=== PATIENT | female | born 1950 | race Caucasian/White ===

== ENCOUNTER 2019-01-07 11:59 | Emergency (ER) | payer OTHER, MEDICAID, SELFPAY ==
--- NOTE | 2019-01-07 12:02 | ED.GENADUL_ITS ---
Discharge Plan Disposition Patient Disposition: HOME Condition: Fair Discharge Details Chief Complaint: Urinary Clinical Impression: UTI (urinary tract infection) Primary Care Provider: Denys Fierro ED Provider: Lisseth Williamson Dania Meds and New Rx's Prescriptions: New cephalexin [Keflex] 500 mg capsule 500 mg PO BID Qty: 10 RF: 0 phenazopyridine [Pyridium] 100 mg tablet 100 mg PO TID PRN (Reason: pain) Qty: 6 RF: 0 Continued (DME) blood-glucose meter,continuous Misc See Rx Instructions .ROUTE .MEDSUPPLY Qty: 1 RF: 0 allopurinol 300 mg tablet 300 mg PO QHS RF: 0 amlodipine 10 mg tablet 10 mg PO DAILY RF: 0 sitagliptin 100 mg tablet 100 mg PO DAILY RF: 0 duloxetine 20 mg capsule,delayed release(DR/EC) 40 mg PO DAILY RF: 0 Lantus U-100 Insulin 100 unit/mL solution 10 unit SC QHS RF: 0 docusate sodium 50 mg/5 mL liquid 100 mg PO BID PRNRF: 0 atorvastatin 40 mg tablet 40 mg PO QHS RF: 0 lisinopril 40 mg tablet 40 mg PO DAILY RF: 0 hydrocortisone 2.5 % cream 1 applic TP DAILY PRNRF: 0 metoprolol tartrate 25 mg tablet 50 mg PO BID RF: 0 carbamazepine 100 mg tablet,chewable See Rx Instructions .ROUTE DAILY RF: 0 hydrochlorothiazide 12.5 mg capsule 12.5 mg PO DAILY RF: 0 sodium chloride 0.9 % solution for nebulization See Rx Instructions .ROUTE .COMPLEX RF: 0 Alphagan P 0.1 % drops 1 drp OP ONCE RF: 0 colchicine 0.6 mg tablet 0.6 mg PO DAILY PRNRF: 0 (DME) Blood Glucose Test Strip See Rx Instructions .ROUTE .MEDSUPPLY Qty: 10 RF: 0 (DME) insulin syringe-needle U-100 0.5 mL 31 gauge x 5/16 syringe See Rx Instructions .ROUTE .MEDSUPPLY Qty: 10 RF: 0 levothyroxine 150 mcg capsule 150 mcg PO DAILY RF: 0 Travatan Z 0.004 % drops 1 drp OP QPM RF: 0 omeprazole 40 mg capsule,delayed release(DR/EC) 40 mg PO BID RF: 0 Discharge Instructions Instructions: Urinary Tract Infection in Women (ED) Additional Instructions: Encourage hydration. Please take Keflex as prescribed. Even if symptoms improve, please take the entire course. You may use the Pyridium as prescribed to help with symptomatic management. If you develop fever/chills, back pain, or the new/worsening symptoms please seek care urgently once again. Otherwise, please keep upcoming appointment with your primary care physician. Referrals: Denys Fierro DO [Primary Care Provider] - Medical Decision Making Patient 68-year-old female presenting today with concern for UTI. She reports for the past 2 days, she is increased frequency, urgency and burning of urination. Denies any fevers chills. Denies any back pain. Reports that she has had urinary tract infections historically, the last of which was in May. She denies any recent antibiotics. Denies any recent travel. Has not noted any change in her bowel habits. On exam, she appears nontoxic. Patient is noted to be hypertensive at 169/64. She does have a history of hypertension. No CVA tenderness. No abdominal tenderness. Urinalysis concerning for small amount of leukocyte esterase. Negative for nitrite. Few amount of bacteria. This been sent for culture. Discussed these findings with the patient. These findings as well as her symptoms are concerning for urinary tract infection. She will be treated with Keflex. Will give Pyridium to help with medic management. She is given strict return precautions. She has an appointment on Tuesday with primary care. All of her questions and concerns were addressed and she is in agreement this plan. [facility] General Mode of arrival: ambulatory . Date/Time Provider Initiated Documentation: 01/07/19 12:01 . Limitations to Documentation: no limitations (Patient is status post laryngectomy, was whispers and writes, no limitations) . Information obtained by: patient . History of Present Illness 68 year old F presents to the emergency department with the chief complaint of UTI, described as moderate and similar to prior episodes, Quality is described as burning (with urination), and is localized to the genitals. Patient reports no radiation. Patient started experiencing this day(s) (2) and it has been constant. No relieving factors improve symptom(s), No exacerbating factors reported . Patient notes no other symptoms.; denies chest pain, cough, fever/chills, headaches, nausea/vomiting, rash and weakness. Patient did receive the following treatments prior to arrival, none Related Data Home Medications Medication Instructions Recorded Confirmed allopurinol 300 mg tablet 300 mg PO QHS tab 01/05/19 01/07/19 amlodipine 10 mg tablet 10 mg PO DAILY 01/05/19 01/07/19 atorvastatin 40 mg tablet 40 mg PO QHS 01/05/19 01/07/19 blood sugar diagnostic #10 each 01/05/19 blood-glucose meter,continuous #1 each 01/05/19 brimonidine 0.1 % eye drops 1 drp OP ONCE 01/05/19 01/07/19 carbamazepine 100 mg chewable See Rx Instructions .ROUTE DAILY 01/05/19 01/07/19 tablet colchicine 0.6 mg tablet 0.6 mg PO DAILY PRN 01/05/19 01/07/19 docusate sodium 50 mg/5 mL oral 100 mg PO BID PRN ml 01/05/19 01/07/19 liquid duloxetine 20 mg capsule,delayed 40 mg PO DAILY cap 01/05/19 01/07/19 release hydrochlorothiazide 12.5 mg capsule 12.5 mg PO DAILY 01/05/19 01/07/19 hydrocortisone 2.5 % topical cream 1 applic TP DAILY PRN gm 01/05/19 01/07/19 insulin glargine 100 unit/mL 10 unit SC QHS 01/05/19 01/07/19 subcutaneous solution insulin syringe-needle U-100 0.5 #10 each 01/05/19 mL 31 gauge x 09/28 levothyroxine 150 mcg capsule 150 mcg PO DAILY 01/05/19 01/07/19 lisinopril 40 mg tablet 40 mg PO DAILY 01/05/19 01/07/19 metoprolol tartrate 25 mg tablet 50 mg PO BID tab 01/05/19 01/07/19 omeprazole 40 mg capsule,delayed 40 mg PO BID 01/05/19 01/07/19 release sitagliptin 100 mg tablet 100 mg PO DAILY 01/05/19 01/07/19 sodium chloride 0.9 % for See Rx Instructions .ROUTE .COMPLEX 01/05/19 01/07/19 nebulization travoprost 0.004 % eye drops 1 drp OP QPM 01/05/19 01/07/19 cephalexin [Keflex] 500 mg PO BID #10 cap 01/07/19 phenazopyridine [Pyridium] 100 mg PO TID PRN #6 tab 01/07/19 Previous Rx's Medication Instructions Recorded cephalexin [Keflex] 500 mg PO BID #10 cap 01/07/19 phenazopyridine [Pyridium] 100 mg PO TID PRN #6 tab 01/07/19 Allergies Allergy/AdvReac Type Severity Reaction Status Date / Time metformin AdvReac Diarrhea, Unverified 01/07/19 12:08 Nausea, Vomiting Review of Systems Constitutional Reports as per HPI, Denies chills, Denies fever(s) and Denies poor appetite Cardiovascular Denies chest pain Respiratory Denies cough Gastrointestinal Denies abdominal pain, Denies change in bowel habits, Denies nausea and Denies vomiting Genitourinary Reports as per HPI Musculoskeletal Reports as per HPI and Denies back pain Integumentary/Breasts Reports as per HPI and Denies rash [facility] Medical History Aortic stenosis (Chronic) Aphonia (Acute) 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) Diabetes mellitus, type II (Acute) Dyspepsia (Acute) Dysphagia (Acute) Esophageal stricture (Acute) Fibromyalgia (Acute) GERD (gastroesophageal reflux disease) (Chronic) Hyperlipidemia (Acute) Hypertension (Chronic) Laryngeal cancer (Acute) Postoperative hypothyroidism (Acute) Pulmonary nodules (Acute) 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 (Acute) Surgical History History of back surgery (Acute ~1974) History of carpal tunnel release (Acute) History of cataract surgery (Chronic) History of cervical spinal surgery (Acute) History of section (Chronic) History of cholecystectomy (Chronic) History of hysterectomy (Chronic) History of laparoscopy (Chronic ~2015) History of laryngectomy (Acute) History of shoulder surgery (Chronic ~2006) History of tracheostomy (Acute ~2015) Hx of removal of ovary (Acute) Family History (Updated 12/11/18 @ 13:20 by Emerita Rani) Father Stroke Brother Colon cancer Sister Diabetes Myocardial infarction Social History Smoking/Tobacco Use Status: Former Tobacco Use Quit Date: 05/16/81 Alcohol Intake: never Substance use type: marijuana Do you feel safe at home: Yes Do you feel safe in your relationship?: Yes Exam Const General: cooperative, healthy appearing, comfortable, no acute distress, well developed and well groomed Nutritional Appearance: well nourished and overweight Orientation: alert and awake Neck Neck: normal visual inspection (stoma) Resp Effort & Inspection: normal respiratory effort and no respiratory distress Auscultation: clear to auscultation bilaterally, no rales, no rhonchi and no wheezes Cardio Rate: regular rate Rhythm: regular rhythm Heart Sounds: S1 normal and S2 normal GI Inspection: normal to inspection Palpation: soft, no hepatosplenomegaly, not firm, no guarding, not rigid and nontender Back/Spine/Pelvis Back: no CVA tenderness Skin General skin exam: no rashes or lesions noted Trauma: no lacerations or abrasions Neuro General: alert and awake Cognition: normal cognition Speech: speech normal Gait: normal gait Psych Appearance: grossly normal and well kempt Mental Status: mental status grossly normal Speech and Movement: speech and movement normal
[2019-01-07 12:04] VITALS: BP 169/64; PULSE 61; RESP 16; TEMP 36.6; O2SAT 97
[2019-01-07 12:19] LABS: Bilirubin Small (Negative); Blood Negative (Negative); Clarity Clear (Clear); Glucose Negative (Negative); Ketones Negative (Negative); Leukocyte Esterase Small (Negative); Nitrite Negative (Negative); Urobilinogen 0.2 EU/dL (Up TO 0.2)
[2019-01-07 12:28] LABS: Bacteria Few HPF (Negative); C & S Indicated? Yes; Casts Negative LPF (Negative); Crystals Rare Amorphous HPF (Negative); Epithelial Cells Rare HPF (Negative); Mucus Trace (Negative); RBC 0-2 (0-2)
[2019-01-07 12:54] VITALS: TEMP 36.6
== END 2019-01-07 12:52 | disposition home or self-care (01) ==
LOC: ER 13:01
PROVIDERS: Emergency Provider Physician Assistant; PCP Family Medicine
DX: N39.0 Urinary tract infection, site not specified (principal); E11.9 Type 2 diabetes mellitus without complications; I10 Essential (primary) hypertension
CPT/HCPCS: 99283; 81003; 81015; 87086

== ENCOUNTER 2019-01-18 10:27 | Emergency (ER) | payer OTHER, MEDICAID, SELFPAY ==
[2019-01-18 10:35] VITALS: BP 126/48; PULSE 69; RESP 20; TEMP 36.1; O2SAT 97
--- NOTE | 2019-01-18 10:39 | DI.RAD_ITS ---
SYMPTOMS/DIAGNOSIS: FALL, LT LATERAL RIB PAIN PA AND LATERAL CHEST AND LEFT RIBS: PA and lateral views of the chest and four views of the left ribs were obtained. The heart is not enlarged. The lungs are clear. No pleural effusion or pneumothorax. No rib fracture identified.
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
[2019-01-18] MEDS: Lidocaine 5% Patch 1 PATCH TP (10:49)
[2019-01-18] MEDS: Ibuprofen 800 MG TAB PO (10:50)
[2019-01-18] MEDS: Bupivacaine 0.25% Pres-Free 30 ML VIAL (11:45)
[2019-01-18] MEDS: Bupivacaine LIPOSOME/PF 133 MG/10 ML VIAL IJ (11:45)
[2019-01-18 12:25] VITALS: BP 169/86; PULSE 58; RESP 15; TEMP 36.2; O2SAT 98
--- NOTE | 2019-01-18 12:42 | NUR.NOTE ---
pt provided with meal prior to d/c Nursing Note:
== END 2019-01-18 12:42 | disposition home or self-care (01) ==
LOC: ER 12:22
PROVIDERS: Emergency Provider Student in an Organized Health Care Education/Training Program; PCP Family Medicine
DX: R07.81 Pleurodynia (principal); E11.9 Type 2 diabetes mellitus without complications; W01.0XXA Fall on same level from slipping, tripping and stumbling without subsequent striking against object, initial encounter
CPT/HCPCS: 64450; 99283; 71046; 71100

== ENCOUNTER 2019-01-25 01:00 | Outpatient (CLI) | payer OTHER, MEDICAID, SELFPAY ==
--- NOTE | 2019-01-25 10:30 | MERGE_ITS ---
*[facility]* *[facility]* [address] [place] [address] Date of study: 01/25/2019 Transthoracic Echocardiography M-mode, complete 2D, complete spectral Doppler, and color Doppler *STUDY CONCLUSIONS* Summary: 1. Left ventricle: The cavity size was normal. Wall thickness was increased in a pattern of moderate LVH. There was severe asymmetric hypertrophy of the septum. Systolic function was normal. The estimated ejection fraction was 55-60%. Wall motion was normal; there were no regional wall motion abnormalities. The outflow tract showed mild to moderate obstruction and a velocity flow profile with a late systolic peak, typical of dynamic obstruction (peak velocity with Valsalva 3.4m/s). 2. Aortic valve: Trileaflet; moderately thickened, moderately calcified leaflets. Valve mobility was restricted. Transvalvular velocity was increased. There was moderate to severe stenosis. There was mild regurgitation. Valve area (VTI): 0.9cm^2. Valve area (Vmax): 0.7cm^2. Valve area (Vmean): 1cm^2. 3. Mitral valve: Mildly calcified annulus. There was mild to moderate regurgitation. 4. Right ventricle: The cavity size was normal. Wall thickness was normal. Systolic function was normal. 5. Tricuspid valve: There was mild-moderate regurgitation. 6. Pulmonary arteries: Pulmonary systolic pressure was mildly increased. PA peak pressure: 38mm Hg (S). *PATIENT PRESENTATION* Height: 160cm (63in ) S/D Pressure: 165 / 65 Weight: 79.4kg (174.6lb ) BSA: 1.91m^2 Test start time: 10:30 AM. Test stop time: 11:30 AM. PERFORMING Unknown PERFORMING [facility] PRESS SERVICE READER Makenzie Barajas RT (R)(CT), [facility] CONSULTING Denys Fierro ORDERING Denys Fierro REFERRING Denys Fierro *PROCEDURE DATA* Procedure information: This study was interpreted by [facility]. Pertinent images and digital data are archived for permanent storage and are available for subsequent review. No prior study was available for comparison. Study status: Routine. Transthoracic echocardiography. M-mode, complete 2D, complete spectral Doppler, and color Doppler. A Transthoracic Echocardiogram was performed. Scanning was performed from the parasternal, apical, subcostal, and suprasternal notch acoustic windows. Images were obtained using an [id number] cardiac ultrasound machine. Image quality was adequate. Study completion: The patient tolerated the procedure well. History: PMH: Reports of aortic stenosis from old records i35.0. *CARDIAC ANATOMY* Left ventricle: The cavity size was normal. Wall thickness was increased in a pattern of moderate LVH. There was severe asymmetric hypertrophy of the septum. Systolic function was normal. The estimated ejection fraction was 55-60%. Wall motion was normal; there were no regional wall motion abnormalities. The outflow tract showed mild to moderate obstruction and a velocity flow profile with a late systolic peak, typical of dynamic obstruction (peak velocity with Valsalva 3.4m/s). Aortic valve: Trileaflet; moderately thickened, moderately calcified leaflets. Valve mobility was restricted. Doppler: Transvalvular velocity was increased. There was moderate to severe stenosis. There was mild regurgitation. VTI ratio of LVOT to aortic valve: 0.33. Valve area (VTI): 0.9cm^2. Indexed valve area (VTI): 0.5cm^2/m^2. Peak velocity ratio of LVOT to aortic valve: 0.25. Valve area (Vmax): 0.7cm^2. Indexed valve area (Vmax): 0.4cm^2/m^2. Mean velocity ratio of LVOT to aortic valve: 0.34. Valve area (Vmean): 1cm^2. Indexed valve area (Vmean): 0.5cm^2/m^2. Mean gradient (S): 32.9mm Hg. Peak gradient (S): 65.1mm Hg. Aorta: Aortic root: The aortic root was normal in size. Ascending aorta: The ascending aorta was at upper normal limits. Mitral valve: Mildly calcified annulus. Mobility was not restricted. Doppler: Transvalvular velocity was within the normal range. There was no evidence for stenosis. There was mild to moderate regurgitation. Valve area by pressure half-time: 2.9cm^2. Indexed valve area by pressure half-time: 1.5cm^2/m^2. Peak gradient (D): 2.4mm Hg. Left atrium: The atrium was normal in size. Right ventricle: The cavity size was normal. Wall thickness was normal. Systolic function was normal. Pulmonic valve: Poorly visualized. Doppler: Transvalvular velocity was within the normal range. There was no evidence for stenosis. There was no significant regurgitation. Tricuspid valve: Structurally normal valve. Doppler: Transvalvular velocity was within the normal range. There was no evidence for stenosis. There was mild-moderate regurgitation. Pulmonary artery: Poorly visualized. Pulmonary systolic pressure was mildly increased. Right atrium: The atrium was normal in size. Pericardium: There was no pericardial effusion. Systemic veins: Inferior vena cava: Well visualized. The vessel was patent and normal in size. The respirophasic diameter changes were in the normal range (greater than or equal to 50%). Baseline ECG: Bradycardia. Measurements Left ventricle Value Reference LV ID, ED, PLAX 3.5 cm 3.5 - 6.0 LV ID, ES, PLAX 2.2 cm 2.1 - 4.0 LV PW thickness, ED, PLAX 1.4 cm LV end-diastolic volume, 1-p A2C 109 ml LV ejection fraction, 1-p A2C 65 % LV end-diastolic volume, 1-p A4C 95 ml LV ejection fraction, 1-p A4C 50 % LV e', lateral 0.077 m/sec LV E/e', lateral 10 LV e', medial 0.059 m/sec LV E/e', medial 13 LV e', average 0.068 m/sec LV E/e', average 12 Ventricular septum Value Reference IVS thickness, ED, PLAX 1.3 cm LVOT Value Reference LVOT ID, A-P 1.9 cm LVOT area 2.8 cm^2 LVOT peak velocity, S 1.02 m/sec LVOT mean velocity, S 0.91 m/sec LVOT VTI, S 32.9 cm LVOT peak gradient, S 4.2 mm Hg LVOT mean gradient, S 3.4 mm Hg Stroke volume (SV), LVOT DP 93 ml Stroke index (SV/bsa), LVOT DP 49 ml/m^2 Aortic valve Value Reference Aortic valve peak velocity, S 4 m/sec Aortic valve mean velocity, S 2.7 m/sec Aortic valve VTI, S 99.0 cm Aortic mean gradient, S 32.9 mm Hg Aortic peak gradient, S 65.1 mm Hg VTI ratio, LVOT/AV 0.33 Aortic valve area, VTI 0.9 cm^2 Velocity ratio, peak, LVOT/AV 0.25 Aortic valve area, peak velocity 0.7 cm^2 Velocity ratio, mean, LVOT/AV 0.34 Aortic valve area, mean velocity 1 cm^2 Aortic valve area/bsa, mean velocity 0.5 cm^2/m^2 Aorta Value Reference Aortic root ID, ED 2.9 cm Ascending aorta ID, A-P, S 3.4 cm Left atrium Value Reference LA ID, A-P, ES 3.6 cm LA ID/bsa, A-P 1.9 cm/m^2 <=2.2 LA volume, ES, 2-p 46 ml LA volume/bsa, ES, 2-p 24 ml/m^2 LA/aortic root ratio 1.24 Mitral valve Value Reference Mitral E-wave peak velocity 0.78 m/sec Mitral A-wave peak velocity 0.83 m/sec Mitral deceleration time (H) 264 ms 150 - 230 Mitral pressure half-time 76 ms Mitral peak gradient, D 2.4 mm Hg Mitral E/A ratio, peak 0.93 Mitral valve area, PHT, DP 2.9 cm^2 Pulmonary arteries Value Reference PA pressure, S, DP (H) 38 mm Hg <=30 Tricuspid valve Value Reference Tricuspid regurg peak velocity 2.6 m/sec Tricuspid peak RV-RA gradient 27.9 mm Hg Right atrium Value Reference RA area, ES, A4C 14.2 cm^2 8.3 - 19.5 Systemic veins Value Reference Estimated CVP 10 mm Hg Right ventricle Value Reference RV pressure, S, DP (H) 38 mm Hg <=30 Legend: (L) and (H) analia values outside specified reference range. I have personally reviewed the images and have reviewed and edited the reported findings. Electronically signed by Jabier Quiñonez 01/26/2019 12:01
== END 2019-01-25 01:20 ==
PROVIDERS: PCP Family Medicine; Visit Provider Family Medicine
DX: I35.0 Nonrheumatic aortic (valve) stenosis (principal); I34.8 Other nonrheumatic mitral valve disorders; I36.1 Nonrheumatic tricuspid (valve) insufficiency; I10 Essential (primary) hypertension
CPT/HCPCS: 93306

== ENCOUNTER 2019-02-01 00:21 | Outpatient (CLI) | payer OTHER, MEDICAID, SELFPAY ==
--- NOTE | 2019-02-01 11:00 | DI.MAMMO_ITS ---
EXAM: MAMMO SCREENING CLINICAL HISTORY: screening Z12.39. TECHNIQUE: Mammograms were interpreted according to the usual protocol including computer analysis w ith CAD system, tomosynthesis and C-view imaging. COMPARISON: No exams were available for comparison FINDINGS: Breasts are of moderate density with fairly symmetrical distribution of fibroglandular tissue. No dom inant mass or clumped microcalcification is identified in either breast. There is a questionable area of asymmetric density projected in the central portion of the left breast on MLO view. Additional ma mmographic views of this area are requested to include MLO spot compression view. IMPRESSION: Additional mammographic views of the left breast requested as described above. Breast ultrasound may be indicated as well depending on the results of the additional mammographic views. Category 0, breas t density category B. BI-RADS Cat 0 - Assessment Incomplete: Need additional imaging evaluation Breast Density - Category B - Scattered areas of fibroglandular density
== END 2019-02-01 00:41 ==
PROVIDERS: PCP Family Medicine; Visit Provider Family Medicine
DX: Z12.31 Encounter for screening mammogram for malignant neoplasm of breast (principal); R92.8 Other abnormal and inconclusive findings on diagnostic imaging of breast
CPT/HCPCS: 77063; 77067

== ENCOUNTER 2019-02-02 11:16 | Emergency (ER) | payer OTHER, MEDICAID, SELFPAY ==
[2019-02-02 11:23] VITALS: BP 192/65; PULSE 66; RESP 16; TEMP 36.4; O2SAT 96
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
[2019-02-02 12:04] LABS: Abs Immature Grans 0.09 k/cumm (0.0-0.09); Absolute Basophil Count 0.03 k/cumm (0.0-0.2); Absolute Eosinophil Count 0.09 k/cumm (0.0-0.7); Absolute Lymphocyte Count 1.24 k/cumm (1.2-3.4); Absolute Monocyte Count 0.55 k/cumm (0.11-0.7); Absolute Neutrophil Count 3.64 k/cumm (1.2-6.7); Basophils % 0.5; Eosinophils % 1.6; HCT 33.5 % (36.0-46.0); HGB 11.1 g/dL (12.0-15.5); Immature Grans % 1.6; Mean Corp. HGB Concentration 33.1 g/dL (32.0-36.0); Mean Corpuscular Hemoglobin 29.8 pg (27.0-33.0); Mean Corpuscular Volume 90.1 fL (80-95); Mean Platelet Volume 11.6 fL (8.0-11.0); Monocytes % 9.8; Neutrophils % 64.5; Platelet Count 197 x1000/uL (130-400); RBC 3.72 m/cumm (4.00-5.20); RBC Distribution Width 15.2 % (11.7-14.6); White Blood Cell Count 5.64 k/cumm (4.4-10.8)
[2019-02-02] MEDS: MORPHine 10 MG/ML VIAL 4 MG IVP (12:12)
[2019-02-02 12:16] LABS: ALT 44 U/L (14-59); AST 39 U/L (15-37); Albumin 3.8 g/dL (3.4-5.0); Alkaline Phosphatase 144 U/L (46-116); Anion Gap 9.3 mmol/L (3-11); BUN 11 mg/dL (7-18); Bilirubin, Total 0.3 mg/dL (0.2-1.0); CO2 26.7 mmol/L (21.0-32.0); CREATININE 0.97 mg/dL (0.55-1.02); Calcium 7.5 mg/dL (8.5-10.1); Chloride 106 mmol/L (98-107); Estimated GFR 56.77 (mL/min/1.73m2); Glucose 125 mg/dL (70-100); Potassium 4.2 mmol/L (3.5-5.1); Sodium 142 mmol/L (136-145)
--- NOTE | 2019-02-02 12:25 | DI.CT_ITS ---
EXAM: CT HEAD CERV SPINE FACIAL WO CLINICAL HISTORY: fall, hit face, notable tenderness frontal,max,pal. TECHNIQUE: A cervical spine and head and facial bone CT were performed without contrast material. COMPARISON: No exams were available for comparison FINDINGS: HEAD: There is no evidence of an intra or extra-axial hemorrhage. Age-appropriate atrophic changes are identified. The ventricles are intact. There is no evidence of a skull fracture. The paranasal sinuses are intact. There is no evidence of a mastoid effusion. C-spine: Vertebral bodies appear intact. Narrowing and associated degenerative bony changes are most advanced at C5-C6 and C6-C7. There is no evidence of an abnormality involving the posterior element s. There are mild facet joint degenerative changes. The neural canal is widely patent. No Foraminal compromise is evident. The odontoid is intact and is closely applied to the anterior arch of C1. The prevertebral soft tissues appear unremarkable. FACIAL BONE: No facial bone fracture is identified. The paranasal sinuses are intact. The orbits are intact. The nasal bones are unremarkable. The patient is edentulous. IMPRESSION: No acute intracranial abnormality is identified. No evidence of a c spine fracture. No evidence of a facial bone fracture.
--- NOTE | 2019-02-02 12:52 | NUR.NOTE ---
pt back from ct Nursing Note:
[2019-02-02 13:45] VITALS: BP 143/90; PULSE 65; RESP 16; TEMP 36.7
== END 2019-02-02 13:55 | disposition home or self-care (01) ==
PROVIDERS: Emergency Provider Student in an Organized Health Care Education/Training Program; PCP Family Medicine
DX: S00.83XA Contusion of other part of head, initial encounter (principal); R04.0 Epistaxis; W01.0XXA Fall on same level from slipping, tripping and stumbling without subsequent striking against object, initial encounter; E11.9 Type 2 diabetes mellitus without complications; Z79.4 Long term (current) use of insulin; I10 Essential (primary) hypertension
CPT/HCPCS: 36415; 80053; 96374; 99284; 70450; 70486; 72125; 85025; 85610; 85730

== ENCOUNTER 2019-03-09 00:44 | Outpatient (CLI) | payer OTHER, MEDICAID, SELFPAY ==
--- NOTE | 2019-03-09 13:47 | DI.MAMMO_ITS ---
EXAM: MG MAMMO DIAGNOSTIC UNI AND US BREAST LT LIMITED CLINICAL HISTORY: F/U ABNL MAMMO, QUESTIONABLE AREA OF ASYMMETRIC DENSITY TECHNIQUE: Ultrasound performed using standard protocol. COMPARISON: SCREENING MAMMOGRAM OF 02/01/2019 FINDINGS: Additional mammographic views of the left breast and left breast ultrasound are interpreted in conjun ction. These examinations were obtained to evaluate a questionable area of asymmetric density seen o n recent mammogram. Additional mammographic views fail to show a discrete mass. Breast ultrasound s hows no evidence of a mass. An incidental 3 millimeter mammary cyst is noted in approximately the 8 o'clock position. IMPRESSION: No specific evidence of malignancy at this time. Follow-up unilateral left breast mammogram recommend ed in 6 months. Category 3, breast density category B. BI-RADS Cat 3 - 6 month - Probably Benign Finding: Recommend follow-up mammography in 6 months Breast Density - Category B - Scattered areas of fibroglandular density
== END 2019-03-09 01:04 ==
PROVIDERS: PCP Family Medicine; Visit Provider Family Medicine
DX: Z12.31 Encounter for screening mammogram for malignant neoplasm of breast (principal); R92.8 Other abnormal and inconclusive findings on diagnostic imaging of breast; N60.02 Solitary cyst of left breast
CPT/HCPCS: 76642; 77061; 77065; G0279

== ENCOUNTER 2019-04-15 14:50 | Emergency (ER) | payer MEDICARE, MEDICAID, SELFPAY ==
[2019-04-15 14:55] VITALS: BP 193/72; PULSE 67; RESP 16; TEMP 36.4; O2SAT 96
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
[2019-04-15] MEDS: oxyCODONE 5 MG TAB PO (15:28)
--- NOTE | 2019-04-15 15:36 | DI.RAD_ITS ---
EXAM: XR FOOT LT COMPLETE INDICATION: hit L 2nd/3rd toes, r/o acute fracture,PAIN COMPARISON: No exams were available for comparison TECHNIQUE: 2D digital imaging was performed. FINDINGS: There is a transverse lucency through the shaft of the distal phalanx of the left 4th toe. There is soft tissue swelling of the 4th toe. This likely reflects an acute fracture. There is a question of cortical disruption in the medial aspect of the shaft of the proximal phalanx of the 2nd toe suspicious for a nondisplaced fracture. No other fracture or dislocation is seen. Degenerative changes are seen in the foot, particularly at the 1st metatarsophalangeal joint. IMPRESSION: 1. Nondisplaced fracture of the shaft of the distal phalanx of the left 4th toe. Please correlate cli nically. Infection may also be considered. 2. Question of a nondisplaced fracture involving the proximal phalanx of the 2nd toe.
--- NOTE | 2019-04-15 16:29 | DI.VRAD_ITS ---
PROCEDURE INFORMATION: Exam: XR Left Foot Complete Exam date and time: 04/15/2019 3:28 PM Age: 69 years old Clinical history: Pain; Foot; Left . The area of pain is the second and third digit. The patient had had her second and third toes on the stand. TECHNIQUE: Imaging protocol: XR Left foot. Views: 3 or more views. COMPARISON: No relevant prior studies available. FINDINGS: Bones/joints: There is a horizontal fracture through the tuft of the fourth digit on series 1. There is cortical irregularity laterally, concerning for bony resorption. This finding should be correlated with any concern for infection. There is a linear lucency and cortical irregularity to the medial shaft of the second proximal phalanx, series 1. This could represent a subtle nondisplaced fracture. Correlation with point tenderness suggested. There are degenerative changes to the IP joints, first MTP joint, and bases of the metatarsals. A heel spur is seen. Soft tissues: No unusual soft tissue calcifications. IMPRESSION: 1. Horizontal fracture through the tuft of the fourth digit. There is cortical irregularity laterally, concerning for bony resorption. Findings should be correlated with any concern for infection. 2. Linear lucency and cortical irregularity in the medial shaft of the left second proximal phalanx. This could represent a subtle nondisplaced fracture. Correlation with point tenderness suggested. 3. No definite fracture identified in the third digit. If symptoms persist, consider followup imaging in 7 days or alternatively imaging modalities. Other findings/details as above. Dictated and Authenticated by: Adrianna Hernandez MD. Ordering:ALBIN Schaffer MD
[2019-04-15 17:24] VITALS: PULSE 62; RESP 18; TEMP 36.5; O2SAT 96
== END 2019-04-15 17:36 | disposition home or self-care (01) ==
PROVIDERS: Emergency Provider Physician Assistant; PCP Family Medicine
DX: S92.515A Nondisplaced fracture of proximal phalanx of left lesser toe(s), initial encounter for closed fracture (principal); X50.9XXA Other and unspecified overexertion or strenuous movements or postures, initial encounter; E11.9 Type 2 diabetes mellitus without complications; Z79.4 Long term (current) use of insulin; I10 Essential (primary) hypertension
CPT/HCPCS: 28510; 73630

== ENCOUNTER 2019-05-07 00:32 | Outpatient (CLI) | payer MEDICARE, MEDICAID, SELFPAY ==
--- NOTE | 2019-05-07 09:20 | DI.NM_ITS ---
APPROVED REPORT Exam: Exercise Treadmill (5 seconds) then transitioned to Lexiscan stress test Patient Location: Out-Patient Room/Bed: Stress Nurse: Dona Koo RN BMI: 30.11 Baseline Rhythm: Sinus Rhythm Indications: Preop, Aortic Stenosis Medical History Medical History: Aphonia, Esophageal Stricture, Tracheostomy Dependence, Laryngeal Cancer, Pulmonary Nodules, Postoperative Hypothyroidism, Gerd Cardiac Medications: Atorvastatin, Metoprolol Tartrate, Lisinopril, Hydrochlorothiazide, Amlodipine, Allergies: Metformin Cardiac Risk Factors: FHX of CAD, HTN, Hyperlipidemia, Diabetes (insulin) Previous Cardiac Procedures: None Pretest Chest Pain Characteristics: No chest pain Exercise History: Sedentary Physical Disabilities: Difficulty walking. Lung Sounds: Clear to auscultation Heart Sounds: Murmur Stress Test Details Test: Pharmacologic stress testing performed using 0.4 mg of regadenoson per 5 mL given IV over 10 s econds. Reason for pharmacologic stress test: Patient started on Treadmill (5 seconds) and was unable as t he treadmill was too fast. Nuclear Acquisition: Rest Tc-99m/Stress Tc-99m 1 day Rest Isotope: Tc-99m Sestamibi. Dose: 12.1 Date: 05/07/2019 Injection Time: 0815 Stress Isotope: Tc-99m Sestamibi. Dose: 1005 Date: 05/07/2019 Injection Time: 1005 HR Max Heart Rate (APMHR): 149 bpm Resting HR Supine: 65 bpm Target HR (85% APMHR): 126 bpm Resting HR Standin bpm Max HR Achieved: 79 bpm % of APMHR: 53 Recovery HR: 68 bpm BP Resting BP Supine: 128/70 mmHg Resting BP Standin/60 mmHg ECG Resting ECG: Sinus Rhythm Clinical Reason for Termination: Patient unable to walk on treadmill too fast Exercise duration: min5 sec Stress ECG Conclusion 1. The patient underwent pharmacologic stress without symptoms 2. Blunted hemodynamics 3. Electrocardiographically nondiagnsotic due to inadequate heart rate Protocol Used: Regadenoson Stress Test Summary STAGE HR BP Symptoms NOTES Supine 65 128/70 Standing 68 120/60 1 min 79 120/58 2 min 3 min 71 140/70 4 min 5 min 6 min 66 124/62 7 min 8 min 9 min 10 min 1 min recovery 3 min recovery 6 min recovery MPI Conclusion No evidence of myocardial infarction or significant ischemia with pharmacologic stress
[2019-05-07] MEDS: Regadenoson 0.4 MG/5 ML SYR IVP (10:39)
== END 2019-05-07 00:52 ==
PROVIDERS: PCP Family Medicine; Visit Provider Family Medicine
DX: I35.0 Nonrheumatic aortic (valve) stenosis (principal); R13.10 Dysphagia, unspecified; Z85.21 Personal history of malignant neoplasm of larynx; Z93.0 Tracheostomy status; I10 Essential (primary) hypertension; E78.5 Hyperlipidemia, unspecified; E11.9 Type 2 diabetes mellitus without complications; Z79.4 Long term (current) use of insulin; R91.8 Other nonspecific abnormal finding of lung field; Z82.49 Family history of ischemic heart disease and other diseases of the circulatory system
CPT/HCPCS: 78452; 93016; 93018; 93017; J2785

== ENCOUNTER 2019-06-07 10:07 | Emergency (ER) | payer MEDICARE, MEDICAID, SELFPAY ==
[2019-06-07 10:12] VITALS: BP 179/77; PULSE 97; RESP 14; TEMP 36.4; O2SAT 96
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
[2019-06-07 11:30] VITALS: RESP 12; RESP 5; O2SAT 95
[2019-06-07] MEDS: Albuterol/Ipratropium 3 ML UPD VIAL UPD (11:30)
[2019-06-07 11:34] VITALS: TEMP 37
[2019-06-07 11:38] VITALS: RESP 12
[2019-06-07 11:43] VITALS: RESP 12; RESP 5; RESP 8; O2SAT 99
--- NOTE | 2019-06-07 12:00 | DI.RAD_ITS ---
EXAM: XR CHEST 2V PA LATERAL CLINICAL HISTORY: Cough, throat problem, history of Tracheostomy. TECHNIQUE: 2D digital imaging was performed. COMPARISON: XR ribs LT w PA lat chest from 01/18/2019 FINDINGS: LUNGS: Clear. No pleural abnormality seen. HEART: Normal. MEDIASTINUM: Normal. OTHER FINDINGS:Normal. BONE:Normal. IMPRESSION: No acute pulmonary findings.
--- NOTE | 2019-06-07 12:04 | DI.RAD_ITS ---
EXAM: XR SOFT TISSUE NECK INDICATION: THROAT CLOSING, HISTORY OF LARYNGEAL CA, TRACHEOSTOMY. COMPARISON: No exams were available for comparison TECHNIQUE: 2D digital imaging was performed. FINDINGS: No significant narrowing of the airway is seen. There is a tracheostomy in place. Prevertebral soft tissues are unremarkable. If there is continued concern, a CT scan may be considered for further ev aluation.
--- NOTE | 2019-06-07 13:22 | PDOC.ERCMPRO ---
- If Service Date Differs Date of service: 06/07/19 Time of Service: 13:22 Care Management Progress Note S/O: CM met with Karina at the request of ED provider. Karina was seen by respiratory therapy in the ED today and it has been recommended that she obtain equipment for humidified oxygen and suctioning equipment for laryngeal stoma care. Karina struggles with speaking and she communicates with me by writing on a piece of paper. She reports she has had the trach since 2016. At the time, she lived in [place], [place], and used a DME company there, but is unable to remember the name of the supplier. Karina now lives in an apartment at the [facility] and she states she has not had a DME supplier for approximately three years. CM confirms with patient that she is insured through Medicare and Medicaid and advises her the insurance will pay for the recommended DME, which is being coordinated by respiratory therapy. A: Karina is a 69 year old female who presents in the ED for respiratory symptoms. P: Respiratory therapy is coordinating recommended DME through [facility]. Karina will be discharged home when medically cleared by provider. She will follow-up with [facility] as scheduled on June 15, 2019.
[2019-06-07] MEDS: Acetaminophen 80 MG CHEW 400 MG PO (13:34)
== END 2019-06-07 13:55 | disposition home or self-care (01) ==
PROVIDERS: Emergency Provider Registered Nurse Emergency; PCP Family Medicine
DX: R13.10 Dysphagia, unspecified (principal); Z93.0 Tracheostomy status; I10 Essential (primary) hypertension; E11.9 Type 2 diabetes mellitus without complications; Z79.4 Long term (current) use of insulin
CPT/HCPCS: 87449; 94640; 99284; 70360; 71046; 99283; J7620

== ENCOUNTER 2020-02-15 04:55 | Outpatient (CLI) | payer MEDICARE, MEDICAID, SELFPAY ==
--- NOTE | 2020-02-15 07:40 | DI.RAD_ITS ---
EXAM: XR LUMBAR SPINE COMPLETE CLINICAL HISTORY: Acute on chronic low back pain, r/o compression FX, M54.5 TECHNIQUE: 2D digital imaging was performed. COMPARISON: CR LUMBAR SPINE COMPLETE from 06/29/2008 FINDINGS: The vertebral bodies are well maintained in height. Bony detail is somewhat obscured on the AP and o blique views due to overlying bowel gas. Endplate osteophytes are noted throughout. There is mild n arrowing of the L4-5 disc space. Facet degenerative changes are also seen at this level. There is s evere narrowing of the L5-S1 disc space. Facet degenerative changes are noted. There is no signific ant scoliosis. No spondylolysis or spondylolisthesis is seen. The aorta shows calcification and whi ch is normal in diameter. There are right upper quadrant surgical clips. IMPRESSION: Degenerative disc changes and facet degenerative changes, greatest at L4-5 and L5-S1.
== END 2020-02-15 05:15 ==
PROVIDERS: PCP Family Medicine; Visit Provider Family Medicine
DX: M47.816 Spondylosis without myelopathy or radiculopathy, lumbar region (principal); M48.07 Spinal stenosis, lumbosacral region
CPT/HCPCS: 72110

== ENCOUNTER 2020-05-28 17:25 | Observation (INO) | payer MEDICARE, MEDICAID, SELFPAY ==
[2020-05-28] VITALS (41 sets, daily range): BP systolic 96–164; BP diastolic 35–70; PULSE 46–63; RESP 10–22; TEMP 35.9–36.7; O2SAT 93–100
--- NOTE | 2020-05-28 17:30 | RT.EKG_ITS ---
APPROVED REPORT Exam: Resting ECG Patient Location: E HR:55 bpm ECG Measurements Heart Rate 55 AXIS GA 253 P 52 QRSd 93 QRS -11 QT 447 T 110 QTc 429 Conclusion Sinus bradycardia...rate 55 Prolonged GA interval Abnormal T in I aVL V5 V6
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
[2020-05-28] MEDS: Meclizine 25 MG TAB PO (18:04)
[2020-05-28] MEDS: Normal Saline 1,000 ML 125 ML IV (18:05)
[2020-05-28 18:30] LABS: Abs Immature Grans 0.04 10^3/uL (0.0-0.06); Absolute Basophil Count 0.03 10^3/uL (0.0-0.2); Absolute Eosinophil Count 0.16 10^3/uL (0.0-0.7); Absolute Lymphocyte Count 1.65 10^3/uL (1.2-3.4); Absolute Neutrophil Count 3.89 10^3/uL (1.2-6.7); Basophils % 0.5; Eosinophils % 2.5; HGB 10.9 g/dL (11.2-15.7); Immature Grans % 0.6; Lymphocytes % 25.5; MCH 29.5 pg (27.0-33.0); MCV 89.2 fL (80-95); MPV 12.8 fL (8.0-11.0); Monocytes % 10.8; Neutrophils % 60.1; Nucleated RBC 0 %; Platelet Count 193 10^3/uL (130-400); RDW 14.1 % (11.7-14.6); RDW-SD 45.7 fL; WBC 6.47 10^3/uL (4.4-10.8)
[2020-05-28 18:55] LABS: PTT Activated 23.2 sec (21.0-27.5); Prothrombin Time 10.5 sec (9.3-11.0)
--- NOTE | 2020-05-28 18:55 | DI.RAD_ITS ---
EXAM: XR CHEST 2V PA LATERAL CLINICAL HISTORY: weak/dizzy TECHNIQUE: 2D digital imaging was performed. COMPARISON: CR XR ribs LT w PA lat chest from 01/18/2019 CR XR CHEST 2V PA LATERAL from 06/07/2019 FINDINGS: The heart is not enlarged. The lungs are clear and well expanded. No pleural effusion seen. Mediastin al contours appear intact. IMPRESSION: Normal chest. RADIATION DOSE DELIVERED: Total DLP
--- NOTE | 2020-05-28 18:56 | DI.CT_ITS ---
EXAM: CT HEAD WO CLINICAL HISTORY: weak,dizzy. TECHNIQUE: Imaging Protocol: Axial computed tomography images with coronal and sagittal reformatted images were created and reviewed COMPARISON: CT CT HEAD CERV SPINE FACIAL WO from 02/02/2019 FINDINGS: The ventricular system is normal in appearance. No evidence of acute intracranial hemorrhage, mass effect, or midline shift. There is small left basal ganglia lacunar infarct versus prominent perivascular space. No evidence o f acute process. The orbital structures are unremarkable. The temporal bone structures appear intact. Calvarium: Normal. Visualized Paranasal sinuses/Mastoids: Clear. IMPRESSION: No evidence of acute intracranial abnormality. RADIATION DOSE DELIVERED: 756.58mGy.cm Total DLP 756.58mGy.cm Total DLP DATA REPOSITORY: All CT scans at this facility are submitted to the National Radiology Data Registry (NRDR) Dose Index Registry (DIR) with the [employer] ([employer]). RADIATION OPTIMIZATION: All CT scans at this facility use at least one of these dose optimization te chniques: automated exposure control; mA and/or kV adjustment per patient size (includes targeted exa ms where dose is matched to clinical indication); or iterative reconstruction.
[2020-05-28 19:01] LABS: ALT 20 U/L (14-59); AST 16 U/L (15-37); Albumin 3.5 g/dL (3.4-5.0); Alkaline Phosphatase 130 U/L (46-116); Anion Gap 8.8 mmol/L (3-11); BUN 28 mg/dL (7-18); Bilirubin, Total 0.2 mg/dL (0.2-1.0); CO2 28.2 mmol/L (21.0-32.0); CREATININE 1.85 mg/dL (0.55-1.02); Calcium 8.8 mg/dL (8.5-10.1); Chloride 99 mmol/L (98-107); Glucose 111 mg/dL (74-106); Magnesium 2.1 mg/dL (1.8-2.4); Potassium 3.6 mmol/L (3.5-5.1); Sodium 136 mmol/L (136-145); Total Protein 6.7 g/dL (6.4-8.2)
[2020-05-28 19:08] LABS: Troponin I < 0.05 ng/mL (<0.06)
--- NOTE | 2020-05-28 19:08 | DI.VRAD_ITS ---
PROCEDURE INFORMATION: Exam: CT Head Without Contrast Exam date and time: 05/28/2020 5:57 PM Age: 70 years old Clinical indication: Dizziness and other: Weakness TECHNIQUE: Imaging protocol: Computed tomography of the head without contrast. Total images: 998 Radiation optimization: All CT scans at this facility use at least one of these dose optimization techniques: automated exposure control; mA and/or kV adjustment per patient size (includes targeted exams where dose is matched to clinical indication); or iterative reconstruction. COMPARISON: CT HEAD CERV SPINE FACIAL WO 02/02/2019 12:23 PM FINDINGS: Brain: Mild generalized atrophy with minimal periventricular chronic microvascular changes consistent with the patient's advanced age. No extra-axial fluid collections. No evidence of acute intracranial hemorrhage. Ordoñez-white differentiation is well maintained. No CT evidence of large territory acute or subacute intracranial ischemia/infarct. There is a 8 mm rounded hypodensity in the inferior left basal ganglia distribution consistent with either a normal variant prominent perivascular space or a small chronic lacunar infarct. No intracranial mass lesions. No midline shift or herniation. Cerebral ventricles: Ventricles normal. Bones/joints: The calvarium and visualized facial bones are intact. Hyperostosis frontalis interna incidentally noted. Paranasal sinuses: Visualized paranasal sinuses are clear. Mastoid air cells: Visualized mastoid air cells are clear. Orbital cavity: Visualized orbital contents demonstrate no evidence of acute abnormality. Vasculature: Moderate atherosclerotic calcific plaque is identified in the visualized proximal intracranial arterial segments. No asymmetric vascular hyperdensities suggestive of thrombosis are identified. Soft tissues: The scalp and visualized soft tissues demonstrate no acute abnormality. Other findings: The IACs are grossly normal. The sella is grossly normal. IMPRESSION: 1. No acute intracranial process. No intracranial hemorrhage or mass effect. 2. 8 mm normal variant prominent perivascular space versus chronic lacunar infarct in the left inferior basal ganglia distribution. 3. Moderate calcific atherosclerosis. Dictated and Authenticated by: Ck Martinez MD. Ordering:PABLO Layne MD
[2020-05-28 19:09] LABS: TSH (W/Ref FT4) 4.53 uIU/mL (0.36-3.74)
--- NOTE | 2020-05-28 19:10 | DI.VRAD_ITS ---
PROCEDURE INFORMATION: Exam: XR Chest, 2 Views Exam date and time: 05/28/2020 5:57 PM Age: 70 years old Clinical indication: Other: Weakness, dizzy TECHNIQUE: Imaging protocol: XR of the chest Views: 2 views. Total images: 2 COMPARISON: CR XR CHEST 2V PA LATERAL 06/07/2019 12:00 PM FINDINGS: Lungs: Normal pulmonary expansion. Pulmonary vasculature grossly normal. No gross pulmonary infiltrates. Pleural space: No pleural effusion. No pneumothorax. Heart/Mediastinum: Heart size normal. No tracheal/mediastinal shift. Vasculature: Mild aortic calcification. Bones/joints: No acute osseous abnormalities are identified. Osteopenia. Chronic postoperative changes or chronic posttraumatic resorption of the distal left clavicle unchanged from 06/07/2019. Organs: Right upper quadrant surgical clips suggest prior cholecystectomy. IMPRESSION: No acute thoracic process. Dictated and Authenticated by: Ck Martinez MD. Ordering:PABLO Layne MD
[2020-05-28 19:26] LABS: FREE T4 0.63 ng/dL (0.76-1.46)
[2020-05-28 19:45] LABS: Bilirubin Negative (Negative); Blood Negative (Negative); Clarity Clear (Clear); Glucose >=1000 mg/dL (Negative); Ketones Negative (Negative); Leukocyte Esterase Trace (Negative); Nitrite Negative (Negative); Urobilinogen 0.2 EU/dL (Up TO 0.2)
[2020-05-28 20:00] LABS: Bacteria Few HPF (Negative); C & S Indicated? Yes; Casts 10-20 Hyaline LPF (Negative); Crystals Negative HPF (Negative); Epithelial Cells Moderate HPF (Negative); Mucus Negative (Negative); RBC 0-2 HPF (0-2)
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
[2020-05-28 21:25] LABS: Troponin I < 0.05 ng/mL (<0.06)
[2020-05-28] MEDS: Allopurinol 300 MG TAB PO (22:23)
[2020-05-28] MEDS: Atorvastatin 40 MG TAB PO (22:23)
[2020-05-29] MEDS: Normal Saline 1,000 ML 125 ML IV ×3 (02:00→17:40)
[2020-05-29] MEDS: Levothyroxine 150 MCG TAB PO (05:24)
[2020-05-29 07:12] LABS: Anion Gap 8.1 mmol/L (3-11); BUN 26 mg/dL (7-18); CO2 27.9 mmol/L (21.0-32.0); CREATININE 1.53 mg/dL (0.55-1.02); Calcium 8.3 mg/dL (8.5-10.1); Chloride 102 mmol/L (98-107); Estimated GFR 33.36 (mL/min/1.73m2); Glucose 93 mg/dL (74-106); Potassium 3.7 mmol/L (3.5-5.1); Sodium 138 mmol/L (136-145)
[2020-05-29 07:15] VITALS: BP 132/58; PULSE 40; RESP 20; TEMP 36.7; O2SAT 98
[2020-05-29] MEDS: Famotidine 20 MG TAB 40 MG PO (07:58)
[2020-05-29] MEDS: carBAMazepine 100 MG CHEW PO (07:58)
[2020-05-29] MEDS: Omeprazole 20 MG CAPCR 40 MG PO ×2 (07:58→20:12)
[2020-05-29] MEDS: Acetaminophen 325 MG TAB 650 MG PO (07:59)
[2020-05-29] MEDS: Naproxen 500 MG TAB PO (07:59)
[2020-05-29] MEDS: DULoxetine 20 MG CAP 40 MG PO (07:59)
[2020-05-29] MEDS: SITagliptin 100 MG TAB PO (07:59)
[2020-05-29 10:26] VITALS: BP 124/70; BP 126/57; BP 147/51; PULSE 56; PULSE 59
--- NOTE | 2020-05-29 13:06 | PGE_ITS ---
Date of Service Date of service: 05/29/20 Time of Service: 13:07 Assessment and Plan Assessment and plan (1) Orthostasis: Status: Acute Assessment and plan: Probably orthostatic due to dehydration and blood pressure medications however she is also anemic and has aortic stenosis as well as moderate LVH and asymmetric septal hypertrophy causing subaortic outflow obstruction. I think upon discharge patient should be referred to cardiology for follow-up to review her blood pressure medications in light of her LVH and valvular heart disease. (2) Prerenal azotemia: Status: Acute Assessment and plan: Patient remains mildly azotemic. Continue IV fluid hydration. Continue to withhold diuretics and other blood pressure medications until she is no longer orthostatic. (3) Aortic stenosis: Status: Chronic Assessment and plan: Per echocardiogram dated January 25, 2019 patient has moderate LVH with severe asymmetric hypertrophy of the septum with a left v entricular ejection fraction 55 to 60% with no regional wall motion abnormalities however the outflow track showed mild to moderate obstruction with a velocity profile with a late systolic peak consistent with dynamic obstruction. Aortic valve is moderate to severely stenotic with a valve area of 0.9 cm? and a valve area of 0.7 cm? she also has mild to moderate mitral regurgitation. I think that the patient should be referred to cardiology as an outpatient to review her blood pressure medications. I will obtain an echocardiogram since her last one is a year and a half old. Qualifiers: Cardiac valve disease etiology: nonrheumatic Qualified Code(s): I35.0 - Nonrheumatic aortic (valve) stenosis (4) Diabetes mellitus, type II: Status: Chronic Assessment and plan: At home patient was on sitagliptin (Januvia) along with insulin as well as Jardiance. Medications been ordered on admission is her Januvia. I will at least add blood sugar checks before meals and at bedtime along with a sliding scale insulin. Qualifiers: Diabetes mellitus skilled nursing insulin use: with skilled nursing use Diabetes mellitus complication status: without complication Qualified Code(s): E11.9 - Type 2 diabetes mellitus without complications; Z79.4 - buttermaker (current) use of insulin (5) Essential hypertension: Status: Acute Assessment and plan: Holding her current antihypertensives at the moment. At home she was on amlodipine 10 mg daily, hydrochlorothiazide 25 mg daily, lisinopril 40 mg daily, metoprolol tartrate 50 mg twice a day. (6) Normocytic normochromic anemia: Status: Acute Assessment and plan: Unclear etiology. No reports of GI bleeding. Will check stools for occult blood. Of note she is on Prevacid and omeprazole at home. The only other blood count prior to her admission labs from last night was from February 02, 2019 when her hemoglobin was 11.1 g. Apparently she does have a history of dysphagia and GERD and apparently had an esophageal stricture that required dilatation at [facility] June 28, 2019. She also has a history of colon polyps. If she has not had a recent colonoscopy this should probably be done as an outpatient in the near future and if a follow-up EGD has not been done in a year that also should be pursued. Subjective Subjective Interval history since last seen: Patient was admitted last night by Dr. Hillman because of orthostatic hypotension. Patient still having some symptoms when she gets up out of a chair and stands up she feels lightheaded. No syncope. No chest pain. No palpitations. No dyspnea. Repeat labs shows that she has a normocytic normochromic anemia and her hemoglobin is essentially unchanged from last night at 10.9 g. I have ordered stools for occult blood. I will asked the lab to add on iron studies to her morning labs. She remains mildly azotemic with a BUN of 26 creatinine 1.53 but improved from last night. She still g etting IV fluid hydration. I told Karina would like to keep her overnight until her symptoms improve. We will continue to withhold her blood pressure medications and her diuretic. Exam Narrative Exam Narrative: Elderly female who has a tracheostomy but she is able to communicate by writing notes to me. Neck supple without JVD, she has bilateral carotid bruits versus projected murmur but has normal carotid pulse. She has a tracheostomy with tracheostomy appliance in place held by neck strap Lungs are clear to auscultation Heart is regular rate and rhythm with a harsh crescendo decrescendo systolic murmur over the aortic outflow tract that projects into the base of both carotid arteries. She also has a holosystolic murmur over the apex consistent with mitral regurgitation. Extremities without peripheral edema Objective Last Vital Signs Temp 36.7 C 05/29/20 07:15 Pulse 56 L 01/14/21 10:26 Resp 20 05/29/20 07:15 BP 147/51 H 05/29/20 10:26 Pulse Ox 98 05/29/20 07:15 Laboratory Results - last 24 hr 05/28/20 05/28/20 05/28/20 18:15 18:15 18:15 WBC RBC Hgb Hct MCV MCH MCHC RDW Plt Count MPV Immature Gran % Neutrophils % Lymphocytes % Monocytes % Eosinophils % Basophils % Nucleated RBC % Absolute Neutrophils Absolute Lymphocytes Absolute Monocytes Absolute Eosinophils Absolute Basophils PT 10.5 INR 1.0 APTT 23.2 Sodium 136 Potassium 3.6 Chloride 99 Carbon Dioxide 28.2 Anion Gap 8.8 BUN 28 H Creatinine 1.85 H Estimated GFR/1.73 m2 26.80 Glucose 111 H Calcium 8.8 Magnesium 2.1 Total Bilirubin 0.2 AST 16 ALT 20 Alkaline Phosphatase 130 H Troponin I < 0.05 Total Protein 6.7 Albumin 3.5 TSH 4.53 H Free T4 0.63 L Urine Color Urine Clarity Urine pH Ur Specific [place] Urine Protein Urine Ketones Urine Blood Urine Nitrite Urine Bilirubin Urine Urobilinogen Ur Leukocyte Esterase Urine RBC Urine WBC Ur Epithelial Cells Urine Crystals Urine Bacteria Urine Casts Urine Mucus Ur Culture Indicated? Urine Glucose 05/28/20 05/28/20 05/28/20 18:15 19:35 20:57 WBC 6.47 RBC 3.70 L Hgb 10.9 L Hct 33.0 L MCV 89.2 MCH 29.5 MCHC 33.0 RDW 14.1 Plt Count 193 MPV 12.8 H Immature Gran % 0.6 Neutrophils % 60.1 Lymphocytes % 25.5 Monocytes % 10.8 Eosinophils % 2.5 Basophils % 0.5 Nucleated RBC % 0 Absolute Neutrophils 3.89 Absolute Lymphocytes 1.65 Absolute Monocytes 0.70 Absolute Eosinophils 0.16 Absolute Basophils 0.03 PT INR APTT Sodium Potassium Chloride Carbon Dioxide Anion Gap BUN Creatinine Estimated GFR/1.73 m2 Glucose Calcium Magnesium Total Bilirubin AST ALT Alkaline Phosphatase Troponin I < 0.05 Total Protein Albumin TSH Free T4 Urine Color Yellow Urine Clarity Clear Urine pH 6.0 Ur Specific [place] 1.020 Urine Protein Negative Urine Ketones Negative Urine Blood Negative Urine Nitrite Negative Urine Bilirubin Negative Urine Urobilinogen 0.2 Ur Leukocyte Esterase Trace H Urine RBC 0-2 Urine WBC 3-5 Ur Epithelial Cells Moderate Urine Crystals Negative Urine Bacteria Few Urine Casts 10-20 hyaline Urine Mucus Negative Ur Culture Indicated? Yes Urine Glucose >=1000 H 05/29/20 06:10 WBC RBC Hgb Hct MCV MCH MCHC RDW Plt Count MPV Immature Gran % Neutrophils % Lymphocytes % Monocytes % Eosinophils % Basophils % Nucleated RBC % Absolute Neutrophils Absolute Lymphocytes Absolute Monocytes Absolute Eosinophils Absolute Basophils PT INR APTT Sodium 138 Potassium 3.7 Chloride 102 Carbon Dioxide 27.9 Anion Gap 8.1 BUN 26 H Creatinine 1.53 H Estimated GFR/1.73 m2 33.36 Glucose 93 Calcium 8.3 L Magnesium Total Bilirubin AST ALT Alkaline Phosphatase Troponin I Total Protein Albumin TSH Free T4 Urine Color Urine Clarity Urine pH Ur Specific [place] Urine Protein Urine Ketones Urine Blood Urine Nitrite Urine Bilirubin Urine Urobilinogen Ur Leukocyte Esterase Urine RBC Urine WBC Ur Epithelial Cells Urine Crystals Urine Bacteria Urine Casts Urine Mucus Ur Culture Indicated? Urine Glucose
--- NOTE | 2020-05-29 13:22 | RESPIRATORY ---
[employer] was called about pt supplies today and they did have current orders, although no supplies had been delivered to ptin the last few months. [employer] rep states that she re-ordered all supplies including but not limited to : Laryngectomy tube size 8, flexaderm, provox voice, and hmes. I have requested that [employer] contact the supply house they order from and get back to us with an estimated date of delivery. We will continue to follow up, and ensure that family and pt have RT contact information with any problems the might come across.
--- NOTE | 2020-05-29 14:14 | CHAPLAIN ---
Karina was resting in bed when I visited. She does not speak and writes questions and information down on a pad. She was looking for an iPad so she could be in touch with family. Daisy Cordova, Med/Surg Overnight Cashier and one for Karina to use and TIMBO Nunez was going to check with Karina to see if she got it working.
[2020-05-29 14:17] LABS: Reticulocyte 1.1 % (0.5-2.4)
[2020-05-29 14:24] LABS: Iron 35 ug/dL (50-170); LDH 158 U/L (81-234); Total Iron Binding Capacity 229 ug/dL (250-450); Transferrin Sat 15 % (15-50)
[2020-05-29 14:47] LABS: Ferritin 32 ng/mL (8-252)
[2020-05-29 14:52] LABS: Vitamin B12 397 pg/mL (193-986)
--- NOTE | 2020-05-29 15:32 | INITIAL_ITS ---
- If Service Date Differs Date of service: 05/29/20 Time of Service: 15:45 Care Management Initial Assess REASON FOR HOSPITALIZATION:: Orthostatic Hypertension PAST MEDICAL HISTORY/PAST SURGICAL HISTORY:: Aortic stenosis, aphonia, chronic bilateral low back pain with bilateral sciatica, DM Type II, dyspepsia, dysphagia, epistaxis, esophageal stricture, essential hypertension, facial injury, fibromyalgia, GERD, hx of colonic polyps, hyperlipidemia, hypertension, insomnia, laryngeal cancer, low back pain, postoperative hypothyroidism, pulmonary nodules, recurrent major depressive disorder in partial remission, sesamoiditis, esophageal dilation, back surgery, carpal tunnel release, cataract surgery, section, cholecystectomy, hysterectomy, laparoscopy, laryngectomy, shoulder surgery, tracheostomy, right ovary removal. PREVIOUS FUNCTIONAL STATUS/SOCIAL/FAMILY SUPPORTS:: Karina resides at the [facility] in her own apartment. Her sonGato resides nearby in [facility], as well. She is independent at baseline. CURRENT FUNCTIONAL STATUS:: Karina utilizes a tablet for communication, due to current limitations for this conventional mortgage underwriter re: remote access, CM will request in person CM meet with Karina prior to discharge. Assessment developed per chart review. ADVANCE DIRECTIVES:: None on file at [facility]. Has patient been provided with info about the portal/API?: Yes Did the patient sign up for the portal?: Yes (Previously) CODE STATUS:: Full Code INSURANCE COVERAGE / FINANCIAL ISSUES:: Medicare. Medicaid CURRENT HOME/COMMUNITY SERVICES/EQUIPMENT:: Tatiana: humidified oxygen and suctioning equipment for laryngeal stoma care PRIMARY CARE PHYSICIAN:: Denys Fierro DO. POTENTIAL DISCHARGE NEEDS:: Follow up appointment with PCP. PATIENT/FAMILY EDUCATION NEEDS:: Review of discharge instructions, discuss Ask Me Three. ANTICIPATED BARRIERS TO DISCHARGE:: None identified. TRANSPORTATION:: Via private vehicle with sonGato. PLAN:: Anticipate Karina will return home when ready per MD. She continues to be monitored, and her medications adjusted. She will follow up with her PCP and transport via private vehicle with her son. CM continues to follow.
[2020-05-29 15:36] VITALS: BP 168/70; PULSE 62; RESP 18; TEMP 36.4; O2SAT 96
--- NOTE | 2020-05-29 20:00 | NUR.NOTE ---
Asked charge nurse around 3;30pm to ask the provider for medication for this patient because she is nauseated. Charge nurse Text paged the doctor and at time of hand off to the next shift at 7:00pm the doctor has not responded and the pt is still reporting that she has nausea. Notified charge nurse again that pt is still feeling nauseated.
[2020-05-29] MEDS: Normal Saline Flush 10 ML SYR IVP (20:12)
[2020-05-29 20:27] LABS: COVID-19 RT-PCR UVMMC Result Negative (Negative)
[2020-05-29] MEDS: Ondansetron 4 MG/2 ML VIAL IVP (20:45)
[2020-05-29] MEDS: Allopurinol 300 MG TAB PO (21:10)
[2020-05-29] MEDS: Atorvastatin 40 MG TAB PO (21:10)
[2020-05-29 23:34] VITALS: BP 179/70; PULSE 58; RESP 18; TEMP 36.6; O2SAT 98
[2020-05-29] MEDS: Melatonin 3 MG TAB PO (23:55)
[2020-05-30] MEDS: Normal Saline 1,000 ML 125 ML IV (01:44)
[2020-05-30 05:16] VITALS: BP 166/66; PULSE 55; RESP 18; TEMP 35.8; O2SAT 98
[2020-05-30] MEDS: Levothyroxine 150 MCG TAB PO (05:18)
[2020-05-30 06:27] LABS: Abs Immature Grans 0.06 10^3/uL (0.0-0.06); Absolute Basophil Count 0.04 10^3/uL (0.0-0.2); Absolute Eosinophil Count 0.15 10^3/uL (0.0-0.7); Absolute Lymphocyte Count 1.39 10^3/uL (1.2-3.4); Absolute Monocyte Count 0.54 10^3/uL (0.1-0.8); Absolute Neutrophil Count 2.73 10^3/uL (1.2-6.7); Basophils % 0.8; Eosinophils % 3.1; HCT 30.7 % (36.0-46.0); HGB 10.2 g/dL (11.2-15.7); Immature Grans % 1.2; Lymphocytes % 28.3; MCHC 33.2 % (32.0-36.0); MCV 90.3 fL (80-95); MPV 12.6 fL (8.0-11.0); Neutrophils % 55.6; Nucleated RBC 0 %; Platelet Count 146 10^3/uL (130-400); RDW 14.1 % (11.7-14.6); RDW-SD 46.3 fL; WBC 4.91 10^3/uL (4.4-10.8)
[2020-05-30 06:36] LABS: Anion Gap 7.9 mmol/L (3-11); BUN 19 mg/dL (7-18); CO2 26.1 mmol/L (21.0-32.0); CREATININE 1.36 mg/dL (0.55-1.02); Chloride 106 mmol/L (98-107); Estimated GFR 38.22 (mL/min/1.73m2); Glucose 103 mg/dL (74-106); Potassium 4.1 mmol/L (3.5-5.1); Sodium 140 mmol/L (136-145)
[2020-05-30 07:15] VITALS: BP 185/78; PULSE 56; RESP 18; TEMP 36.4; O2SAT 96
--- NOTE | 2020-05-30 07:30 | DI.US_ITS ---
APPROVED REPORT EXAM: Comprehensive 2D, Doppler, and color-flow Echocardiogram Patient Location: In-Patient Room/Bed: 210 Registered Nurse Teacher: Cher Ramirez RDCS (AE) Indications: Aortic Stenosis, Mild Regurgitation, LVH Other Information Study Quality: Adequate Conclusion There is moderate concentric left ventricular hypertrophy. The left ventricle is small and hypercont ractile with an estimated ejection fraction of 65 to 70%. There are no wall motion abnormalities Normal right ventricular size and systolic function Both atria are normal in size The aortic valve is calcified and trileaflet with severe stenosis. Peak gradient is 62, mean 38 mmHg . Calculated aortic valve area 0.92 cm???. There is mild aortic regurgitation Moderate mitral annular calcification. Mild mitral regurgitation Normal tricuspid valve with mild to moderate regurgitation. Estimated right ventricular systolic pre ssure is 35 mmHg Normal pulmonic valve with trace regurgitation Ascending aorta is mildly dilated measuring 3.47 cm Wall motion Left Ventricle The left ventricle is normal size. The left ventricular systolic function is normal. The left ventric ular ejection fraction is within the normal range. Moderate concentric left ventricular hypertrophy. There is normal LV segmental wall motion. There is no ventricular septal defect visualized. LVEF is 6 5-70%. Right Ventricle The right ventricle is normal size. The right ventricular systolic function is normal. The RVSP is 35 .1 mmHg. Atria The left atrium size is normal. The right atrium size is normal. The interatrial septum is intact wit h no evidence for an atrial septal defect. Aortic Valve Aortic valve is calcified. Aortic valve leaflets are sclerotic with decreased opening. Valve is trile aflet There is severe aortic stenosis. Peak gradient is 62, mean 38 mmHg. Calculated aortic valve are a 0.92 cm??? Mild aortic regurgitation. Mitral Valve Moderate mitral annular calcification. No evidence of mitral valve stenosis. Mild mitral regurgitatio n. Tricuspid Valve The tricuspid valve is normal in structure. There is no tricuspid valve stenosis. Mild to moderate tr icuspid regurgitation. Pulmonic Valve The pulmonary valve is normal in structure. There is no pulmonic valvular stenosis. Trace pulmonic re gurgitation. Great Vessels The aortic root is normal in size. The ascending aorta is mildly dilated. IVC is normal in size and c ollapses >50% with inspiration. Pericardium There is no pericardial effusion. 2D Dimensions IVSD d PLAX 1.31 cm F: 0.6-1.0 LV Vol A2C d MOD 87.0 mL LVPW d PLAX 1.30 cm F: 0.6 - 1.0 LV Vol A4C d MOD 102.1 mL LVID d PLAX 3.56 cm F: 3.8 - 5.2 LA vol/ BSA A2C s A-L 24.0 mL/m2 LVDs 2.40 cm F: 2.2 - 3.5 LA vol/ BSA A4C s A-L 27.0 mL/m2 Ao Root d 2.76 cm F: 2.7 - 3.3 LA Vol/ BSA Biplane s A-L 27.2 mL/m2 RA Area A4C 18.83 cm2 LA Area A4C s MOD 17.92 cm2 RA Vol/ BSA A4C s A-L 32.5 mL/m2 LA Area A2C s MOD 15.80 cm2 Ao Asc Diam d 3.47 cm F: 2.3 - 3.1 LV EF A4C MOD 58.2 % LV EF Teichholz 60.0 % LV EF A2C MOD 57.3 % LVEF (Castro's) 57.21 % F: 54 - 74 LV EF Biplane MOD 57.2 % LV Volume 73.83 mL F: 46 - 106 SV 54.21 mL LV Volume Index 41.24 mL/m2 F: 29 - 61 SV Index 30.27 mL/m2 LV Vol Biplane MOD 94.8 mL FS 31.15 % M-Mode TAPSE 2.44 cm (M/F) >1.7 LV Diastology MV E' medial 0.055 (>0.07 m/s) E/A Ratio 0.8 LV E/e MED 15.00 (<14) MV E Vmax 0.83 (0.4-1.3 m/s) MV E' lateral 0.068 (>0.1 m/s) MV A Vmax 1.00 (0.4-1.3 m/s) LV E/e LAT 12.10 (<14) MV E/A Ratio 0.81 MV E/E' medial 15.00 MV E/E' lateral 12.14 Aortic Valve LVOT Area 3.03 cm2 AoV Area Vmax 0.92 cm2 LVOT Vmax 1.20 m/s AoV Area/ BSA (Vmax) 0.51 cm2/m2 LVOT Mean Jagjit. 0.86 m/s KEN Mean Jagjit. 0.88 cm2 LVOT Peak Grad 5.7 mmHg KEN Mean Jagjit. Index 0.49 cm2/m2 LVOT Mean Grad 3.3 mmHg AR DT 1785 msec LVOT VTI 0.318 m AR PHT 518 msec LVOT Diam s 1.95 cm AoV Vmax 3.95 m/s Velocity Ratio 0.30 AoV Mean Jagjit. 2.97 m/s AoV Peak Grad 62.6 mmHg LVOT SV 96.17 mL AoV Mean Grad 38.4 mmHg AoV VTI 1.003 m AoV Area VTI 0.96 cm2 AoV Area/ BSA (VTI) 0.54 cm/m2 Mitral Valve MV DT 375 (160-240 msec) MV PHT 109 msec MV Area PHT 2.02 cm2 MV VTI 0.359 m MV VTI Annulus 0.365 m MV Area VTI 2.73 (4.0-6.0 cm2) Pulmonary Valve PV Vmax 0.99 (0.5-1.5 m/s) RVOT Peak Gr. 1.95 mmHg PV Peak Grad 4.0 mmHg RVOT Mean Gr. 1.00 mmHg PV Mean Grad 1.9 mmHg RVOT VTI 0.181 m PV VTI 0.228 m RVOT Vmax 0.70 m/s Tricuspid Valve TR Peak Grad 32.0 mmHg TR Vmax 2.83 m/s RA Pressure 3.00 mmHg RVSP (TR) 35.1 mmHg
[2020-05-30] MEDS: Omeprazole 20 MG CAPCR 40 MG PO (08:42)
[2020-05-30] MEDS: Lisinopril 20 MG TAB PO (08:42)
[2020-05-30] MEDS: carBAMazepine 100 MG CHEW PO (08:43)
[2020-05-30] MEDS: DULoxetine 20 MG CAP 40 MG PO (08:43)
[2020-05-30] MEDS: SITagliptin 100 MG TAB PO (08:43)
[2020-05-30] MEDS: Famotidine 20 MG TAB 40 MG PO (08:43)
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
[2020-05-30 10:41] VITALS: BP 168/63; PULSE 66; RESP 18; TEMP 34.7; O2SAT 97
[2020-05-30 10:43] VITALS: BP 152/72; PULSE 61; RESP 18; TEMP 35.4; O2SAT 97
[2020-05-30 10:46] VITALS: BP 169/65; PULSE 57; RESP 18; TEMP 36.5; O2SAT 95
--- NOTE | 2020-05-30 14:09 | CMDISCH_ITS ---
- If Service Date Differs Date of service: 05/30/20 Time of Service: 14:10 LACE Index Scoring Tool - Questions: Length of Stay (in days): 2 Acuity (Admit via E.D.?): Yes Comorbidities: Diabetes w/o Complication, Any Tumor E.D. Visits: 2 - Answers: Total Score: 10 Risk of Readmission: High Risk Care Management Discharge Reason for Hospitalization: Orthostatic Hypertension Discharge Plan: Karina will be discharged home and transport with family. She has been provided with supplies for her tracheostomy. Karina denied the need for any additional services, stating that her son is her aide. She also shared that she has received wonderful care at [facility]- the [facility]! Patient/Family Education Needs: Discharge plan, limitations, follow up, Ask Me Three
--- NOTE | 2020-06-01 13:19 | RESPIRATORY ---
05/01/2020-This RT I has put together the list of the Pt's Laryngectomy supplies and orders. Dr. Fierro is signing the scripts today . I have been working with Macy at [facility]. Once she receives the orders today the supplies will be ordered and drop shipped to the Pt's home address. Dr. Fierro & Tika Reyes have been notified by phone at [facility]. Smoking/Tobacco Use Status Former Tobacco Use Height 5 ft 3 in Weight 76.2 kg Resuscitation Status Full Code Reason for Visit orthostatic hypotension Past Medical History aortic stenosis, aphonia, chronic bilateral low back pain with bilateral sciatica, diabetes mellitus, dyspepsia, dysphagia, epistaxis, esophageal stricture, essential HTN, facial injury, fibromyalgia, GERD, history of colonic polyps, HLD, insomnia, laryngeal cancer, postop Hypothyroidism, pulmonary nodules, recurrent major depressive disorder, sesamoiditis, back surgery, carpal tunnel release, cataract surgery, cervical spinal surgery, c section, cholescystectomy, hysterectomy, larygectomy, tracheostomy, removal of ovary Precautions Fall Standard Anemia, unspecified (05/28/20) Type 2 diabetes mellitus without complications (05/28/20) Essential (primary) hypertension (05/28/20) Nonrheumatic aortic (valve) stenosis (05/28/20) Orthostatic hypotension (05/28/20) Acute kidney failure, unspecified (05/28/20) Bradycardia, unspecified (05/28/20) Other specified abnormal findings of blood chemistry (05/28/20) MCFP (current) use of insulin (05/28/20) 05/30/20 05/31/20 06/01/20 23:59 23:59 23:59 Intake Total 2420 / 2420 Output Total 2200 / 2200 Balance 220 / 220 05/29/20 20:00 Nursing Notes by Arti Perdomo Asked charge nurse around 3;30pm to ask the provider for medication for this patient because she is nauseated. Charge nurse Text paged the doctor and at time of hand off to the next shift at 7:00pm the doctor has not responded and the pt is still reporting that she has nausea. Notified charge nurse again that pt is still feeling nauseated. Initialized on 05/29/20 20:00 - END OF NOTE 05/29/20 14:14 Juice Weigher Note by Sonali Sarmientoce was resting in bed when I visited. She does not speak and writes questions and information down on a pad. She was looking for an iPad so she could be in touch with family. Daisy Cordova, Med/Surg Nurse First Assist and one for Karina to use and TIMBO Nunez was going to check with Karina to see if she got it working. Initialized on 05/29/20 14:14 - END OF NOTE 05/29/20 13:22 Respiratory by Maura Dempsey was called about pt supplies today and they did have current orders, although no supplies had been delivered to ptin the last few months. [facility] rep states that she re-ordered all supplies including but not limited to : Laryngectomy tube size 8, flexaderm, provox voice, and hmes. I have requested that [facility] contact the supply house they order from and get back to us with an estimated date of delivery. We will continue to follow up, and ensure that family and pt have RT contact information with any problems the might come across. Initialized on 05/29/20 13:22 - END OF NOTE 05/28/20 Breakfast Regular/Normal [DIET] 05/28/20 17:30 ED EKG Stat EKG Nursing/RT Intervention .STAT 05/28/20 17:55 Meclizine [Antivert] 25 mg PO NOW ONE Normal Saline Flush [Saline Flush 10 ml Syringe] See Dose Instructions IVP PRN PRN 05/28/20 18:00 IV Access 1 each IV DIRECTED Normal Saline [Saline 1000ml Bag] 1,000 ml IV INFUSION 05/28/20 18:15 Cardiac Troponin I Stat Comprehensive Metabolic Panel Stat Free T4 Stat Magnesium Stat TSH (W/Ref FT4) Stat PTT Activated [COAG] Stat Prothrombin Time [COAG] Stat Complete Blood Count w/Diff [HEMO] Stat 05/28/20 18:55 XR chest 2V PA & lateral [RAD] Stat 05/28/20 18:56 CT head wo [CT] Stat 05/28/20 19:35 Urine Culture Stat Microscopic Findings [URIN] Stat Urinalysis [URIN] Stat 05/28/20 20:34 Activity .Progressive Ambulation Admission Status Routine COVID Precautions .see order text Code Status Routine Vital Signs .Q Shift and PRN Acetaminophen [Tylenol] 650 mg PO Q4H PRN PRN Billy Protect Cream See Dose Instructions TP PRN PRN Melatonin 3 - 6 mg PO HS PRN 05/28/20 20:52 COVID-19 Testing [SEND] Stat 05/28/20 20:57 Cardiac Troponin I Timed 05/28/20 21:00 Allopurinol [Zyloprim] 300 mg PO HS Atorvastatin [Lipitor] 40 mg PO HS 05/28/20 21:42 Colchicine 0.6 mg PO DAILY PRN PRN 05/29/20 06:00 Levothyroxine [Levothroid] 150 mcg PO 0600 05/29/20 06:10 Basic Metabolic Panel DAILY AM Ferritin Routine Iron/IBCT Routine LDH Routine Vitamin B12 Routine Reticulocyte [HEMO] Routine 05/29/20 08:30 DULoxetine [Cymbalta] 40 mg PO DAILY Famotidine [Pepcid] 40 mg PO DAILY Naproxen [Naprosyn] 500 mg PO BID Omeprazole [PriLOSEC] 40 mg PO BID Patient's Own Medication 0 each PO DAILY SITagliptin [Januvia] 100 mg PO DAILY carBAMazepine Chewable [TEGretol] 100 mg PO DAILY 05/29/20 13:56 Hematest Stool ONCE 05/29/20 20:00 Hamamelis Fithian/Glycerin [Tucks Medicated Pads] 0 each SD QID 05/29/20 20:23 Ondansetron [Zofran Injection] 4 mg IVP Q4H PRN PRN 05/30/20 06:19 Basic Metabolic Panel DAILY AM Complete Blood Count w/Diff [HEMO] DAILY AM 05/30/20 07:25 US echocardiogram [US] Routine 05/30/20 08:30 Lisinopril [Prinivil] 20 mg PO DAILY 05/30/20 11:47 Discharge Order Routine Temp Pulse Pulse Pulse Pulse Resp BP 05/30/20 10:46 36.5 C 57 L 18 169/65 H 05/30/20 10:43 35.4 C L 61 18 152/72 H 05/30/20 10:41 34.7 C L 66 18 168/63 H 05/30/20 07:15 36.4 C L 56 L 18 185/78 H 05/30/20 05:16 35.8 C L 55 L 18 166/66 H 05/29/20 23:34 36.6 C 58 L 18 179/70 H 05/29/20 15:36 36.4 C L 62 18 168/70 H 05/29/20 10:26 59 L 59 L 56 L 05/29/20 07:15 36.7 C 40 L 20 132/58 L 05/28/20 23:16 36.4 C L 61 18 164/70 H 05/28/20 22:25 58 L 57 L 59 L 05/28/20 21:49 35.9 C L 55 L 18 116/61 05/28/20 21:36 35.9 C L 55 L 18 116/61 05/28/20 20:11 13 05/28/20 20:10 52 L 17 101/44 L 05/28/20 20:07 50 L 21 122/58 L 05/28/20 20:02 11 L 05/28/20 20:01 49 L 14 134/43 L 05/28/20 20:00 15 05/28/20 19:50 15 05/28/20 19:47 16 05/28/20 19:46 46 L 13 141/50 H 05/28/20 19:40 12 05/28/20 19:33 17 05/28/20 19:32 54 L 15 119/57 L 05/28/20 19:30 15 05/28/20 19:23 52 L 14 96/35 L 05/28/20 19:22 18 05/28/20 19:21 47 L 11 L 112/51 L 05/28/20 19:20 49 L 47 L 52 L 49 L 21 137/53 L 05/28/20 19:16 49 L 17 128/49 L 05/28/20 19:10 16 05/28/20 19:01 14 05/28/20 19:00 48 L 13 118/49 L 05/28/20 18:59 10 L 05/28/20 18:32 16 05/28/20 18:31 49 L 17 121/49 L 05/28/20 18:30 16 05/28/20 18:20 16 05/28/20 18:16 49 L 19 121/55 L 05/28/20 18:10 15 05/28/20 18:01 49 L 18 122/51 L 05/28/20 18:00 19 05/28/20 17:50 17 05/28/20 17:46 54 L 18 114/60 05/28/20 17:40 19 05/28/20 17:31 17 05/28/20 17:30 53 L 22 143/56 H 05/28/20 17:27 15 05/28/20 17:22 36.7 C 58 L 15 143/56 H BP BP BP Pulse Ox 05/30/20 10:46 95 05/30/20 10:43 97 05/30/20 10:41 97 05/30/20 07:15 96 05/30/20 05:16 98 05/29/20 23:34 98 05/29/20 15:36 96 05/29/20 10:26 126/57 L 124/70 147/51 H 05/29/20 07:15 98 05/28/20 23:16 98 05/28/20 22:25 113/62 132/63 153/63 H 05/28/20 21:49 100 05/28/20 21:36 100 05/28/20 20:11 05/28/20 20:10 05/28/20 20:07 94 05/28/20 20:02 96 05/28/20 20:01 94 05/28/20 20:00 95 05/28/20 19:50 95 05/28/20 19:47 95 05/28/20 19:46 97 05/28/20 19:40 99 05/28/20 19:33 98 05/28/20 19:32 97 05/28/20 19:30 99 05/28/20 19:23 05/28/20 19:22 95 05/28/20 19:21 98 05/28/20 19:20 112/51 L 96/35 L 137/53 L 93 05/28/20 19:16 95 05/28/20 19:10 94 05/28/20 19:01 95 05/28/20 19:00 95 05/28/20 18:59 98 05/28/20 18:32 95 05/28/20 18:31 96 05/28/20 18:30 95 05/28/20 18:20 95 05/28/20 18:16 94 05/28/20 18:10 96 05/28/20 18:01 96 05/28/20 18:00 94 05/28/20 17:50 94 05/28/20 17:46 93 05/28/20 17:40 96 05/28/20 17:31 96 05/28/20 17:30 96 05/28/20 17:27 05/28/20 17:22 96 Discontinued Medications Acetaminophen (Acetaminophen 325 Mg Tab) 650 mg PO Q4H PRN PRN Last Admin: 05/29/20 07:59 Dose: 650 mg Documented by: NAIDA Medication Admin Document 05/29/20 07:59 CM (Rec: 05/29/20 07:59 CM [facility]) Reason for Admin Reason for Medication Pain Pain Level 3 Sedation Scale 0-No Sedation, Alert Admin Data Given PO Yes Allopurinol (Allopurinol 300 Mg Tab) 300 mg PO HS [facility] Last Admin: 05/29/20 21:10 Dose: 300 mg Documented by: BOOM Atorvastatin Calcium (Atorvastatin 40 Mg Tab) 40 mg PO HS [facility] Last Admin: 05/29/20 21:10 Dose: 40 mg Documented by: BOOM Carbamazepine (Carbamazepine 100 Mg Chew) 100 mg PO DAILY [facility] Last Admin: 05/30/20 08:43 Dose: 100 mg Documented by: KIRA Colchicine (Colchicine 0.6 Mg Tab) 0.6 mg PO DAILY PRN PRN PRN Reason: GOUT Dimethicone/Zinc Oxide (Billy Protect Cream 142 Gm Tube) 0 gm TP PRN PRN Duloxetine HCl (Duloxetine 20 Mg Cap) 40 mg PO DAILY [facility] Last Admin: 05/30/20 08:43 Dose: 40 mg Documented by: KIRA Famotidine (Famotidine 20 Mg Tab) 40 mg PO DAILY [facility] Last Admin: 05/30/20 08:43 Dose: 40 mg Documented by: KIRA Sodium Chloride (Saline 1000ml Bag) 1,000 mls @ 125 mls/hr IV INFUSION [facility] Last Admin: 05/30/20 01:44 Dose: 125 mls/hr Documented by: BOOM Infusion/Titration Assessment Document 05/30/20 01:44 AR (Rec: 05/30/20 01:44 AR [id number] Infusion/Titration Infusion Rate (mls/hr) 125 Container Volume 1,000 Waste Amount 0 Increase/Decrease Started/Running Stop/Elapsed Time Elapsed Time 31h 33m Calculations Cumulative Dose Not Applicable Cumulative Intake (Rx) 3,943.75 IV Miscellaneous Supplies (Iv Access) 1 each IV DIRECTED [facility] Levothyroxine Sodium (Levothyroxine 150 Mcg Tab) 150 mcg PO 0600 [facility] Last Admin: 05/30/20 05:18 Dose: 150 mcg Documented by: BOOM Lisinopril (Lisinopril 20 Mg Tab) 20 mg PO DAILY [facility] Last Admin: 05/30/20 08:42 Dose: 20 mg Documented by: KIRA Meclizine HCl (Meclizine 25 Mg Tab) 25 mg PO NOW ONE Stop: 05/28/20 17:56 Last Admin: 05/28/20 18:04 Dose: 25 mg Documented by: SLOANE Melatonin (Melatonin 3 Mg Tab) 3 - 6 mg PO HS PRN Last Admin: 05/29/20 23:55 Dose: 6 mg Documented by: BOOM Naproxen (Naproxen 500 Mg Tab) 500 mg PO BID [facility] Last Admin: 05/29/20 07:59 Dose: 500 mg Documented by: NAIDA Omeprazole (Omeprazole 20 Mg Capcr) 40 mg PO BID [facility] Last Admin: 05/30/20 08:42 Dose: 40 mg Documented by: KIRA Ondansetron HCl (Ondansetron 4 Mg/2 Ml Vial) 4 mg IVP Q4H PRN PRN Last Admin: 05/29/20 20:45 Dose: 4 mg Documented by: BOOM IV Medication Admin Document 05/29/20 20:45 AR (Rec: 05/29/20 20:45 AR [id number] Reason for Admin Reason for Medication Nausea Empagliflozin [ Jardiance] 10 Mg Tablet 0 each PO DAILY [facility] Last Admin: 05/30/20 10:06 Dose: Not Given Documented by: KIRA Non-Admin Reason: na Sitagliptin Phosphate (Sitagliptin 100 Mg Tab) 100 mg PO DAILY [facility] Last Admin: 05/30/20 08:43 Dose: 100 mg Documented by: KIRA Sodium Chloride (Normal Saline Flush 10 Ml Syr) 0 ml IVP PRN PRN Last Admin: 05/29/20 20:12 Dose: 10 ml Documented by: BOOM Witch Rae/Glycerin (Hamamelis Fithian/Glycerin 40 Each Box) 0 each SD QID [facility] Last Admin: 05/30/20 12:05 Dose: 1 pad Documented by: KIRA
== END 2020-05-30 13:51 | disposition home or self-care (01) ==
LOC: ER 21:07 → MS 21:33
PROVIDERS: Internal Medicine; Admitting Provider General Practice; Emergency Provider Physician Assistant; PCP Family Medicine; Visit Provider General Practice
DX: I95.1 Orthostatic hypotension (principal); I35.0 Nonrheumatic aortic (valve) stenosis; I10 Essential (primary) hypertension; E03.9 Hypothyroidism, unspecified; M54.42 Lumbago with sciatica, left side; M54.41 Lumbago with sciatica, right side; E11.9 Type 2 diabetes mellitus without complications; K22.2 Esophageal obstruction; M79.7 Fibromyalgia; K21.9 Gastro-esophageal reflux disease without esophagitis; E78.5 Hyperlipidemia, unspecified; G47.00 Insomnia, unspecified; D64.9 Anemia, unspecified; E86.0 Dehydration; Z79.4 Long term (current) use of insulin
CPT/HCPCS: 36415; 80048; 80053; 93005; 93246; 93306; 96360; 96361; 99217; 99222; 99233; 99285; U0003; 70450; 71046; 81003; 81015; 82607; 82728; 83540; 83550; 83615; 83735; 84439; 84443; 84484; 85025; 85045; 85610; 85730; 87086; 93010; 99218; 99226; G0378; J2405; J3490

== ENCOUNTER 2020-07-03 18:53 | Outpatient (CLI) | payer MEDICARE, MEDICAID, SELFPAY ==
--- NOTE | 2020-07-03 15:00 | DI.RAD_ITS ---
EXAM: XR HIP LT COMPLETE AP PELVIS CLINICAL HISTORY: Sudden onset L posterior hip pain, M25.552. TECHNIQUE: 2D digital imaging was performed. COMPARISON: No exams were available for comparison FINDINGS: There is no evidence of pelvic nor acute hip fracture. 6 x 4 millimeter calcific density seen latera l to the greater trochanter of the left hip. Possibly moderate granuloma versus is calcific tendinit is. There is normal hip joint space. Additional view-lateral view of the left hip reveals no fractu re. Sacroiliac joints appear age-appropriate IMPRESSION: No acute fractures evident. 6 x 4 millimeter calcific density lateral to the left hip. DATA REPOSITORY: RADIATION DOSE DELIVERED:
== END 2020-07-03 19:13 ==
PROVIDERS: PCP Family Medicine; Visit Provider Family Medicine
DX: M25.552 Pain in left hip (principal)
CPT/HCPCS: 73502

== ENCOUNTER → 2020-07-24 09:54 | Outpatient (BNVA) | payer MEDICARE, MEDICAID, SELFPAY | PROVIDERS: PCP Family Medicine; Referring Provider Family Medicine; Visit Provider Physical Therapy Assistant | DX: Z12.11 Encounter for screening for malignant neoplasm of colon (principal); Z86.010 Personal history of colon polyps ==

== ENCOUNTER 2020-07-25 04:04 | Outpatient (CLI) | payer MEDICARE, MEDICAID, SELFPAY ==
--- NOTE | 2020-07-25 | DI.CT_ITS ---
EXAM: CT NECK W CLINICAL HISTORY: H/O LARYNGEAL CA,S/P TOTAL LARYNGECTOMY,ESOPHAGEAL STENOSIS TECHNIQUE: COMPARISON: CT CT HEAD CERV SPINE FACIAL WO from 02/02/2019 FINDINGS: CT examination cervical region was performed with bolus infusion of 100 cc of Omnipaque 350. Images obtained through the lung apices are unremarkable. Visualized portions of the brain appear intact. Orbital and temporal bone structures appear intact. Parotid glands unremarkable. Submandibular glan ds not well visualize, patient has reportedly had prior total laryngectomy. There is a tracheostomy tube in position and there is an implant extending into the esophagus at the lower cervical region at approximately C7 level, please correlate with prior surgical history. No gross new cervical mass id entified. No gross interval change in appearance of laryngectomy, tracheostomy, and additional impla nt at lower cervical esophageal level. Note is made of apparent greater than 90 percent luminal diameter stenosis of proximal to mid right i nternal carotid artery. Greater than 50 percent luminal diameter stenosis of the left internal carot id artery noted as well. These measurements are difficult to obtain due to some motion artifact exte nding through this region. Vertebral circulation poorly visualized. IMPRESSION: No gross interval change in appearance of post laryngectomy changes as described above since prior CT of January 2019. Limited visualization of arterial circulation but findings suggest high-grade stenosis of right inter nal and possibly left internal carotid arteries. RADIATION DOSE DELIVERED: 466.36mGy.cm Total DLP
[2020-07-25] MEDS: Omnipaque 350 MG/ML 100 ML BTL IV (14:02)
[2020-07-25] MEDS: Normal Saline - Diluent 50 ML VIAL IV (14:05)
[2020-07-25] MEDS: Normal Saline Flush 10 ML SYR IVP (14:06)
== END 2020-07-25 04:24 ==
PROVIDERS: PCP Family Medicine; Visit Provider Otolaryngology Otolaryngology/Facial Plastic Surgery
DX: Z90.02 Acquired absence of larynx (principal); Z85.21 Personal history of malignant neoplasm of larynx; K22.2 Esophageal obstruction
CPT/HCPCS: 70491; 82565; J3490

== ENCOUNTER 2020-08-23 04:00 | Observation (INO) | payer MEDICARE, MEDICAID, SELFPAY ==
[2020-08-23] VITALS (24 sets, daily range): BP systolic 146–199; BP diastolic 7–82; PULSE 63–69; RESP 16–19; TEMP 35.9–36.8; O2SAT 90–99
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
--- NOTE | 2020-08-23 04:15 | DI.RAD_ITS ---
EXAM: XR HIP LT COMPLETE AP PELVIS CLINICAL HISTORY: back/hip pain. TECHNIQUE: 2D digital imaging was performed. COMPARISON: CR XR HIP LT COMPLETE AP PELVIS from 07/03/2020 FINDINGS: BONES: No acute fracture is present. No bony destructive lesion is seen. JOINTS: No dislocation present. SOFT TISSUE: Normal. Stable dystrophic calcification adjacent to the left greater trochanter. Vascul ar calcifications are seen. IMPRESSION: No acute abnormality. DATA REPOSITORY: RADIATION DOSE DELIVERED:
[2020-08-23] MEDS: HYDROcodone 5/Acetaminophen 325 TAB PO (04:32)
--- NOTE | 2020-08-23 05:04 | DI.RAD_ITS ---
EXAM: XR LUMBAR SPINE AP, LAT CLINICAL HISTORY: back/hip pain. TECHNIQUE: 2D digital imaging was performed. COMPARISON: CR XR LUMBAR SPINE COMPLETE from 02/15/2020 FINDINGS: There are degenerative changes seen in the lumbar spine. No acute fracture or subluxation is present . There is a mild right convex curvature of the lumbar spine. No suspicious lytic or sclerotic lesi ons are seen. IMPRESSION: Degenerative changes in the lumbar spine. No acute abnormality. DATA REPOSITORY: RADIATION DOSE DELIVERED:
[2020-08-23] MEDS: predniSONE 20 MG TAB 40 MG PO (05:36)
[2020-08-23] MEDS: Gabapentin 300 MG CAP PO (05:36)
[2020-08-23] MEDS: Ketorolac 30 MG/ML VIAL IM (05:36)
--- NOTE | 2020-08-23 05:44 | DI.VRAD_ITS ---
PROCEDURE INFORMATION: Exam: XR Left Hip Exam date and time: 08/23/2020 5:05 AM Age: 70 years old Clinical indication: Hip pain; Patient HX: Left hip/back pain x5days per PT, increasingly worse, no recent trauma TECHNIQUE: Imaging protocol: XR Left hip. Views: 2 or 3 views hip with pelvis when performed. COMPARISON: CR XR HIP LT COMPLETE AP PELVIS 07/03/2020 3:29 PM FINDINGS: Bones/joints: There are no acute fractures or dislocations. There are no focal bone lesions. Hip joint spaces are well preserved. Soft tissues: Soft tissue calcification is seen lateral to the left greater trochanter measuring approximately 6 x 13 mm in size representing dystrophic calcification. Vasculature: Scattered arteriosclerotic changes are identified. IMPRESSION: 1. No acute process. 2. Soft tissue calcification lateral to the left greater trochanter could represent calcified lymph node or evidence of calcific bursitis. Dictated and Authenticated by: Ezra Caro MD. Ordering:JARVIS Luke MD
--- NOTE | 2020-08-23 05:51 | DI.VRAD_ITS ---
PROCEDURE INFORMATION: Exam: XR Lumbosacral Spine Exam date and time: 08/23/2020 5:05 AM Age: 70 years old Clinical indication: Low back pain; Patient HX: Left hip/back pain x5days per PT, increasingly worse, no recent trauma TECHNIQUE: Imaging protocol: XR of the lumbosacral spine. Views: 2 or 3 views. COMPARISON: CR XR LUMBAR SPINE COMPLETE 02/15/2020 11:12 AM FINDINGS: Bones/joints: There is minimal dextrocurvature of the lumbar spine. Spondylosis is demonstrated. There is narrowing of the intervertebral disc spaces at L4-L5-S1. There are no compression fracture deformities. There are no lytic or blastic bone lesions. There is normal vertebral body alignment. Soft tissues: Unremarkable. Intraperitoneal space: Surgical clips are noted over the right upper quadrant of the abdomen consistent with previous cholecystectomy. Other findings: Scattered arteriosclerotic changes are identified. IMPRESSION: 1. Spondylosis. 2. Degenerative disc disease at L4-L5-S1. 3. Minimal dextrocurvature of the lumbar spine. 4. Cholecystectomy. 5. There is no significant interval change from the previous study. Dictated and Authenticated by: Ezra Caro MD. Ordering:JARVIS Luke MD
[2020-08-23 06:30] LABS: Abs Immature Grans 0.08 10^3/uL (0.0-0.06); Absolute Basophil Count 0.04 10^3/uL (0.0-0.2); Absolute Eosinophil Count 0.14 10^3/uL (0.0-0.7); Absolute Monocyte Count 0.64 10^3/uL (0.1-0.8); Absolute Neutrophil Count 4.18 10^3/uL (1.2-6.7); Basophils % 0.6; Eosinophils % 2.2; HCT 32.8 % (36.0-46.0); HGB 10.7 g/dL (11.2-15.7); Immature Grans % 1.2; Lymphocytes % 21.6; MCH 29.2 pg (27.0-33.0); MCHC 32.6 % (32.0-36.0); MCV 89.4 fL (80-95); MPV 11.5 fL (8.0-11.0); Monocytes % 9.9; Neutrophils % 64.5; Nucleated RBC 0 %; Platelet Count 173 10^3/uL (130-400); RBC 3.67 10^6/uL (3.93-5.22); RDW-SD 45.2 fL; WBC 6.48 10^3/uL (4.4-10.8)
[2020-08-23 06:44] LABS: ALT 24 U/L (14-59); AST 19 U/L (15-37); Albumin 3.4 g/dL (3.4-5.0); Alkaline Phosphatase 138 U/L (46-116); Anion Gap 5.7 mmol/L (3-11); BUN 14 mg/dL (7-18); Bilirubin, Total 0.2 mg/dL (0.2-1.0); C-Reactive Protein 0.43 mg/dL (0.0-0.3); CO2 29.3 mmol/L (21.0-32.0); CREATININE 1.2 mg/dL (0.55-1.02); Calcium 8.8 mg/dL (8.5-10.1); Chloride 106 mmol/L (98-107); Estimated GFR 44.16 (mL/min/1.73m2); Glucose 123 mg/dL (74-106); Potassium 4.2 mmol/L (3.5-5.1); Sodium 141 mmol/L (136-145); Total Protein 6.5 g/dL (6.4-8.2)
[2020-08-23 06:45] LABS: ESR 12 mm//hr (0-30)
[2020-08-23 08:22] LABS: Source Nasal/Nares
[2020-08-23] MEDS: Lidocaine 5% Patch 1 PATCH TP (11:57)
[2020-08-23] MEDS: Acetaminophen 500 MG TAB PO (11:58)
[2020-08-23] MEDS: Heparin 5,000 UNITS/ML VIAL 5000 UNITS SC ×2 (11:59→19:01)
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
[2020-08-23] MEDS: Insulin Aspart 300 UNITS/3 ML PEN SC ×2 (12:05→18:22)
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
[2020-08-23 14:16] LABS: Hemoglobin A1C 6.1 % (<5.7)
[2020-08-23 14:56] LABS: COVID-19 PCR Negative (Negative)
--- NOTE | 2020-08-23 19:31 | RESPIRATORY ---
Pt has a well established laryngectomy that she cleans and cares for herself. She does not use O2 or humidity although was given a trach bib and is very happy to use to help keep laryngectomy clean and humidified. All supplies are in her room at bedside w/ sx set up and readily available.
[2020-08-23] MEDS: Senna TAB 1 TAB PO (20:54)
[2020-08-23] MEDS: Normal Saline Flush 10 ML SYR IVP (21:40)
[2020-08-23] MEDS: Allopurinol 300 MG TAB PO (21:42)
[2020-08-23] MEDS: Atorvastatin 40 MG TAB PO (21:42)
[2020-08-23] MEDS: carBAMazepine 100 MG CHEW 200 MG PO (21:43)
[2020-08-23] MEDS: Travoprost 0.004% Ophth Sol 2.5 ML BTL OP (21:45)
[2020-08-23] MEDS: LIDOCAINE Patch Removal 1 EACH TP (22:53)
[2020-08-23] MEDS: Insulin Glargine 300 UNITS/3 ML PEN 12 UNITS SC (23:34)
[2020-08-23] MEDS: Methocarbamol 750 MG TAB PO (23:57)
[2020-08-24] MEDS: Omeprazole 20 MG CAPCR 40 MG PO ×2 (01:40→07:46)
[2020-08-24] MEDS: Heparin 5,000 UNITS/ML VIAL 5000 UNITS SC ×2 (01:43→10:27)
[2020-08-24] MEDS: Levothyroxine 150 MCG TAB PO (06:46)
[2020-08-24] MEDS: carBAMazepine 100 MG CHEW PO (07:46)
[2020-08-24] MEDS: Famotidine 20 MG TAB 40 MG PO (07:46)
[2020-08-24] MEDS: hydroCHLOROthiazide 25 MG TAB PO (07:47)
[2020-08-24] MEDS: DULoxetine 20 MG CAP 40 MG PO (07:47)
[2020-08-24] MEDS: amLODIPine 10 MG TAB PO (07:47)
[2020-08-24] MEDS: Lisinopril 20 MG TAB 40 MG PO (07:47)
[2020-08-24] MEDS: Senna TAB 1 TAB PO (07:47)
[2020-08-24] MEDS: predniSONE 20 MG TAB 60 MG PO (07:47)
[2020-08-24 07:49] VITALS: BP 200/80; PULSE 68; RESP 17; TEMP 36.3; O2SAT 99
[2020-08-24 09:30] VITALS: BP 190/72
[2020-08-24] MEDS: Methocarbamol 750 MG TAB PO (09:31)
[2020-08-24] MEDS: Lidocaine 5% Patch 1 PATCH TP (10:28)
--- NOTE | 2020-08-24 10:57 | PT.INTREAT ---
PT Notes Visit Reasons: LEFT SCIATICA 08/24/2020 SUBJECTIVE: Karina still notes pain and spasm in the low back and into the left buttock. Right now it is not extending down the leg. Agreeable to PT treatment. Notes that movement is sometimes helpful. OBJECTIVE: TRANSFERS Sit to stand: CGA Stand to sit: CGA GAIT Device: FWW Weight bearing: Full Assist: CGA Distance: 100'x2 Deviation: stand rest break x 2, seated rest after completion of stairs. STAIRS: 3x4 step, 2-6 steps, 2 rails, step to pattern, SBA ASSESSMENT: Pt does have one LOB when trying to reach behind her back requiring min A by this therapist to steady herself. No LOB during gait with the walker. She performs stairs without difficulty. PLAN: Continue current POC. Treatment time: 25' [id number] Melany Preston PTA Clinic location: [facility] [place], [place]
[2020-08-24] MEDS: amLODIPine 5 MG TAB PO (11:33)
[2020-08-24] MEDS: Insulin Aspart 300 UNITS/3 ML PEN SC (12:01)
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
--- NOTE | 2020-08-24 12:24 | CMPROGNOTE_ITS ---
Care Management Progress Note CA met with Karina who shared no concerns re: discharge to home anticipated for today. [facility]. CA consulted with NS and explained process to Karina; that she bring sharps in puncture free container to main entrance of [facility] and give to [facility] who then requests [facility] to dispose of them. JENNIFER Keenan also stated sharps containers are often exchanged to make the process easier. CA requested Shivani unitizer on M/S provide sharps container for 231 which was completed shortly thereafter, and [facility] brought container directly to patient. Karina reported her container at home was overflowing and she would bring the sharps to [facility] to be disposed of.
--- NOTE | 2020-08-24 12:49 | PDOC.HHF2F ---
Home Health Certification Home Health Certification: 1. Encounter Date and Reason I certify that TAMMY KAPOOR was seen by Liliya Cerrato on 08/24/20 and that I had a [id number] encounter with this patient that meets the physician face to face encounter requirements. 2. Clinical Findings Supporting Skilled Need and Homebound Status I certify that home health services are medically necessary, include either intermittent care home and/or physical/speech therapy, and that this patient is homebound in that absences from the home require considerable and taxing effort and are infrequent or of short duration, or are attributable to the need to receive medical care. [X] (a) Attached documentation from encounter provides clinical findings supporting skilled need and homebound status (including what assistance patient requires to leave the home). The encounter with the patient was in whole, or in part, for the following medical condition, which is the primary reason for home health care: LEFT SCIATICA Physical Therapy: Patient would benefit from PT for further gait stability and strengthening along with exercises for sciatica and IT band problems Homebound: Unable to leave home without assistance 3. Certification and Authentication I certify that I composed the above information based on my clinical judgement relating to this patient's medical condition and, if applicable, clinical findings communicated to me by the NPP or inpatient physician who performed the Home Health Referral. All further orders will be obtained through Denys Valle_(Community Based Physician - PCP)
--- NOTE | 2020-08-25 11:50 | INDS_ITS ---
Date of service: 08/25/20 Time of Service: 11:50 PT Notes Visit Reasons: LEFT SCIATICA Physical Therapy Inpatient Discharge Summary Date: 08/23/2020 Dates of service: 08/23/2020 through 08/24/2020 This is a clinical summary of care provided on the duration of dates listed above. No charge was made in the completion of this documentation. Referring Doctor: Liliya Cerrato NP PT Orders: PT CONSULT: Eval/treat. Precautions: Fall. Standard. Activity as tolerated. Aphonia due to previous laryngectomy. Patient Profile/Admitting Diagnosis: Karina is a 70-year-old female with laryngectomy and responds through written communication due to aphonia from previous laryngectomy. She presented to the ED on 08/23/2020 with tender lumbar spine and sciatic-type pain with onset 5 days ago prior to admission. Patient is diagnosed with exacerbation of sciatica on left side, weakness, spondylosis, and DJD of L4?L5-S1 with dextrocurvature of the lumbar spine. PMHX: Medical History Actinic keratoses Aortic stenosis Aphonia Benign positional vertigo Chronic bilateral low back pain with bilateral sciatica Diabetes mellitus, type II 03/03: Good control on lantus alone Dyspepsia Dysphagia Esophageal . 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 Cystic Ovary Social History/Home Situation: Lives in the basement of the [facility]. Independent with all aspects of ADLs without an assistive device. No falls in the past 12 months. Has a ramp to enter the building and has to negotiate 7 steps with one rail on 1 side and a wall on the other side. Equipment Owned/DME: None Subjective: NT. See most recent DIRECTOR OF MARKET ANALYSIS notes. Objective: General Observation: NT. See most recent DIRECTOR OF MARKET ANALYSIS notes. Mental Status: NT. See most recent DIRECTOR OF MARKET ANALYSIS notes. Pain: NT. See most recent DIRECTOR OF MARKET ANALYSIS notes. ROM: Right Upper Extremity: Shoulder Flexion WFL. Shoulder abduction WFL. Shoulder ER/IR WFL. Elbow flexion WFL. Forearm pronation/supination WFL. Wrist flexion WFL. Opening and closing of hand WFL. Left Upper Extremity: Shoulder Flexion WFL. Shoulder abduction WFL. Shoulder ER/IR WFL. Elbow flexion WFL. Forearm pronation/supination WFL. Wrist flexion WFL. Opening and closing of hand WFL. Right Lower Extremity: Able to assume the FABERE position without symptom provocation. SLR is negative. Knee and ankle motions WFL. Left Lower Extremity: Able to assume the FABERE position slowly with reproduction of pain accompanied by mild weakness that spreads down the back of patient's left knee. SLR positive. Knee and ankle motions WFL. Strength: Right Upper Extremity: Shoulder flexors 4/5. Shoulder abductors 4/5. Shoulder ER 4/5/ Shoulder IR 4/5. Forearm pronators 4/5. Forearm supinators 4/5. Elbow flexors 4/5. Elbow extensors 4/5. Web Site Specialist strong. Left Upper Extremity: Shoulder flexors 4/5. Shoulder abductors 4/5. Shoulder ER 4/5/ Shoulder IR 4/5. Forearm pronators 4/5. Forearm supinators 4/5. Elbow flexors 4/5. Elbow extensors 4/5. Web Site Specialist strong. Right Lower Extremity: Hip flexors 4/5. Hip abductors 4/5. Hip external rotators 4/5. HIp internal rotators 4/5. Knee flexors 4/5. Knee extensors 4/5. Ankle dorsiflexors/evertors 4/5. Ankle plantarflexors/invertors 4/5. Left Lower Extremity: Hip flexors 4-/5. Hip abductors 4-/5. Hip external rotators 4-/5. HIp internal rotators 4-/5. Knee flexors 4-/5. Knee extensors 4- /5. Ankle dorsiflexors/evertors 4-/5. Ankle plantarflexors/invertors 4-/5. Sensation: Intact as to pain and light pressure in bilateral lower extremities. Bed Mobility/Transfers: Logrolling contact-guard assist Right side-lying to sit contact-guard assist Sit to stand contact-guard assist Stand to sit contact-guard assist Bed to bedside commode contact-guard assist Bedside commode to chair contact-guard assist Gait: Guided patient through level surface ambulation with a distance of 100 feet x 2 requiring contact-guard assist. Halley decreased. Step height decreased. Step length decreased. Up-and-down three 4 inch steps and two 6 inch steps while holding onto bilateral rails requiring standby assist. Balance: Static Sitting: Normal Dynamic Sitting: Good Static Standing: Fair Dynamic Standing: Fair Assessment: L4-L5-S1 spondylosis with radiculopathy compounded by a dextrocurvature of the lumbar spine. Left piriformis and L gluteal musculature tender to palpation. Patient will benefit from low back pain exercises, manual therapy, and functional mobility training to tolerance. Patient continues to present with clinical signs and symptoms consistent with current/admitting diagnoses that have resulted to mobility limitations, gait instability, generalized weakness, and impairment of motor control as demonstrated by the following impairment level findings: 1. Decreased strength to B LE major muscle groups 2. Impaired sitting/standing balance 3. Impaired activity tolerance 4. Limitation of joint range of motion in B hips 5. L lumbar spondylosis with radiculopathy Impairments are continuing to contribute to the following functional limitations: 1. Dependent bed mobility skills 2. Increased dependence with transfers 3. Inability to safely ambulate without assistive device and physical assi stance 4. Increase completion time for mobility ADL performance 5. Increased fall risk 6. Inability to negotiate steps alone safely 7. Inability to return to prior living environment at this time Goals: Goals X1 week 1. Supine-Sit independent NOT MET 2. Sit-Supine independent NOT MET 3. Sit-Stand independent NOT MET 4. Stand-Sit independent NOT MET 5. Bed-Chair independent NOT MET 6. Chair-Bed independent NOT MET 7. Independent gait on level surface with use of front wheel walker for at least 300 feet without report of pain nor dyspnea NOT MET 8. Independent stair negotiation while holding onto B rails for at least 7 steps without report of pain nor dyspnea NOT MET 9. Independent with home exercise program NOT MET 10. Good static and dynamic standing balance/tolerance NOT MET DISCHARGE RECOMMENDATIONS: Patient will benefit from outpatient PT services to address ongoing impairments and functional limitations and facilitate return to community ambulation without an assistive device. TREATMENT CODE/TIME: NC. Thank you for the opportunity to participate in the care of this patient. Nuria Neely PT, DPT, CLT [facility] [place], [place]
== END 2020-08-24 13:44 | disposition home or self-care (01) ==
LOC: ER 07:47 → MS 08:33
PROVIDERS: Admitting Provider Family Medicine; Emergency Provider Emergency Medicine; PCP Family Medicine; Visit Provider Family Medicine
DX: M54.42 Lumbago with sciatica, left side (principal); R53.1 Weakness; I10 Essential (primary) hypertension; E11.9 Type 2 diabetes mellitus without complications; E78.5 Hyperlipidemia, unspecified; K21.9 Gastro-esophageal reflux disease without esophagitis; Z85.21 Personal history of malignant neoplasm of larynx; Z90.02 Acquired absence of larynx; I35.0 Nonrheumatic aortic (valve) stenosis; H81.10 Benign paroxysmal vertigo, unspecified ear; Z79.4 Long term (current) use of insulin; K22.2 Esophageal obstruction; G47.00 Insomnia, unspecified; E89.0 Postprocedural hypothyroidism; R91.8 Other nonspecific abnormal finding of lung field; F33.8 Other recurrent depressive disorders
CPT/HCPCS: 36415; 80053; 85652; 87635; 96372; 96374; 97163; 97530; 99220; 99285; 72100; 73502; 83036; 85025; 86140; 99217; G0378; J1644; J1885; J3490; J7512

== ENCOUNTER 2020-08-28 12:06 | Outpatient (CLI) | payer MEDICARE, MEDICAID, SELFPAY ==
--- NOTE | 2020-08-28 14:25 | ZIOP_ITS ---
Date of service: 08/28/20 Time of Service: 14:25 14 Day [employer] Referring Provider:: Denys Fierro Indications:: Bradycardia Note: This was a 14-day cardiac cath rn Rhythm throughout was sinus with an average heart rate of 67. Minimum was 46, maximum 124 There were rare ventricular ectopic beats There were occasional atrial ectopic beats. There were several 3-4 beat atrial runs. There was one 9 beat run, likely SVT with aberrancy, not ventricular tachycardia No patient symptoms were reported
== END 2020-08-28 12:07 | disposition home or self-care (01) ==
LOC: CARDO 12:08
PROVIDERS: PCP Family Medicine; Referring Provider Internal Medicine; Visit Provider Internal Medicine Cardiovascular Disease
DX: R00.1 Bradycardia, unspecified (principal); I49.1 Atrial premature depolarization; I47.1 Supraventricular tachycardia
CPT/HCPCS: 93248

== ENCOUNTER 2020-08-30 19:39 | Inpatient (IN) | payer MEDICARE, MEDICAID, SELFPAY ==
[2020-08-30 19:43] VITALS: BP 152/73; PULSE 87; RESP 16; TEMP 37.9
--- NOTE | 2020-08-30 20:00 | DI.CT_ITS ---
EXAM: CT ABDOMEN PELVIS WO INDICATION: lower lumbar pain and left hip pain. COMPARISON: CT RENAL COLIC WO CONTRAST from 12/06/2008 CR,XR XR CHEST 2V PA LATERAL from 05/28/[address] LUMBAR SPINE RECONS from 08/30/2020 TECHNIQUE: CT examination was performed without contrast administration. Additional lumbar spine re constructions are also interpreted. FINDINGS: Images obtained through the lung bases show multiple areas of reticulo nodular infiltrate and possib le consolidative components in right lower lobe and left upper lobe. Possibility of infectious proce ss, acute or chronic. Please correlate clinically.. Visualized portions of the liver and spleen james ear intact. Visualized portions of the pancreas are unremarkable. Gallbladder and bile ducts are CT normal. Abdominal aorta is of normal diameter. No significant abdominal wall hernia. No significant abdominal or pelvic adenopathy. Small fat containing left adrenal lesion noted, consistent with benign adenoma. Normal appearance of right adrenal. The kidneys are normal in size and shape. There is no evidence of a renal mass, hydronephrosis, or n ephrolithiasis. No ureteral dilatation or calcification identified. Urinary bladder is unremarkable in appearance. IMPRESSION: Bilateral intrapulmonary reticulo nodular infiltrates, nonspecific. Please correlate clinically. Ojeda spicious for pneumonitis. Otherwise negative abdominal and pelvic CT. Moderate degenerative changes of the lumbar spine, no evidence of acute fracture. RADIATION DOSE DELIVERED: 919.95mGy.cm DLP 919.95mGy.cm Total DLP 919.95mGy.cm Total DLP RADIATION OPTIMIZATION: All CT scans at this facility use at least one of these dose optimization te chniques: automated exposure control; mA and/or kV adjustment per patient size (includes targeted exa ms where dose is matched to clinical indication); or iterative reconstruction.
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
[2020-08-30 20:38] LABS: Abs Immature Grans 0.51 10^3/uL (0.0-0.06); Absolute Basophil Count 0.07 10^3/uL (0.0-0.2); Absolute Monocyte Count 1.86 10^3/uL (0.1-0.8); Absolute Neutrophil Count 13.75 10^3/uL (1.2-6.7); Basophils % 0.4; Eosinophils % 0.7; HCT 39.5 % (36.0-46.0); HGB 12.9 g/dL (11.2-15.7); Immature Grans % 2.8; Lymphocytes % 9.8; MCH 29.1 pg (27.0-33.0); MCHC 32.7 % (32.0-36.0); MCV 89.2 fL (80-95); MPV 12.1 fL (8.0-11.0); Monocytes % 10.3; Nucleated RBC 0 %; Platelet Count 214 10^3/uL (130-400); RBC 4.43 10^6/uL (3.93-5.22); RDW 14.6 % (11.7-14.6); RDW-SD 46.9 fL; WBC 18.09 10^3/uL (4.4-10.8)
[2020-08-30 20:42] LABS: Absolute Eosinophil Count 0.13 10^3/uL (0.0-0.7); Absolute Lymphocyte Count 1.77 10^3/uL (1.2-3.4)
--- NOTE | 2020-08-30 20:45 | DI.RAD_ITS ---
EXAM: XR PORTABLE CHEST AP CLINICAL HISTORY: fever, eval for pneumonia TECHNIQUE: COMPARISON: CR,XR XR CHEST 2V PA LATERAL from 05/28/2020 FINDINGS: There are faint infiltrates in right lung base and left mid lung which are new since prior examinatio n of May 28. These were much more easily seen on today's CT examination. Findings as describe d are suspicious for acute or subacute infectious process, please correlate clinically. Appropriate follow-up films or CT requested. IMPRESSION: RADIATION DOSE DELIVERED: Total DLP
[2020-08-30 20:51] LABS: ALT 312 U/L (14-59); AST 324 U/L (15-37); Albumin 3.3 g/dL (3.4-5.0); Alkaline Phosphatase 184 U/L (46-116); Anion Gap 7.4 mmol/L (3-11); BUN 13 mg/dL (7-18); Bilirubin, Total 0.5 mg/dL (0.2-1.0); CO2 28.6 mmol/L (21.0-32.0); CREATININE 1.1 mg/dL (0.55-1.02); Calcium 8.7 mg/dL (8.5-10.1); Chloride 102 mmol/L (98-107); Estimated GFR 48.82 (mL/min/1.73m2); Glucose 135 mg/dL (74-106); Potassium 4.8 mmol/L (3.5-5.1); Sodium 138 mmol/L (136-145); Total Protein 6.4 g/dL (6.4-8.2)
[2020-08-30] MEDS: Normal Saline 1,000 ML 1000 ML IV (20:57)
[2020-08-30 20:58] LABS: Diff Comment Agrees w/ Instrument; RBC Morphology Normal
[2020-08-30 21:20] VITALS: BP 146/66; PULSE 82; RESP 16; O2SAT 90
[2020-08-30 21:40] VITALS: BP 146/55; PULSE 78; RESP 16; O2SAT 92
--- NOTE | 2020-08-30 21:45 | DI.VRAD_ITS ---
PROCEDURE INFORMATION: Exam: XR Chest Exam date and time: 08/30/2020 9:20 PM Age: 70 years old Clinical indication: Cough TECHNIQUE: Imaging protocol: XR of the chest. Views: 1 view. COMPARISON: CR XR CHEST 2V PA LATERAL 05/28/2020 6:50 PM FINDINGS: Lungs: Unremarkable. No consolidation. Pleural spaces: Unremarkable. No pleural effusion. No pneumothorax. Heart/Mediastinum: Unremarkable. No cardiomegaly. Bones/joints: There is stable left acromioclavicular dissociation. There is no acute osseous abnormality. IMPRESSION: No acute pulmonary abnormality. Dictated and Authenticated by: Kyler Wisdom MD. Ordering:KARI Kearney MD
[2020-08-30 21:47] LABS: Bilirubin Negative (Negative); Blood Negative (Negative); Clarity Clear (Clear); Glucose 500 mg/dL (Negative); Ketones Negative (Negative); Leukocyte Esterase Negative (Negative); Nitrite Negative (Negative); Urobilinogen 0.2 EU/dL (Up TO 0.2); pH 7.5 (5-8)
--- NOTE | 2020-08-30 21:57 | DI.VRAD_ITS ---
PROCEDURE INFORMATION: Exam: CT Abdomen And Pelvis Without Contrast Exam date and time: 08/30/2020 8:35 PM Age: 70 years old Clinical indication: Other: Low back and hip pain TECHNIQUE: Imaging protocol: Computed tomography of the abdomen and pelvis without contrast. COMPARISON: CR XR HIP LT COMPLETE AP PELVIS 08/23/2020 4:47 AM FINDINGS: Lungs: There are centrilobular and tree-in-bud nodular opacities in the right lower lung lobe and left upper lung lobe. Largest of these nodules measuring up to 1.0 cm. Heart: Heart is within normal limits in size. Are moderate to heavy coronary artery calcifications. There are calcifications of aortic valve and mitral annulus. Liver: Normal. No mass. Gallbladder and bile ducts: Gallbladder is surgically removed. Pancreas: Normal. No ductal dilation. Spleen: Normal. No splenomegaly. Adrenal glands: Normal. No mass. Kidneys and ureters: Normal. No hydronephrosis. Stomach and bowel: There are mild to moderate stool volume in the colon. Appendix: Appendix is normal. Intraperitoneal space: Unremarkable. No free air. No significant fluid collection. Vasculature: There are calcifications of abdominal aorta. Lymph nodes: Unremarkable. No enlarged lymph nodes. Urinary bladder: Urinary bladder is moderately distended. Reproductive: Unremarkable as visualized. Bones/joints: No acute fracture. There are degenerative changes in the lumbar spine most pronounced at L5-S1 with prominent posterior osteophyte spurring. There is a chronic defect in the right lamina of L5. There is moderate to marked bilateral facet osteoarthropathy at L4-L5 and L5-S1. Soft tissues: Unremarkable. IMPRESSION: 1. No acute intra-abdominal abnormality. 2. Centrilobular and tree in a bud nodular opacities in the right lower lung lobe and in the left upper lung lobe likely sequela of infection or inflammation. Follow-up might be considered in three months if these have resolved. 3. Degenerative changes in the lumbar spine most pronounced at L5-S1 and L4-L5. There is chronic defect in the right lamina of L5 without spondylolisthesis. Dictated and Authenticated by: Kyler Wisdom MD. Ordering:KARI Kearney MD
[2020-08-30 22:41] LABS: Creatine Kinase 37 U/L (26-192)
[2020-08-30 23:18] LABS: COVID-19 PCR Negative (Negative)
[2020-08-30 23:25] VITALS: BP 146/60; PULSE 74; RESP 16; TEMP 36.9; O2SAT 94
[2020-08-30 23:44] LABS: Lipase 63 U/L (73-393)
[2020-08-31] VITALS (7 sets, daily range): BP systolic 107–161; BP diastolic 55–72; PULSE 57–76; RESP 10–19; TEMP 35.9–37.6; O2SAT 85–99
[2020-08-31] MEDS: PIPERACILLIN/TAZO 3.375 GM in Normal Saline 50 ML IVPB ×5 (00:01→22:27)
[2020-08-31] MEDS: HYDROmorphone 2 MG/ML VIAL 1 MG IVP (00:15)
[2020-08-31] MEDS: VANCOMYCIN 1,500 MG in Normal Saline 500 ML 167 MG IVPB (01:03)
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
[2020-08-31] MEDS: Normal Saline 1,000 ML 125 ML IV ×3 (04:29→22:28)
[2020-08-31] MEDS: Heparin 5,000 UNITS/ML VIAL 5000 UNITS SC ×3 (06:12→22:27)
[2020-08-31] MEDS: Levothyroxine 150 MCG TAB PO (06:13)
[2020-08-31 07:44] LABS: HCT 36.8 % (36.0-46.0); HGB 11.6 g/dL (11.2-15.7); MCH 28.6 pg (27.0-33.0); MCHC 31.5 % (32.0-36.0); MCV 90.9 fL (80-95); MPV 12.2 fL (8.0-11.0); Nucleated RBC 0 %; Platelet Count 193 10^3/uL (130-400); RBC 4.05 10^6/uL (3.93-5.22); RDW 14.7 % (11.7-14.6); RDW-SD 49.5 fL; WBC 13.52 10^3/uL (4.4-10.8)
[2020-08-31 07:56] LABS: Anion Gap 6.3 mmol/L (3-11); BUN 13 mg/dL (7-18); CO2 27.7 mmol/L (21.0-32.0); CREATININE 1.1 mg/dL (0.55-1.02); Calcium 8.3 mg/dL (8.5-10.1); Chloride 106 mmol/L (98-107); Estimated GFR 48.82 (mL/min/1.73m2); Glucose 157 mg/dL (74-106); Potassium 4.5 mmol/L (3.5-5.1); Sodium 140 mmol/L (136-145)
[2020-08-31 08:07] LABS: TROPONIN-I 2.7 ug/mL (4.0-12.0); TSH 0.98 uIU/mL (0.36-3.74)
[2020-08-31 08:26] LABS: Absolute Lymphocyte Count 1.22 10^3/uL (1.2-3.4); Absolute Monocyte Count 1.22 10^3/uL (0.1-0.8); Absolute Neutrophil Count 10.55 10^3/uL (1.2-6.7); Bands % 3; Diff Comment Manual Differential; Metamyelocytes % 3; Myelocytes % 1
[2020-08-31 08:27] LABS: RBC Morphology Normal
[2020-08-31 08:47] LABS: Procalcitonin 0.1 ng/mL
[2020-08-31] MEDS: DULoxetine 20 MG CAP 40 MG PO (08:55)
[2020-08-31] MEDS: amLODIPine 10 MG TAB PO (08:56)
[2020-08-31] MEDS: Ondansetron 4 MG TAB PO ×3 (08:56→20:40)
[2020-08-31] MEDS: Methocarbamol 750 MG TAB PO (08:56)
[2020-08-31] MEDS: Omeprazole 20 MG CAPCR 40 MG PO (08:56)
[2020-08-31] MEDS: predniSONE 20 MG TAB 60 MG PO (08:56)
[2020-08-31] MEDS: Lisinopril 20 MG TAB 40 MG PO (08:56)
[2020-08-31] MEDS: carBAMazepine 100 MG CHEW PO (08:56)
[2020-08-31] MEDS: Acetaminophen 325 MG TAB 650 MG PO (08:56)
[2020-08-31] MEDS: Famotidine 20 MG TAB PO (08:56)
[2020-08-31] MEDS: Lidocaine 5% Patch 2 PATCH TP (09:19)
[2020-08-31] MEDS: Insulin Glargine 300 UNITS/3 ML PEN 12 UNITS SC (09:25)
--- NOTE | 2020-08-31 09:25 | INITIAL_ITS ---
- If Service Date Differs Date of service: 08/31/20 Time of Service: 09:25 Care Management Initial Assess REASON FOR HOSPITALIZATION:: HCAP vs aspiration pneumonia, transaminitis. PAST MEDICAL HISTORY/PAST SURGICAL HISTORY:: Medical History: Actinic keratos es, Aortic stenosis, Aphonia, Benign positional vertigo, Chronic bilateral low back pain with bilateral sciatica,. Diabetes mellitus, type II - 03/03: Good control on lantus alone, Dyspepsia, Dysphagia - Esophageal . esophageal dilation 06/28/19 at [facility] [place],. Epistaxis, Esophageal stricture, Essential hypertension, Facial injury,. 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 Surgical History: Esophageal dilatation - 06/28/19 [facility] [place] Otolaryngology,. History of back surgery (~1974), History of carpal tunnel release - Left,. History of cataract surgery - w/Implant, History of cervical spinal surgery,. History of section, History of cholecystectomy, History of hysterectomy - Emergent, for heavy bleeding, History of laparoscopy (~2015), History of laryngectomy, History of shoulder surgery (~2006). Left, History of tracheostomy (~2015), Hx of removal of ovary - Right, and Cystic Ovary. PREVIOUS FUNCTIONAL STATUS/SOCIAL/FAMILY SUPPORTS:: Karina lives alone in an apartment at [facility]. Her son Gato and his live nearby and Gato is her caregiver. Karina has two other sons who reside in [place]. 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 She now occupies her time watching television, playing games on her tablet, and doing word searches. CURRENT FUNCTIONAL STATUS:: Karina is laying in bed watching television when CM enters her room. She has a tracheotomy and is unable to speak, but writes down answers to questions on a piece of paper. ADVANCE DIRECTIVES:: Karina states she has an Advance Directives at home. Her son, Gato, is her Health Care Agent. Has patient been provided with info about the portal/API?: No Did the patient sign up for the portal?: No CODE STATUS:: Full Code INSURANCE COVERAGE / FINANCIAL ISSUES:: Medicaid and Medicare. CURRENT HOME/COMMUNITY SERVICES/EQUIPMENT:: No home or community services. Since 2015, Karina has had a tracheotomy. She denies having any other medical equipment. PRIMARY CARE PHYSICIAN:: Denys Fierro, POTENTIAL DISCHARGE NEEDS:: Follow up appointment with PCP and potential short term rehab placement prior to returning home. PATIENT/FAMILY EDUCATION NEEDS:: Discharge instructions, limitations, follow up plan of care, including Ask Me Three and self management. ANTICIPATED BARRIERS TO DISCHARGE:: None. TRANSPORTATION:: TBD by disposition. PLAN:: Anticipate Karina will require a short term rehab prior to returning home. She will follow up with her PCP and discharge plan of care as directed. Transport remains to be determined based on disposition. CM will continue to support Karina and discharge planning needs.
--- NOTE | 2020-08-31 13:03 | IN_ITS ---
Date of service: 08/31/20 Time of Service: 10:45 PT Notes Visit Reasons: HCAP VS ASPIRATION PNEUMONIA, TRANSAMINITIS Inpatient Physical Therapy Evaluation Date: August 31, 2020 Referring Doctor: Niru Daniels PT Orders: PT CONSULT: Limited ability Precautions: Falls, Standard Patient Profile/Admitting Diagnosis: Karina is a 70 year old female with PMHx of laryngeal ca s/p laryngectomy and tracheostomy, as well as h/o chronic dysph agia, GERD, IDDM2, and chronic sciatica, who presented to [facility] ED on 08/30/20 with failure to thrive. She complains of worsening chronic sciatica to the point of inability to ambulate, which led to poor PO intake because of difficulty getting up. Additionally, she was found to have pneumonia (HCAP vs aspiration). PMHX: Actinic keratoses Aortic stenosis Aphonia Benign positional vertigo Chronic bilateral low back pain with bilateral sciatica Diabetes mellitus, type II 03/03: Good control on lantus alone Dyspepsia Dysphagia Esophageal . 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 Cystic Ovary Social History/Home Situation: Karina lives alone in a private apartment. Reports independence with use of walker or utilization of furniture to support her due to limited space Current Functional Limitations: Decreased functional endurance, inability to ambulate due to lower extremity weakness, chronic sciatica Equipment Owned/DME: Front wheeled walker Subjective: Karina is alert and agreeable to a PT consultation however prefers to stay in bed and not sit up at bedside chair post evaluation. Objective: General Observation: Laryngectomy in place. Aphonic, IV left upper extremity, catheter Mental Status: Alert and oriented x3 Pain: 6/10 -low back currently utilizing moist heat ROM: Right Upper Extremity: Shoulder Flexion WFL. Shoulder abduction WFL. Shoulder ER/IR WFL. Elbow flexion WFL. Forearm pronation/supination WFL. Wrist flexion WFL. Opening and closing of hand WFL. Left Upper Extremity: Shoulder Flexion WFL. Shoulder abduction WFL. Shoulder ER/IR WFL. Elbow flexion WFL. Forearm pronation/supination WFL. Wrist flexion WFL. Opening and closing of hand WFL. Right Lower Extremity: Able to assume the FABERE position without symptom provocation. SLR is negative. Knee and ankle motions WFL. Left Lower Extremity: Able to assume the FABERE position slowly with reproduction of pain accompanied by mild weakness that spreads down the back of patient's left knee. SLR positive. Knee and ankle motions WFL. Strength: Right Upper Extremity: Shoulder flexors 4/5. Shoulder abductors 4/5. Shoulder ER 4/5/ Shoulder IR 4/5. Forearm pronators 4/5. Forearm supinators 4/5. Elbow flexors 4/5. Elbow extensors 4/5. Food Technician strong. Left Upper Extremity: Shoulder flexors 4/5. Shoulder abductors 4/5. Shoulder ER 4/5/ Shoulder IR 4/5. Forearm pronators 4/5. Forearm supinators 4/5. Elbow flexors 4/5. Elbow extensors 4/5. Food Technician strong. Right Lower Extremity: Hip flexors 4/5. Hip abductors 4/5. Hip external rotators 4/5. HIp internal rotators 4/5. Knee flexors 4/5. Knee extensors 4/5. Ankle dorsiflexors/evertors 4/5. Ankle plantarflexors/invertors 4/5. Left Lower Extremity: Hip flexors 4-/5. Hip abductors 4-/5. Hip external rotators 4-/5. HIp internal rotators 4-/5. Knee flexors 4-/5. Knee extensors 4- /5. Ankle dorsiflexors/evertors 4-/5. Ankle plantarflexors/invertors 4-/5. Sensation: Intact as to pain and light pressure in bilateral lower extremities. Bed Mobility/Transfers: supine-sit: independent HOB 40 degrees Sit to stand contact-guard assist Stand to sit contact-guard assist Gait: Bedside marching with increased SOB utilizing CGA. Step height decreased. Utilized FWW Balance: Static Sitting: Normal Dynamic Sitting: Good Static Standing: Fair Dynamic Standing: Fair Special Tests: Mobility Limitations Standardized Measure [facility] AM-PAC 6 clicks Basic Mobility Inpatient Short Form: Raw Score: 21 CMS Score: 28% deficit Informed Consent/Education: Patient instructed in purpose of PT consult and plan of care. Agreeable to proceed with established PT POC to achieve personal goals. Assessment: Karina is a 70 year old female with PMHx of laryngeal ca s/p laryngectomy and tracheostomy, as well as h/o chronic dysphagia, GERD, IDDM2, and chronic sciatica, who presented to [facility] ED on 08/30/20 with failure to thrive and pneumonia (HCAP vs aspiration) Patient presents with clinical signs and symptoms consistent with current/admitting diagnoses that have resulted to mobility limitations, gait instability, generalized weakness, and impairment of motor control as demonstrated by the following impairment level findings: 1. Decreased strength to B LE major muscle groups 2. Impaired sitting/standing balance 3. Impaired activity tolerance 4. Limitation of joint range of motion in B hips 5. L lumbar spondylosis with radiculopathy Impairments are contributing to the following functional limitations: 1. Dependent bed mobility skills 2. Increased dependence with transfers 3. Inability to safely ambulate without assistive device and physical assistance 4. Increase completion time for mobility ADL performance 5. Increased fall risk 6. Inability to negotiate steps alone safely 7. Inability to return to prior living environment at this time Patient is assessed as a 05174 moderate complexity based on the following: History: 70-year-old female with past medical history as indicated above Examination: Demonstrable impairment in strength, balance, and mobility level with underlying impairments and functional limitations as exhibited above as well as deficit score of 28% utilizing the [facility] Mobility Inpatient Short Form Presentation: Evolving Decision Makin moderate complexity Goals: Goals X1 week 1. Supine-Sit independent 2. Sit-Supine independent 3. Sit-Stand independent 4. Stand-Sit independent 5. Bed-Chair independent 6. Chair-Bed independent 7. Independent gait on level surface with use of front wheel walker for at least 300 feet without report of pain nor dyspnea 8. Independent stair negotiation while holding onto B rails for at least 7 steps without report of pain nor dyspnea 9. Independent with home exercise program 10. Good static and dynamic standing balance/tolerance Plan of Care/Treatment Plan: 1-2x/day, 7 days/week x 1 week. Plan of care has been reviewed with the CONTROL CLERK SUBASSEMBLY providing the service under Physical Therapy direction. Initiate Physical Therapy intervention for strengthening, bed mobility, transfers, gait, stairs, balance training, and use of assistive device. DISCHARGE RECOMMENDATIONS: Patient would benefit from SNF or Home with home health services TREATMENT CODE/TIME: 11044 x 20 minutes 10:45 Thank you for the opportunity to participate in the care of this patient. Katherine Felder, MPT [facility] [place], [place] Disclaimer: This note was created using Dajie voice recognition software. It was reviewed for major content. However, there may be multiple small discrepancies and errors due to the voice recognition aspects of the software.
[2020-08-31] MEDS: VANCOMYCIN 750 MG in Normal Saline 250 ML 166.667 MG IV (13:45)
[2020-08-31] MEDS: Travoprost 0.004% Ophth Sol 2.5 ML BTL OP (20:40)
[2020-08-31] MEDS: carBAMazepine 100 MG CHEW 200 MG PO (22:27)
[2020-08-31] MEDS: Allopurinol 300 MG TAB PO (22:27)
[2020-08-31] MEDS: traZODone 50 MG TAB PO (22:27)
[2020-09-01] VITALS (9 sets, daily range): BP systolic 127–188; BP diastolic 57–91; PULSE 68–73; RESP 16–18; TEMP 34–37.1; O2SAT 96–100
[2020-09-01] MEDS: Senna TAB 1 TAB PO ×2 (00:30→23:10)
[2020-09-01] MEDS: PIPERACILLIN/TAZO 3.375 GM in Normal Saline 50 ML IVPB ×2 (04:04→09:09)
[2020-09-01] MEDS: VANCOMYCIN 750 MG in Normal Saline 250 ML 166.667 MG IV (04:52)
[2020-09-01] MEDS: Heparin 5,000 UNITS/ML VIAL 5000 UNITS SC ×3 (06:23→23:09)
[2020-09-01] MEDS: Levothyroxine 150 MCG TAB PO (06:23)
[2020-09-01] MEDS: Lidocaine 5% Patch 2 PATCH TP (09:11)
[2020-09-01] MEDS: Normal Saline 1,000 ML 125 ML IV (09:11)
[2020-09-01] MEDS: Lisinopril 20 MG TAB 40 MG PO (09:18)
[2020-09-01] MEDS: Insulin Glargine 300 UNITS/3 ML PEN 12 UNITS SC (09:18)
[2020-09-01] MEDS: predniSONE 20 MG TAB 60 MG PO (09:18)
[2020-09-01] MEDS: Ondansetron 4 MG TAB PO ×3 (09:18→20:31)
[2020-09-01] MEDS: amLODIPine 10 MG TAB PO (09:18)
[2020-09-01] MEDS: DULoxetine 20 MG CAP 40 MG PO (09:19)
[2020-09-01] MEDS: Acetaminophen 325 MG TAB 650 MG PO (09:19)
[2020-09-01] MEDS: Famotidine 20 MG TAB PO (09:19)
[2020-09-01] MEDS: Bisacodyl 10 MG SUPP PR (09:19)
[2020-09-01] MEDS: Methocarbamol 750 MG TAB PO (09:19)
[2020-09-01] MEDS: carBAMazepine 100 MG CHEW PO (09:19)
[2020-09-01] MEDS: Omeprazole 20 MG CAPCR 40 MG PO (09:19)
--- NOTE | 2020-09-01 10:10 | PDOC.CMPRO ---
Care Management Progress Note S/O: Karina was sitting up in her chair when CM met with her. She wrote down her choice for SNF and requested this bond writer send referral and leave VM for her son, Bill relaying this information which CM completed. CM continues to follow. A: 70 year old female admitted to [facility] on 08/30/20 for HCAP VS Aspiration Pneumonia, Tranminitis P: Karina was agreeable to referral being faxed to [facility], which CM completed; awaiting bed offer from the facility.
[2020-09-01 11:53] LABS: Abs Immature Grans 0.29 10^3/uL (0.0-0.06); Absolute Basophil Count 0.04 10^3/uL (0.0-0.2); Absolute Eosinophil Count 0.13 10^3/uL (0.0-0.7); Absolute Lymphocyte Count 0.75 10^3/uL (1.2-3.4); Absolute Neutrophil Count 10.23 10^3/uL (1.2-6.7); Basophils % 0.3; Eosinophils % 1.1; HCT 32.4 % (36.0-46.0); HGB 10.2 g/dL (11.2-15.7); Immature Grans % 2.4; Lymphocytes % 6.1; MCH 28.9 pg (27.0-33.0); MCHC 31.5 % (32.0-36.0); MCV 91.8 fL (80-95); MPV 11.7 fL (8.0-11.0); Monocytes % 6.5; Neutrophils % 83.6; Nucleated RBC 0 %; Platelet Count 164 10^3/uL (130-400); RBC 3.53 10^6/uL (3.93-5.22); RDW 14.6 % (11.7-14.6); RDW-SD 49.2 fL; WBC 12.24 10^3/uL (4.4-10.8)
--- NOTE | 2020-09-01 13:02 | W.NUTCONSULT ---
Date of service: 09/01/20 Time of Service: 13:02 Nutritional Consult ASSESSMENT: 70 year old female admitted with adult failure to thrive with PNA, possible aspiration PNA with transaminitis. Hx of laryngeal CA with Laryngectomy with trach with chronic dysphagia. Also has hx of DM, obesity, anemia. BMI indicates obesity and has been stable > 6 months. Following soft diabetic diet with 100% meal completion. Karina communicates by writing. DM meds include DPP4 inhibitor and 12 u lantus qd HS. Most recent A1C: 6.1% indicating good glycemic control. Met with Karina today, she reports stable weight and good PO prior to admission. She denies swallowing difficulties. NUTRITIONAL DIAGNOSIS: Adult failure to thrive- not related to nutritional status INTERVENTION: Continue current diet, modify texture per BIOLOGICAL INSPECTOR as warranted MONITORING AND EVALUATION: po intake, labs, wieght will be available prn Time Spent in Nutritional Counseling and Treatment: 20
--- NOTE | 2020-09-01 13:14 | PT.INTREAT ---
Date of service: 09/01/20 Time of Service: 09:30 PT Notes Visit Reasons: HCAP VS ASPIRATION PNEUMONIA, TRANSAMINITIS Inpatient Physical Therapy Treatment Note [facility] Date: 09/01/2020 PRECAUTIONS: Fall SUBJECTIVE: Karina is pleasant and agreeable to participating in PT this morning. She reports that she is feeling pretty good. OBJECTIVE: PAIN: Patient c/o B LE cramping with gait training, which was reported to nursing. BED MOBILITY/TRANSFERS Supine-sit: I Sit-stand: I Stand-sit: I Bed-Chair: S Chair-bed: S GAIT Assistive Device: No AD Weight bearing: Full Assist: SBA Distance: 100' x2 Deviation: Seated rest due to B LE cramping STAIRS: Up/down 6x4 and 4x6 using B rails and a step-to pattern with supervision. TOILETING: Patient toileted independently. ASSESSMENT: Patient tolerated session with c/o B LE cramping with gait training. She was able to tolerate a progression in gait distance without use of assistive device and with SBA. PLAN: Continue with gait training without assistive device and add global strengthening for improved mobility. TREATMENT CODE/TIME: 40 minutes; 99417 x3 (09:30)
--- NOTE | 2020-09-01 14:50 | W.PM.PROGNOT ---
Date of Service Date of service: 09/01/20 Time of Service: 14:50 Assessment and Plan Assessment and plan (1) Pneumonia: Start date: 09/01/20 Start time: 14:56 Status: Acute Assessment and plan: No cough, no clinical signs of pneumonia afebrile BC ngtd augmentin solution will treat with an additional 5 days for total 7 day dosing of antibiotics WBC improving, though the elevated count could be from steroids repeat CBC in am CM working on placement (2) Transaminitis: Start date: 09/01/20 Start time: 15:00 Status: Acute Assessment and plan: S/p cholecystectomy. Lipase nml. Asympatomatic. On statin - will hold. (3) Chronic back pain: Start date: 09/01/20 Start time: 15:00 Status: Chronic Assessment and plan: Steroid burst. Continue muscle relaxants. prn IV dilaudid dcd. PT eval recommends snif CM working on Lido patches placed as well (4) Sciatica of left side: Start date: 09/01/20 Start time: 15:01 Status: Acute Assessment and plan: As above (5) Weakness: Start date: 09/01/20 Start time: 15:01 Status: Acute Assessment and plan: Due to above. As above Improving with hydration and eating (6) Adult failure to thrive: Start date: 09/01/20 Start time: 15:07 Status: Acute Assessment and plan: Improving, this was likely in setting of pain with lack of appetite (7) History of laryngectomy: Start date: 09/01/20 Start time: 15:11 Status: Chronic Assessment and plan: Aspiration unlikely given that there is complete closure from the trachea and esophagus (8) DVT prophylaxis: Start date: 09/01/20 Start time: 15:17 Status: Acute Assessment and plan: Heparin SC (9) Discharge planning issues: Start date: 09/01/20 Start time: 15:17 Status: Acute Assessment and plan: Full code Palliative care C/s PT requires subacute rehab Dr. Kellogg Subjective Subjective Patient reports: other Interval history since last seen: Doing well, pain better controlled, added lidoderm patched to left hip. D/c IVF vanco and zosyn. afebrile. She denies CP, SOB, n/v/d. CM working on rehab referral Exam Narrative Exam Narrative: General: Very pleasant elderly sitting up in chair. AAOx 3 smiling and feeling improved. Neurological: A&ox3, no focal deficits Psychiatric: Depressed affect Skin: Visible skin intact HEENT: Atraumatic, normocephalic, EOMI, MMM, Patent tracheostomy - site c/d/i, no goiter or JVD Cardiovascular: RRR, + ARIAN Lungs: CTAB Gastrointestinal: soft, nontender, nondistended Extremities: no edema BLE's Objective Last Vital Signs Temp 37.1 C 09/01/20 11:32 Pulse 71 09/01/20 11:32 Resp 16 09/01/20 11:32 BP 148/62 H 09/01/20 11:32 Pulse Ox 99 09/01/20 11:32 Laboratory Results - last 24 hr 09/01/20 11:35 WBC 12.24 H RBC 3.53 L Hgb 10.2 L Hct 32.4 L MCV 91.8 MCH 28.9 MCHC 31.5 L RDW 14.6 Plt Count 164 MPV 11.7 H Immature Gran % 2.4 Neutrophils % 83.6 Lymphocytes % 6.1 Monocytes % 6.5 Eosinophils % 1.1 Basophils % 0.3 Nucleated RBC % 0 Absolute Neutrophils 10.23 H Absolute Lymphocytes 0.75 L Absolute Monocytes 0.80 Absolute Eosinophils 0.13 Absolute Basophils 0.04
[2020-09-01] MEDS: Amoxicillin 400 MG/Clav. 57 MG 100 ML BTL 10 ML PO (20:30)
[2020-09-01] MEDS: Travoprost 0.004% Ophth Sol 2.5 ML BTL OP (20:31)
[2020-09-01] MEDS: Normal Saline Flush 10 ML SYR IVP (20:31)
[2020-09-01] MEDS: Mylanta Suspension 30 ML CUP PO (23:09)
[2020-09-01] MEDS: traZODone 50 MG TAB PO (23:10)
[2020-09-01] MEDS: carBAMazepine 100 MG CHEW 200 MG PO (23:10)
[2020-09-01] MEDS: Allopurinol 300 MG TAB PO (23:10)
[2020-09-02 05:35] VITALS: BP 178/72; PULSE 63; RESP 10; TEMP 36.4; O2SAT 93
[2020-09-02] MEDS: Levothyroxine 150 MCG TAB PO (05:36)
[2020-09-02] MEDS: Heparin 5,000 UNITS/ML VIAL 5000 UNITS SC (05:36)
[2020-09-02] MEDS: Acetaminophen 325 MG TAB 650 MG PO (05:43)
[2020-09-02 05:49] VITALS: RESP 12; O2SAT 93
[2020-09-02 07:30] LABS: Abs Immature Grans 0.33 10^3/uL (0.0-0.06); Absolute Basophil Count 0.03 10^3/uL (0.0-0.2); Absolute Eosinophil Count 0.12 10^3/uL (0.0-0.7); Absolute Lymphocyte Count 1.58 10^3/uL (1.2-3.4); Absolute Monocyte Count 0.85 10^3/uL (0.1-0.8); Absolute Neutrophil Count 6.76 10^3/uL (1.2-6.7); Basophils % 0.3; Eosinophils % 1.2; HGB 10.1 g/dL (11.2-15.7); Immature Grans % 3.4; Lymphocytes % 16.3; MCH 29.3 pg (27.0-33.0); MCHC 32.6 % (32.0-36.0); MCV 89.9 fL (80-95); Monocytes % 8.8; Nucleated RBC 0 %; Platelet Count 168 10^3/uL (130-400); RBC 3.45 10^6/uL (3.93-5.22); RDW 14.4 % (11.7-14.6); RDW-SD 47.1 fL; WBC 9.67 10^3/uL (4.4-10.8)
[2020-09-02 07:39] VITALS: BP 157/73; PULSE 61; RESP 18; TEMP 36.2; O2SAT 97
[2020-09-02 07:48] LABS: Vancomycin, Trough 10.4 ug/mL (10.0-20.0)
[2020-09-02 07:49] LABS: ALT 191 U/L (14-59); AST 54 U/L (15-37); Albumin 2.7 g/dL (3.4-5.0); Alkaline Phosphatase 140 U/L (46-116); Anion Gap 7.5 mmol/L (3-11); BUN 13 mg/dL (7-18); Bilirubin, Total 0.2 mg/dL (0.2-1.0); CO2 27.5 mmol/L (21.0-32.0); CREATININE 1.1 mg/dL (0.55-1.02); Calcium 8.4 mg/dL (8.5-10.1); Chloride 107 mmol/L (98-107); Estimated GFR 48.82 (mL/min/1.73m2); Glucose 125 mg/dL (74-106); Potassium 3.7 mmol/L (3.5-5.1); Sodium 142 mmol/L (136-145); Total Protein 5.7 g/dL (6.4-8.2)
[2020-09-02 08:17] VITALS: O2SAT 99
[2020-09-02] MEDS: DULoxetine 20 MG CAP 40 MG PO (08:35)
[2020-09-02] MEDS: Ondansetron 4 MG TAB PO (08:35)
[2020-09-02] MEDS: predniSONE 20 MG TAB 60 MG PO (08:35)
[2020-09-02] MEDS: amLODIPine 10 MG TAB PO (08:35)
[2020-09-02] MEDS: carBAMazepine 100 MG CHEW PO (08:36)
[2020-09-02] MEDS: Famotidine 20 MG TAB PO (08:36)
[2020-09-02] MEDS: Omeprazole 20 MG CAPCR 40 MG PO (08:36)
[2020-09-02] MEDS: Lisinopril 20 MG TAB 40 MG PO (08:36)
[2020-09-02] MEDS: Insulin Glargine 300 UNITS/3 ML PEN 12 UNITS SC (08:37)
[2020-09-02] MEDS: Amoxicillin 400 MG/Clav. 57 MG 100 ML BTL 10 ML PO (08:38)
--- NOTE | 2020-09-02 08:56 | W.PM.PROGNOT ---
Date of Service Date of service: 09/02/20 Time of Service: 08:56 Assessment and Plan Assessment and plan (1) Pneumonia: Status: Acute Assessment and plan: No cough, no clinical signs of pneumonia afebrile BC ngtd augmentin solution will treat with an additional 5 days for total 7 day dosing of antibiotics WBC improving, though the elevated count could be from steroids repeat CBC in am CM working on placement (2) Transaminitis: Status: Acute Assessment and plan: S/p cholecystectomy. Lipase nml. Asympatomatic. On statin - will hold. (3) Chronic back pain: Status: Chronic Assessment and plan: Steroid burst. Continue muscle relaxants. prn IV dilaudid dcd. PT eval recommends snif CM working on Lido patches placed as well (4) Sciatica of left side: Status: Acute Assessment and plan: As above (5) Weakness: Status: Acute Assessment and plan: Due to above. As above Improving with hydration and eating (6) Adult failure to thrive: Status: Acute Assessment and plan: Improving, this was likely in setting of pain with lack of appetite (7) History of laryngectomy: Status: Chronic Assessment and plan: Aspiration unlikely given that there is complete closure from the trachea and esophagus (8) DVT prophylaxis: Status: Acute Assessment and plan: Heparin SC (9) Discharge planning issues: Status: Acute Assessment and plan: Full code Palliative care C/s PT requires subacute rehab Dr. Kellogg Exam Narrative Exam Narrative: General: Very pleasant elderly sitting up in chair. AAOx 3 smiling and feeling improved. Neurological: A&ox3, no focal deficits Psychiatric: Depressed affect Skin: Visible skin intact HEENT: Atraumatic, normocephalic, EOMI, MMM, Patent tracheostomy - site c/d/i, no goiter or JVD Cardiovascular: RRR, + ARIAN Lungs: CTAB Gastrointestinal: soft, nontender, nondistended Extremities: no edema BLE's Objective Last Vital Signs Temp 36.2 C L 09/02/20 07:39 Pulse 61 09/02/20 07:39 Resp 18 09/02/20 07:39 BP 157/73 H 09/02/20 07:39 Pulse Ox 99 09/02/20 08:17 Laboratory Results - last 24 hr 09/01/20 09/02/20 09/02/20 11:35 06:56 06:56 WBC 12.24 H 9.67 RBC 3.53 L 3.45 L Hgb 10.2 L 10.1 L Hct 32.4 L 31.0 L MCV 91.8 89.9 MCH 28.9 29.3 MCHC 31.5 L 32.6 RDW 14.6 14.4 Plt Count 164 168 MPV 11.7 H 12.0 H Immature Gran % 2.4 3.4 Neutrophils % 83.6 70.0 Lymphocytes % 6.1 16.3 Monocytes % 6.5 8.8 Eosinophils % 1.1 1.2 Basophils % 0.3 0.3 Nucleated RBC % 0 0 Absolute Neutrophils 10.23 H 6.76 H Absolute Lymphocytes 0.75 L 1.58 Absolute Monocytes 0.80 0.85 H Absolute Eosinophils 0.13 0.12 Absolute Basophils 0.04 0.03 Sodium Potassium Chloride Carbon Dioxide Anion Gap BUN Creatinine Estimated GFR/1.73 m2 Glucose Calcium Total Bilirubin AST ALT Alkaline Phosphatase Total Protein Albumin Vancomycin Trough 10.4 09/02/20 06:56 WBC RBC Hgb Hct MCV MCH MCHC RDW Plt Count MPV Immature Gran % Neutrophils % Lymphocytes % Monocytes % Eosinophils % Basophils % Nucleated RBC % Absolute Neutrophils Absolute Lymphocytes Absolute Monocytes Absolute Eosinophils Absolute Basophils Sodium 142 Potassium 3.7 Chloride 107 Carbon Dioxide 27.5 Anion Gap 7.5 BUN 13 Creatinine 1.1 H Estimated GFR/1.73 m2 48.82 Glucose 125 H Calcium 8.4 L Total Bilirubin 0.2 AST 54 H ALT 191 H Alkaline Phosphatase 140 H Total Protein 5.7 L Albumin 2.7 L Vancomycin Trough
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
[2020-09-02 10:15] LABS: Source Nasal/Nares
--- NOTE | 2020-09-02 10:41 | SPP_ITS ---
Date of Service September 02, 2020 Subjective TIN PLATER consult ordered received 09/01/20 and communicated to covering TIN PLATER for Tuesday09/02/20 coverage. Covering TIN PLATER contacted [facility] this morning to discuss pt case, however, pt is being discharged and admitted to SNF [facility] today. PMHx and reason for ED visit was as follows per H&P: Laryngeal ca s/p laryngectomy and tracheostomy, as well as h/o chronic dysphagia, GERD, IDDM2, and chronic sciatica, who presented to [facility] ED on 08/30/20 with failure to thrive. She complains of worsening of her chronic sciatica to the point of inability to ambulate, which led to poor PO intake because of difficulty getting up. Her ED workup ruled out Cauda equina but confirmed radiculopathy. Additionally, she was found to have pneumonia (HCAP vs aspiration). The patient states she has never had pneumonia, but understands that she is at risk with both the h/o tracheostomy and dysphagia. She does not have a gastrostomy tube. Given aforementioned hx, covering TIN PLATER discussed pt case with attending CARPET JOURNEYMAN upon learning of discharge plans and requested that pt be evaluated by an TIN PLATER upon arrival to SNF in order to determine safe diet and assess risks of aspiration. Pt may also require a modified barium swallow study to confirm safety and integrity of her swallow mechanism given s/p laryngectomy and tracheostomy. CARPET JOURNEYMAN in agreement with this plan and primary TIN PLATER plans to follow-up with SNF tomorrow. NO CHARGE Coding
--- NOTE | 2020-09-02 10:41 | AMB.SPSTP ---
Date of Service September 02, 2020 Subjective B2B APPOINTMENT SETTER consult ordered received 09/01/20 and communicated to covering B2B APPOINTMENT SETTER for Tuesday09/02/20 coverage. Covering B2B APPOINTMENT SETTER contacted [facility] this morning to discuss pt case, however, pt is being discharged and admitted to SNF [facility] today. PMHx and reason for ED visit was as follows per H&P: Laryngeal ca s/p laryngectomy and tracheostomy, as well as h/o chronic dysphagia, GERD, IDDM2, and chronic sciatica, who presented to [facility] ED on 08/30/20 with failure to thrive. She complains of worsening of her chronic sciatica to the point of inability to ambulate, which led to poor PO intake because of difficulty getting up. Her ED workup ruled out Cauda equina but confirmed radiculopathy. Additionally, she was found to have pneumonia (HCAP vs aspiration). The patient states she has never had pneumonia, but understands that she is at risk with both the h/o tracheostomy and dysphagia. She does not have a gastrostomy tube. Given aforementioned hx, covering B2B APPOINTMENT SETTER discussed pt case with attending FLAP MAKER upon learning of discharge plans and requested that pt be evaluated by an B2B APPOINTMENT SETTER upon arrival to SNF in order to determine safe diet and assess risks of aspiration. Pt may also require a modified barium swallow study to confirm safety and integrity of her swallow mechanism given s/p laryngectomy and tracheostomy. FLAP MAKER in agreement with this plan and primary B2B APPOINTMENT SETTER plans to follow-up with SNF tomorrow. NO CHARGE Coding
[2020-09-02 10:56] LABS: COVID-19 PCR Negative (Negative)
[2020-09-02] MEDS: Lidocaine 5% Patch 2 PATCH TP (11:30)
--- NOTE | 2020-09-02 11:36 | PT.INDS ---
Date of service: 09/02/20 Time of Service: 11:36 PT Notes Visit Reasons: HCAP VS ASPIRATION PNEUMONIA, TRANSAMINITIS Physical Therapy Inpatient Discharge Summary Date: September 02, 2020 Dates of service: 08/31/2020 through 09/01/2020 Referring Doctor: Niru Daniels MD PT Orders: PT CONSULT: Limited ability Precautions: Falls, Standard Patient Profile/Admitting Diagnosis: Karina is a 70 year old female with PMHx of laryngeal ca s/p laryngectomy and tracheostomy, as well as h/o chronic dysphagia, GERD, IDDM2, and chronic sciatica, who presented to [facility] ED on 08/30/20 with failure to thrive. She complains of worsening chronic sciatica to the point of inability to ambulate, which led to poor PO intake because of difficulty getting up. Additionally, she was found to have pneumonia (HCAP vs aspiration). PMHX: Medical History Actinic keratoses Aortic stenosis Aphonia Benign positional vertigo Chronic bilateral low back pain with bilateral sciatica Diabetes mellitus, type II 03/03: Good control on lantus alone Dyspepsia Dysphagia Esophageal . 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 Cystic Ovary Social History/Home Situation: Karina lives alone in a private apartment. Reports independence with use of walker or utilization of furniture to support her due to limited space Current Functional Limitations: Decreased functional endurance, inability to ambulate due to lower extremity weakness, chronic sciatica Equipment Owned/DME: Front wheeled walker Subjective: Agreeable to a physical therapy discharge assessment. Objective: General Observation: Laryngectomy in place. Aphonic, IV left upper extremity, catheter Mental Status: Alert and oriented x4 Pain: None reported ROM: Right Upper Extremity: Shoulder Flexion WFL. Shoulder abduction WFL. Shoulder ER/IR WFL. Elbow flexion WFL. Forearm pronation/supination WFL. Wrist flexion WFL. Opening and closing of hand WFL. Left Upper Extremity: Shoulder Flexion WFL. Shoulder abduction WFL. Shoulder ER/IR WFL. Elbow flexion WFL. Forearm pronation/supination WFL. Wrist flexion WFL. Opening and closing of hand WFL. Right Lower Extremity: Able to assume the FABERE position without symptom provocation. SLR is negative. Knee and ankle motions WFL. Left Lower Extremity: Able to assume the FABERE position slowly with reproduction of pain accompanied by mild weakness that spreads down the back of patient's left knee. SLR positive. Knee and ankle motions WFL. Strength: Right Upper Extremity: Shoulder flexors 4/5. Shoulder abductors 4/5. Shoulder ER 4/5/ Shoulder IR 4/5. Forearm pronators 4/5. Forearm supinators 4/5. Elbow flexors 4/5. Elbow extensors 4/5. 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 Left Upper Extremity: Shoulder flexors 4/5. Shoulder abductors 4/5. Shoulder ER 4/5/ Shoulder IR 4/5. Forearm pronators 4/5. Forearm supinators 4/5. Elbow flexors 4/5. Elbow extensors 4/5. 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 Right Lower Extremity: Hip flexors 4/5. Hip abductors 4/5. Hip external rotators 4/5. HIp internal rotators 4/5. Knee flexors 4/5. Knee extensors 4/5. Ankle dorsiflexors/evertors 4/5. Ankle plantarflexors/invertors 4/5. Left Lower Extremity: Hip flexors 4-/5. Hip abductors 4-/5. Hip external rotators 4-/5. HIp internal rotators 4-/5. Knee flexors 4-/5. Knee extensors 4-/5. Ankle dorsiflexors/evertors 4-/5. Ankle plantarflexors/invertors 4-/5. Sensation: Intact as to pain and light pressure in bilateral lower extremities. Bed Mobility/Transfers: supine-sit: independent Sit to stand independent Stand to sit independent Gait: Able to tolerate level surface ambulation of up to 200 feet requiring supervision without an assistive device that required 1 quick standing rest of less than a minute or so due to complaints of cramping in bilateral legs. No LOB. No SOB. Balance: Static Sitting: Normal Dynamic Sitting: Normal Static Standing: Normal Dynamic Standing: Fair Assessment: Karina demonstrates achievement of goals 1 through 7 during this episode of care and will continue to bend from skilled physical therapy services to achieve mobility goals and facilitate return to community ambulation using no assistive device. Goals: Goals X1 week 1. Supine-Sit independent MET 2. Sit-Supine independent MET 3. Sit-Stand independent MET 4. Stand-Sit independent MET 5. Bed-Chair independent MET 6. Chair-Bed independent MET 7. Independent gait on level surface with use of front wheel walker for at least 300 feet without report of pain nor dyspnea NOT MET 8. Independent stair negotiation while holding onto B rails for at least 7 steps without report of pain nor dyspnea NOT MET 9. Independent with home exercise program NOT MET 10. Good static and dynamic standing balance/tolerance NOT MET DISCHARGE RECOMMENDATIONS: Patient would benefit from SNF or Home with home health services TREATMENT CODE/TIME: [id number] x 19 minutes beginning at 11:36 AM. Thank you for the opportunity to participate in the care of this patient. Nuria Neely PT, DPT, CLT [facility] [place], [place]
--- NOTE | 2020-09-02 11:57 | NUR.NOTE ---
This RN attempted *2 to give nursing report to [facility]. no nurse available at this time
--- NOTE | 2020-09-02 12:41 | NUR.NOTE ---
Nursing report given to BRIANA Suarez
--- NOTE | 2020-09-02 14:10 | CMDISCH_ITS ---
LACE Index Scoring Tool - Questions: Length of Stay (in days): 3 Acuity (Admit via E.D.?): Yes Comorbidities: Diabetes w/o Complication, Any Tumor E.D. Visits: 3 - Answers: Total Score: 12 Risk of Readmission: High Risk Care Management Discharge Reason for Hospitalization: HCAP vs aspiration pneumonia, transaminitis. Discharge Plan: Karina will discharge to [facility] for short term rehab prior to returning home. She will transport via W/C Van, provided by the facility. Patient/Family Education Needs: Review discharge instructions, discuss Ask Me Three. Services Needed at Discharge: Correction Facility ([facility] ), Transportation (W/C Van)
== END 2020-09-02 13:12 | disposition skilled nursing facility (03) | DRG 178 ==
LOC: ER 23:40 → MS 08-31 01:42
PROVIDERS: Internal Medicine; Nurse Practitioner Acute Care; Nurse Practitioner Family; Admitting Provider Internal Medicine; Emergency Provider Student in an Organized Health Care Education/Training Program; PCP Family Medicine; Visit Provider Internal Medicine
DX: J69.0 Pneumonitis due to inhalation of food and vomit (principal); F33.8 Other recurrent depressive disorders; J18.9 Pneumonia, unspecified organism; G54.9 Nerve root and plexus disorder, unspecified; R53.1 Weakness; R62.7 Adult failure to thrive; Z90.02 Acquired absence of larynx; Z85.21 Personal history of malignant neoplasm of larynx; R13.10 Dysphagia, unspecified; K21.9 Gastro-esophageal reflux disease without esophagitis; E11.9 Type 2 diabetes mellitus without complications; R74.01 Elevation of levels of liver transaminase levels; Z20.822 Contact with and (suspected) exposure to COVID-19; I35.0 Nonrheumatic aortic (valve) stenosis; K22.2 Esophageal obstruction; M79.7 Fibromyalgia; M54.42 Lumbago with sciatica, left side; M54.41 Lumbago with sciatica, right side; E78.5 Hyperlipidemia, unspecified; I10 Essential (primary) hypertension; R91.8 Other nonspecific abnormal finding of lung field; E89.0 Postprocedural hypothyroidism; G47.00 Insomnia, unspecified; E66.9 Obesity, unspecified; R49.1 Aphonia
CPT/HCPCS: 36415; 51702; 80048; 80053; 82550; 83690; 84145; 87040; 87635; 96361; 96365; 96367; 96375; 97162; 97530; 99223; 99233; 99239; 99285; 71045; 74176; 80156; 80202; 81003; 83735; 84443; 85025; J1644; J2543; J3490; J7512; J8597

== ENCOUNTER 2020-09-18 15:13 | Outpatient (CLI) | payer MEDICARE, MEDICAID, SELFPAY ==
--- NOTE | 2020-09-18 15:00 | RT.EKG_ITS ---
APPROVED REPORT Exam: Resting ECG Reason for Exam: Pre-op Patient Location: O HR:78 bpm ECG Measurements Heart Rate 78 AXIS DE 183 P 20 QRSd 78 QRS -20 QT 376 T 125 QTc 428 Conclusion Sinus rhythm...normal P axis, V-rate 60- 99 Probable LVH with secondary repol abnrm...multiple LVH criteria Inferior infarct, old...Q >35mS, II III aVF
== END 2020-09-18 15:14 | disposition home or self-care (01) ==
LOC: DI.KIM 15:13
PROVIDERS: PCP Family Medicine; Visit Provider Family Medicine
DX: Z01.810 Encounter for preprocedural cardiovascular examination (principal)
CPT/HCPCS: 93010

== ENCOUNTER 2020-10-31 11:30 | Outpatient (REF) | payer MEDICARE, MEDICAID, SELFPAY | END 2020-10-31 11:31 | disposition home or self-care (01) | LOC: LBN 11:30 | PROVIDERS: PCP Family Medicine; Visit Provider Family Medicine | DX: L02.215 Cutaneous abscess of perineum (principal) | CPT/HCPCS: 87070; 87205 ==

== ENCOUNTER 2020-12-24 19:26 | Observation (INO) | payer MEDICARE, MEDICAID, SELFPAY ==
[2020-12-24] VITALS (43 sets, daily range): BP systolic 93–238; BP diastolic 40–131; PULSE 55–78; RESP 9–22; TEMP 36.5; O2SAT 88–100
--- NOTE | 2020-12-24 19:15 | RT.EKG_ITS ---
APPROVED REPORT Exam: Resting ECG Reason for Exam: stroke alert Patient Location: E HR:70 bpm ECG Measurements Heart Rate 70 AXIS TX 194 P 66 QRSd 92 QRS -8 QT 400 T 113 QTc 431 Conclusion Sinus rhythm...normal P axis, V-rate 60- 99 Abnormal T, consider ischemia, lateral leads...T <-0.20mV, I aVL V5 V6 There are no significant changes compared to prior EKG performed on 12/11/2020 at 10:55.
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
--- NOTE | 2020-12-24 19:40 | DI.CT_ITS ---
Exam(s) CT HEAD - STROKE PROTOCOL EXAM: CT HEAD - STROKE PROTOCOL CLINICAL HISTORY: thunderclap SAVAGE posterior head. TECHNIQUE: Imaging Protocol: Axial computed tomography images with coronal and sagittal reformatted images were created and reviewed COMPARISON: CT CT HEAD WO from 05/28/2020 FINDINGS: Ventricles and Extra axial spaces: Normal in size and morphology for the patient's age. Hemorrhage: None. Cerebral parenchyma: There are areas of decreased attenuation in the white matter consistent with michi rovascular ischemic disease. There is a hypodensity in the left basal ganglia likely reflecting a ol d lacunar infarct. Midline shift: None. Brainstem/Cerebellum: Normal. Calvarium: Normal. Visualized Paranasal sinuses/Mastoids: Clear. Soft Tissues: Unremarkable. IMPRESSION: No acute intracranial process. RADIATION DOSE DELIVERED: 742.2mGy.cm Total DLP DATA REPOSITORY: All CT scans at this facility are submitted to the National Radiology Data Registry (NRDR) Dose Index Registry (DIR) with the [employer] (A[employer]). RADIATION OPTIMIZATION: All CT scans at this facility use at least one of these dose optimization te chniques: automated exposure control; mA and/or kV adjustment per patient size (includes targeted exa ms where dose is matched to clinical indication); or iterative reconstruction.
[2020-12-24 20:05] LABS: Abs Immature Grans 0.06 10^3/uL (0.0-0.06); Absolute Basophil Count 0.05 10^3/uL (0.0-0.2); Absolute Eosinophil Count 0.16 10^3/uL (0.0-0.7); Absolute Monocyte Count 0.69 10^3/uL (0.1-0.8); Absolute Neutrophil Count 3.57 10^3/uL (1.2-6.7); Basophils % 0.8; Eosinophils % 2.5; HCT 37.5 % (36.0-46.0); HGB 12.3 g/dL (11.2-15.7); Immature Grans % 0.9; Lymphocytes % 28.4; MCH 28.8 pg (27.0-33.0); MCHC 32.8 % (32.0-36.0); MCV 87.8 fL (80-95); MPV 11.2 fL (8.0-11.0); Monocytes % 10.9; Neutrophils % 56.5; Nucleated RBC 0 %; Platelet Count 186 10^3/uL (130-400); RBC 4.27 10^6/uL (3.93-5.22); RDW 14.4 % (11.7-14.6); RDW-SD 46.2 fL; WBC 6.33 10^3/uL (4.4-10.8)
[2020-12-24] MEDS: MORPHine 10 MG/ML VIAL 4 MG IVP (20:06)
[2020-12-24] MEDS: Labetalol 100 MG/20 ML VIAL 20 MG IVP (20:06)
--- NOTE | 2020-12-24 20:15 | DI.CT_ITS ---
Exam(s) CT BRAIN NECK CTA EXAM: CT BRAIN NECK CTA CLINICAL HISTORY: severe SAVAGE, generalized weakness. TECHNIQUE: Imaging Protocol: Axial CT angiography was performed with multi-slice acquisition and mu lti-planar and/or 3D reconstructions. CONTRAST MATERIAL: Intravenous: Omnipaque 350 Contrast volume:85 mL COMPARISON: CT CT LUMBAR SPINE RECONS from 08/30/2020 FINDINGS: CT Head w: Ventricles and Extra axial spaces: Normal in size and morphology for the patient's age. Hemorrhage: None. Cerebral parenchyma: Normal. No acute territorial infarct. There is an old lacunar infarct in left ba salty ganglia. Midline shift: None. Brainstem/Cerebellum: Normal. Calvarium: Normal. Visualized Paranasal sinuses/Mastoids: Clear. Soft Tissues: Unremarkable. Enhancement: Unremarkable. CTA Neck W: Common Carotid: Right: No dissection, occlusion or significant stenosis. Left: No dissection, occlusion or significant stenosis. External Carotid: Right: No occlusion or significant stenosis. Left: No occlusion or significant stenosis. Internal Carotid: Right: No dissection or occlusion. There is tortuosity of the internal carotid artery. There is athe rosclerosis in the proximal tortuous internal carotid artery causing severe stenosis. (70-80 percent) . Left: No dissection or occlusion. There is tortuosity of the internal carotid artery. There is ather osclerosis and moderate narrowing of the proximal internal carotid artery. Vertebral Artery: Right: There is near complete occlusion of the proximal right vertebral artery. There is a return to the normal caliber at C7. Left: No dissection. There is near complete occlusion of the proximal left vertebral artery. There i s a return to the normal caliber at the C7 vertebral body level. Lung Apices: Normal. Bones: Degenerative changes throughout the cervical spine. Soft Tissues: The patient is status post neck surgery with the placement of a tracheostomy tube. CTA Brain W: Internal Carotid Arteries: Petrous: Normal. Cavernous: Atherosclerosis. No significant stenosis or occlusion. Cerebral: Normal. Anterior Cerebral Arteries: Right: No aneurysm, occlusion or significant stenosis. Left: No aneurysm, occlusion or significant stenosis. Middle Cerebral Arteries: Right: No aneurysm, occlusion or significant stenosis. Left: No aneurysm, occlusion or significant stenosis. Posterior cerebral Arteries: Right: No occlusion or aneurysm. Moderate to severe stenosis in the P2 segment of the right posterio r cerebral artery. Left: No aneurysm, occlusion or significant stenosis. Vertebral Arteries: Right: No aneurysm, occlusion or significant stenosis. Left: No aneurysm, occlusion or significant stenosis. Basilar Artery: No aneurysm, occlusion or significant stenosis. IMPRESSION: 1. Moderate to severe stenosis in the P2 segment of the right GIFT CONSULTANT. 2. No acute intracranial process. 3. 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 4. Severe right and moderate left proximal internal carotid artery stenosis secondary to atherosclero sis. 5. Prior neck dissection with tracheostomy tube in place. RADIATION DOSE DELIVERED: 1,209.77mGy.cm Total DLP DATA REPOSITORY: All CT scans at this facility are submitted to the National Radiology Data Registry (NRDR) Dose Index Registry (DIR) with the [employer] (ACR). RADIATION OPTIMIZATION: All CT scans at this facility use at least one of these dose optimization te chniques: automated exposure control; mA and/or kV adjustment per patient size (includes targeted exa ms where dose is matched to clinical indication); or iterative reconstruction.
--- NOTE | 2020-12-24 20:17 | DI.VRAD_ITS ---
PROCEDURE INFORMATION: Exam: CT Head Without Contrast Exam date and time: 12/24/2020 7:34 PM Age: 70 years old Clinical indication: Thunderclap SAVAGE posterior head TECHNIQUE: Imaging protocol: Computed tomography of the head without contrast. Radiation optimization: All CT scans at this facility use at least one of these dose optimization techniques: automated exposure control; mA and/or kV adjustment per patient size (includes targeted exams where dose is matched to clinical indication); or iterative reconstruction. Other technique: STROKE PROTOCOL was implemented. COMPARISON: CT HEAD WO 05/28/2020 6:40 PM FINDINGS: Brain: There is no acute intracranial hemorrhage, mass effect or midline shift. No large acute territorial infarct identified. There are patchy regions of hypodensity in the periventricular and subcortical white matter, likely on the basis of chronic microvascular ischemic disease. There are small hypodensities in the left basal ganglia, suggestive of remote lacunar infarcts. Cerebral ventricles: No ventriculomegaly. Paranasal sinuses: Visualized sinuses are unremarkable. No fluid levels. Mastoid air cells: Visualized mastoid air cells are well aerated. Bones/joints: Unremarkable. No acute fracture. Soft tissues: Unremarkable. IMPRESSION: No acute intracranial hemorrhage, mass effect or midline shift. ASSESSMENT: ASPECTS ([place] Stroke Program Early CT Score) is 10. Dictated and Authenticated by: Mariana Tobias MD. Ordering:YASMEEN Montanez MD
[2020-12-24 20:22] LABS: ALT 22 U/L (14-59); AST 18 U/L (15-37); Albumin 3.8 g/dL (3.4-5.0); Alkaline Phosphatase 134 U/L (46-116); Anion Gap 7.3 mmol/L (3-11); BUN 16 mg/dL (7-18); Bilirubin, Total 0.2 mg/dL (0.2-1.0); CO2 27.7 mmol/L (21.0-32.0); CREATININE 1.1 mg/dL (0.55-1.02); Calcium 9.4 mg/dL (8.5-10.1); Chloride 106 mmol/L (98-107); Estimated GFR 48.82 (mL/min/1.73m2); Glucose 136 mg/dL (74-106); Potassium 4.4 mmol/L (3.5-5.1); Sodium 141 mmol/L (136-145); Total Protein 7.3 g/dL (6.4-8.2); Troponin I < 0.05 ng/mL (<0.06)
[2020-12-24 20:23] LABS: PTT Activated 22.1 sec (21.0-27.5); Prothrombin Time 9.8 sec (9.3-11.0)
--- NOTE | 2020-12-24 20:51 | NUR.NOTE ---
Patient up to bedside commode. Voids without difficulty. Tolerates movement well. 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
[2020-12-24] MEDS: Normal Saline - Diluent 50 ML VIAL IV (21:04)
[2020-12-24] MEDS: Omnipaque 350 MG/ML 100 ML BTL IJ (21:04)
[2020-12-24 21:09] LABS: Bilirubin Negative (Negative); Blood Negative (Negative); Clarity Clear (Clear); Glucose >=1000 mg/dL (Negative); Ketones Negative (Negative); Leukocyte Esterase Trace (Negative); Nitrite Negative (Negative); Urobilinogen 0.2 EU/dL (Up TO 0.2)
[2020-12-24 21:19] LABS: Bacteria Rare HPF (Negative); C & S Indicated? Yes; Crystals Negative HPF (Negative); Epithelial Cells Moderate HPF (Negative); Mucus Negative (Negative)
[2020-12-24] MEDS: Prochlorperazine 10 MG/2 ML VIAL IVP (21:36)
[2020-12-24] MEDS: diphenhydrAMINE 50 MG/ML VIAL 25 MG IVP (21:36)
--- NOTE | 2020-12-24 22:05 | DI.VRAD_ITS ---
Addendum created by Mariana Tobias MD on 12/24/2020 10:13:51 PM EDT: THIS REPORT CONTAINS FINDINGS THAT MAY BE CRITICAL TO PATIENT CARE. The findings were verbally communicated via telephone conference with RANJAN ZEPEDA at 10:09 PM EDT on 12/24/2020. The findings were acknowledged and understood. Initial report created on 12/24/2020 10:05:11 PM EDT: PROCEDURE INFORMATION: Exam: CT Angiography Head With Contrast, Arteriography Exam date and time: 12/24/2020 8:26 PM Age: 70 years old Clinical indication: Severe SAVAGE, generalized weakness TECHNIQUE: Imaging protocol: Computed tomography angiography of the head with contrast. Exam focused on the arteries. 3D rendering (Not supervised by radiologist): MIP and/or 3D reconstructed images were created by the technologist. Radiation optimization: All CT scans at this facility use at least one of these dose optimization techniques: automated exposure control; mA and/or kV adjustment per patient size (includes targeted exams where dose is matched to clinical indication); or iterative reconstruction. Contrast material: OMNIPAQUE 350; Contrast volume: 85 ml; Contrast route: INTRAVENOUS (IV); COMPARISON: CT HEAD - STROKE PROTOCOL 12/24/2020 7:48 PM FINDINGS: ANTERIOR CIRCULATION: Right internal carotid artery: Unremarkable. Intracranial segment is patent with no significant stenosis. No aneurysm. Right middle cerebral artery: Unremarkable. No occlusion or significant stenosis. No aneurysm. Right anterior cerebral artery: Unremarkable. No occlusion or significant stenosis. No aneurysm. Left internal carotid artery: Unremarkable. Intracranial segment is patent with no significant stenosis. No aneurysm. Left middle cerebral artery: There is high-grade stenosis at the inferior M2 segment of the left MCA. Left anterior cerebral artery: Unremarkable. No occlusion or significant stenosis. No aneurysm. POSTERIOR CIRCULATION: Right vertebral artery: Unremarkable. No occlusion or significant stenosis. No aneurysm. Left vertebral artery: Unremarkable. No occlusion or significant stenosis. No aneurysm. Basilar artery: Unremarkable. No occlusion or significant stenosis. No aneurysm. Right posterior cerebral artery: There is a short segment occlusion noted in the P2 segment of the right posterior cerebral artery (image 499, series 5). This finding may be acute or chronic in nature. Immediate reconstitution is noted. Left posterior cerebral artery: Unremarkable. No occlusion or significant stenosis. No aneurysm. Brain: No definite mass, mass effect, or midline shift. Cerebral ventricles: No ventriculomegaly. Bones/joints: Unremarkable. No acute fracture. Soft tissues: Unremarkable. IMPRESSION: 1. Short segment occlusion of the right REEL AND REWINDER OPERATOR. 2. High-grade stenosis in the inferior M2 segment of the left MCA. PROCEDURE INFORMATION: Exam: CT Angiography Neck With Contrast Exam date and time: 12/24/2020 8:26 PM Age: 70 years old Clinical indication: Severe SAVAGE, generalized weakness TECHNIQUE: Imaging protocol: Computed tomography angiography of the neck with contrast. 3D rendering (Not supervised by radiologist): MIP and/or 3D reconstructed images were created by the technologist. Radiation optimization: All CT scans at this facility use at least one of these dose optimization techniques: automated exposure control; mA and/or kV adjustment per patient size (includes targeted exams where dose is matched to clinical indication); or iterative reconstruction. Contrast material: OMNIPAQUE 350; Contrast volume: 85 ml; Contrast route: INTRAVENOUS (IV); COMPARISON: CT HEAD - STROKE PROTOCOL 12/24/2020 7:48 PM FINDINGS: Right common carotid artery: No stenosis. No dissection or occlusion. Right internal carotid artery: There is approximately 70% stenosis at the proximal right internal carotid artery, secondary to atherosclerotic plaque. No dissection or occlusion. Right external carotid artery: No occlusion or stenosis of the origin. Left common carotid artery: No stenosis. No dissection or occlusion. Left internal carotid artery: There is approximately 50% stenosis at the proximal left internal carotid artery, secondary to atherosclerotic disease. No dissection or occlusion. Left external carotid artery: No occlusion or stenosis of the origin. Right vertebral artery: The proximal right vertebral artery appears narrowed and is normal in caliber at the cervical level. Left vertebral artery: There is near complete occlusion of the V1 segment of the left vertebral artery. There is reconstitution at the cervical segment. Soft tissues: There is soft tissue thickening noted in the parapharyngeal region, which may be secondary to post treatment changes versus malignancy. Postsurgical changes noted in the anterior neck with evidence of a tracheostomy tube in place. Bones/joints: No acute fracture. IMPRESSION: 1. Near complete occlusion of the proximal left vertebral artery in the neck. 2. Soft tissue thickening in the parapharyngeal region which may be secondary to post treatment changes versus malignancy. 3. Severe right and moderate left internal carotid arterial stenosis secondary to soft tissue thickening. No occlusion. REFERENCES: NASCET CRITERIA. The degree of internal carotid artery stenosis is based on NASCET criteria. Normal is no stenosis. Mild is less than 50% stenosis. Moderate is 50-69% stenosis. Severe is 70% to 99% stenosis. Total occlusion is no detectable patent lumen. Dictated and Authenticated by: Mariana Tobias MD. Ordering:YASMEEN Montanez MD
[2020-12-24 23:19] LABS: Troponin I < 0.05 ng/mL (<0.06)
[2020-12-25] VITALS (11 sets, daily range): BP systolic 123–146; BP diastolic 47–67; PULSE 50–65; RESP 11–18; TEMP 36.2–36.5; O2SAT 95–99
--- NOTE | 2020-12-25 | DI.MRI_ITS ---
Exam(s) MR BRAIN WO EXAM: MR BRAIN WO CLINICAL HISTORY: headache, kplopiia, weakness TECHNIQUE: Multiplanar multisequence MRI of the brain was performed. COMPARISON: No exams were available for comparison FINDINGS: VENTRICLES AND EXTRA AXIAL SPACES: Normal in size and morphology for the patient's age. MIDLINE SHIFT: None. CEREBRAL PARENCHYMA: No focus of restricted diffusion to suggest acute infarct. No space-occupying le gustavo identified. There is an old lacunar infarct in the left basal ganglia. 1 or 2 foci of hyperinte nse signal is seen in the white matter on the FLAIR and T2 weighted images likely reflecting small ve ssel ischemic disease. HEMORRHAGE: None. BRAINSTEM/CEREBELLUM: Normal. CALVARIUM: Normal. VISUALIZED PARANASAL SINUSES/MASTOIDS:Clear. [place]: Normal flow void. PITUITARY GLAND: Unremarkable. OTHER FINDINGS: None. IMPRESSION: No evidence of an acute infarct. DATA REPOSITORY:
[2020-12-25 00:05] LABS: Source Nasal/Nares
[2020-12-25 00:58] LABS: COVID-19 PCR Negative (Negative)
[2020-12-25] MEDS: Atorvastatin 40 MG TAB PO (01:47)
[2020-12-25] MEDS: Enoxaparin 40 MG/0.4 ML SYR SC (01:47)
[2020-12-25] MEDS: Allopurinol 300 MG TAB PO (01:47)
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
[2020-12-25 07:34] LABS: Abs Immature Grans 0.06 10^3/uL (0.0-0.06); Absolute Basophil Count 0.04 10^3/uL (0.0-0.2); Absolute Eosinophil Count 0.15 10^3/uL (0.0-0.7); Absolute Lymphocyte Count 1.47 10^3/uL (1.2-3.4); Absolute Neutrophil Count 3.72 10^3/uL (1.2-6.7); Basophils % 0.7; Eosinophils % 2.4; HCT 36.6 % (36.0-46.0); HGB 11.7 g/dL (11.2-15.7); Lymphocytes % 23.9; MCH 28.3 pg (27.0-33.0); MCV 88.6 fL (80-95); MPV 12.1 fL (8.0-11.0); Monocytes % 11.4; Neutrophils % 60.6; Nucleated RBC 0 %; Platelet Count 172 10^3/uL (130-400); RBC 4.13 10^6/uL (3.93-5.22); RDW 14.6 % (11.7-14.6); RDW-SD 46.6 fL; WBC 6.14 10^3/uL (4.4-10.8)
[2020-12-25 07:46] LABS: Anion Gap 7.9 mmol/L (3-11); BUN 14 mg/dL (7-18); CO2 27.1 mmol/L (21.0-32.0); Calcium 9.1 mg/dL (8.5-10.1); Chloride 108 mmol/L (98-107); Glucose 99 mg/dL (74-106); Potassium 4.6 mmol/L (3.5-5.1); Sodium 143 mmol/L (136-145)
[2020-12-25 07:52] LABS: Calculated LDL 118 mg/dL (<100); Cholesterol 208 mg/dL (<200); HDL Cholesterol 43 mg/dL (40-60); Hemoglobin A1C 6.7 % (<5.7); Triglyceride 237 mg/dL (<150)
[2020-12-25] MEDS: Insulin Glargine 300 UNITS/3 ML PEN 12 UNITS SC (07:57)
[2020-12-25] MEDS: Aspirin 81 MG CHEW 324 MG PO (07:58)
[2020-12-25] MEDS: Famotidine 20 MG TAB 40 MG PO (07:59)
[2020-12-25] MEDS: Lisinopril 20 MG TAB PO ×2 (07:59→09:24)
[2020-12-25] MEDS: Levothyroxine 150 MCG TAB PO (07:59)
[2020-12-25] MEDS: carBAMazepine 100 MG CHEW PO (07:59)
[2020-12-25] MEDS: Omeprazole 20 MG CAPCR 40 MG PO (08:00)
[2020-12-25] MEDS: DULoxetine 20 MG CAP 40 MG PO (08:00)
[2020-12-25] MEDS: Acetaminophen 325 MG TAB 650 MG PO (09:10)
[2020-12-25] MEDS: amLODIPine 10 MG TAB PO (09:22)
--- NOTE | 2020-12-25 09:34 | PT.INIE ---
Date of service: 12/25/20 Time of Service: 09:34 PT Notes Visit Reasons: Headache,carotid stenosis, Hypertension Physical Therapy Inpatient Initial Evaluation Date: 12/25/2020 Referring Doctor: Anuja Lees NP PT Orders: PT CONSULT: Eval/Treat. Precautions: Fall. Standard. Activity as tolerated. Patient Profile/Admitting Diagnosis: Patient is a 70-year-old female who presented to the ED on 12/24/2020 with sudden onset headache she describes as thinderclap located in the back of the left side of her head. She also reported generalized weakness upon arrival. PMHX: Medical History (Updated 12/11/20 @ 11:26 by Denys Fierro DO) Actinic keratoses Aortic stenosis Aphonia Benign positional vertigo Chronic bilateral low back pain with bilateral sciatica Diabetes mellitus, type II 03/03: Good control on lantus alone Dyspepsia Dysphagia Esophagoscopy, dilation, and botox injection 09/19/20 Esophageal . 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 Cystic Ovary Social History/Home Situation: Lives in the basement of the [facility]. Independent with all aspects of ADLs without an assistive device. No falls in the past 12 months. Has a ramp to enter the building and has to negotiate 7 steps with one rail on 1 side and a wall on the other side. Son checks in on her on a daily basis to see if she needs help with anything. Equipment Owned/DME: None Subjective: Agreeable to PT consult. Denies chest pain but reports frontal headache that Nurse Rich is aware of and already medicated patient for earlier this morning. Objective: General Observation: Supine in bed. Pain avoidance behavior. Laryngectomy in place. Aphonic. Mental Status: Alert and oriented as to person, place, time, and purpose. Able to pay attention, focus, and respond appropriately in written form, sometimes communicates through her lips. Pain: 4/10 in left low back area ROM: Right Upper Extremity: Shoulder Flexion WFL. Shoulder abduction WFL. Elbow flexion WFL. Wrist flexion WFL. Functional opening and closing of hand WFL. Left Upper Extremity: Shoulder Flexion WFL. Shoulder abduction WFL. Elbow flexion WFL. Wrist flexion WFL. Functional opening and closing of hand WFL. Right Lower Extremity: Hip flexion WFL. Hip abduction WFL. Knee flexion WFL. Ankle dorsiflexion WFL. Ankle plantarflexion WFL. Left Lower Extremity: Hip flexion WFL. Hip abduction WFL. Knee flexion WFL. Ankle dorsiflexion WFL. Ankle plantarflexion WFL. Strength: Right Upper Extremity: Shoulder flexors 4/5. Shoulder abductors 4/5. Shoulder ER 4/5/ Shoulder IR 4/5. Forearm pronators 4/5. Forearm supinators 4/5. Elbow flexors 4/5. Elbow extensors 4/5. Client Development Consultant strong. Left Upper Extremity: Shoulder flexors 4/5. Shoulder abductors 4/5. Shoulder ER 4/5/ Shoulder IR 4/5. Forearm pronators 4/5. Forearm supinators 4/5. Elbow flexors 4/5. Elbow extensors 4/5. Client Development Consultant strong. Right Lower Extremity: Hip flexors 4/5. Hip abductors 4/5. Hip external rotators 4/5. HIp internal rotators 4/5. Knee flexors 4/5. Knee extensors 4/5. Ankle dorsiflexors/evertors 4/5. Ankle plantarflexors/invertors 4/5. Left Lower Extremity: Hip flexors 4/5. Hip abductors 4/5. Hip external rotators 4/5. HIp internal rotators 4/5. Knee flexors 4/5. Knee extensors 4/5. Ankle dorsiflexors/evertors 4/5. Ankle plantarflexors/invertors 4/5. Sensation: Intact as to pain and light pressure in bilateral lower extremities. Bed Mobility/Transfers: Right side-lying to sit stand by assist with HOB to 30 degrees Sit to stand contact-guard assist Stand to sit contact-guard assist Gait: Provided contact guard assist to walk from bedside to the bathroom for morning care with TIMBO Denia. Denies chest pain. Did report mild lightheadedness as well as continued headache, however did not increase with short distance ambulation. Tolerated up to 300 feet using the FWW with just stand by assist with no increase in pain level. R low back pain still towards the end of the walk that subsided with rest. Informed Consent/Education: Patient instructed in purpose of PT consult and plan of care. Agreeable to proceed with established PT POC to achieve personal goals. Assessment: Requires the use of FWW for all mobility ADL performance. Patient has this AD at home. May benefit from PT to regain independent ambulation in the community without AD. Patient presents with clinical signs and symptoms consistent with current/admitting diagnoses that have resulted to mobility limitations, gait instability, generalized weakness, and impairment of motor control as demonstrated by the following impairment level findings: 1. MIld decrease in strength to B LE major muscle groups 2. Impaired standing balance 3. Impaired activity tolerance 4. Frontal headache (diminished from yesterday) 5. Mild lightheasdedness (diminished from yesterday) Impairments are contributing to the following functional limitations: 1. Inability to safely ambulate without assistive device 2. Increase completion time for mobility ADL performance 3. Increased fall risk 4. Inability to negotiate steps alone safely Patient is [place] [id number] moderate complexity based on the following: History: 70-year-old female with past medical history as indicated above Examination: Demonstrable impairment in strength, balance, and mobility level with underlying impairments and functional limitations as exhibited above as well as deficit score of 58% utilizing the [facility] Mobility Inpatient Short Form Presentation: Evolving Decision Makin moderate complexity Goals: Goals X1 week 1. Supine-Sit independent 2. Sit-Supine independent 3. Sit-Stand independent 4. Stand-Sit independent 5. Bed-Chair independent 6. Chair-Bed independent 7. Independent gait on level surface with use of front wheel walker for at least 300 feet without report of pain nor dyspnea 8. Independent stair negotiation while holding onto B rails for at least 7 steps without report of pain nor dyspnea 9. Independent with home exercise program 10. Good static and dynamic standing balance/tolerance Plan of Care/Treatment Plan: 1-2x/day, 7 days/week x 1 week. Plan of care has been reviewed with the BUS MECHANIC providing the service under Physical Therapy direction. Initiate Physical Therapy intervention for strengthening, bed mobility, transfers, gait, stairs, balance training, and use of assistive device. DISCHARGE RECOMMENDATIONS: Home when medically cleared by hospitalist. Patient will benefit from home health PT services in order to progress mobility level using least restrictive assistive ambulatory device, assess home safety, identify additional equipment needs, and establish a functional maintenance program that will increase ability of patient to remain at home. TREATMENT CODE/TIME: 09790 x 20 minutes, 08807 x 18 minutes beginning at 9:34 AM. Thank you for the opportunity to participate in the care of this patient. Nuria Neely PT, DPT, CLT [facility] [place], [place]
--- NOTE | 2020-12-25 13:24 | PDOC.HHF2F ---
Home Health Certification Home Health Certification: 1. Encounter Date and Reason I certify that Karina Larson was seen by Anuja Townsend on 12/25/20 and that I had a [id number] encounter with this patient that meets the physician face to face encounter requirements. 2. Clinical Findings Supporting Skilled Need and Homebound Status I certify that home health services are medically necessary, include either intermittent correction and/or physical/speech therapy, and that this patient is homebound in that absences from the home require considerable and taxing effort and are infrequent or of short duration, or are attributable to the need to receive medical care. [X] (a) Attached documentation from encounter provides clinical findings supporting skilled need and homebound status (including what assistance patient requires to leave the home). The encounter with the patient was in whole, or in part, for the following medical condition, which is the primary reason for home health care: Headache,carotid stenosis, Hypertension Fpc: routine evaluation, medication oversight, and monitoring Physical and Occupational Therapy: routine evaluation and management Homebound: patient is unable to safely leave the house unassisted due to generalized weakness. 3. Certification and Authentication I certify that I composed the above information based on my clinical judgement relating to this patient's medical condition and, if applicable, clinical findings communicated to me by the NPP or inpatient physician who performed the Home Health Referral. All further orders will be obtained through Denys Fierro DO (Community Based Physician - PCP)
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
[2020-12-25] MEDS: Ondansetron O.D.T. 4 MG TABEF PO (16:46)
--- NOTE | 2020-12-25 17:27 | CMPROGNOTE_ITS ---
- If Service Date Differs Date of service: 12/25/20 Time of Service: 17:28 Care Management Progress Note notified [facility] of pending discharge orders for new RN/PT/OT per MD request.
--- NOTE | 2020-12-25 17:27 | PDOC.CMPRO ---
- If Service Date Differs Date of service: 12/25/20 Time of Service: 17:28 Care Management Progress Note notified [facility] of pending discharge orders for new RN/PT/OT per MD request.
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
== END 2020-12-25 17:40 | disposition home health service (06) ==
LOC: ER 12-25 00:22 → MS 12-25 00:54
PROVIDERS: Physician Assistant; Admitting Provider Nurse Practitioner Acute Care; Emergency Provider Family Medicine; PCP Family Medicine; Visit Provider Family Medicine
DX: I16.1 Hypertensive emergency (principal); R51.9 Headache, unspecified; R53.1 Weakness; E11.9 Type 2 diabetes mellitus without complications; I65.23 Occlusion and stenosis of bilateral carotid arteries; Z79.82 Long term (current) use of aspirin; Z79.899 Other long term (current) drug therapy; Z79.4 Long term (current) use of insulin; Z20.822 Contact with and (suspected) exposure to COVID-19
CPT/HCPCS: 36415; 36416; 70496; 70498; 80048; 80053; 80061; 82962; 87635; 93005; 96374; 96375; 97162; 97530; 99291; J1650; 70450; 70551; 81003; 81015; 83036; 84484; 85025; 85610; 85730; 87086; 93010; 99236; G0378; J0780; J1200; J2270; J3490

== ENCOUNTER → 2020-12-25 14:37 | Outpatient (BNVA) | payer MEDICARE, MEDICAID, SELFPAY | PROVIDERS: PCP Family Medicine; Referring Provider Family Medicine; Visit Provider Psychiatry & Neurology Neurology | DX: R69 Illness, unspecified (principal) ==

== ENCOUNTER 2020-12-26 16:23 | Observation (INO) | payer MEDICARE, MEDICAID, SELFPAY ==
[2020-12-26] VITALS (78 sets, daily range): BP systolic 119–192; BP diastolic 35–85; PULSE 60–84; RESP 9–24; TEMP 36–36.6; O2SAT 90–98
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
--- NOTE | 2020-12-26 17:00 | DI.CT_ITS ---
Exam(s) CT HEAD WO EXAM: CT HEAD WO CLINICAL HISTORY: headache. TECHNIQUE: Imaging Protocol: Axial computed tomography images with coronal and sagittal reformatted images were created and reviewed COMPARISON: CT CT BRAIN NECK CTA from 12/24/2020 FINDINGS: There are no skull fractures nor fluid in the visualized paranasal sinuses. Hyperostosis frontalis interna noted. There is no evidence of intracranial hemorrhage, mass effect, or shift of midline structures. There are no extra-axial fluid collections. The ventricles are not enlarged or shifted and there is no blo od within the ventricular system nor within the basal cisterns. Again noted is a previously described nonacute lacunar infarct in the left basal ganglia. IMPRESSION: No acute intracranial findings on this noninfused CT scan of the brain. Nonacute left basal ganglia lacunar infarct again noted. RADIATION DOSE DELIVERED: 728.3mGy.cm Total DLP DATA REPOSITORY: All CT scans at this facility are submitted to the National Radiology Data Registry (NRDR) Dose Index Registry (DIR) with the [employer] (A[employer]). RADIATION OPTIMIZATION: All CT scans at this facility use at least one of these dose optimization te chniques: automated exposure control; mA and/or kV adjustment per patient size (includes targeted exa ms where dose is matched to clinical indication); or iterative reconstruction.
--- NOTE | 2020-12-26 17:00 | RT.EKG_ITS ---
APPROVED REPORT Exam: Resting ECG Reason for Exam: not well, abd pain Patient Location: E HR:74 bpm ECG Measurements Heart Rate 74 AXIS AR [id number] P [id number] QRSd 85 QRS -17 QT 369 T 118 QTc 411 Conclusion Atrial fibrillation...V-rate 74- 76, irreg A-activity Probable LVH with secondary repol abnrm...multiple LVH criteria
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
--- NOTE | 2020-12-26 17:12 | DI.CT_ITS ---
Exam(s) CT ABDOMEN PELVIS W EXAM: CT ABDOMEN PELVIS W CLINICAL HISTORY: abd pain diffuse, ttep, distension. TECHNIQUE: Imaging Protocol: Axial computed tomography images with coronal and sagittal reformatted images were created and reviewed CONTRAST MATERIAL: Intravenous: Omnipaque 100cc Oral: None COMPARISON: CT CT ABDOMEN PELVIS WO from 08/30/[address] ABDOMEN PELVIS WO from 08/30/[address] BRAIN NECK CTA from 12/24/2020 FINDINGS: VISUALIZED LUNG BASES: No nodules nor pleural effusions evident. ABDOMEN: There is no ascites. LIVER: There are no focal hepatic lesions evident . GALLBLADDER/BILIARY: Gallbladder is again noted be surgically absent. CBD is not dilated. PANCREAS: No evidence of pancreatic mass nor dilatation of the pancreatic duct. SPLEEN: Spleen is not enlarged. No obvious intrasplenic lesions. Splenic and portal veins are paten t. ADRENALS: Right adrenal gland is unremarkable. There are fat containing nodular densities again note d in the left adrenal gland which appear unchanged. Probably adenoma or myelolipoma. KIDNEYS:No cysts evident. No solid renal masses. No calculi nor hydronephrosis.. ABDOMINAL AORTA: Heavily calcified but not enlarged. LYMPH NODES:There is no retroperitineal nor paraaortic adenopathy. ABDOMINAL WALL: No evidence of significant anterior abdominal wall hernia. GI: There is no evidence of bowel obstruction, free air, nor abscess. PELVIS: GI: No evidence of appendicitis.No evidence of sigmoid diverticulitis. LYMPH NODES: There is no intrapelvic nor inguinal adenopathy. REPRODUCTIVE: Prior hysterectomy. No abnormal adnexal masses nor free fluid. URINARY BLADDER: No calculi nor obvious masses evident OSSEOUS: No significant osseous lesions. IMPRESSION: 1. There is evidence of previous cholecystectomy and hysterectomy. No bowel obstruction, free air, n or abscess. 2. Fat containing left adrenal nodules again noted, unchanged. 3. No evidence of appendicitis. No obvious bowel obstruction. 4. RADIATION DOSE DELIVERED: 1,452.22mGy.cm Total DLP DATA REPOSITORY: All CT scans at this facility are submitted to the National Radiology Data Registry (NRDR) Dose Index Registry (DIR) with the [employer] ([employer]). RADIATION OPTIMIZATION: All CT scans at this facility use at least one of these dose optimization te chniques: automated exposure control; mA and/or kV adjustment per patient size (includes targeted exa ms where dose is matched to clinical indication); or iterative reconstruction.
[2020-12-26 17:19] LABS: Abs Immature Grans 0.07 10^3/uL (0.0-0.06); Absolute Basophil Count 0.04 10^3/uL (0.0-0.2); Absolute Eosinophil Count 0.16 10^3/uL (0.0-0.7); Absolute Lymphocyte Count 1.49 10^3/uL (1.2-3.4); Absolute Monocyte Count 0.75 10^3/uL (0.1-0.8); Absolute Neutrophil Count 4.36 10^3/uL (1.2-6.7); Basophils % 0.6; Eosinophils % 2.3; HCT 36.5 % (36.0-46.0); HGB 11.9 g/dL (11.2-15.7); Lymphocytes % 21.7; MCH 28.7 pg (27.0-33.0); MCHC 32.6 % (32.0-36.0); MCV 88.2 fL (80-95); MPV 12.1 fL (8.0-11.0); Monocytes % 10.9; Neutrophils % 63.5; Nucleated RBC 0 %; Platelet Count 201 10^3/uL (130-400); RBC 4.14 10^6/uL (3.93-5.22); RDW 14.4 % (11.7-14.6); RDW-SD 46.4 fL; WBC 6.87 10^3/uL (4.4-10.8)
[2020-12-26] MEDS: LORazepam 2 MG/ML VIAL 0.5 MG IVP (17:30)
[2020-12-26] MEDS: Labetalol 100 MG/20 ML VIAL 20 MG IVP (17:31)
[2020-12-26 17:35] LABS: ALT 30 U/L (14-59); AST 24 U/L (15-37); Albumin 4.1 g/dL (3.4-5.0); Alkaline Phosphatase 144 U/L (46-116); Anion Gap 7.2 mmol/L (3-11); BUN 17 mg/dL (7-18); Bilirubin, Total 0.2 mg/dL (0.2-1.0); CO2 26.8 mmol/L (21.0-32.0); CREATININE 1.1 mg/dL (0.55-1.02); Calcium 9.2 mg/dL (8.5-10.1); Chloride 105 mmol/L (98-107); Estimated GFR 48.82 (mL/min/1.73m2); Glucose 114 mg/dL (74-106); Lipase 119 U/L (73-393); Potassium 4.5 mmol/L (3.5-5.1); Sodium 139 mmol/L (136-145); Total Protein 7.7 g/dL (6.4-8.2); Troponin I < 0.05 ng/mL (<0.06)
[2020-12-26] MEDS: Omnipaque 350 MG/ML 100 ML BTL IJ (18:16)
[2020-12-26] MEDS: Normal Saline - Diluent 50 ML VIAL IV (18:17)
--- NOTE | 2020-12-26 18:30 | DI.VRAD_ITS ---
PROCEDURE INFORMATION: Exam: CT Head Without Contrast Exam date and time: 12/26/2020 5:13 PM Age: 70 years old Clinical indication: Pain; Headache TECHNIQUE: Imaging protocol: Computed tomography of the head without contrast. COMPARISON: MR BRAIN WO 12/25/2020 11:39 AM FINDINGS: Brain: Nonacute lacunar change left basal ganglia. No hemorrhage. Unremarkable white matter. No mass effect. Cerebral ventricles: No ventriculomegaly. Paranasal sinuses: Visualized sinuses are unremarkable. No fluid levels. Mastoid air cells: Visualized mastoid air cells are well aerated. Bones/joints: Mild degenerative change right temporomandibular joint. Soft tissues: Unremarkable. IMPRESSION: No evidence for acute intracranial abnormality. Dictated and Authenticated by: Akilah Bhagat MD. Ordering:GRANT Angeles MD
--- NOTE | 2020-12-26 18:46 | DI.VRAD_ITS ---
PROCEDURE INFORMATION: Exam: CT Abdomen And Pelvis With Contrast Exam date and time: 12/26/2020 6:15 PM Age: 70 years old Clinical indication: Other: Abd pain diffuse, ttep, distension TECHNIQUE: Imaging protocol: Computed tomography of the abdomen and pelvis with contrast. Radiation optimization: All CT scans at this facility use at least one of these dose optimization techniques: automated exposure control; mA and/or kV adjustment per patient size (includes targeted exams where dose is matched to clinical indication); or iterative reconstruction. Contrast material: OMNIPAQUE 350; Contrast volume: 100 ml; Contrast route: INTRAVENOUS (IV); COMPARISON: CT ABDOMEN PELVIS WO 08/30/2020 8:30 PM FINDINGS: Liver: Normal. No mass. Gallbladder and bile ducts: Status post cholecystectomy. New lines severe atherosclerotic change noted in the vasculature. Pancreas: Normal. No ductal dilation. Spleen: Normal. No splenomegaly. Adrenal glands: Left adrenal low-density lesions unchanged, 1.4 and 0.6 cm probable myelolipomas. Kidneys and ureters: Normal. No hydronephrosis. Stomach and bowel: There is some mild colonic distention with air-fluid formation, possible diarrheal illness. Appendix: The appendix is well seen, within normal limits. The appendix is not identified. Intraperitoneal space: Unremarkable. No free air. No significant fluid collection. Vasculature: Coronary artery calcifications/stents noted. Lymph nodes: Unremarkable. No enlarged lymph nodes. Urinary bladder: Bladder not well distended. Reproductive: Status post hysterectomy. Bones/joints: Unremarkable. No acute fracture. Soft tissues: Unremarkable. IMPRESSION: Mild colonic distention could be associated with diarrheal illness or possible ileus new lines severe atherosclerotic change noted in the vasculature. Dictated and Authenticated by: Akilah Bhagat MD. Ordering:GRANT Angeles MD
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
[2020-12-26 19:43] LABS: Source Nasal/Nares
[2020-12-26 20:42] LABS: COVID-19 PCR Negative (Negative)
[2020-12-26] MEDS: Acetaminophen 325 MG TAB 650 MG PO (22:19)
[2020-12-26] MEDS: Atorvastatin 40 MG TAB PO (22:27)
[2020-12-26] MEDS: carBAMazepine 100 MG CHEW 200 MG CH (22:28)
[2020-12-26] MEDS: Allopurinol 300 MG TAB PO (22:28)
[2020-12-26] MEDS: Heparin 5,000 UNITS/ML VIAL 5000 UNITS SC (22:28)
[2020-12-26 22:39] LABS: Troponin I < 0.05 ng/mL (<0.06)
[2020-12-26 22:41] LABS: Magnesium 2.1 mg/dL (1.8-2.4)
[2020-12-26] MEDS: Travoprost 0.004% Ophth Sol 2.5 ML BTL OP (22:53)
[2020-12-26] MEDS: Insulin Aspart 300 UNITS/3 ML PEN SC (22:54)
[2020-12-26] MEDS: traZODone 50 MG TAB PO (23:11)
[2020-12-27] VITALS (17 sets, daily range): BP systolic 84–194; BP diastolic 40–82; PULSE 52–86; RESP 14–24; TEMP 36.4–37; O2SAT 93–100
[2020-12-27] MEDS: Levothyroxine 150 MCG TAB PO (06:07)
[2020-12-27] MEDS: Heparin 5,000 UNITS/ML VIAL 5000 UNITS SC ×3 (06:09→22:36)
[2020-12-27] MEDS: Ondansetron 4 MG TAB PO (06:46)
[2020-12-27 07:28] LABS: Abs Immature Grans 0.06 10^3/uL (0.0-0.06); Absolute Basophil Count 0.04 10^3/uL (0.0-0.2); Absolute Eosinophil Count 0.12 10^3/uL (0.0-0.7); Absolute Lymphocyte Count 1.55 10^3/uL (1.2-3.4); Absolute Monocyte Count 0.69 10^3/uL (0.1-0.8); Absolute Neutrophil Count 3.54 10^3/uL (1.2-6.7); Basophils % 0.7; HCT 34.2 % (36.0-46.0); HGB 11.3 g/dL (11.2-15.7); Lymphocytes % 25.8; MCV 87.9 fL (80-95); MPV 11.8 fL (8.0-11.0); Monocytes % 11.5; Nucleated RBC 0 %; Platelet Count 180 10^3/uL (130-400); RBC 3.89 10^6/uL (3.93-5.22); RDW 14.5 % (11.7-14.6); RDW-SD 46.7 fL
[2020-12-27 07:44] LABS: ALT 26 U/L (14-59); AST 21 U/L (15-37); Albumin 3.7 g/dL (3.4-5.0); Alkaline Phosphatase 128 U/L (46-116); Anion Gap 8.6 mmol/L (3-11); BUN 17 mg/dL (7-18); Bilirubin, Total 0.2 mg/dL (0.2-1.0); CO2 26.4 mmol/L (21.0-32.0); CREATININE 1.2 mg/dL (0.55-1.02); Calcium 9.1 mg/dL (8.5-10.1); Chloride 106 mmol/L (98-107); Estimated GFR 44.16 (mL/min/1.73m2); Glucose 104 mg/dL (74-106); Potassium 4.4 mmol/L (3.5-5.1); Sodium 141 mmol/L (136-145); Total Protein 6.9 g/dL (6.4-8.2)
[2020-12-27 07:51] LABS: Troponin I < 0.05 ng/mL (<0.06)
[2020-12-27] MEDS: Aspirin E.C. 81 MG TABEC PO (08:57)
[2020-12-27] MEDS: DULoxetine 20 MG CAP 40 MG PO (08:58)
[2020-12-27] MEDS: Ciprofloxacin/Dexameth. 7.5 ML BTL AS ×2 (08:58→22:36)
[2020-12-27] MEDS: Omeprazole 20 MG CAPCR 40 MG PO (08:59)
[2020-12-27] MEDS: Gabapentin 300 MG CAP PO ×3 (08:59→20:44)
[2020-12-27] MEDS: carBAMazepine 100 MG CHEW CH (08:59)
[2020-12-27] MEDS: Famotidine 20 MG TAB 40 MG PO (08:59)
[2020-12-27] MEDS: Lisinopril 20 MG TAB PO (08:59)
[2020-12-27] MEDS: amLODIPine 10 MG TAB PO (09:00)
[2020-12-27] MEDS: Acetaminophen 325 MG TAB 650 MG PO ×2 (13:30→20:43)
--- NOTE | 2020-12-27 15:48 | PGE_ITS ---
Date of Service Date of service: 12/27/20 Time of Service: 15:48 Assessment and Plan Assessment and plan (1) Weakness: Start date: 12/27/20 Start time: 15:52 Status: Acute Assessment and plan: weakness that is not new. She has been here several times and each time she c/o weakness will consult PT. (2) Essential hypertension: Start date: 12/27/20 Start time: 15:54 Status: Chronic Assessment and plan: Noncompliance. elevated as high as 190's systolic. Goal of 140-160 systolic given history. decreased amlodipine to 5 and added coreg 3.125 BID (3) Carotid stenosis, bilateral: Start date: 12/27/20 Start time: 15:58 Status: Chronic Assessment and plan: Newly found with recent admission and patient has plans for outpatient follow-up with PCP and possible vascular surgery at [facility]. She is not having neurological complaints presently. (4) Aortic stenosis: Start date: 12/27/20 Start time: 15:59 Status: Chronic Assessment and plan: Significant aortic valve stenosis and once again we need to avoid hypotensive state. Follow-up with cardiology. Qualifiers: Cardiac valve disease etiology: nonrheumatic Qualified Code(s): I35.0 - Nonrheumatic aortic (valve) stenosis (5) Diabetes mellitus, type II: Start date: 12/27/20 Start time: 15:59 Status: Chronic Assessment and plan: Hold outpatient oral medications and basal insulin with glucometer coverage with short acting insulin before meals and at bedtime. discussed with Dr. 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 No complaints. feels well. would like to go home. Goal of bp 140-160. Once there will discharge home. Likely tomorrow. Changed meds decreased amlodipine to 5 and add coreg 3.125 bid will continue to monitor. Denies CP, SOB, N/V/D. Exam Narrative Exam Narrative: General: Patient is moderately obese and appears chronically deconditioned, appears older than stated age, alert and oriented to person place and time. She is in no acute distress. She is very somatic and vague in her history especially complicated by difficulty speaking with her chronic tracheostomy. HEENT: Normocephalic, darkly dyed hair which is thin, coarsened facial features, patient is edentulous with tenderness to palpation over her left tragus and TMJ area. Slight swelling of left tragus but no palpable fluctuance and visual exam of EAC and TM is normal on the left. Eyes with pupils equal and reactive to light symmetrically, extraocular movement intact and sclera anicteric. Neck: Supple without JVD. Patient has tracheostomy in place anteriorly. Back: Stooped posture without CVA tenderness. Lungs: Fair aeration and clear to auscultation. Heart: Regular rate and rhythm with 4/6 crescendo systolic murmur left sternal border. No gallop appreciated. Abdomen: Obese contour, soft and nontender to palpation without palpable hepatosplenomegaly. Bowel sounds positive all quadrants. Extremities: Without clubbing, cyanosis or pitting edema. Peripheral pulses intact. Skin: Normal color, warm and dry. Actinic changes over sun exposed areas. Rough texture over sun exposed areas. Neuro: Cranial nerves II to XII grossly intact, no focalizing motor deficit. Psych: Slightly anxious with increased somatization as mentioned by nurses having a new complaint with each bedside visit for care. Normal mood and no abnormal thought processes. Remote and recent memory appear to be grossly intact. Patient whispers rather than speaking by holding her finger over her tracheotomy though she appeared to attempt this at times. Objective Last Vital Signs Temp 36.5 C 12/27/20 04:03 Pulse 65 12/27/20 15:03 Resp 18 12/27/20 04:03 BP 170/77 H 12/27/20 10:18 Pulse Ox 94 12/27/20 04:03 Laboratory Results - last 24 hr 12/26/20 12/26/20 12/26/20 16:30 16:30 19:36 WBC 6.87 RBC 4.14 Hgb 11.9 Hct 36.5 MCV 88.2 MCH 28.7 MCHC 32.6 RDW 14.4 Plt Count 201 MPV 12.1 H Immature Gran % 1.0 Neutrophils % 63.5 Lymphocytes % 21.7 Monocytes % 10.9 Eosinophils % 2.3 Basophils % 0.6 Nucleated RBC % 0 Absolute Neutrophils 4.36 Absolute Lymphocytes 1.49 Absolute Monocytes 0.75 Absolute Eosinophils 0.16 Absolute Basophils 0.04 Sodium 139 Potassium 4.5 Chloride 105 Carbon Dioxide 26.8 Anion Gap 7.2 BUN 17 Creatinine 1.1 H Estimated GFR/1.73 m2 48.82 Glucose 114 H Calcium 9.2 Magnesium Total Bilirubin 0.2 AST 24 ALT 30 Alkaline Phosphatase 144 H Troponin I < 0.05 Total Protein 7.7 Albumin 4.1 Lipase 119 COVID-19 Source Nasal/Nares SARS-CoV-2 (PCR) Negative 12/26/20 12/26/20 12/27/20 22:18 22:18 07:09 WBC RBC Hgb Hct MCV MCH MCHC RDW Plt Count MPV Immature Gran % Neutrophils % Lymphocytes % Monocytes % Eosinophils % Basophils % Nucleated RBC % Absolute Neutrophils Absolute Lymphocytes Absolute Monocytes Absolute Eosinophils Absolute Basophils Sodium 141 Potassium 4.4 Chloride 106 Carbon Dioxide 26.4 Anion Gap 8.6 BUN 17 Creatinine 1.2 H Estimated GFR/1.73 m2 44.16 Glucose 104 Calcium 9.1 Magnesium 2.1 Total Bilirubin 0.2 AST 21 ALT 26 Alkaline Phosphatase 128 H Troponin I < 0.05 < 0.05 Total Protein 6.9 Albumin 3.7 Lipase COVID-19 Source SARS-CoV-2 (PCR) 12/27/20 07:09 WBC 6.00 RBC 3.89 L Hgb 11.3 Hct 34.2 L MCV 87.9 MCH 29.0 MCHC 33.0 RDW 14.5 Plt Count 180 MPV 11.8 H Immature Gran % 1.0 Neutrophils % 59.0 Lymphocytes % 25.8 Monocytes % 11.5 Eosinophils % 2.0 Basophils % 0.7 Nucleated RBC % 0 Absolute Neutrophils 3.54 Absolute Lymphocytes 1.55 Absolute Monocytes 0.69 Absolute Eosinophils 0.12 Absolute Basophils 0.04 Sodium Potassium Chloride Carbon Dioxide Anion Gap BUN Creatinine Estimated GFR/1.73 m2 Glucose Calcium Magnesium Total Bilirubin AST ALT Alkaline Phosphatase Troponin I Total Protein Albumin Lipase COVID-19 Source SARS-CoV-2 (PCR)
[2020-12-27] MEDS: diphenhydrAMINE 50 MG/ML VIAL IVP (16:44)
[2020-12-27] MEDS: ALPRAZolam 0.25 MG TAB PO (16:44)
--- NOTE | 2020-12-27 16:49 | NUR.NOTE ---
After lunch, patient c/o arm pain, tylenol was administered. With follow up, effect was minimal. Oncoming nurse to address this with the proivder. Noted that the pain did appear to be increasing the patient s level of anxiety. Nursing Note:
[2020-12-27] MEDS: EPINEPHrine 0.3 MG KIT IM (16:50)
[2020-12-27] MEDS: dilTIAZem 60 MG TAB PO (20:44)
[2020-12-27] MEDS: carBAMazepine 100 MG CHEW 200 MG CH (22:34)
[2020-12-27] MEDS: Allopurinol 300 MG TAB PO (22:34)
[2020-12-27] MEDS: Atorvastatin 40 MG TAB PO (22:35)
[2020-12-27] MEDS: Travoprost 0.004% Ophth Sol 2.5 ML BTL OP (23:03)
[2020-12-28] MEDS: Famotidine 20 MG/2 ML VIAL IV (01:01)
[2020-12-28] MEDS: Normal Saline Flush 10 ML SYR IVP (01:01)
[2020-12-28 04:10] VITALS: BP 138/68; PULSE 56; RESP 16; TEMP 36.5; O2SAT 94
[2020-12-28] MEDS: Levothyroxine 150 MCG TAB PO (06:13)
[2020-12-28] MEDS: Heparin 5,000 UNITS/ML VIAL 5000 UNITS SC ×2 (06:13→14:27)
[2020-12-28] MEDS: Acetaminophen 325 MG TAB 650 MG PO ×2 (06:26→11:51)
[2020-12-28 06:42] VITALS: BP 180/78
[2020-12-28 07:06] VITALS: PULSE 60
[2020-12-28 07:39] VITALS: BP 138/72; PULSE 63; RESP 17; TEMP 36.8; O2SAT 98
[2020-12-28] MEDS: Omeprazole 20 MG CAPCR 40 MG PO (08:53)
[2020-12-28] MEDS: dilTIAZem 60 MG TAB PO (08:53)
[2020-12-28] MEDS: Famotidine 20 MG TAB 40 MG PO (08:53)
[2020-12-28] MEDS: amLODIPine 5 MG TAB 10 MG PO (08:53)
[2020-12-28] MEDS: Gabapentin 300 MG CAP PO ×2 (08:53→14:27)
[2020-12-28] MEDS: Ciprofloxacin/Dexameth. 7.5 ML BTL AS (08:54)
[2020-12-28] MEDS: carBAMazepine 100 MG CHEW CH (08:54)
[2020-12-28] MEDS: Aspirin E.C. 81 MG TABEC PO (08:54)
[2020-12-28] MEDS: DULoxetine 20 MG CAP 40 MG PO (08:54)
--- NOTE | 2020-12-28 08:56 | IN_ITS ---
Date of service: 12/28/20 Time of Service: 09:10 PT Notes Visit Reasons: Uncontrolled hypertension,acrtic stenosis,carotid Inpatient Physical Therapy Evaluation Date: December 28, 2020 Referring Doctor: Liliya Cerrato SAFETY INSPECTOR PT Orders: PT CONSULT: Eval/treat Precautions: Fal. standard. Activity as tolerated Patient Profile/Admitting Diagnosis: Patient is a 70-year-old female who initially presented to the ED on 12/24/2020 with sudden onset headache she describes as 'thunderclap' located in the back of the left side of her head. She returns to the ED 12/27/2020 stating that she was feeling ill again. She states that she has headache and abdominal pain and feels shaky. She had significant blood work done and was found to have uncontrolled hypertension as she is marginal with medication compliance. This is due to in availability of meds as her son is primary support for medication and sometimes is not available to bring it to her. PMHX: Medical History Actinic keratoses Aortic stenosis Aphonia Benign positional vertigo Chronic bilateral low back pain with bilateral sciatica Diabetes mellitus, type II 03/03: Good control on lantus alone Dyspepsia Dysphagia Esophagoscopy, dilation, and botox injection 09/19/20 Esophageal . 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 Cystic Ovary Social History/Home Situation: Lives in the basement of the [facility]. Independent with all aspects of ADLs without an assistive device. No falls in the past 12 months. Has a ramp to enter the building and has to negotiate 7 steps with one rail on 1 side and a wall on the other side. Son checks in on her on a daily basis to see if she needs help with anything. Equipment Owned/DME: Patient indicates she has a Rollator walker at home and uses it for more community ambulation activities. Subjective: Agreeable to PT consult. Objective: General Observation: Supine in bed. Pain avoidance behavior. Laryngectomy in place. Aphonic. Mental Status: Alert and oriented as to person, place, time, and purpose. Able to pay attention, focus, and respond appropriately in written form, sometimes communicates through her lips. Pain: 2/10 in left low back area ROM: Right Upper Extremity: Shoulder Flexion WFL. Shoulder abduction WFL. Elbow flexion WFL. Wrist flexion WFL. Functional opening and closing of hand WFL. Left Upper Extremity: Shoulder Flexion WFL. Shoulder abduction WFL. Elbow flexion WFL. Wrist flexion WFL. Functional opening and closing of hand WFL. Right Lower Extremity: Hip flexion WFL. Hip abduction WFL. Knee flexion WFL. Ankle dorsiflexion WFL. Ankle plantarflexion WFL. Left Lower Extremity: Hip flexion WFL. Hip abduction WFL. Knee flexion WFL. Ankle dorsiflexion WFL. Ankle plantarflexion WFL. Strength: Right Upper Extremity: Shoulder flexors 4/5. Shoulder abductors 4/5. Shoulder ER 4/5/ Shoulder IR 4/5. Forearm pronators 4/5. Forearm supinators 4/5. Elbow flexors 4/5. Elbow extensors 4/5. Refining Equipment Operator strong. Left Upper Extremity: Shoulder flexors 4/5. Shoulder abductors 4/5. Shoulder ER 4/5/ Shoulder IR 4/5. Forearm pronators 4/5. Forearm supinators 4/5. Elbow flexors 4/5. Elbow extensors 4/5. Refining Equipment Operator strong. Right Lower Extremity: Hip flexors 4/5. Hip abductors 4/5. Hip external rotators 4/5. HIp internal rotators 4/5. Knee flexors 4/5. Knee extensors 4/5. Ankle dorsiflexors/evertors 4/5. Ankle plantarflexors/invertors 4/5. Left Lower Extremity: Hip flexors 4/5. Hip abductors 4/5. Hip external rotators 4/5. HIp internal rotators 4/5. Knee flexors 4/5. Knee extensors 4/5. Ankle dorsiflexors/evertors 4/5. Ankle plantarflexors/invertors 4/5. Sensation: Intact as to pain and light pressure in bilateral lower extremities. Bed Mobility/Transfers: Right side-lying to sit stand by assist with HOB to 30 degrees Sit to stand: Stand by assist Stand to sit: Stand by assist Gait: Denies chest pain. No report of lightheadedness however did complain of some left -sided low back pain which did subside when she sat. Tolerated up to 250 feet using the FWW with just stand by assist with mild increase in pain level left low back. Patient then performed some seated piriformis stretching, standing hip Pres, sitting long arc quads, and counter height push-ups as part of a daily exercise program she is been performing since August. Informed Consent/Education: Patient instructed in purpose of PT consult and plan of care. Agreeable to proceed with established PT POC to achieve personal goals. Assessment: Requires the use of FWW for all mobility ADL performance. Patient has this AD at home. May benefit from PT to regain independent ambulation in the community without AD. Patient presents with clinical signs and symptoms consistent with current/admitting diagnoses that have resulted to mobility limitations, gait instability, generalized weakness, and impairment of motor control as demonstrated by the following impairment level findings: 1. Mild decrease in strength to B LE major muscle groups 2. Impaired standing balance 3. Impaired activity tolerance 4. Frontal headache (diminished from yesterday) 5. Mild lightheasdedness (diminished from yesterday) Impairments are contributing to the following functional limitations: 1. Inability to safely ambulate without assistive device 2. Increase completion time for mobility ADL performance 3. Increased fall risk 4. Inability to negotiate steps alone safely Patient is assessed as a 00107 moderate complexity based on the following: History: 70-year-old female with past medical history as indicated above Examination: Demonstrable impairment in strength, balance, and mobility level with underlying impairments and functional limitations as exhibited above as well as deficit score of 58% utilizing the [facility] Mobility Inpatient Short Form Presentation: Evolving Decision Makin moderate complexity Goals: Goals X1 week 1. Supine-Sit independent 2. Sit-Supine independent 3. Sit-Stand independent 4. Stand-Sit independent 5. Bed-Chair independent 6. Chair-Bed independent 7. Independent gait on level surface with use of front wheel walker for at least 300 feet without report of pain nor dyspnea 8. Independent stair negotiation while holding onto B rails for at least 7 steps without report of pain nor dyspnea 9. Independent with home exercise program 10. Good static and dynamic standing balance/tolerance Plan of Care/Treatment Plan: 1-2x/day, 7 days/week x 1 week. Plan of care has been reviewed with the [employer] providing the service under Physical Therapy direction. Initiate Physical Therapy intervention for strengthening, bed mobility, transfers, gait, stairs, balance training, and use of assistive device. DISCHARGE RECOMMENDATIONS: Home when medically cleared by hospitalist. Patient will benefit from home health PT services in order to progress mobility level using least restrictive assistive ambulatory device, assess home safety, identify additional equipment needs, and establish a functional maintenance program that will increase ability of patient to remain at home. TREATMENT CODE/TIME: 03288 x 20 minutes, [id number] x 15 minutes beginning at 9:10 AM. Thank you for this referral. Enrique Farmer PT, DPT Disclaimer: This note was created using [employer] voice recognition software. It was reviewed for major content. However, there may be multiple small discrepancies and errors due to the voice recognition aspects of the software.
[2020-12-28 11:25] VITALS: BP 121/69; PULSE 69; RESP 17; TEMP 36.8; O2SAT 97
[2020-12-28] MEDS: dilTIAZem CD 120 MG CAPCR PO (11:53)
--- NOTE | 2020-12-28 13:42 | DSE_ITS ---
Date of service: 12/28/20 Time of Service: 13:42 DS: Diagnosis Discharge Diagnosis (1) Weakness: Start date: 12/28/20 Start time: 13:43 Status: Acute Asessment and Plan: weakness is not new. She has been here several times and each time she c/o weakness Works with PT. She is being discharged home with resumption of services HH PT/OT/Rn services. (2) Essential hypertension: Start date: 12/28/20 Start time: 13:48 Status: Chronic Asessment and Plan: controlled with dilt 180 XR, and amlodipine 5 mg, given severe stenosis goal of 140-160 will have her follow up with her PCP in 1 week. (3) Carotid stenosis, bilateral: Start date: 12/28/20 Start time: 13:54 Status: Chronic Asessment and Plan: Severe right and moderate left proximal internal carotid artery stenosis secondary to atherosclerosis. There is atherosclerosis in the proximal tortuous internal carotid artery causing severe stenosis. (70-80 percent). Newly found with recent admission and patient has plans for outpatient follow-up with PCP and possible vascular surgery at [facility]. She is not having neurological complaints presently. recommendations per uptodate is a antiplatelet which she is on asa and high dose statin. Will increase atorvastatin while awaiting her visit with [facility], and cards follow up. (4) Aortic stenosis: Start date: 12/28/20 Start time: 14:09 Status: Chronic Asessment and Plan: significant aortic valve stenosis and once again we need to avoid hypotensive state. Follow-up with cardiology. (5) Diabetes mellitus, type II: Start date: 12/28/20 Start time: 14:11 Status: Chronic Asessment and Plan: Resume outpatient regimen (6) Anxiety: Start date: 12/28/20 Start time: 14:11 Status: Chronic Asessment and Plan: severe anxiety, will give xanax for outpatient, recommend therapy, defer to PCP for further treatment, currently on cymbalta may benefit from buspar discussed with Dr. Kellogg Discharge Plan Disposition Patient Disposition: HOME W/HOME HEALTH SERVICE Condition: Stable Discharge Details Reason For Visit: Uncontrolled hypertension,acrtic stenosis,carotid Admit Date/Time: 12/26/20 19:11 Admit Provider: Jeremy Shetty Attending Provider: Jeremy Shetty Primary Care Provider: Denys Fierro [facility] Course Hospital Course: 70 y.o female with multiple chronic medical issues including a trach, admitted to [facility] for hypertensive emergency. She presented to with 2 weeks of weakness and uncontrolled blood pressure due to noncompliance; due to inability to have them picked up. In the ED labs lipid panel elevated, otherwise insignificant. BP was 200's systolically, she was given labetolol IV and asked to be admitted to hospitalist service. Head CT revealed nonacute gangular infarct, no new findings. MRI with no new findings. CT abd and pelvis without any findings. Heat CT with bilateral stenosis up to 80% and near occlusion, she is on asa already, will increase atorvastatin to 80 mg, she will need outpatient f/u with [facility] vascular. Yesterday bp continued to be elevated goal is 140-160 systolic with 90 diastolic, she was in the 180's amlodipine was decreased to 5 mg and she was placed on coreg bid around 430 patient started to have angioedema with anaphylaxis. She stated that this has happened 4 times. Likely this was due to lisinopril. She was given epi, bendaryl, pepcid and monitored on telemetry. Within an hour she started to feel better swelling of her tongue decreased. Lisinopril dcd, coreg dcd, placed on diltiazem 60 mg TID with amlodipine 10 mg. Her bp was normotensive. She did have several anxious spells and was given xanax. Therefore she is being discharged home on diltiazem 180 mg daily. Amlodipine 5 mg daily. Increase stating to 80 mg daily. Will give xanax for anxiety. Follow up with PCP in 1 week. Follow up Cardiology as soon as appt available. Follow up with Vascular at [facility] as soon as appt available. She denies Cp, SOB, N/V/D. Resume services Home Meds and New Rx's Prescriptions: New amlodipine 5 mg tablet 5 mg PO DAILY Qty: 30 RF: 0 diltiazem HCl [DILT-XR] 180 mg capsule,ext.rel 24h degradable 180 mg PO DAILY Qty: 20 RF: 0 alprazolam [Xanax] 0.5 mg tablet 0.5 mg PO BID Qty: 20 RF: 0 atorvastatin 80 mg tablet 80 mg PO DAILY Qty: 30 RF: 0 Continued (DME) lancets [OneTouch Delica Lancets] 33 gauge misc See Rx Instructions .ROUTE .MEDSUPPLY Qty: 100 RF: 3 travoprost [Travatan Z] 0.004 % drops 1 drp OP QPM Qty: 5 RF: 6 levothyroxine 150 mcg tablet 150 mcg PO DAILY Qty: 90 RF: 3 (DME) pen needle, diabetic [Pen Needle] 31 gauge x 5/16 needle See Rx Instructions .ROUTE .MEDSUPPLY Qty: 100 RF: 3 Jardiance 10 mg tablet 10 mg PO DAILY Qty: 90 RF: 3 acetaminophen 500 mg tablet,chewable 500 mg PO Q6H PRN (Reason: fever/pain from laryngectomy) Qty: 90 RF: 3 carbamazepine 100 mg tablet,chewable See Rx Instructions .ROUTE DAILY Qty: 270 RF: 3 duloxetine 20 mg capsule,delayed release(DR/EC) 40 mg PO DAILY Qty: 180 RF: 3 sitagliptin 100 mg tablet 100 mg PO DAILY Qty: 90 RF: 3 Hold Instructions: Home Medication placed on hold at Doctor's office gabapentin 300 mg/6 mL (6 mL) solution See Rx Instructions PO BID Qty: 240 RF: 6 allopurinol 300 mg tablet 300 mg PO QHS Qty: 90 RF: 3 Lantus Solostar U-100 Insulin 100 unit/mL (3 mL) insulin pen 12 unit SC DAILY MDD 12 units Qty: 15 RF: 6 (DME) OneTouch Verio test strips Strip See Rx Instructions .ROUTE .MEDSUPPLY Qty: 100 RF: 3 famotidine 40 mg tablet 40 mg PO DAILY Qty: 90 RF: 3 trazodone 50 mg tablet 50 mg PO QHS PRN (Reason: sleep) Qty: 90 RF: 3 bisacodyl [Dulcolax (bisacodyl)] 5 mg tablet,delayed release (DR/EC) 5 mg PO ONCE Qty: 4 RF: 0 (DME) blood-glucose meter [OneTouch Verio Flex meter] Misc See Rx Instructions .ROUTE .MEDSUPPLY Qty: 1 RF: 0 (DME) Suction Tube Attachment Device Misc 1 each MC PRN Qty: 20 RF: 0 ondansetron HCl 4 mg Tablet 4 mg PO TID PRN PRN (Reason: Nausea And Vomiting) RF: 0 ondansetron HCl 4 mg Tablet 4 mg PO TID PRN PRNQty: 0 RF: 0 aspirin [Lo-Dose Aspirin] 81 mg tablet,delayed release (DR/EC) 81 mg PO DAILY Qty: 30 RF: 0 brimonidine 0.1 % Drops 1 drp ophthalmic (eye) Q8H RF: 0 omeprazole 40 mg capsule,delayed release(DR/EC) 40 mg PO DAILY RF: 0 hydrocortisone 2.5 % cream 1 applic TP BID RF: 0 methocarbamol 750 mg Tablet 750 mg PO QID PRN PRNQty: 30 RF: 0 sennosides [Senokot] 8.6 mg Tablet 8.6 mg PO BID PRN PRNQty: 10 RF: 0 Discontinued atorvastatin 40 mg tablet 40 mg PO QHS Qty: 90 RF: 3 lisinopril 20 mg Tablet 20 mg PO DAILY RF: 0 amlodipine 10 mg tablet 10 mg PO DAILY Qty: 90 RF: 3 No Action colchicine 0.6 mg capsule 0.6 mg PO DAILY PRN (Reason: gout) Qty: 90 RF: 3 Discharge Instructions Instructions: Diltiazem (By mouth), Carotid Artery Disease (DC), Angioedema (GEN), Hypertensive Crisis (DC) Additional Instructions: STOP TAKING LISINOPRIL Take diltiazem daily Take amlodipine 5 mg daily try to keep blood pressure between 140/90 -160/90 Follow up with [facility] vascular department for carotid artery stenosis, take aspirin daily for this and your atorvastatin has been increased to 80 mg stop taking only 40 Follow up with your PCP this week Follow up with Vascular and cardiology as soon as possible, we will make those appointments for you Resume services Activity:: Activity as Tolerated Equipment/Supplies:: No Equipment Needed Diet:: Carb Counting Discharge Orders Discharge Orders: Discharge Order (Routine); Ordered 12/28/20 Ordered By: Liliya Cerrato DS: Summary Time Spent with Patient providing and/or coordinating discharge services: Greater than 30 minutes Status at Discharge Functional status at discharge: uses cane/walker Overall status at discharge: patient is back to baseline Mental Status: mental status grossly normal Speech and Movement: other (trach) Mood: anxious mood Affect: normal affect Exam Narrative Exam Narrative: General: Patient is moderately obese and appears chronically deconditioned, appears older than stated age, alert and oriented to person place and time. She is in no acute distress. She is very somatic and vague in her history especially complicated by difficulty speaking with her chronic tracheostomy. HEENT: Normocephalic, darkly dyed hair which is thin, coarsened facial features, patient is edentulous with tenderness to palpation over her left tragus and TMJ area. Slight swelling of left tragus but no palpable fluctuance and visual exam of EAC and TM is normal on the left. Eyes with pupils equal and reactive to light symmetrically, extraocular movement intact and sclera anicteric. Neck: Supple without JVD. Patient has tracheostomy in place anteriorly. Back: Stooped posture without CVA tenderness. Lungs: Fair aeration and clear to auscultation. Heart: Regular rate and rhythm with 4/6 crescendo systolic murmur left sternal border. No gallop appreciated. Abdomen: Obese contour, soft and nontender to palpation without palpable hepatosplenomegaly. Bowel sounds positive all quadrants. Extremities: Without clubbing, cyanosis or pitting edema. Peripheral pulses intact. Skin: Normal color, warm and dry. Actinic changes over sun exposed areas. Rough texture over sun exposed areas. Neuro: Cranial nerves II to XII grossly intact, no focalizing motor deficit. Psych: Normal mood and no abnormal thought processes. Remote and recent memory appear to be grossly intact. Patient whispers rather than speaking by holding her finger over her tracheotomy though she appeared to attempt this at times. Psych Mental Status: mental status grossly normal Mood: anxious mood Affect: normal affect DS: Data Vitals/I&O Vitals and I&O: Vital Signs Temperature 36.8 C 12/28/20 11:25 Temperature Source Temporal Artery Scan 12/28/20 11:25 Pulse 69 12/28/20 11:25 Pulse Rhythm Regular 12/28/20 08:00 Pulse 71 12/26/20 18:40 Respiratory Rate 17 12/28/20 11:25 Respiratory Effort Non-Labored 12/28/20 08:00 Respiratory Depth Normal 12/28/20 08:00 Respiratory Pattern Normal 12/28/20 08:00 Blood Pressure 121/69 12/28/20 11:25 Blood Pressure Mean 64 12/26/20 18:35 Blood Pressure Position Supine 12/26/20 16:24 Pulse Oximetry 97 12/28/20 11:25 Oxygen Delivery Method Room Air 12/28/20 11:25 Oxygen Flow Rate 0 12/28/20 11:25 Pain Level 7 12/28/20 11:51 Comment 12/26/20 23:50 Intake & Output 12/27/20 12/28/20 12/28/20 23:59 11:59 23:59 Intake Total 360 / 360 Output Total 1000 / 1000 300 / 300 Balance -640 / -640 -300 / -300 Weight 68 kg Intake: Oral 360 / 360 Output: Urine 1000 / 1000 300 / 300 Other: Urine Color Yellow Yellow Urine Appearance Clear Clear Urine Odor Normal None Comment RN reported voiding on BSC prior to this nurse arriving. Voiding Methods Bedside Commode Data Completed and Pending Completed studies during hospitalization [Text1]: FINDINGS: VENTRICLES AND EXTRA AXIAL SPACES: Normal in size and morphology for the patient's age. MIDLINE SHIFT: None. CEREBRAL PARENCHYMA: No focus of restricted diffusion to suggest acute infarct. No space-occupying lesion identified. There is an old lacunar infarct in the left basal ganglia. 1 or 2 foci of hyperintense signal is seen in the white matter on the FLAIR and T2 weighted images likely reflecting small vessel ischemic disease. HEMORRHAGE: None. BRAINSTEM/CEREBELLUM: Normal. CALVARIUM: Normal. VISUALIZED PARANASAL SINUSES/MASTOIDS:Clear. AMBLER OF [place]: Normal flow void. PITUITARY GLAND: Unremarkable. OTHER FINDINGS: None. IMPRESSION: No evidence of an acute infarct. : 1950ge: 70 Exam(s) a CT:CT head - stroke protocol Exam(s) CT HEAD - STROKE PROTOCOL EXAM: CT HEAD - STROKE PROTOCOL CLINICAL HISTORY: thunderclap SAVAGE posterior head. TECHNIQUE: Imaging Protocol: Axial computed tomography images with coronal and sagittal reformatted images were created and reviewed COMPARISON: CT CT HEAD WO from 05/28/2020 FINDINGS: Ventricles and Extra axial spaces: Normal in size and morphology for the patient's age. Hemorrhage: None. Cerebral parenchyma: There are areas of decreased attenuation in the white matter consistent with microvascular ischemic disease. There is a hypodensity in the left basal ganglia likely reflecting a old lacunar infarct. Midline shift: None. Brainstem/Cerebellum: Normal. Calvarium: Normal. Visualized Paranasal sinuses/Mastoids: Clear. Soft Tissues: Unremarkable. IMPRESSION: No acute intracranial process. : 8Age: 70 Exam(s) a CT:CT brain & neck CTA Exam(s) CT BRAIN NECK CTA EXAM: CT BRAIN NECK CTA CLINICAL HISTORY: severe SAVAGE, generalized weakness. TECHNIQUE: Imaging Protocol: Axial CT angiography was performed with multi- slice acquisition and multi-planar and/or 3D reconstructions. CONTRAST MATERIAL: Intravenous: Omnipaque 350 Contrast volume:85 mL COMPARISON: CT CT LUMBAR SPINE RECONS from 08/30/2020 FINDINGS: CT Head w: Ventricles and Extra axial spaces: Normal in size and morphology for the patient's age. Hemorrhage: None. Cerebral parenchyma: Normal. No acute territorial infarct. There is an old lacunar infarct in left basal ganglia. Midline shift: None. Brainstem/Cerebellum: Normal. Calvarium: Normal. Visualized Paranasal sinuses/Mastoids: Clear. Soft Tissues: Unremarkable. Enhancement: Unremarkable. CTA Neck W: Common Carotid: Right: No dissection, occlusion or significant stenosis. Left: No dissection, occlusion or significant stenosis. External Carotid: Right: No occlusion or significant stenosis. Left: No occlusion or significant stenosis. Internal Carotid: Right: No dissection or occlusion. There is tortuosity of the internal carotid artery. There is atherosclerosis in the proximal tortuous internal carotid artery causing severe stenosis. (70-80 percent). Left: No dissection or occlusion. There is tortuosity of the internal carotid artery. There is atherosclerosis and moderate narrowing of the proximal internal carotid artery. Vertebral Artery: Right: There is near complete occlusion of the proximal right vertebral artery. There is a return to the normal caliber at C7. Left: No dissection. There is near complete occlusion of the proximal left vertebral artery. There is a return to the normal caliber at the C7 vertebral body level. Lung Apices: Normal. Bones: Degenerative changes throughout the cervical spine. Soft Tissues: The patient is status post neck surgery with the placement of a tracheostomy tube. CTA Brain W: Internal Carotid Arteries: Petrous: Normal. Cavernous: Atherosclerosis. No significant stenosis or occlusion. Cerebral: Normal. Anterior Cerebral Arteries: Right: No aneurysm, occlusion or significant stenosis. Left: No aneurysm, occlusion or significant stenosis. Middle Cerebral Arteries: Right: No aneurysm, occlusion or significant stenosis. Left: No aneurysm, occlusion or significant stenosis. Posterior cerebral Arteries: Right: No occlusion or aneurysm. Moderate to severe stenosis in the P2 segment of the right posterior cerebral artery. Left: No aneurysm, occlusion or significant stenosis. Vertebral Arteries: Right: No aneurysm, occlusion or significant stenosis. Left: No aneurysm, occlusion or significant stenosis. Basilar Artery: No aneurysm, occlusion or significant stenosis. IMPRESSION: 1. Moderate to severe stenosis in the P2 segment of the right [employer]. 2. No acute intracranial process. 3. 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 4. Severe right and moderate left proximal internal carotid artery stenosis secondary to atherosclerosis. 5. Prior neck dissection with tracheostomy tube in place. : 8Age: 70 Exam(s) a CT:CT brain & neck CTA Exam(s) CT BRAIN NECK CTA EXAM: CT BRAIN NECK CTA CLINICAL HISTORY: severe SAVAGE, generalized weakness. TECHNIQUE: Imaging Protocol: Axial CT angiography was performed with multi- slice acquisition and multi-planar and/or 3D reconstructions. CONTRAST MATERIAL: Intravenous: Omnipaque 350 Contrast volume:85 mL COMPARISON: CT CT LUMBAR SPINE RECONS from 08/30/2020 FINDINGS: CT Head w: Ventricles and Extra axial spaces: Normal in size and morphology for the patient's age. Hemorrhage: None. Cerebral parenchyma: Normal. No acute territorial infarct. There is an old l acunar infarct in left basal ganglia. Midline shift: None. Brainstem/Cerebellum: Normal. Calvarium: Normal. Visualized Paranasal sinuses/Mastoids: Clear. Soft Tissues: Unremarkable. Enhancement: Unremarkable. CTA Neck W: Common Carotid: Right: No dissection, occlusion or significant stenosis. Left: No dissection, occlusion or significant stenosis. External Carotid: Right: No occlusion or significant stenosis. Left: No occlusion or significant stenosis. Internal Carotid: Right: No dissection or occlusion. There is tortuosity of the internal carotid artery. There is atherosclerosis in the proximal tortuous internal carotid artery causing severe stenosis. (70-80 percent). Left: No dissection or occlusion. There is tortuosity of the internal carotid artery. There is atherosclerosis and moderate narrowing of the proximal internal carotid artery. Vertebral Artery: Right: There is near complete occlusion of the proximal right vertebral artery. There is a return to the normal caliber at C7. Left: No dissection. There is near complete occlusion of the proximal left vertebral artery. There is a return to the normal caliber at the C7 vertebral body level. Lung Apices: Normal. Bones: Degenerative changes throughout the cervical spine. Soft Tissues: The patient is status post neck surgery with the placement of a tracheostomy tube. CTA Brain W: Internal Carotid Arteries: Petrous: Normal. Cavernous: Atherosclerosis. No significant stenosis or occlusion. Cerebral: Normal. Anterior Cerebral Arteries: Right: No aneurysm, occlusion or significant stenosis. Left: No aneurysm, occlusion or significant stenosis. Middle Cerebral Arteries: Right: No aneurysm, occlusion or significant stenosis. Left: No aneurysm, occlusion or significant stenosis. Posterior cerebral Arteries: Right: No occlusion or aneurysm. Moderate to severe stenosis in the P2 segment of the right posterior cerebral artery. Left: No aneurysm, occlusion or significant stenosis. Vertebral Arteries: Right: No aneurysm, occlusion or significant stenosis. Left: No aneurysm, occlusion or significant stenosis. Basilar Artery: No aneurysm, occlusion or significant stenosis. IMPRESSION: 1. Moderate to severe stenosis in the P2 segment of the right [employer]. 2. No acute intracranial process. 3. 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 4. Severe right and moderate left proximal internal carotid artery stenosis secondary to atherosclerosis. 5. Prior neck dissection with tracheostomy tube in place. FINDINGS: ANTERIOR CIRCULATION: Right internal carotid artery: Unremarkable. Intracranial segment is patent with no significant stenosis. No aneurysm. Right middle cerebral artery: Unremarkable. No occlusion or significant stenosis. No aneurysm. Right anterior cerebral artery: Unremarkable. No occlusion or significant stenosis. No aneurysm. Left internal carotid artery: Unremarkable. Intracranial segment is patent with no significant stenosis. No aneurysm. Left middle cerebral artery: There is high-grade stenosis at the inferior M2 segment of the left MCA. Left anterior cerebral artery: Unremarkable. No occlusion or significant stenosis. No aneurysm. POSTERIOR CIRCULATION: Right vertebral artery: Unremarkable. No occlusion or significant stenosis. No aneurysm. Left vertebral artery: Unremarkable. No occlusion or significant stenosis. No aneurysm. Basilar artery: Unremarkable. No occlusion or significant stenosis. No aneurysm. Right posterior cerebral artery: There is a short segment occlusion noted in the P2 segment of the right posterior cerebral artery (image 499, series 5). This finding may be acute or chronic in nature. Immediate reconstitution is noted. Left posterior cerebral artery: Unremarkable. No occlusion or significant stenosis. No aneurysm. Brain: No definite mass, mass effect, or midline shift. Cerebral ventricles: No ventriculomegaly. Bones/joints: Unremarkable. No acute fracture. Soft tissues: Unremarkable. IMPRESSION: 1. Short segment occlusion of the right [employer]. 2. High-grade stenosis in the inferior M2 segment of the left MCA. EXAM: CT HEAD WO CLINICAL HISTORY: headache. TECHNIQUE: Imaging Protocol: Axial computed tomography images with coronal and sagittal reformatted images were created and reviewed COMPARISON: CT CT BRAIN NECK CTA from 12/24/2020 FINDINGS: There are no skull fractures nor fluid in the visualized paranasal sinuses. Hyperostosis frontalis interna noted. There is no evidence of intracranial hemorrhage, mass effect, or shift of midline structures. There are no extra-axial fluid collections. The ventricles are not enlarged or shifted and there is no blood within the ventricular system nor within the basal cisterns. Again noted is a previously described nonacute lacunar infarct in the left basal ganglia. IMPRESSION: No acute intracranial findings on this noninfused CT scan of the brain. Nonacute left basal ganglia lacunar infarct again noted. : 8Age: 70 Exam(s) a CT:CT abdomen & pelvis w Exam(s) CT ABDOMEN PELVIS W EXAM: CT ABDOMEN PELVIS W CLINICAL HISTORY: abd pain diffuse, ttep, distension. TECHNIQUE: Imaging Protocol: Axial computed tomography images with coronal and sagittal reformatted images were created and reviewed CONTRAST MATERIAL: Intravenous: Omnipaque 100cc Oral: None COMPARISON: CT CT ABDOMEN PELVIS WO from 08/30/[address] ABDOMEN PELVIS WO from 08/30/[address] BRAIN NECK CTA from 12/24/2020 FINDINGS: VISUALIZED LUNG BASES: No nodules nor pleural effusions evident. ABDOMEN: There is no ascites. LIVER: There are no focal hepatic lesions evident . GALLBLADDER/BILIARY: Gallbladder is again noted be surgically absent. CBD is not dilated. PANCREAS: No evidence of pancreatic mass nor dilatation of the pancreatic duct. SPLEEN: Spleen is not enlarged. No obvious intrasplenic lesions. Splenic and portal veins are patent. ADRENALS: Right adrenal gland is unremarkable. There are fat containing nodular densities again noted in the left adrenal gland which appear unchanged. Probably adenoma or myelolipoma. KIDNEYS:No cysts evident. No solid renal masses. No calculi nor hydronephrosis.. ABDOMINAL AORTA: Heavily calcified but not enlarged. LYMPH NODES:There is no retroperitineal nor paraaortic adenopathy. ABDOMINAL WALL: No evidence of significant anterior abdominal wall hernia. GI: There is no evidence of bowel obstruction, free air, nor abscess. PELVIS: GI: No evidence of appendicitis.No evidence of sigmoid diverticulitis. LYMPH NODES: There is no intrapelvic nor inguinal adenopathy. REPRODUCTIVE: Prior hysterectomy. No abnormal adnexal masses nor free fluid. URINARY BLADDER: No calculi nor obvious masses evident OSSEOUS: No significant osseous lesions. IMPRESSION: 1. There is evidence of previous cholecystectomy and hysterectomy. No bowel obstruction, free air, nor abscess. 2. Fat containing left adrenal nodules again noted, unchanged. 3. No evidence of appendicitis. No obvious bowel obstruction. PFSH Medical History Actinic keratoses Aortic stenosis Aphonia Benign positional vertigo Chronic bilateral low back pain with bilateral sciatica Diabetes mellitus, type II 03/03: Good control on lantus alone Dyspepsia Dysphagia Esophagoscopy, dilation, and botox injection 09/19/20 Esophageal . 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
[2020-12-28 14:19] VITALS: PULSE 90
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
== END 2020-12-28 16:00 | disposition home health service (06) ==
LOC: ER 19:10 → MS 20:23
PROVIDERS: Admitting Provider Family Medicine; Emergency Provider Student in an Organized Health Care Education/Training Program; PCP Family Medicine; Visit Provider Family Medicine
DX: R53.1 Weakness (principal); F41.9 Anxiety disorder, unspecified; I65.23 Occlusion and stenosis of bilateral carotid arteries; Z93.0 Tracheostomy status; T78.3XXA Angioneurotic edema, initial encounter; T44.7X5A Adverse effect of beta-adrenoreceptor antagonists, initial encounter; I10 Essential (primary) hypertension; E11.9 Type 2 diabetes mellitus without complications; I35.0 Nonrheumatic aortic (valve) stenosis; M54.42 Lumbago with sciatica, left side; M54.41 Lumbago with sciatica, right side; M79.7 Fibromyalgia; K22.2 Esophageal obstruction; K21.9 Gastro-esophageal reflux disease without esophagitis; E78.5 Hyperlipidemia, unspecified; E89.0 Postprocedural hypothyroidism; G47.00 Insomnia, unspecified; F33.41 Major depressive disorder, recurrent, in partial remission; Z20.822 Contact with and (suspected) exposure to COVID-19
CPT/HCPCS: 36415; 80053; 83690; 87635; 93005; 96374; 96375; 97162; 97530; 99285; 70450; 74177; 83735; 84484; 85025; 93010; 99217; 99220; 99225; G0378; J0171; J1200; J1644; J2060; J3490; J8597

== ENCOUNTER 2020-12-30 11:10 | Emergency (ER) | payer MEDICARE, MEDICAID, SELFPAY ==
[2020-12-30] VITALS (11 sets, daily range): BP systolic 146–154; BP diastolic 53–72; PULSE 46–69; RESP 10–20; TEMP 36.2; O2SAT 93–100
--- NOTE | 2020-12-30 11:00 | RT.EKG_ITS ---
APPROVED REPORT Exam: Resting ECG Reason for Exam: dizziness Patient Location: E HR:55 bpm ECG Measurements Heart Rate 55 AXIS IN 181 P -39 QRSd 86 QRS -15 QT 405 T 118 QTc 392 Conclusion Sinus bradycardia...rate< 60 Atrial premature complex...SV complex w/ short R-R interval Probable LVH with secondary repol abnrm...multiple LVH criteria
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
[2020-12-30 11:38] LABS: Abs Immature Grans 0.11 10^3/uL (0.0-0.06); Absolute Basophil Count 0.05 10^3/uL (0.0-0.2); Absolute Eosinophil Count 0.13 10^3/uL (0.0-0.7); Absolute Lymphocyte Count 1.33 10^3/uL (1.2-3.4); Absolute Monocyte Count 0.75 10^3/uL (0.1-0.8); Absolute Neutrophil Count 4.08 10^3/uL (1.2-6.7); Basophils % 0.8; HCT 33.7 % (36.0-46.0); HGB 10.8 g/dL (11.2-15.7); Immature Grans % 1.7; Lymphocytes % 20.6; MCH 28.6 pg (27.0-33.0); MCV 89.4 fL (80-95); MPV 11.8 fL (8.0-11.0); Monocytes % 11.6; Neutrophils % 63.3; Nucleated RBC 0 %; Platelet Count 196 10^3/uL (130-400); RBC 3.77 10^6/uL (3.93-5.22); RDW 14.4 % (11.7-14.6); RDW-SD 46.8 fL; WBC 6.45 10^3/uL (4.4-10.8)
[2020-12-30 12:01] LABS: Bilirubin Negative (Negative); Blood Negative (Negative); Clarity Clear (Clear); Glucose 500 mg/dL (Negative); Ketones Negative (Negative); Leukocyte Esterase Trace (Negative); Nitrite Negative (Negative); Urobilinogen 0.2 EU/dL (Up TO 0.2); pH 6.5 (5-8)
[2020-12-30 12:03] LABS: ALT 29 U/L (14-59); AST 21 U/L (15-37); Albumin 3.7 g/dL (3.4-5.0); Alkaline Phosphatase 134 U/L (46-116); Anion Gap 7.8 mmol/L (3-11); BUN 20 mg/dL (7-18); Bilirubin, Total 0.3 mg/dL (0.2-1.0); CO2 26.2 mmol/L (21.0-32.0); CREATININE 1.1 mg/dL (0.55-1.02); Calcium 8.9 mg/dL (8.5-10.1); Chloride 104 mmol/L (98-107); Estimated GFR 48.82 (mL/min/1.73m2); Glucose 122 mg/dL (74-106); Magnesium 2.3 mg/dL (1.8-2.4); Potassium 5.1 mmol/L (3.5-5.1); Sodium 138 mmol/L (136-145)
[2020-12-30 12:05] LABS: Troponin I < 0.05 ng/mL (<0.06)
[2020-12-30 12:11] LABS: Bacteria Few HPF (Negative); C & S Indicated? No/Sq. Contamination; Casts Negative LPF (Negative); Crystals Negative HPF (Negative); Epithelial Cells Moderate HPF (Negative); Mucus Negative (Negative); RBC 0-2 HPF (0-2)
== END 2020-12-30 12:28 | disposition home or self-care (01) ==
PROVIDERS: Emergency Provider Emergency Medicine; PCP Family Medicine
DX: R25.1 Tremor, unspecified (principal); R07.9 Chest pain, unspecified; R00.1 Bradycardia, unspecified; R42 Dizziness and giddiness
CPT/HCPCS: 36415; 80053; 93005; 99283; 81003; 81015; 83735; 84484; 85025; 93010; 99284

== ENCOUNTER 2020-12-31 15:37 | Outpatient (CLI) | payer MEDICARE, MEDICAID, SELFPAY ==
--- NOTE | 2020-12-31 07:15 | DI.US_ITS ---
Exam(s) US CAROTID EXAM: US CAROTID CLINICAL HISTORY: Pre-syncope,? CAROTID INVOLVEMENT,R55. TECHNIQUE: Ultrasound carotids performed using grayscale, color-flow, and spectral Doppler imaging. COMPARISON: US US ECHOCARDIOGRAM from 05/30/2020 FINDINGS: RIGHT CAROTID ARTERY: There is intimal thickening in the right common carotid artery. Minimal plaque evident at the level of the carotid bulb and proximal ICA without elevated velocities levels. However, there is elevated velocity at the mid level of the right ICA in the neck peak systol ic velocity 178 cm/sec and peak diastolic velocity 69 cm/sec. These velocities are consistent approxi mately 50-69 percent stenosis. LEFT CAROTID ARTERY: There is also some intimal thickening in the left common carotid artery and at the level the carotid bulb and proximal left ICA but without elevated velocities at these levels. However, there also appea rs to be some elevated peak systolic velocity at the mid left ICA in the neck, with peak systolic hamida ocity 158 cm/sec. At this level the end-diastolic velocity is 23 cm/sec in the distal neck left ICA t he peak systolic velocity is 181 cm/sec These velocities are consistent approximately 50-69 percent stenosis VERTEBRAL ARTERIES: Antegrade flow is demonstrated in both vertebral arteries. Measurements: R Bulb: 59.8cm/s PS / 16.7cm/s ED R CCA: 67.5cm/s PS / 16.7cm/s ED R ECA: 258.4cm/s PS / 25.1cm/s ED R ICA Prox: 95.1cm/s PS /30.8cm/s ED R ICA Mid: 178.2cm/s PS / 69.4cm/s ED R ICA Distal: 162cm/s PS /23.1cm/s ED R Vert: 42.2cm/s PS / 14.5cm/s ED R SVR: 2.64 R DVR: 4.16 L Bulb: 73.3cm/s PS /22.5cm/s ED L CCA: 96.4cm/s PS / 12.2cm/s ED L ECA: 149.2cm/s PS /45.1cm/s ED L ICA Prox:81.6cm/s PS / 25.1cm/s ED L ICA Mid: 157.8cm/sPS / 23.1cm/s ED L ICA Distal: 180.5cm/s PS / 13.9cm/s ED L Vert: 27.8cm/s PS / 9.8cm/s ED L SVR: 1.87 L DVR: 1.14 IMPRESSION: There is approximately 50-69 percent stenosis in the internal carotid arteries on both sides of the n evelyne. Antegrade flow is demonstrated in both vertebral arteries. Criteria for Carotid Stenosis: Normal: ICA PSV <125 cm/s no plaque or intimal thickening is visible. <50% stenosis: ICA PSV <125 cm/s and plaque or intimal thickening is visible. 50-69% stenosis: ICA PSV is 125-250 cm/s and plaque is visible. >70% stenosis to near occlusion: ICA PSV >250 cm/s with visible plaque and luminal narrowing. DATA REPOSITORY:
== END 2020-12-31 15:57 ==
PROVIDERS: PCP Family Medicine; Visit Provider Family Medicine
DX: I65.23 Occlusion and stenosis of bilateral carotid arteries (principal); R55 Syncope and collapse
CPT/HCPCS: 93880

== ENCOUNTER 2021-01-01 14:14 | Emergency (ER) | payer MEDICARE, MEDICAID, SELFPAY ==
[2021-01-01] VITALS (23 sets, daily range): BP systolic 145–202; BP diastolic 47–70; PULSE 59–66; RESP 18; TEMP 36.3; O2SAT 94–100
--- NOTE | 2021-01-01 14:30 | RT.EKG_ITS ---
APPROVED REPORT Exam: Resting ECG Reason for Exam: chest pain Patient Location: E HR:63 bpm ECG Measurements Heart Rate 63 AXIS DE 159 P 206 QRSd 89 QRS -21 QT 404 T 129 QTc 414 Conclusion Sinus or ectopic atrial rhythm...P axis (-45,135) LVH with secondary repolarization abnormality...multi-LVH criteria, abnrm ST-T
[2021-01-01] MEDS: Normal Saline 1,000 ML 1000 ML IV (14:50)
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
[2021-01-01] MEDS: Acetaminophen 500 MG TAB 1000 MG PO (15:00)
[2021-01-01 15:01] LABS: Source Nasal/Nares
[2021-01-01 15:20] LABS: Abs Immature Grans 0.15 10^3/uL (0.0-0.06); Absolute Basophil Count 0.04 10^3/uL (0.0-0.2); Absolute Eosinophil Count 0.14 10^3/uL (0.0-0.7); Absolute Lymphocyte Count 1.52 10^3/uL (1.2-3.4); Absolute Neutrophil Count 4.19 10^3/uL (1.2-6.7); Basophils % 0.6; Eosinophils % 2.1; HCT 35.3 % (36.0-46.0); HGB 11.6 g/dL (11.2-15.7); Immature Grans % 2.2; Lymphocytes % 22.6; MCH 29.4 pg (27.0-33.0); MCHC 32.9 % (32.0-36.0); MCV 89.4 fL (80-95); MPV 11.6 fL (8.0-11.0); Monocytes % 10.4; Neutrophils % 62.1; Nucleated RBC 0 %; Platelet Count 191 10^3/uL (130-400); RBC 3.95 10^6/uL (3.93-5.22); RDW 14.4 % (11.7-14.6); RDW-SD 46.5 fL; WBC 6.74 10^3/uL (4.4-10.8)
[2021-01-01 15:23] LABS: Magnesium 2.5 mg/dL (1.8-2.4)
[2021-01-01 15:31] LABS: ALT 29 U/L (14-59); AST 19 U/L (15-37); Albumin 3.9 g/dL (3.4-5.0); Alkaline Phosphatase 142 U/L (46-116); Anion Gap 6.9 mmol/L (3-11); BUN 17 mg/dL (7-18); Bilirubin, Total 0.2 mg/dL (0.2-1.0); CO2 29.1 mmol/L (21.0-32.0); Calcium 9.2 mg/dL (8.5-10.1); Chloride 106 mmol/L (98-107); Glucose 98 mg/dL (74-106); Potassium 4.4 mmol/L (3.5-5.1); Sodium 142 mmol/L (136-145); Total Protein 7.3 g/dL (6.4-8.2); Troponin I < 0.05 ng/mL (<0.06)
[2021-01-01 15:52] LABS: COVID-19 PCR Negative (Negative)
== END 2021-01-01 17:14 | disposition home or self-care (01) ==
PROVIDERS: Emergency Provider Emergency Medicine; PCP Family Medicine
DX: I10 Essential (primary) hypertension (principal); R53.1 Weakness; R51.9 Headache, unspecified; Z20.822 Contact with and (suspected) exposure to COVID-19; Z03.818 Encounter for observation for suspected exposure to other biological agents ruled out
CPT/HCPCS: 36415; 80053; 87635; 93005; 96360; 99284; 81003; 83735; 84484; 85025; 93010; 99285

== ENCOUNTER → 2021-01-06 13:39 | Outpatient (BNVA) | payer MEDICARE, MEDICAID, SELFPAY | PROVIDERS: PCP Family Medicine; Referring Provider Family Medicine; Visit Provider Psychiatry & Neurology Neurology | DX: I67.841 Reversible cerebrovascular vasoconstriction syndrome (principal); G44.53 Primary thunderclap headache; I65.23 Occlusion and stenosis of bilateral carotid arteries; I67.2 Cerebral atherosclerosis; Z93.0 Tracheostomy status | CPT/HCPCS: 99215; G2212 ==

== ENCOUNTER → 2021-01-08 12:30 | Outpatient (BNVA) | payer MEDICARE, MEDICAID, SELFPAY | PROVIDERS: PCP Family Medicine; Referring Provider Family Medicine; Visit Provider Internal Medicine Cardiovascular Disease | DX: I35.0 Nonrheumatic aortic (valve) stenosis (principal); I10 Essential (primary) hypertension; I65.23 Occlusion and stenosis of bilateral carotid arteries; I67.2 Cerebral atherosclerosis; Z90.02 Acquired absence of larynx; E78.5 Hyperlipidemia, unspecified | CPT/HCPCS: 99203; 99214 ==

== ENCOUNTER 2021-01-13 12:44 | Emergency (ER) | payer MEDICARE, MEDICAID, SELFPAY ==
[2021-01-13] VITALS (103 sets, daily range): BP systolic 122–217; BP diastolic 55–125; PULSE 62–112; RESP 0–26; TEMP 36.5–36.6; O2SAT 95–99
--- NOTE | 2021-01-13 12:30 | RT.EKG_ITS ---
APPROVED REPORT Exam: Resting ECG Reason for Exam: chest pain Patient Location: E HR:79 bpm ECG Measurements Heart Rate 79 AXIS KS 220 P 46 QRSd 89 QRS -19 QT 378 T 105 QTc 434 Conclusion Sinus rhythm Prolonged KS interval... Probable LVH with secondary repol abnrm..Similar to previous
--- NOTE | 2021-01-13 13:15 | DI.CT_ITS ---
Exam(s) CT HEAD WO EXAM: CT HEAD WO CLINICAL HISTORY: SAAVGE/HTN. TECHNIQUE: Imaging Protocol: Axial computed tomography images with coronal and sagittal reformatted images were created and reviewed COMPARISON: CT CT HEAD WO from 12/26/2020 FINDINGS: Ventricles and Extra axial spaces: Normal in size and morphology for the patient's age. Hemorrhage: None. Cerebral parenchyma: No evidence of an acute territorial infarct. There is an old left basal ganglia r lacunar infarct. There are areas of decreased attenuation in the white matter most consistent with chronic microvascular ischemic change. Midline shift: None. Brainstem/Cerebellum: Normal. Calvarium: Normal. Visualized Paranasal sinuses/Mastoids: Clear. Soft Tissues: Unremarkable. IMPRESSION: 1. No acute intracranial process. 2. Results of this exam have been verbally communicated with provider. RADIATION DOSE DELIVERED: 794.11mGy.cm Total DLP DATA REPOSITORY: All CT scans at this facility are submitted to the National Radiology Data Registry (NRDR) Dose Index Registry (DIR) with the [employer] (A[employer]). RADIATION OPTIMIZATION: All CT scans at this facility use at least one of these dose optimization te chniques: automated exposure control; mA and/or kV adjustment per patient size (includes targeted exa ms where dose is matched to clinical indication); or iterative reconstruction.
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
[2021-01-13] MEDS: Labetalol 100 MG/20 ML VIAL 10 MG IVP (13:43)
[2021-01-13] MEDS: Aspirin 81 MG CHEW 243 MG CH (13:52)
[2021-01-13] MEDS: ACETAMINOPHEN 1,000 MG/100 ML BTL 400 MG IVPB (14:01)
[2021-01-13 14:04] LABS: ALT 32 U/L (14-59); AST 28 U/L (15-37); Albumin 3.8 g/dL (3.4-5.0); Alkaline Phosphatase 149 U/L (46-116); Anion Gap 11.2 mmol/L (3-11); BUN 15 mg/dL (7-18); Bilirubin, Total 0.3 mg/dL (0.2-1.0); CO2 27.8 mmol/L (21.0-32.0); Calcium 8.9 mg/dL (8.5-10.1); Chloride 104 mmol/L (98-107); Glucose 90 mg/dL (74-106); Potassium 4.2 mmol/L (3.5-5.1); Sodium 143 mmol/L (136-145); TSH (W/Ref FT4) 0.49 uIU/mL (0.36-3.74); Total Protein 7.1 g/dL (6.4-8.2)
[2021-01-13 14:05] LABS: Troponin I < 0.05 ng/mL (<0.06)
[2021-01-13 14:10] LABS: Magnesium 2.2 mg/dL (1.8-2.4)
[2021-01-13 14:13] LABS: D-Dimer 1130 ng/mlFEU (<500)
[2021-01-13 14:47] LABS: Abs Immature Grans 0.09 10^3/uL (0.0-0.06); Absolute Basophil Count 0.04 10^3/uL (0.0-0.2); Absolute Eosinophil Count 0.15 10^3/uL (0.0-0.7); Absolute Monocyte Count 0.86 10^3/uL (0.1-0.8); Absolute Neutrophil Count 4.97 10^3/uL (1.2-6.7); Basophils % 0.5; Eosinophils % 1.9; Immature Grans % 1.2; Lymphocytes % 20.8; MCH 28.5 pg (27.0-33.0); MCHC 32.4 % (32.0-36.0); MCV 88.1 fL (80-95); MPV 11.6 fL (8.0-11.0); Monocytes % 11.2; Neutrophils % 64.4; Nucleated RBC 0 %; Platelet Count 215 10^3/uL (130-400); RBC 3.86 10^6/uL (3.93-5.22); RDW 14.6 % (11.7-14.6); RDW-SD 46.5 fL; WBC 7.71 10^3/uL (4.4-10.8)
[2021-01-13] MEDS: Omnipaque 350 MG/ML 100 ML BTL IJ (14:50)
--- NOTE | 2021-01-13 14:58 | DI.CT_ITS ---
Exam(s) CT CHEST PE CTA EXAM: CT CHEST PE CTA CLINICAL HISTORY: CP, elevated dimer. TECHNIQUE: Imaging Protocol: Axial CT angiography was performed with multi-slice acquisition and mu lti-planar and/or 3D reconstructions. CONTRAST MATERIAL: Intravenous: Omnipaque 350 Contrast volume:100 mL COMPARISON: CT CT ABDOMEN PELVIS W from 12/26/2020 FINDINGS: Tracheobronchial tree: Patent where visualized. Pulmonary parenchyma: No consolidation or dominant measurable mass. No architectural distortion. Ther e is dependent atelectasis. Pulmonary Arteries: No evidence of filling defect to suggest pulmonary emboli. Mediastinum and Mare: No dominant adenopathy or fluid collection. Visualized thyroid gland: Not visualized. The patient has a tracheostomy tube. Pleura: No effusion or pneumothorax. Heart: Moderate cardiomegaly. Mild coronary artery calcification. No pericardial effusion. Aorta: Thoracic aorta non-dilated. No evidence of dissection. Atherosclerosis. Upper abdomen: Status post cholecystectomy. Small hiatal hernia. Soft tissues: Unremarkable. Bones: There is DISH in the thoracic spine. No acute abnormality. IMPRESSION: 1. No evidence of pulmonary embolism, thoracic aortic dissection or aneurysm. 2. Results of this exam have been verbally communicated with provider. RADIATION DOSE DELIVERED: Total DLP DATA REPOSITORY: All CT scans at this facility are submitted to the National Radiology Data Registry (NRDR) Dose Index Registry (DIR) with the [employer] (ACR). RADIATION OPTIMIZATION: All CT scans at this facility use at least one of these dose optimization te chniques: automated exposure control; mA and/or kV adjustment per patient size (includes targeted exa ms where dose is matched to clinical indication); or iterative reconstruction.
[2021-01-13] MEDS: Ketorolac 30 MG/ML VIAL IVP (15:16)
--- NOTE | 2021-01-13 15:22 | NUR.NOTE ---
Nursing Note: Patient expressing that she is hungry and has not eaten since this morning, current blood sugar 103. RN notified Roverto Ko PA-C of patients current blood pressure and that patient is hungry in which he approved for patient to eat. RN notified dietary. No new orders in regards to blood pressure.
--- NOTE | 2021-01-13 15:27 | NUR.NOTE ---
Nursing Note: Patient denies need to void at this time.
--- NOTE | 2021-01-13 16:04 | NUR.NOTE ---
Nursing Note: Patient ate approx. 25% of tray and drank 120 cc of milk.
[2021-01-13 16:22] LABS: Troponin I < 0.05 ng/mL (<0.06)
[2021-01-13] MEDS: Ondansetron 4 MG/2 ML VIAL IVP (16:45)
[2021-01-13 16:49] LABS: Bilirubin Negative (Negative); Blood Negative (Negative); Clarity Clear (Clear); Glucose 500 mg/dL (Negative); Ketones Negative (Negative); Leukocyte Esterase Negative (Negative); Nitrite Negative (Negative); Urobilinogen 0.2 EU/dL (Up TO 0.2); pH 6.5 (5-8)
== END 2021-01-13 17:25 | disposition still patient (30) ==
PROVIDERS: Physician Assistant; Emergency Provider Physician Assistant; PCP Family Medicine
DX: I10 Essential (primary) hypertension (principal); R07.9 Chest pain, unspecified; R51.9 Headache, unspecified; R11.0 Nausea
CPT/HCPCS: 71275; 80053; 93005; 96365; 96375; 99285; 70450; 81003; 83735; 84443; 84484; 85025; 85379; 93010; 99284; J0131; J1885; J2405; J3490

== ENCOUNTER 2021-04-03 11:24 | Observation (INO) | payer MEDICARE, MEDICAID, SELFPAY ==
[2021-04-03] VITALS (48 sets, daily range): BP systolic 133–193; BP diastolic 59–88; PULSE 72–100; RESP 0–24; TEMP 36.2–36.4; O2SAT 91–99
--- NOTE | 2021-04-03 11:15 | RT.EKG_ITS ---
APPROVED REPORT Exam: Resting ECG Reason for Exam: ab pain Patient Location: E HR:83 bpm ECG Measurements Heart Rate 83 AXIS WY 193 P 73 QRSd 82 QRS -18 QT 367 T 148 QTc 431 Conclusion Sinus rhythm...normal P axi Abnormal T,lateral leads...T <-0.20mV, I aVL V5 V6
--- NOTE | 2021-04-03 11:30 | RT.EKG_ITS ---
APPROVED REPORT Exam: Resting ECG Reason for Exam: epigastric pain Patient Location: E HR:88 bpm ECG Measurements Heart Rate 88 AXIS OR 196 P 64 QRSd 81 QRS -13 QT 365 T 155 QTc 441 Conclusion Sinus rhythm...normal P axis, V-rate 60- 99 Abnrm T, consider ischemia, anterolateral lds...T <-0.20mV, I aVL V2-V6
[2021-04-03 11:54] LABS: Lactate 1.6 mmol/L (0.6-1.4)
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
[2021-04-03 11:55] LABS: Abs Immature Grans 0.24 10^3/uL (0.0-0.06); Absolute Basophil Count 0.06 10^3/uL (0.0-0.2); Absolute Eosinophil Count 0.44 10^3/uL (0.0-0.7); Absolute Lymphocyte Count 1.49 10^3/uL (1.2-3.4); Absolute Monocyte Count 0.87 10^3/uL (0.1-0.8); Absolute Neutrophil Count 4.86 10^3/uL (1.2-6.7); Basophils % 0.8; Eosinophils % 5.5; HGB 11.2 g/dL (11.2-15.7); Lymphocytes % 18.7; MCH 28.1 pg (27.0-33.0); MCV 87.7 fL (80-95); MPV 11.2 fL (8.0-11.0); Monocytes % 10.9; Neutrophils % 61.1; Nucleated RBC 0 %; Platelet Count 240 10^3/uL (130-400); RBC 3.99 10^6/uL (3.93-5.22); RDW-SD 48.2 fL; WBC 7.96 10^3/uL (4.4-10.8)
[2021-04-03] MEDS: Normal Saline 500 ML IV (12:00)
[2021-04-03] MEDS: Pantoprazole 40 MG VIAL IVP (12:08)
[2021-04-03 12:10] LABS: Lipase 80 U/L (73-393)
[2021-04-03] MEDS: fentaNYL 100 MCG/2 ML VIAL 50 MCG IVP (12:12)
[2021-04-03 12:16] LABS: ALT 13 U/L (14-59); AST 16 U/L (15-37); Albumin 3.6 g/dL (3.4-5.0); Alkaline Phosphatase 168 U/L (46-116); Anion Gap 11.5 mmol/L (3-11); BUN 11 mg/dL (7-18); Bilirubin, Total 0.3 mg/dL (0.2-1.0); CO2 26.5 mmol/L (21.0-32.0); CREATININE 1.1 mg/dL (0.55-1.02); Calcium 9.6 mg/dL (8.5-10.1); Chloride 105 mmol/L (98-107); Estimated GFR 48.69 (mL/min/1.73m2); Glucose 99 mg/dL (74-106); Magnesium 2.4 mg/dL (1.8-2.4); Potassium 4.4 mmol/L (3.5-5.1); Sodium 143 mmol/L (136-145); Total Protein 7.5 g/dL (6.4-8.2)
[2021-04-03 12:17] LABS: Troponin I < 0.05 ng/mL (<0.06)
[2021-04-03] MEDS: Metoclopramide 10 MG/2 ML VIAL 5 MG IVP (12:27)
[2021-04-03] MEDS: Ondansetron 4 MG/2 ML VIAL IVP (12:45)
[2021-04-03 13:07] LABS: Source Nasal/Nares
[2021-04-03 14:17] LABS: COVID-19 PCR Negative (Negative)
[2021-04-03] MEDS: LORazepam 2 MG/ML VIAL 0.5 MG IVP (14:25)
[2021-04-03] MEDS: Normal Saline - Diluent 50 ML VIAL IV ×2 (15:08→15:11)
[2021-04-03] MEDS: Omnipaque 350 MG/ML 100 ML BTL IJ (15:10)
[2021-04-03] MEDS: Normal Saline Flush 10 ML SYR IVP (15:11)
--- NOTE | 2021-04-03 15:15 | DI.CT_ITS ---
Exam(s) CT CHEST/ABD/PEL W EXAM: CT CHEST/ABD/PEL W CLINICAL HISTORY: epigastric pain. TECHNIQUE: Imaging Protocol: Axial computed tomography images with coronal and sagittal reformatted images were created and reviewed CONTRAST MATERIAL: Intravenous: Omnipaque 350 Contrast volume:100 ml Oral: yes / no COMPARISON: CT CT ABDOMEN PELVIS W from 12/26/[address] ABDOMEN PELVIS W from 12/26/[address] CHEST PE CTA from 01/13/[address] CHEST PE CTA from 01/13/2021 FINDINGS: CHEST: Tracheostomy Tracheobronchial tree: Patent where visualized. Mediastinum and Mare: No dominant adenopathy. \ Pulmonary parenchyma: No consolidation or dominant measurable mass. Respiratory motion. Lungs not w ell inflated. Linear atelectasis left upper lobe. Question of mild pulmonary edema. Pleura: Small left pleural effusion. No pneumothorax. Lymph nodes: Within normal limits. Aorta: Thoracic portion non-dilated. Heart: Small amount of fluid anterior to the heart, likely related to recent aortic valve prosthesis and CABG.. The [place] coronary arteries are heavily calcified. Mitral valve calcifications are seen . Bones: Sternal wires. Surrounding soft tissue swelling. Degenerative changes. . No lytic or blast ic lesions. ABDOMEN: Liver: Normal density. No measurable mass. Gallbladder and biliary tract: Status post cholecystectomy. No radiodense calculus or dilation. Pancreas: Normal density, no abnormal calcifications or inflammatory process. Spleen: Normal. Kidneys: Normal size, contour and axis. No radiodense stones or obstructive uropathy. No masses seen. Adrenal glands: Stable small low-density nodules left adrenal. Right unremarkable.. Aorta: Abdominal portion non-dilated. Heavily calcified. Lymph nodes: Within normal limits. Soft tissues: Unremarkable. PELVIS: Bladder: Contrast in urinary bladder. Symmetric distention, no gross wall thickening. Bowel: No obstruction or bowel wall thickening. Appendix normal. Normal quantity of stool. Stomach remarkable. Peritoneal cavity: No ascites, collection or mesenteric inflammatory response. No free air Bones: Degenerative changes, unremarkable for age.. Reproductive organs: Status post hysterectomy. IMPRESSION: Status post aortic valve replacement and CABG since the previous exam. Small left pleural effusion. small amount of fluid anterior to the pericardium presumably postsurgical. No acute abnormality in abdomen or pelvis.. Findings were called to Capri Adams of the emergency department. RADIATION DOSE DELIVERED: 1,075.04mGy.cm Total DLP DATA REPOSITORY: All CT scans at this facility are submitted to the National Radiology Data Registry (NRDR) Dose Index Registry (DIR) with the [employer] (ACR). RADIATION OPTIMIZATION: All CT scans at this facility use at least one of these dose optimization te chniques: automated exposure control; mA and/or kV adjustment per patient size (includes targeted exa ms where dose is matched to clinical indication); or iterative reconstruction.
[2021-04-03 15:53] LABS: Troponin I < 0.05 ng/mL (<0.06)
[2021-04-03] MEDS: Normal Saline 1,000 ML 125 ML IV (16:20)
--- NOTE | 2021-04-03 16:46 | NUR.NOTE ---
1620: NS initiated per order, pt w/o complaints, resting, son at bedside, continue to monitor.
[2021-04-03] MEDS: Enoxaparin 40 MG/0.4 ML SYR SC (21:52)
[2021-04-03] MEDS: Allopurinol 300 MG TAB PO (22:51)
[2021-04-03] MEDS: carBAMazepine 100 MG CHEW 200 MG PO (22:52)
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
[2021-04-04 01:50] VITALS: BP 148/81; PULSE 70; RESP 18; TEMP 36.1; O2SAT 96
[2021-04-04] MEDS: Levothyroxine 150 MCG TAB PO (05:42)
[2021-04-04 06:15] LABS: Bilirubin Negative (Negative); Blood Negative (Negative); Clarity Clear (Clear); Glucose Negative (Negative); Ketones Negative (Negative); Leukocyte Esterase Negative (Negative); Nitrite Negative (Negative); Specific Gravity 1.015 (1.005-1.025); Urobilinogen 0.2 EU/dL (Up TO 0.2); pH 6.5 (5-8)
[2021-04-04 07:12] LABS: Anion Gap 9.3 mmol/L (3-11); BUN 10 mg/dL (7-18); CO2 26.7 mmol/L (21.0-32.0); Calcium 9.1 mg/dL (8.5-10.1); Chloride 107 mmol/L (98-107); Estimated GFR 54.35 (mL/min/1.73m2); Glucose 107 mg/dL (74-106); Potassium 4.4 mmol/L (3.5-5.1); Sodium 143 mmol/L (136-145)
[2021-04-04 07:27] LABS: Hemoglobin A1C 6.5 % (<5.7)
[2021-04-04 07:30] VITALS: BP 164/77; PULSE 76; RESP 19; TEMP 36.4; O2SAT 97
[2021-04-04] MEDS: Normal Saline Flush 10 ML SYR IVP (07:47)
[2021-04-04] MEDS: SITagliptin 100 MG TAB PO (07:48)
[2021-04-04] MEDS: Omeprazole 20 MG CAPCR 40 MG PO (07:48)
[2021-04-04] MEDS: Famotidine 20 MG TAB 40 MG PO (07:48)
[2021-04-04] MEDS: Aspirin E.C. 81 MG TABEC PO (07:49)
[2021-04-04] MEDS: Metoprolol 25 MG TAB PO (07:49)
[2021-04-04] MEDS: amLODIPine 5 MG TAB 10 MG PO (07:49)
[2021-04-04] MEDS: Gabapentin 100 MG CAP PO (07:49)
[2021-04-04] MEDS: Furosemide 20 MG TAB PO (07:50)
[2021-04-04] MEDS: DULoxetine 20 MG CAP 40 MG PO (09:02)
[2021-04-04] MEDS: Acetaminophen 500 MG TAB PO (09:02)
[2021-04-04] MEDS: carBAMazepine 100 MG CHEW PO (09:02)
[2021-04-04] MEDS: Insulin Glargine 300 UNITS/3 ML PEN 12 UNITS SC (09:03)
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
[2021-04-04 12:34] VITALS: PULSE 66
--- NOTE | 2021-04-04 14:59 | PDOC.CMDIS ---
- If Service Date Differs Date of service: 04/04/21 Time of Service: 14:59 LACE Index Scoring Tool - Questions: Length of Stay (in days): 1 Acuity (Admit via E.D.?): Yes Comorbidities: Diabetes w/o Complication E.D. Visits: 9 - Answers: Total Score: 9 Risk of Readmission: Low Risk Care Management Discharge Reason for Hospitalization: Abdominal discomfort, nausea Discharge Plan: Karina returned home today with no new services. She was driven home via private vehicle by her son, Gato, who discussed her discharge with Karina's RN. She will follow up with her PCP and discharge plan of care. She is agreeable to returning home. Patient/Family Education Needs: Review discharge instructions and limitations, discussion of self care needs including ask me three and goals of care.
== END 2021-04-04 13:17 | disposition home or self-care (01) ==
LOC: ER 19:08 → MS 19:17
PROVIDERS: Physician Assistant; Admitting Provider Family Medicine; Emergency Provider Physician Assistant; PCP Family Medicine; Visit Provider Family Medicine
DX: R10.9 Unspecified abdominal pain (principal); R11.2 Nausea with vomiting, unspecified; K22.2 Esophageal obstruction; I25.10 Atherosclerotic heart disease of native coronary artery without angina pectoris; R42 Dizziness and giddiness; Z95.1 Presence of aortocoronary bypass graft; I35.0 Nonrheumatic aortic (valve) stenosis; I10 Essential (primary) hypertension; E89.0 Postprocedural hypothyroidism; E11.3313 Type 2 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, bilateral; Z20.822 Contact with and (suspected) exposure to COVID-19
CPT/HCPCS: 36415; 74177; 80048; 80053; 83690; 86850; 86900; 86901; 87635; 93005; 96361; 96374; 96375; 99285; J1650; 71260; 81003; 83036; 83605; 83735; 84484; 85025; 93010; 99217; G0378; J2060; J2405; J2765; J3010; J3490

== ENCOUNTER → 2021-04-22 13:29 | Outpatient (BNVA) | payer MEDICARE, MEDICAID, SELFPAY | PROVIDERS: PCP Family Medicine; Referring Provider Family Medicine; Visit Provider Psychiatry & Neurology Neurology | DX: R42 Dizziness and giddiness (principal); I67.841 Reversible cerebrovascular vasoconstriction syndrome; I65.23 Occlusion and stenosis of bilateral carotid arteries; I67.2 Cerebral atherosclerosis; I10 Essential (primary) hypertension; E11.9 Type 2 diabetes mellitus without complications | CPT/HCPCS: 99214 ==

== ENCOUNTER → 2021-05-06 09:45 | Outpatient (BNVA) | payer MEDICARE, MEDICAID, SELFPAY | PROVIDERS: PCP Family Medicine; Referring Provider Family Medicine; Visit Provider Psychiatry & Neurology Neurology | DX: R42 Dizziness and giddiness (principal); I67.841 Reversible cerebrovascular vasoconstriction syndrome; I65.23 Occlusion and stenosis of bilateral carotid arteries; I67.2 Cerebral atherosclerosis; I10 Essential (primary) hypertension; E11.9 Type 2 diabetes mellitus without complications | CPT/HCPCS: 99214 ==

== ENCOUNTER → 2021-06-08 12:50 | Outpatient (BNVA) | payer MEDICARE, MEDICAID, SELFPAY | PROVIDERS: PCP Family Medicine; Visit Provider Psychiatry & Neurology Neurology | DX: I67.841 Reversible cerebrovascular vasoconstriction syndrome (principal); I65.23 Occlusion and stenosis of bilateral carotid arteries; R42 Dizziness and giddiness; I67.2 Cerebral atherosclerosis | CPT/HCPCS: 99214 ==

== ENCOUNTER 2021-06-09 18:43 | Inpatient (IN) | payer MEDICARE, MEDICAID, SELFPAY ==
[2021-06-09] VITALS (24 sets, daily range): BP systolic 126–164; BP diastolic 58–69; PULSE 53–62; RESP 3–16; TEMP 36.5; O2SAT 95–100
--- NOTE | 2021-06-09 18:30 | RT.EKG_ITS ---
APPROVED REPORT Exam: Resting ECG Reason for Exam: sporadic cp and weakness, dizziness. Patient Location: E HR:61 bpm ECG Measurements Heart Rate 61 AXIS VA 279 P 42 QRSd 87 QRS -14 QT 427 T 117 QTc 430 Conclusion Sinus rhythm. Prolonged VA interval. Nonspecific T abnormalities, lateral leads.
--- NOTE | 2021-06-09 19:15 | DI.CT_ITS ---
Exam(s) CT BRAIN NECK CTA EXAM: CT BRAIN NECK CTA CLINICAL HISTORY: dizziness. TECHNIQUE: Imaging Protocol: Axial CT angiography was performed with multi-slice acquisition and mu lti-planar and/or 3D reconstructions. CONTRAST MATERIAL: Intravenous: Omnipaque 350 Contrast volume:structured data in ml COMPARISON: CT CT CHEST/ABD/PEL W from 04/03/2021 FINDINGS: CTA Neck W: Tracheotomy noted. Also sternotomy wires/nonunion. Aortic arch anatomy: The aortic arch anatomy is conventional. There is mild stenosis in the proximal left common carotid artery just distal to the aortic takeoff. Anterior circulation: There is plaque on the medial wall of the left common carotid artery mid level, with approximately 20 percent stenosis at this level. On the right side there is both calcified and noncalcified plaque at the level of the bulb. More sign ificant stenosis is seen above this level in the proximal internal carotid artery where there is a be aded pattern in the proximal 2 cm, including a critical stenosis at this level. The right ICA above t his level is patent in the neck and skull base-carotid canal. On the left side there is mild plaque at the level the carotid bulb. However there is stenosis in the proximal left ICA related to noncalcified plaque on its lateral wall, this area of stenosis extendin g for distance of 2.0 cm and exhibiting ulcerated plaque and what may be a small area of nonobstructi ve dissection at the mid aspect of this 2 cm distal of involvement. Percentage of stenosis at this le hamida is estimated at approximately 80 percent. The left ICA is patent above this level in the upper ne ck as well as within the skull base-carotid canal. Posterior circulation: There is mild stenosis at the origin of both vertebral arteries off of the subclavian arteries. No si gnificant stenosis in the subclavian arteries proximal to the vertebral artery takeoff points. Both vertebral arteries ascend in the foramen transverse area with approximately equal luminal diamet ers of 2.5 millimeters. At the skull base both vertebral arteries contribute equally to the formation of the basilar artery (which is not dolichoectatic). The left posterior inferior cerebellar artery a ppears to be originating off the proximal basilar artery. The right posterior inferior cerebellar art cassius is poorly opacified. CTA Brain W: Anterior circulation: Both internal carotid arteries are patent in the skull base-carotid canals as well as within the cave rnous sinuses. There is mild calcified plaque on the anterior lateral wall of the upper left intracav ernous ICA. The supraclinoid aspects of both internal carotid arteries are patent and nonaneurysmal. Both A1 segments are thin but patent as are the anterior cerebral arteries. There is no evidence of o bvious aneurysm at the level of the anterior communicating artery. Both middle cerebral arteries are patent. Also no aneurysms in these vessels. Posterior circulation: The basilar artery ascends without significant focal stenosis. Distally it gives off bilateral superi or cerebellar arteries and above this level terminates as bilateral posterior cerebral arteries. Ther e is a stenosis in the proximal P1 segment of the left posterior cerebral [id number]. The re is no aneurysm at the level of the basilar artery nor elsewhere in the oydsjl-[id number]. CT BRAIN: There is no evidence of intracranial hemorrhage, mass effect, or shift of midline structures. There are no extra-axial fluid collections. Ventricles are not enlarged or shifted. There are no ring enh ancing lesions in the brain and no abnormal meningeal enhancement. No obvious abnormality evident in the orbits. Paranasal sinuses are clear as are the mastoid air cells. There are no skull fractures. No lytic skull lesions. Hyperostosis frontalis interna is incidentally noted. IMPRESSION: 1. There is significant atherosclerotic disease in the proximal internal carotid arteries on both cristina es the neck. There is also a small focus of contrast outpouching adjacent to the prox left ICA, eithe r representing small focus of nonocclusive dissection or ulcerated plaque. There is high-grade stenos is bilaterally at these levels. 2. There is significant stenosis in the P1 segment of the left posterior cerebral artery. No occlude d intracranial arteries. No aneurysms evident. 3. No evidence of intracranial hemorrhage, ring-enhancing lesions, nor abnormal meningeal enhanceme nt. RADIATION DOSE DELIVERED: 1,986.37mGy.cm Total DLP DATA REPOSITORY: All CT scans at this facility are submitted to the National Radiology Data Registry (NRDR) Dose Index Registry (DIR) with the [employer] (ACR). RADIATION OPTIMIZATION: All CT scans at this facility use at least one of these dose optimization te chniques: automated exposure control; mA and/or kV adjustment per patient size (includes targeted exa ms where dose is matched to clinical indication); or iterative reconstruction.
--- NOTE | 2021-06-09 19:15 | DI.RAD_ITS ---
Exam(s) XR CHEST 1V IN DI DEPT EXAM: XR CHEST 1V IN DI DEPT CLINICAL HISTORY: dizziness. TECHNIQUE: 2D digital imaging was performed. COMPARISON: CR,XR XR PORTABLE CHEST AP from 08/30/2020 FINDINGS: There has been interval sternotomy. Prosthetic aortic valve now evident. Heart size upper normal. Mediastinum not widened. Right lung is clear. Some haziness on the left side is noted which is prob ably subsequent to the prior interval sternotomy. Probably represents an element of pleural thickeni ng There are no confluent infiltrates. No pulmonary edema. No pneumothorax. No obvious pleural effusi ons IMPRESSION: Interval sternotomy and aortic valve replacement. No pulmonary edema. Other findings as above. If clinically indicated follow-up CT scan can be performed. DATA REPOSITORY: RADIATION DOSE DELIVERED: All CT scans at this facility use at least one of these dose optimization techniques: automated exposure control; mA and/or kV adjustment per patient size (includes targeted e xams where dose is matched to clinical indication); or iterative reconstruction.
[2021-06-09 19:56] LABS: Abs Immature Grans 0.04 10^3/uL (0.0-0.06); Absolute Basophil Count 0.03 10^3/uL (0.0-0.2); Absolute Eosinophil Count 0.15 10^3/uL (0.0-0.7); Absolute Lymphocyte Count 1.36 10^3/uL (1.2-3.4); Absolute Monocyte Count 0.58 10^3/uL (0.1-0.8); Absolute Neutrophil Count 3.46 10^3/uL (1.2-6.7); Basophils % 0.5; Eosinophils % 2.7; HCT 33.2 % (36.0-46.0); HGB 10.2 g/dL (11.2-15.7); Immature Grans % 0.7; Lymphocytes % 24.2; MCH 26.2 pg (27.0-33.0); MCHC 30.7 % (32.0-36.0); MCV 85.1 fL (80-95); MPV 11.9 fL (8.0-11.0); Monocytes % 10.3; Neutrophils % 61.6; Nucleated RBC 0 %; Platelet Count 207 10^3/uL (130-400); RDW 14.7 % (11.7-14.6); RDW-SD 45.1 fL; WBC 5.62 10^3/uL (4.4-10.8)
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
[2021-06-09] MEDS: Normal Saline 500 ML IV (20:30)
[2021-06-09 20:31] LABS: ALT 24 U/L (14-59); AST 27 U/L (15-37); Albumin 3.8 g/dL (3.4-5.0); Alkaline Phosphatase 130 U/L (46-116); Anion Gap 9.1 mmol/L (3-11); BUN 23 mg/dL (7-18); Bilirubin, Total 0.1 mg/dL (0.2-1.0); CO2 26.9 mmol/L (21.0-32.0); CREATININE 0.9 mg/dL (0.55-1.02); Calcium 8.9 mg/dL (8.5-10.1); Chloride 106 mmol/L (98-107); Glucose 95 mg/dL (74-106); Potassium 4.3 mmol/L (3.5-5.1); Sodium 142 mmol/L (136-145); Total Protein 6.8 g/dL (6.4-8.2); Troponin I < 50 ng/L (<or=60)
[2021-06-09 20:34] LABS: TSH (W/Ref FT4) 3.74 uIU/mL (0.36-3.74)
[2021-06-09 20:36] LABS: Bilirubin Negative (Negative); Blood Negative (Negative); Clarity Clear (Clear); Glucose >=1000 mg/dL (Negative); Ketones Negative (Negative); Leukocyte Esterase Negative (Negative); Nitrite Negative (Negative); Specific Gravity 1.015 (1.005-1.025); Urobilinogen 0.2 EU/dL (Up TO 0.2)
[2021-06-09] MEDS: Meclizine 25 MG TAB PO (20:41)
--- NOTE | 2021-06-09 20:56 | NUR.NOTE ---
Nursing Note: Monitor reading respiration rate as low; auscultation done periodically to ensure accurate rate.
[2021-06-09] MEDS: Omnipaque 350 MG/ML 100 ML BTL IV (21:38)
[2021-06-09] MEDS: Normal Saline Flush 10 ML SYR IVP (21:41)
--- NOTE | 2021-06-09 22:29 | DI.VRAD_ITS ---
PROCEDURE INFORMATION: Exam: CT Head Without Contrast Exam date and time: 06/09/2021 7:20 PM Age: 71 years old Clinical indication: Other: Dizziness TECHNIQUE: Imaging protocol: Computed tomography of the head without contrast. COMPARISON: CT BRAIN NECK CTA 12/24/2020 8:54 PM FINDINGS: Brain: There is no acute intracranial hemorrhage, mass effect or midline shift. There is no large acute territorial cerebral infarct. Cerebral ventricles: No ventriculomegaly. Paranasal sinuses: Visualized sinuses are unremarkable. No fluid levels. Mastoid air cells: Visualized mastoid air cells are well aerated. Bones/joints: Unremarkable. No acute fracture. Soft tissues: Unremarkable. IMPRESSION: No acute intracranial hemorrhage, mass effect or midline shift. PROCEDURE INFORMATION: Exam: CT Angiography Head With Contrast, Arteriography Exam date and time: 06/09/2021 7:20 PM Age: 71 years old Clinical indication: Other: Dizziness TECHNIQUE: Imaging protocol: Computed tomography angiography of the head with contrast. Exam focused on the arteries. 3D rendering (Not supervised by radiologist): MIP and/or 3D reconstructed images were created by the technologist. Contrast material: OMNIPAQUE 350; Contrast volume: 85 ml; Contrast route: INTRAVENOUS (IV); COMPARISON: CT BRAIN NECK CTA 12/24/2020 8:54 PM FINDINGS: ANTERIOR CIRCULATION: Right internal carotid artery: Unremarkable. Intracranial segment is patent with no significant stenosis. No aneurysm. Right middle cerebral artery: Unremarkable. No occlusion or significant stenosis. No aneurysm. Right anterior cerebral artery: Unremarkable. No occlusion or significant stenosis. No aneurysm. Left internal carotid artery: Unremarkable. Intracranial segment is patent with no significant stenosis. No aneurysm. Left middle cerebral artery: Unremarkable. No occlusion or significant stenosis. No aneurysm. Left anterior cerebral artery: Unremarkable. No occlusion or significant stenosis. No aneurysm. POSTERIOR CIRCULATION: Right vertebral artery: Unremarkable. No occlusion or significant stenosis. No aneurysm. Left vertebral artery: Unremarkable. No occlusion or significant stenosis. No aneurysm. Basilar artery: Unremarkable. No occlusion or significant stenosis. No aneurysm. Right posterior cerebral artery: Unremarkable. No occlusion or significant stenosis. No aneurysm. 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 No aneurysm. Brain: No definite mass, mass effect, or midline shift. Cerebral ventricles: No ventriculomegaly. Bones/joints: Unremarkable. No acute fracture. Soft tissues: Unremarkable. IMPRESSION: 1. No large occlusion. 2. High-grade stenosis at the P1 segment of the left DISABILITY HEARING OFFICER. PROCEDURE INFORMATION: Exam: CT Angiography Neck With Contrast Exam date and time: 06/09/2021 7:20 PM Age: 71 years old Clinical indication: Other: Dizziness TECHNIQUE: Imaging protocol: Computed tomography angiography of the neck with contrast. 3D rendering (Not supervised by radiologist): MIP and/or 3D reconstructed images were created by the technologist. Contrast material: OMNIPAQUE 350; Contrast volume: 85 ml; Contrast route: INTRAVENOUS (IV); COMPARISON: CT BRAIN NECK CTA 12/24/2020 8:54 PM FINDINGS: Tubes, catheters and devices: A tracheostomy is noted in place. Right common carotid artery: No stenosis. No dissection or occlusion. Right internal carotid artery: Multifocal regions of narrowing seen in the proximal right ICA with a focus of high-grade stenosis noted (image 40, series 16). Right external carotid artery: No occlusion or stenosis of the origin. Left common carotid artery: No stenosis. No dissection or occlusion. Left internal carotid artery: There is approximately 65% stenosis at the proximal left internal carotid artery, which may be secondary to postsurgical changes and/or atherosclerotic disease. There is a small outpouching of contrast noted at the proximal left ICA, likely a focus of dissection, which may be chronic in nature (image 339, series 14). Left external carotid artery: No occlusion or stenosis of the origin. Right vertebral artery: No stenosis. No dissection or occlusion. Left vertebral artery: No stenosis. No dissection or occlusion. Oropharynx: There is near complete effacement of the oropharyngeal lumen. Soft tissues: No significant soft tissue swelling. Bones/joints: No acute fracture. Lungs: Mild ground-glass opacities noted in the upper lobes, which could represent mild air trapping. IMPRESSION: 1. Multifocal regions of narrowing and stenosis in the bilateral proximal internal carotid arteries, which may be secondary to postsurgical scarring with likely superimposed atherosclerotic disease. 2. Small outpouching adjacent to the left ICA, consistent with a focus of dissection, which could be chronic and related to post treatment changes or acute in nature. Correlate with prior imaging and with clinical symptoms. 3. No arterial occlusion. 4. Near complete effacement of the oropharyngeal lumen, likely related to known disease process in this region. REFERENCES: NASCET CRITERIA. The degree of internal carotid artery stenosis is based on NASCET criteria. Normal is no stenosis. Mild is less than 50% stenosis. Moderate is 50-69% stenosis. Severe is 70% to 99% stenosis. Total occlusion is no detectable patent lumen. Dictated and Authenticated by: Mariana Tobias MD. Ordering:HILL Farooq MD
--- NOTE | 2021-06-09 22:33 | DI.VRAD_ITS ---
PROCEDURE INFORMATION: Exam: XR Chest Exam date and time: 06/09/2021 7:20 PM Age: 71 years old Clinical indication: Other: Dizziness; Prior surgery; Surgery date: 1-6 months; Surgery type: Open heart; Patient HX: Pre-existing trach TECHNIQUE: Imaging protocol: XR of the chest. Views: 1 view. COMPARISON: CT CHEST/ABD/PEL W 04/03/2021 3:05 PM FINDINGS: Lungs: See Heart/Mediastinum finding. Pleural spaces: A left pleural effusion is noted. Heart/Mediastinum: There is a hazy appearance of the left cardiac border, which could reflect mild atelectasis/pneumonia. Bones/joints: There is evidence of prior sternotomy procedure. IMPRESSION: 1. Left pleural effusion. A CT of the chest may be performed for further evaluation. 2. Possible mild atelectasis versus mild pneumonia in the left lower lung zone. Dictated and Authenticated by: Mariana Tobias MD. Ordering:HILL Farooq MD
[2021-06-10] VITALS (14 sets, daily range): BP systolic 106–144; BP diastolic 55–98; PULSE 52–63; RESP 13–19; TEMP 36.1–36.6; O2SAT 96–100
[2021-06-10 00:19] LABS: Source Nasal/Nares
[2021-06-10 00:26] LABS: PTT Activated 22.4 sec (21.0-27.5); Prothrombin Time 10.4 sec (9.3-11.0)
[2021-06-10 01:00] LABS: COVID-19 PCR Negative (Negative)
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
[2021-06-10] MEDS: cloNIDine 0.1 MG TAB PO (01:52)
[2021-06-10] MEDS: traZODone 50 MG TAB PO (01:52)
[2021-06-10] MEDS: Allopurinol 300 MG TAB PO (01:52)
[2021-06-10] MEDS: Normal Saline Flush 10 ML SYR IVP (01:53)
[2021-06-10] MEDS: diazePAM 2 MG TAB PO (02:37)
[2021-06-10 03:15] LABS: Lab Add On Test DONE
[2021-06-10] MEDS: Normal Saline 1,000 ML 80 ML IV (03:23)
[2021-06-10 04:02] LABS: Procalcitonin < 0.1 ng/mL
[2021-06-10] MEDS: Levothyroxine 150 MCG TAB PO (05:55)
[2021-06-10] MEDS: Brimonidine 0.15% 5 ML BTL OP ×3 (06:16→21:48)
[2021-06-10 06:43] LABS: Abs Immature Grans 0.03 10^3/uL (0.0-0.06); Absolute Basophil Count 0.03 10^3/uL (0.0-0.2); Absolute Eosinophil Count 0.19 10^3/uL (0.0-0.7); Absolute Lymphocyte Count 1.28 10^3/uL (1.2-3.4); Absolute Monocyte Count 0.81 10^3/uL (0.1-0.8); Absolute Neutrophil Count 4.01 10^3/uL (1.2-6.7); Basophils % 0.5; HCT 31.2 % (36.0-46.0); HGB 9.7 g/dL (11.2-15.7); Immature Grans % 0.5; Lymphocytes % 20.2; MCH 26.1 pg (27.0-33.0); MCHC 31.1 % (32.0-36.0); MCV 84.1 fL (80-95); MPV 12.2 fL (8.0-11.0); Monocytes % 12.8; Nucleated RBC 0 %; Platelet Count 202 10^3/uL (130-400); RBC 3.71 10^6/uL (3.93-5.22); RDW 14.8 % (11.7-14.6); RDW-SD 44.8 fL; WBC 6.35 10^3/uL (4.4-10.8)
[2021-06-10] MEDS: Omeprazole 20 MG CAPCR 40 MG PO (08:00)
[2021-06-10] MEDS: Famotidine 20 MG TAB 40 MG PO (08:00)
[2021-06-10] MEDS: Aspirin E.C. 81 MG TABEC PO (08:00)
[2021-06-10] MEDS: amLODIPine 5 MG TAB PO (08:01)
[2021-06-10] MEDS: Furosemide 20 MG TAB PO (08:03)
[2021-06-10] MEDS: SITagliptin 100 MG TAB PO (08:38)
[2021-06-10] MEDS: carBAMazepine 100 MG CHEW PO (08:38)
[2021-06-10] MEDS: DULoxetine 20 MG CAP 40 MG PO (08:38)
[2021-06-10] MEDS: Empaglifozin 10 MG TAB PO (08:38)
[2021-06-10] MEDS: Insulin Glargine 300 UNITS/3 ML PEN 12 UNITS SC (08:44)
[2021-06-10] MEDS: dilTIAZem CD 180 MG CAPCR PO (08:45)
[2021-06-10] MEDS: LORazepam 2 MG/ML VIAL 1 MG IVP (10:11)
--- NOTE | 2021-06-10 10:16 | IN_ITS ---
Date of service: 06/10/21 Time of Service: 10:16 PT Notes Visit Reasons: ICA Dissection Physical Therapy Inpatient Initial Evaluation Date: 06/10/2021 Referring Doctor: Liliya Cerrato NP PT Orders: PT CONSULT: Dizzy Precautions: Fall. Standard. Activity as tolerated. Patient Profile/Admitting Diagnosis: Patient is a 71-year-old female who presented to the ED on 06/09/2021 with difficulty walking and dizziness. Patient is diagnosed with two-vessel coronary artery disease, dizziness, and reversible cerebrovascular vasoconstriction syndrome. PMHX: All Active Problems (Updated 06/10/21 @ 02:03 by Jaswinder Medina MD) Pleural effusion (Acute) Dizziness (Acute) Night sweats (Acute) Lesion of left ear (Acute) Esophageal stenosis (Acute) Dizziness (Acute) Pressure ulcer of unspecified site, unspecified stage (Acute) Stenosis of left main coronary artery (Acute 02/13/21) significant Two-vessel coronary artery disease (Chronic 02/13/21) LCX and RCA Severe aortic stenosis (Chronic 02/13/21) Primary open-angle glaucoma, bilateral, indeterminate stage (Acute) Per [facility] note from 08/12/20 Crystalline deposits in vitreous body, right eye (Acute) Per [facility] note from 08/12/20 Type 2 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, bilateral (Acute) Per [facility] note from 08/12/20 Stenosis of intracranial vessel (Acute) left MCA high grade stenosis dx 01/03 Left sided lacunar infarction (Chronic) history of left basal ganglia infarct seen on head CT History of smoking 10-25 pack years (Acute) History of headache (Acute) Over 40 years of age and (Acute) Family history of colon cancer (Chronic) 2 brothers and other of colon cancer Palliative care patient (Acute) Lives alone with help available (Acute) Cerebral atherosclerosis (Acute) Reversible cerebrovascular vasoconstriction syndrome (Acute) Shakiness (Acute) Chest pain (Acute) Headache (Acute) Anxiety (Chronic) Hypertensive emergency (Acute) Carotid stenosis, bilateral (Chronic) Hypertensive emergency (Acute) Pre-syncope (Acute) Chronic back pain (Chronic) History of laryngectomy (Chronic) Sciatica of left side (Acute) Benign positional vertigo (Acute) Actinic keratoses (Acute) Normocytic normochromic anemia (Acute) Weakness (Acute) Orthostasis (Acute) Insomnia (Acute) Bilateral pseudophakia (Acute) Low back pain (Acute) Sesamoiditis (Acute) Essential hypertension (Chronic) TMJ (dislocation of temporomandibular joint) (Chronic) 06/28/2019 [facility] [place]. PT referral for right joint dysfunction Tracheostomy dependence (Chronic) History of colonic polyps (Acute) 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 (Acute) Pulmonary nodules (Chronic) Postoperative hypothyroidism (Chronic) Laryngeal cancer (Chronic) Hyperlipidemia (Chronic) GERD (gastroesophageal reflux disease) (Chronic) Esophageal stricture (Acute) Fibromyalgia (Acute) Diabetes mellitus, type II (Chronic) 03/03: Good control on lantus alone Aphonia (Acute) Aortic stenosis (Chronic) [place] [facility] [place] 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) Hypertension (Chronic) Dysphagia (Acute) Esophagoscopy, dilation, and botox injection 09/19/20 Esophageal . esophageal dilation 06/28/19 at [facility] [place] Dyspepsia (Acute) Medical History Epistaxis Facial injury Surgical History Esophageal dilatation 06/28/19 [facility] [place] Otolaryngology History of back surgery (~1974) History of carpal tunnel release Left History of cataract surgery w/Implant History of cervical spinal surgery History of section History of cholecystectomy History of hysterectomy Emergent, for heavy bleeding History of laparoscopy (~2015) History of shoulder surgery (~2006) Left History of tracheostomy (~2015) Hx of removal of ovary Right. Cystic Ovary Social History/Home Situation: Lives in the basement level of the [facility]. Independent with all aspects of ADLs witha FWW. Has a ramp to enter the building and has to negotiate 7 steps, one rail on 1 side and a wall on the other side. Son checks in on her on a daily basis to see if she needs help with anything. Equipment Owned/DME: FWW Subjective: Agreeable to PT consult. Reports considerable dizziness in the morning during bed to wheelchair transfer but only required contact guard assist PT for safety. Denies headache and chest pain throughout session. Was unable to swallow the Ativan pill which Nurse Nahomi ground and mixed with pudding for her during the afternoon session. Had to make herself gag to expel a food /pill bolus which she says got stuck in her throat. Reported good response with initiation of habituation exercises. Objective: General Observation: Supine in bed. Laryngectomy noted. Aphonic. Mental Status: Alert and oriented as to person, place, time, and purpose. Able to pay attention, focus, and respond appropriately in written form, sometimes subvocalization is understandable. Pain: Denies ROM: Right Upper Extremity: Shoulder Flexion WFL. Shoulder abduction WFL. Elbow flexion WFL. Wrist flexion WFL. Functional opening and closing of hand WFL. Left Upper Extremity: Shoulder Flexion WFL. Shoulder abduction WFL. Elbow flexion WFL. Wrist flexion WFL. Functional opening and closing of hand WFL. Right Lower Extremity: Hip flexion WFL. Hip abduction WFL. Knee flexion WFL. Ankle dorsiflexion WFL. Ankle plantarflexion WFL. Left Lower Extremity: Hip flexion WFL. Hip abduction WFL. Knee flexion WFL. Ankle dorsiflexion WFL. Ankle plantarflexion WFL. Strength: Right Upper Extremity: Shoulder flexors 4/5. Shoulder abductors 4/5. Shoulder ER 4/5/ Shoulder IR 4/5. Forearm pronators 4/5. Forearm supinators 4/5. Elbow flexors 4/5. Elbow extensors 4/5. Reverberatory Skimmer strong. Left Upper Extremity: Shoulder flexors 4/5. Shoulder abductors 4/5. Shoulder ER 4/5/ Shoulder IR 4/5. Forearm pronators 4/5. Forearm supinators 4/5. Elbow flexors 4/5. Elbow extensors 4/5. Reverberatory Skimmer strong. Right Lower Extremity: Hip flexors 4/5. Hip abductors 4/5. Hip external rotators 4/5. Hip internal rotators 4/5. Knee flexors 4/5. Knee extensors 4/5. Ankle dorsiflexors/evertors 4/5. Ankle plantarflexors/invertors 4/5. Left Lower Extremity: Hip flexors 4/5. Hip abductors 4/5. Hip external rotators 4/5. HIp internal rotators 4/5. Knee flexors 4/5. Knee extensors 4/5. Ankle dorsiflexors/evertors 4/5. Ankle plantarflexors/invertors 4/5. Sensation: Intact as to pain and light pressure in bilateral lower extremities. Bed Mobility/Transfers: Supine to sit stand by assist with HOB to 45 degrees Sit to stand contact-guard assist Stand to sit contact-guard assist Habituation Exercises: Initiated small and low amplitude neck rotation to R and L x 5, neck flexion and extension x 5, trunk flexion/extension x 5, trunk rotation to L and R x 5 combined with deep breathing exercises with very good response. Patient states that she is able to visualize images that tend to relax her for each movement that she did. Willing to go for a walk Gait: Provided contact guard assist to walk about 5 steps from bedside to transport chair and about 35 feet later in the afternoon using FWW with report of mild dizziness. Halley decreased. Denies chest pain. Informed Consent/Education: Patient instructed in purpose of PT consult and plan of care. Agreeable to proceed with established PT POC to achieve personal goals. Assessment: Dizziness at rest that us aggarvated by movement. Able to tolerate mobility performance after good response to habituation exercises today. Requires the use of FWW for all mobility ADL performance. Patient has this AD at home. May benefit from PT to regain independent ambulation in the community without AD. Patient presents with clinical signs and symptoms consistent with current/admitting diagnoses that have resulted to mobility limitations, gait instability, generalized weakness, and impairment of motor control as demonstrated by the following impairment level findings: 1. Decrease in strength to B LE major muscle groups 2. Impaired standing balance 3. Impaired activity tolerance 4. Dizziness Impairments are contributing to the following functional limitations: 1. Inability to safely ambulate without assistive device 2. Increase completion time for mobility ADL performance 3. Increased fall risk 4. Inability to negotiate steps alone safely Patient is assessed as a 24704 moderate complexity based on the following: History: 70-year-old female with past medical history as indicated above Examination: Demonstrable impairment in strength, balance, and mobility level with underlying impairments and functional limitations as exhibited above as well as deficit score of 58% utilizing the [facility] Mobility Inpatient Short Form Presentation: Evolving Decision Makin moderate complexity Goals: Goals X1 week 1. Supine-Sit independent 2. Sit-Supine independent 3. Sit-Stand independent 4. Stand-Sit independent 5. Bed-Chair independent 6. Chair-Bed independent 7. Independent gait on level surface with use of front wheel walker for at least 300 feet without report of pain nor dyspnea 8. Independent stair negotiation while holding onto B rails for at least 7 steps without report of pain nor dyspnea 9. Independent with home exercise program 10. Good static and dynamic standing balance/tolerance Plan of Care/Treatment Plan: 1-2x/day, 7 days/week x 1 week. Plan of care has been reviewed with the MANAGER SHIFT providing the service under Physical Therapy direction. Initiate Physical Therapy intervention for strengthening, bed mobility, transfers, gait, stairs, balance training, and use of assistive device. DISCHARGE RECOMMENDATIONS: Home when medically cleared by hospitalist. Patient will benefit from home health PT services in order to progress mobility level using least restrictive assistive ambulatory device, assess home safety, identify additional equipment needs, and establish a functional maintenance program that will increase ability of patient to remain at home. TREATMENT CODE/TIME: 82284 x 15 minutes, 23505 x 47 minutes beginning at 10:16 AM and 14:03 PM. Thank you for the opportunity to participate in the care of this patient. Nuria Neely PT, DPT, CLT [facility] [place], [place]
[2021-06-10] MEDS: Heparin 5,000 UNITS/ML VIAL 5000 UNITS SC ×2 (10:26→21:49)
--- NOTE | 2021-06-10 11:00 | DI.MRI_ITS ---
Exam(s) MR BRAIN WO EXAM: MR BRAIN WO CLINICAL HISTORY: L internal carotid artery dissection, ?CVA TECHNIQUE: Multiplanar multisequence MRI of the brain was performed. COMPARISON: MR MR BRAIN WO from 12/25/2020 FINDINGS: CEREBRAL PARENCHYMA: There is no evidence of acute intracranial hemorrhage, mass effect, or shift of midline structures. There are no extra-axial fluid collections. Ventricles are not enlarged or shifted. There is no significant focal signal abnormality in the cerebellar hemispheres nor within the vandana, a nd thalami. There is no abnormal prominent signal abnormality in the periventricular white matter. DWI: There are no areas of restricted diffusion to suggest acute ischemic change. SWI: There is a focal area of blooming in the right-side of the midbrain-Felix in cephalo on, this bekah suring 5 x 5 millimeter. No signal abnormality evident on the conventional sequences at this level. PITUITARY GLAND: No mass nor parasellar abnormality. No obvious abnormality in the cavernous sinuses. FLOW VOIDS: The expected flow void are noted. No evidence of obvious aneurysm nor obvious vascular ma lformation. PARANASAL SINUSES: The visualized paranasal sinuses appear unremarkable. No obvious finding ORBITS: No obvious findings. Hyperostosis frontalis interna incidentally noted. IMPRESSION: 1. No evidence of acute territorial nor lacunar infarct in this patient who has significant atheroscl erotic disease in both internal carotid arteries in the neck. 2. On SWI there is a small area of blooming evident just to the right of midline in the mesencephalon within the periaqueductal lugo matter, consistent with area of prior microhemorrhage. There are no other similar focal findings elsewhere in the brain. There is no evidence of acute nor subacute hemo rrhage. DATA REPOSITORY:
--- NOTE | 2021-06-10 11:05 | PDOC.CMIN ---
- If Service Date Differs Date of service: 06/10/21 (n) Time of Service: 11:09 Care Management Initial Assess REASON FOR HOSPITALIZATION:: Dizziness PAST MEDICAL HISTORY/PAST SURGICAL HISTORY:: All Active Problems (Updated 06/10/21 @ 02:03 by Jaswinder Medina MD). Pleural effusion (Acute). Dizziness (Acute). Night sweats (Acute). Lesion of left ear (Acute). Esophageal stenosis (Acute). Dizziness (Acute). Pressure ulcer of unspecified site, unspecified stage (Acute). Stenosis of left main coronary artery (Acute 02/13/21). significant. Two-vessel coronary artery disease (Chronic 02/13/21). LCX and RCA. Severe aortic stenosis (Chronic 02/13/21). Primary open-angle glaucoma, bilateral, indeterminate stage (Acute). Per [facility] note from 08/12/20. Crystalline deposits in vitreous body, right eye (Acute). Per [facility] note from 08/12/20. 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 Per [facility] note from 08/12/20. Stenosis of intracranial vessel (Acute). left MCA high grade stenosis dx 01/03. Left sided lacunar infarction (Chronic). history of left basal ganglia infarct seen on head CT. History of smoking 10-25 pack years (Acute). History of headache (Acute). Over 38 years of age and (Acute). Family history of colon cancer (Chronic). 2 brothers and other of colon cancer. Palliative care patient (Acute). Lives alone with help available (Acute). Cerebral atherosclerosis (Acute). Reversible cerebrovascular vasoconstriction syndrome (Acute). Shakiness (Acute). Chest pain (Acute). Headache (Acute). Anxiety (Chronic). Hypertensive emergency (Acute). Carotid stenosis, bilateral (Chronic). Hypertensive emergency (Acute). Pre-syncope (Acute). Chronic back pain (Chronic). History of laryngectomy (Chronic). Sciatica of left side (Acute). Benign positional vertigo (Acute). Actinic keratoses (Acute). Normocytic normochromic anemia (Acute). Weakness (Acute). Orthostasis (Acute). Insomnia (Acute). Bilateral pseudophakia (Acute). Low back pain (Acute). Sesamoiditis (Acute). Essential hypertension (Chronic). TMJ (dislocation of temporomandibular joint) (Chronic). [place] [facility] [place] [facility] [place] PT referral for right joint dysfunction. Tracheostomy dependence (Chronic). History of colonic polyps (Acute). 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 (Acute). Pulmonary nodules (Chronic). Postoperative hypothyroidism (Chronic). Laryngeal cancer (Chronic). Hyperlipidemia (Chronic). GERD (gastroesophageal reflux disease) (Chronic). Esophageal stricture (Acute). Fibromyalgia (Acute). Diabetes mellitus, type II (Chronic). 03/03: Good control on lantus alone. Aphonia (Acute). Aortic stenosis (Chronic). [place] [facility] [place] 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). Hypertension (Chronic). Dysphagia (Acute). Esophagoscopy, dilation, and botox injection 09/19/20. Esophageal . [place] [facility] [place] Dyspepsia (Acute). Medical History . Epistaxis. Facial injury. Surgical History . Esophageal dilatation. [place] [facility] [place]. History of back surgery (~1974). History of carpal tunnel release. Left. History of cataract surgery. w/Implant. History of cervical spinal surgery. History of section. History of cholecystectomy. History of hysterectomy. Emergent, for heavy bleeding. History of laparoscopy (~2015). History of shoulder surgery (~2006). Left. History of tracheostomy (~2015). Hx of removal of ovary. Right. Cystic Ovary PREVIOUS FUNCTIONAL STATUS/SOCIAL/FAMILY SUPPORTS:: Karina lives alone in an apartment at [facility]. Her son Gato and his live nearby and Gato is her caregiver. Karina has two other sons who reside in [place]. 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 She now occupies her time watching television, playing games on her tablet, and doing word searches. CURRENT FUNCTIONAL STATUS:: Karina was sitting up in bed when CM met with her. She was alert and cooperative and agreeable to conversation. Karina shared that she has 3 sons, all of whom she is close to. Her son Gato is her paid caregiver through the [facility] program and lives closeby with his . She also has 2 grandchildren, one in high school and the other in grade school. Karina indicated that she enjoys them very much. ADVANCE DIRECTIVES:: none on file. States she has them at home ans son Gato is [employer] Has patient been provided with info about the portal/API?: Yes Did the patient sign up for the portal?: No CODE STATUS:: Full Code INSURANCE COVERAGE / FINANCIAL ISSUES:: Medicare. Medicaid CURRENT HOME/COMMUNITY SERVICES/EQUIPMENT:: [facility] with private caregiver PRIMARY CARE PHYSICIAN:: Denys Fierro POTENTIAL DISCHARGE NEEDS:: Follow up with PCP and plan of care PATIENT/FAMILY EDUCATION NEEDS:: Review of discharge instructions, activity, limitations, medications, follow up plan and discuss Ask Me Three TRANSPORTATION:: via private vehicle with family PLAN:: Karina will likey be discharged home with no new services. She will follow up with her community providers and plan of care and transport with family. CM will continue to support Karina and assess for discharge planning concerns.
--- NOTE | 2021-06-10 13:28 | W.INDIABCONS ---
Date of service: 06/10/21 Time of Service: 13:28 Diabetes Inpatient Consult Reason for Visit: Diabetes Consult DESCRIPTION/ASSESSMENT: Ms. Larson is admitted with weakness, dizziness. She has a tracheostomy r/t her h/o of laryngeal cancer. Her BMI is currently 25.9 kg/m2 which is WNL however her weight history shows an 11.8% weight loss in two months which is significant. Ms. Larson states that this weight loss is unintentional and does not seem to be stopping. She states she has only been able to eat very small portions r/t decreased appetite but also food getting stuck in her esophagus. Blood sugars are at target here in the hospital but are fairly tight. She is on Aspart correction and Glargine 12 units/day. At home she is on Glargine 12 units and it looks like 10 mg/day of emplaglifozin. INTERVENTION: Spoke to Ms. Larson about having Glucerna supplements at mealtime as they may be easier for her to consume. She will try them. Would consider holding her Glargine given her blood sugars currently. Speech consult has been ordered. PLAN: 1. Will continue to follow weight, PO, and blood sugars. 2. Will await speech recommendations. In the meantime, I have instructed the kitchen staff to give her soft moist foods along with the Glucerna supplements. 3. Will follow up on tolerance of Glucerna. Thank you for the consult. Time Spent in Nutritional Counseling and Treatment: 15 minutes
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
[2021-06-10] MEDS: diazePAM 10 MG/2 ML SYR 5 MG IM (16:52)
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
[2021-06-10] MEDS: Travoprost 0.004% Ophth Sol 2.5 ML BTL OP (22:04)
[2021-06-11] VITALS (9 sets, daily range): BP systolic 112–155; BP diastolic 60–76; PULSE 57–68; RESP 14–18; TEMP 36–36.9; O2SAT 97–100
[2021-06-11] MEDS: Brimonidine 0.15% 5 ML BTL OP ×3 (06:24→21:38)
[2021-06-11] MEDS: Levothyroxine 150 MCG TAB PO (06:27)
[2021-06-11 07:02] LABS: HCT 29.9 % (36.0-46.0); HGB 9.2 g/dL (11.2-15.7); MCH 25.8 pg (27.0-33.0); MCHC 30.8 % (32.0-36.0); Platelet Count 185 10^3/uL (130-400); RBC 3.56 10^6/uL (3.93-5.22); RDW 14.8 % (11.7-14.6); RDW-SD 45.4 fL; WBC 5.78 10^3/uL (4.4-10.8)
[2021-06-11 07:22] LABS: Calcium 8.5 mg/dL (8.5-10.1); Chloride 107 mmol/L (98-107); Estimated GFR 54.35 (mL/min/1.73m2); Glucose 91 mg/dL (74-106); Potassium 3.9 mmol/L (3.5-5.1); Sodium 142 mmol/L (136-145)
[2021-06-11 07:23] LABS: BUN 17 mg/dL (7-18)
[2021-06-11] MEDS: Omeprazole 20 MG CAPCR 40 MG PO (07:45)
[2021-06-11 08:35] LABS: *AMPHETAMINES SCREEN URINE Negative (Negative); *BARBITURATES SCREEN URINE Negative (Negative); *BENZODIAZEPINES SCREEN URINE Positive (Negative); Cannabinoids THC Positive (Negative); Cocaine Screen,Urine Negative (Negative); METHADONE URINE SCREEN Negative (Negative); OPIATES URINE SCREEN Negative (Negative)
[2021-06-11 08:37] LABS: Tricyclic Antidepressants Negative (Negative)
[2021-06-11] MEDS: Empaglifozin 10 MG TAB PO (08:43)
[2021-06-11] MEDS: Furosemide 20 MG TAB PO (08:43)
[2021-06-11] MEDS: carBAMazepine 100 MG CHEW PO (08:43)
[2021-06-11] MEDS: Famotidine 20 MG TAB 40 MG PO (08:44)
[2021-06-11] MEDS: Insulin Glargine 300 UNITS/3 ML PEN 12 UNITS SC (08:50)
--- NOTE | 2021-06-11 11:13 | PGE_ITS ---
Date of Service Date of service: 06/11/21 Time of Service: 11:13 Assessment and Plan Assessment and plan (1) Dizziness: Start date: 06/11/21 Start time: 11:15 Status: Acute Assessment and plan: she responded to PT and valium. Will schedule valium and have PT work with her. She will likely benefit from outpatient PT as well. This is not a new problem for her. She smokes marijuana at home. [employer] has worked in the past for her but she needs liquid. (2) Two-vessel coronary artery disease: Start date: 06/11/21 Start time: 11:18 Status: Chronic Assessment and plan: S/P CABG. Noted on CXR is a large left pleural effusion; questionably residual from her CABG and aortic valvue replacement in Feb 2021. No SOA, cough, F/C. (3) Type 2 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, bilateral: Start date: 06/11/21 Start time: 11:18 Status: Acute Assessment and plan: Cont home diabetic medications. Glucose monitoring. SS insulin correction dosing; sensistive scale. Diabetic diet. (4) Left sided lacunar infarction: Start date: 06/11/21 Start time: 11:18 Status: Chronic Assessment and plan: No acute findings on CT brain. MRI done revealing prior micro hemorrhage. No anticoagulation at this time No further testing needed. F/u with outpatient vascular (5) Reversible cerebrovascular vasoconstriction syndrome: Start date: 06/11/21 Start time: 11:20 Status: Acute Assessment and plan: Followed by Dr Barkley, neurology. (6) Carotid stenosis, bilateral: Start date: 06/11/21 Start time: 11:20 Status: Chronic Assessment and plan: Follow by Dr Barkley. New finding of what appeared to radiologist to be a small Left ICA dissection. (7) Essential hypertension: Start date: 06/11/21 Start time: 11:23 Status: Chronic Assessment and plan: Cont amlodipine, clonidine and diltiazem. Dysautonomia likely per neurology. Monitor. (8) Hyperlipidemia: Start date: 06/11/21 Start time: 11:27 Status: Chronic Assessment and plan: Cont high dose atorvastatin. (9) Pleural effusion: Start date: 06/11/21 Start time: 11:27 Status: Acute Assessment and plan: as above. (10) Severe aortic stenosis: Start date: 06/11/21 Start time: 11:27 Status: Chronic Assessment and plan: s/p TAVR in Feb [address] Daniels Subjective Subjective Patient reports: other Interval history since last seen: Patient states overall she feels well its just the dizziness. When she received the one dose of valium her dizziness went away but she only recieved one dose. She also state working with PT did help as well. Will schedule valium and have PT work with her again. Overall she has no other complaints. Exam Const General: cooperative and no acute distress Nutritional Appearance: average body habitus Orientation: alert and oriented x3 HENMT Head: normal to inspection Eyes Sclera: sclerae normal EOM: nystagmus Neck Neck: tracheostomy present Resp Effort & Inspection: normal respiratory effort Auscultation: clear to auscultation bilaterally Cardio Rate: regular rate Rhythm: regular rhythm Skin General skin exam: no rashes or lesions noted Neuro General: no focal motor deficits Cranial Nerves: facial strength normal and nystagmus Cognition: normal cognition Speech: other (aphonia ) Extrem General: no pedal edema and no calf tenderness Psych Appearance: grossly normal Affect: normal affect Objective Last Vital Signs Temp 36.0 C L 06/11/21 03:23 Pulse 61 06/11/21 07:26 Resp 16 06/11/21 03:23 BP 142/76 H 06/11/21 03:23 Pulse Ox 97 06/11/21 03:23 Laboratory Results - last 24 hr 06/11/21 06/11/21 06/11/21 06:45 06:45 08:00 WBC 5.78 RBC 3.56 L Hgb 9.2 L Hct 29.9 L MCV 84.0 MCH 25.8 L MCHC 30.8 L RDW 14.8 H Plt Count 185 MPV 12.0 H Sodium 142 Potassium 3.9 Chloride 107 Carbon Dioxide 27.0 Anion Gap 8.0 BUN 17 D Creatinine 1.0 Estimated GFR/1.73 m2 54.35 Glucose 91 Calcium 8.5 Urine Opiates Screen Negative Urine Methadone Screen Negative Ur Barbiturates Screen Negative Ur Tricyclics Screen Negative Ur Amphetamines Screen Negative U Benzodiazepines Scrn Positive A Urine Cocaine Screen Negative Ur THC Screen Positive A
--- NOTE | 2021-06-11 11:51 | PTTR_ITS ---
Date of service: 06/11/21 Time of Service: 11:51 PT Notes Visit Reasons: ICA Dissection Physical Therapy Inpatient Treatment Note Date: 06/11/2021 Precautions: Fall. Standard. Activity as tolerated. Subjective: Looking forward to another session of habituation exercises which patient has stated relaxes her tremendously. She finds the incorporated deep breathing exercises with the said exercises meditative. Did report mild dizziness during ambulation activity but of much decreased intensity compared to yesterday. Objective: General Observation: Seated on chair. Mental Status: Alert and oriented as to person, place, time, and purpose. Able to pay attention, focus, and respond appropriately in written form, sometimes subvocalization is understandable. Pain: Denies Bed Mobility/Transfers: Sit to stand contact-guard assist Stand to sit contact-guard assist Habituation Exercises: Continued with large but low amplitude neck rotation to R and L x 5, neck flexion and extension x 5, trunk flexion/extension x 5, trunk rotation to L and R x 5 combined with deep breathing exercises with very good response. Gait: Provided contact guard assist to walk about 120 feet using FWW with minimal path deviation but no LOB with report of mild dizziness. Assessment: Denies dizziness at rest but reported mild dizziness with habituation exercises. Increased distance covered and improved stability of gait observed. Requires the use of FWW for all mobility ADL performance. Patient has this AD at home. May benefit from HH PT to regain independent ambulation in the community without AD. DISCHARGE RECOMMENDATIONS: Home when medically cleared by hospitalist. Patient will benefit from home health PT services in order to progress mobility level using least restrictive assistive ambulatory device, assess home safety, id entify additional equipment needs, and establish a functional maintenance program that will increase ability of patient to remain at home. TREATMENT CODE/TIME: 66862 x 27 minutes beginning at 11:51 AM.
[2021-06-11] MEDS: Heparin 5,000 UNITS/ML VIAL 5000 UNITS SC ×2 (12:25→21:37)
--- NOTE | 2021-06-11 13:17 | CHAPLAIN ---
Karina was sitting up in the chair when I visited. We remembered each other from previous visits. Karina showed me the scar on her chest, and indicated that she'd had heart surgery. aKrina doesn't speak, but mouths words or writes them down. She explained that she has a cross on a necklace that she would like me to bless at some point, but not at the time were visiting. I let her know that I'll be here all day today and tomorrow and her nurse can reach me by paging me, when she would like to have the cross blessed.
[2021-06-11] MEDS: DULoxetine 20 MG CAP 40 MG PO (13:36)
[2021-06-11] MEDS: dilTIAZem 60 MG TAB PO (13:36)
[2021-06-11] MEDS: SITagliptin 100 MG TAB PO (13:36)
[2021-06-11] MEDS: diazePAM 10 MG/2 ML SYR 5 MG IVP ×2 (13:40→21:36)
[2021-06-11] MEDS: Normal Saline Flush 10 ML SYR IVP ×2 (13:41→21:37)
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
--- NOTE | 2021-06-11 16:00 | PDOC.CMPRO ---
- If Service Date Differs Date of service: 06/11/21 Time of Service: 16:00 Care Management Progress Note S/O: Karina was sitting up in a chair when CM met with her. She smiled and engaged easily with CM. Karina manages to communicate well by mouthing her words. For more involve conversations she uses a pen and paper. Karina confirmed that she and her son would like a different provider as PCP. CM contacted [facility] today and an appointment has been scheduled for next June 19 at 1:30 pm with Jalyn Gannon. Karina indicated that she was pleased witch the change. Nga HOANG contacted [place] today and requested that [place] [facility] [place] NATALYA Helms to arrange for a change in her TEP (tracheo-esophageal prosthesis) and with Dr. Burnett in ENT. He is the surgeon who performed her last esophageal dilitation. A: Karina is a 71 year old woman admitted on 06/09/21 with an ICA Dissection P:Karina will likely be discharged home with new home health services for speech and PT. She will follow up with her community providers and plan of care and transport with family. CM will continue to support Karina and assess for discharge planning concerns.
--- NOTE | 2021-06-11 16:14 | PGE_ITS ---
Date of Service Date of service: 06/11/21 Time of Service: 16:14 Assessment and Plan Assessment and plan (1) Dizziness: Status: Acute (2) Cerebral atherosclerosis: Status: Acute (3) Carotid stenosis, bilateral: Status: Chronic (4) Dissection of left carotid artery: Status: Acute Assessment and plan: #1. Small left carotid dissection. This is an incidental finding, asymptomatic. No evidence of acute infarct on MRI imaging. Thus, would not recommend anticoagulation at this time - especially in light of new old cerebral microhemorrhage. Would continue aspirin 81mg daily + high-intensity statin. Needs f/up with [facility] regarding this and #2. Will plan for f/up imaging in 1-3 months. #2. Intra- and extra-cranial atheroslerosis with bilateral carotid stenosis, potentiated by history of head/neck radiation. Overall unchanged from previous imaging, thus ruling out RCVS. She needs outpatient referral to [facility] for monitoring. Continue aspirin 81mg daily + high-intensity statin. #3. Dizziness. Complicated. Non-positional, episodic, mix of vertigo and presyncope. Complicated by polypharmacy, poor PO intake, dehydration, orthostatic hypotention, and anxiety. She has been referred as an outpatient to [facility] ENT for vestibular testing. Strong inclination for anxiety component. Previously did well on marinol but she is unable to take PO at this time. She has responded well to Valium thus far. Monitor orthostatics and if still symptomatic, could consider Florinef. She will follow-up in neurology as scheduled. Please call with any questions or concerns. Subjective Subjective Interval history since last seen: Ms. Larson is doing much better today. Dizziness much improved with Valium TID. PT evaluation limited due to dissection, but not seeing anything to suggest vestibular component on their exam either. Seen by ST who agrees with [facility] ENT f/up for dilation and then f /up MBS here outpatient. Palliative also saw her. CA on board to help with ensuring follow-up with her many specialists. Exam Narrative Exam Narrative: Physical Exam: Constitutional: Patient of apparent stated age, well nourished, well developed, no acute distress Neuro: MS/Language/Speech: Alert, oriented, no sound - mouths words CN: PERRL, EOMI, no nystagmus, visual harris full, trigeminal sensation intact, no facial asymmetry, hearing intact Motor: Normal bulk and tone. FMM intact, no pronator drift. 5/5 strength in bilateral upper and lower extremities. Sensation: Intact to light touch throughout Coordination: Finger to nose performed without dysmetria Objective Last Vital Signs Temp 98.1 F 06/11/21 16:02 Pulse 62 06/11/21 16:02 Resp 18 06/11/21 16:02 BP 139/73 06/11/21 16:02 Pulse Ox 100 06/11/21 16:02 Laboratory Results - last 24 hr 06/11/21 06/11/21 06/11/21 06:45 06:45 08:00 WBC 5.78 RBC 3.56 L Hgb 9.2 L Hct 29.9 L MCV 84.0 MCH 25.8 L MCHC 30.8 L RDW 14.8 H Plt Count 185 MPV 12.0 H Sodium 142 Potassium 3.9 Chloride 107 Carbon Dioxide 27.0 Anion Gap 8.0 BUN 17 D Creatinine 1.0 Estimated GFR/1.73 m2 54.35 Glucose 91 Calcium 8.5 Urine Opiates Screen Negative Urine Methadone Screen Negative Ur Barbiturates Screen Negative Ur Tricyclics Screen Negative Ur Amphetamines Screen Negative U Benzodiazepines Scrn Positive A Urine Cocaine Screen Negative Ur THC Screen Positive A
--- NOTE | 2021-06-11 16:59 | PT.INTREAT ---
Date of service: 06/11/21 Time of Service: 15:05 PT Notes Visit Reasons: ICA Dissection Inpatient Physical Therapy Treatment Note [facility] Date: 06/11/2021 PRECAUTIONS: Fall, activity as tolerated, dizziness SUBJECTIVE: Karina is pleasant and agreeable to participating in PT. She reports that she is feeling better today. OBJECTIVE: PAIN: No c/o pain BED MOBILITY/TRANSFERS Supine-sit: I with HOB at 50 degrees Sit-stand: S Stand-sit: S GAIT Assistive Device: FWW Weight bearing: Full Assist: SBA Distance: 200' Deviation: Standing rest x1 due to dizziness TOILETING: Patient toileted with supervision for transfers ASSESSMENT: Patient tolerated session well, with complaint minimal c/o dizziness with [id number] transfer and briefly with gait training. PLAN: Continue with gait training and habituation exercises for symptomatic relief. Recommend OP PT services upon discharge. TREATMENT CODE/TIME: 21 minutes; 84227 (15:05)
[2021-06-11] MEDS: Insulin Aspart 300 UNITS/3 ML PEN SC (17:09)
[2021-06-11] MEDS: Atorvastatin 40 MG TAB 80 MG PO (21:36)
[2021-06-11] MEDS: carBAMazepine 100 MG CHEW 200 MG PO (21:36)
[2021-06-11] MEDS: Allopurinol 300 MG TAB PO (21:36)
[2021-06-11] MEDS: traZODone 50 MG TAB PO (21:36)
[2021-06-11] MEDS: cloNIDine 0.1 MG TAB PO (21:36)
[2021-06-11] MEDS: Travoprost 0.004% Ophth Sol 2.5 ML BTL OP (21:38)
[2021-06-11] MEDS: Acetaminophen 325 MG TAB PO (21:47)
[2021-06-12] VITALS (8 sets, daily range): BP systolic 116–185; BP diastolic 64–80; PULSE 54–76; RESP 12–17; TEMP 36.3–36.9; O2SAT 96–99
--- NOTE | 2021-06-12 | DI.RAD_ITS ---
Exam(s) RF MODIFIED SPEECH BA SWALLOW TECHNIQUE: Modified barium swallow was performed in conjunction with speech pathology. CONTRAST MATERIAL: Oral barium contrast was administered. COMPARISON: No exams were available for comparison FINDINGS: Note that this is not a dedicated esophagram, distal esophagus not evaluated in its entirety. There is no evidence of aspiration during the examination. Speech pathology report to follow. . . . IMPRESSION: RADIATION DOSE DELIVERED: jarret Contreras=15.4 mGy
[2021-06-12] MEDS: Levothyroxine 150 MCG TAB PO (06:39)
[2021-06-12] MEDS: Brimonidine 0.15% 5 ML BTL OP ×3 (06:40→22:17)
--- NOTE | 2021-06-12 08:52 | SPP_ITS ---
Date of service: 06/11/21 Time of Service: 18:52 Subjective Patient reports she is feeling better this evening, is also open to having previously recommended VFSE/MBSS performed at [facility] in collaboration with [facility] CLINICAL MENTAL HEALTH COUNSELOR; very happy to receive [employer] board communication device for ease of communication while awaiting TEP change and further treatment to be coordinated with [facility] CLINICAL MENTAL HEALTH COUNSELOR/ENT. Objective/Assessment/Plan Objective Treatment Techniques & Outcomes: 1. Patient will improve tolerance of IDDSI Levels 0/4 (thin liquids, pureed solids) by trialing appropriate swallow strategies (eg, alternate liquids/solids, reduce volume) within 1 week. GOAL MET Patient observed to tolerate thin liquids/pureed solids via small sips/bites, however continues to have poor appetite at this time. Further recommendations to be determined pending MBS as appropriate; primary barrier to efficient swallow is likely stenosis at this time (neopharyngeal+esophageal), to be confirmed with MBS. 2. Patient will participate in VFSE/MBSS as appropriate in order to further inform treatment plan of care as outlined. IN PROGRESS Discussed potential inpatient VFSE/MBSS pending staff availability for 06/12/21 if patient is still inpatient, which she is agreeable to. 3. Patient will participate in diagnostic AAC treatment tasks to identify appropriate means of communication in order to supplement current alaryngeal speech abilities (ie low/high tech AAC options), improve communication effectiveness, overall quality of life within 1 week. 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 Patient able to demonstrate brief voicing with digitial occlusion of stoma and min cues for easy onset/slow speech this date, which is an improvement relative to previous session. Provided patient with [employer] Board writing pad as low tech AAC. Discussed plan for follow up with [facility] CLINICAL MENTAL HEALTH COUNSELOR dept to further troublehsoot TEP as well as TEP change which is overdue (patient is established with Daniel Galvez, CLINICAL MENTAL HEALTH COUNSELOR). Patient/Caregiver/Staff Education: Spoke with CA re: need for assistance with coordinating outpatient appointments at [facility] with NATALYA Helms to arrange for a change in her TEP and with Dr. Burnett in ENT (performed her last esophageal dilitation). Informed M/S staff re: potential plan for MBS following day, TBD pending DI availability. Plan Plan: CLINICAL MENTAL HEALTH COUNSELOR to follow while on unit. Nga Colbert MA CCC-CLINICAL MENTAL HEALTH COUNSELOR Speech-Language Pathologist [phone] Recommendations Additional Notes: CLINICAL MENTAL HEALTH COUNSELOR spoke with Dr. Mullins in ENT re: possible local TEP change, however various size TEP not available locally at this time if needed; patient is also established patient with [facility] and current recommendation is to help support patient in coordinating visits as needed with [facility] for continuity of care. Patient is more than welcome to contact [facility] CLINICAL MENTAL HEALTH COUNSELOR Dept with any questions/concerns as needed in the meantime. CLINICAL MENTAL HEALTH COUNSELOR also spoke with NATALYA Helms who recommended having patient scheduled for VFSE/MBSS here in [facility] given historical difficulties with transportation down to [place] for various ancillary visits; discussed with CM to attempt scheduling [facility] CLINICAL MENTAL HEALTH COUNSELOR and ENT visit(s) on same day if feasible. CODING CPT 93814 treatment of swallowing dysfunction and/or oral function for feeding CPT 07273 treatment of speech, language, voice, communication, and/or auditory processing disorder; individual Total Time Spent: 45 Coding
--- NOTE | 2021-06-12 08:52 | W.SPSTP ---
Date of service: 06/11/21 Time of Service: 18:52 Subjective Patient reports she is feeling better this evening, is also open to having previously recommended VFSE/MBSS performed at [facility] in collaboration with [facility] AUTOMOTIVE STARTER REPAIRER; very happy to receive SensingStripie board communication device for ease of communication while awaiting TEP change and further treatment to be coordinated with [facility] AUTOMOTIVE STARTER REPAIRER/ENT. Objective/Assessment/Plan Objective Treatment Techniques & Outcomes: 1. Patient will improve tolerance of IDDSI Levels 0/4 (thin liquids, pureed solids) by trialing appropriate swallow strategies (eg, alternate liquids/solids, reduce volume) within 1 week. GOAL MET Patient observed to tolerate thin liquids/pureed solids via small sips/bites, however continues to have poor appetite at this time. Further recommendations to be determined pending MBS as appropriate; primary barrier to efficient swallow is likely stenosis at this time (neopharyngeal+esophageal), to be confirmed with MBS. 2. Patient will participate in VFSE/MBSS as appropriate in order to further inform treatment plan of care as outlined. IN PROGRESS Discussed potential inpatient VFSE/MBSS pending staff availability for 06/12/21 if patient is still inpatient, which she is agreeable to. 3. Patient will participate in diagnostic AAC treatment tasks to identify appropriate means of communication in order to supplement current alaryngeal speech abilities (ie low/high tech AAC options), improve communication effectiveness, overall quality of life within 1 week. 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 Patient able to demonstrate brief voicing with digitial occlusion of stoma and min cues for easy onset/slow speech this date, which is an improvement relative to previous session. Provided patient with deltamethod Board writing pad as low tech AAC. Discussed plan for follow up with [facility] AUTOMOTIVE STARTER REPAIRER dept to further troublehsoot TEP as well as TEP change which is overdue (patient is established with Daniel Galvez, AUTOMOTIVE STARTER REPAIRER). Patient/Caregiver/Staff Education: Spoke with CA re: need for assistance with coordinating outpatient appointments at [facility] with NATALYA Helms to arrange for a change in her TEP and with Dr. Burnett in ENT (performed her last esophageal dilitation). Informed M/S staff re: potential plan for MBS following day, TBD pending DI availability. Plan Plan: AUTOMOTIVE STARTER REPAIRER to follow while on unit. Nga Colbert MA CCC-AUTOMOTIVE STARTER REPAIRER Speech-Language Pathologist CT#[phone] Recommendations Additional Notes: AUTOMOTIVE STARTER REPAIRER spoke with Dr. Mullins in ENT re: possible local TEP change, however various size TEP not available locally at this time if needed; patient is also established patient with [facility] and current recommendation is to help support patient in coordinating visits as needed with [facility] for continuity of care. Patient is more than welcome to contact [facility] AUTOMOTIVE STARTER REPAIRER Dept with any questions/concerns as needed in the meantime. AUTOMOTIVE STARTER REPAIRER also spoke with NATALYA Helms who recommended having patient scheduled for VFSE/MBSS here in [facility] given historical difficulties with transportation down to [place] for various ancillary visits; discussed with CM to attempt scheduling [facility] AUTOMOTIVE STARTER REPAIRER and ENT visit(s) on same day if feasible. CODING CPT 73687 treatment of swallowing dysfunction and/or oral function for feeding CPT 21754 treatment of speech, language, voice, communication, and/or auditory processing disorder; individual Total Time Spent: 45 Coding
[2021-06-12] MEDS: Insulin Glargine 300 UNITS/3 ML PEN 12 UNITS SC (09:29)
[2021-06-12] MEDS: Empaglifozin 10 MG TAB PO (09:30)
[2021-06-12] MEDS: Aspirin 81 MG CHEW PO (09:30)
[2021-06-12] MEDS: carBAMazepine 100 MG CHEW PO (09:30)
[2021-06-12] MEDS: diazePAM 10 MG/2 ML SYR 5 MG IVP (09:31)
[2021-06-12] MEDS: SITagliptin 100 MG TAB PO (09:31)
[2021-06-12] MEDS: Omeprazole 20 MG CAPCR 40 MG PO (09:31)
[2021-06-12] MEDS: Furosemide 20 MG TAB PO (09:31)
[2021-06-12] MEDS: Famotidine 20 MG TAB 40 MG PO (09:31)
[2021-06-12] MEDS: DULoxetine 20 MG CAP 40 MG UD (09:31)
[2021-06-12] MEDS: Normal Saline Flush 10 ML SYR IVP ×2 (09:32→15:57)
[2021-06-12] MEDS: Heparin 5,000 UNITS/ML VIAL 5000 UNITS SC ×2 (11:33→21:24)
--- NOTE | 2021-06-12 13:50 | PT.INTREAT ---
Date of service: 06/12/21 Time of Service: 12:59 PT Notes Visit Reasons: ICA Dissection Inpatient Physical Therapy Treatment Note [facility] Date: 06/12/2021 PRECAUTIONS: Fall, activity as tolerated, dizziness SUBJECTIVE: Karina is pleasant and agreeable to participating in PT. She reports that she is feeling better this afternoon compared to this morning. OBJECTIVE: PAIN: No c/o pain BED MOBILITY/TRANSFERS Supine-sit: I with HOB at 50 degrees Sit-stand: I Stand-sit: I GAIT Assistive Device: FWW Weight bearing: Full Assist: S Distance: 250' Deviation: Standing rest x1 due to dizziness HABITUATION EXERCISES: Patient was instructed in habituation exercises for decreased symptoms of dizziness. She was instructed in cervical flexion/extension x5 each, cervical rotation to R/L x2 each, trunk flexion/extension x5 each, and trunk rotation x5 each. Each exercise was completed in a seated position with low amplitude, with reports of symptom relief. TOILETING: Patient toileted independently STAIRS: Up/down 3x4 and 2x6 using B rails and a step-over pattern with supervision ASSESSMENT: Patient tolerated session with c/o dizziness with [id number] transfer and briefly with gait training. She reports improvement in symptoms with completion of habituation exercises. PLAN: Continue with gait training and habituation exercises for symptomatic relief. Recommend OP PT versus HH PT services upon discharge. TREATMENT CODE/TIME: 24 minutes; 89154 x2 (12:59)
--- NOTE | 2021-06-12 14:45 | ST.MBS_ITS ---
Date of Service Date of service: 06/12/21 Time of Service: 14:30 Modified Barium Swallow Study Findings: Videofluoroscopic Swallowing Evaluation / Modified Barium Swallow Study (VFSE/MBSS) and INPATIENT PROGRESS NOTE Speech Language Pathology Rep Precautions: Fall, Standard, Full Code HPI: Pt is a 71 year old female who presented to the ED on 06/09/2021 with difficulty walking and dizziness. Patient is diagnosed with ICA dissection, two-vessel coronary artery disease, dizziness, and reversible cerebrovascular vasoconstriction syndrome. PMHx: PMHx significant for history of laryngeal cancer with radiation, total laryngectomy (2017, [facility]), Dysphagia (Acute; Esophagoscopy, dilation, and botox injection 09/19/20, esophageal dilation 06/28/19 at [facility]) Esophageal stenosis (Acute), GERD, Dyspepsia, TMJ (dislocation of temporomandibular joint) (Chronic) 06/28/2019 per [facility] Otolaryngoscopy, w reported intermittent swelling in her left jaw, unable to take NSAIDs; Tracheostomy dependence (Chronic) Aphonia, DMII, Stenosis of intracranial vessel (Acute), left MCA high grade stenosis dx 01/03, Left sided lacunar infarction (Chronic), history of left basal ganglia infarct seen on head CT, Cerebral atherosclerosis (Acute), Reversible cerebrovascular vasoconstriction syndrome (Acute) SUBJECTIVE: Karina was transferred via wheelchair to the Radiology suite and transferred with assist to [facility] chair for this swallow study. She arrived smiling, agreeable/eager to complete exam in order to know more about her current swallow function. Carolann tube present, TEP in place - no HME. She is occasionally able to phonate for partial words with occlusion but largely communicating via exagerated lip movements. She does have a boogie board, which she left in her room. OBJECTIVE: 1. Patient will improve tolerance of IDDSI Levels 0/4 (thin liquids, pureed solids) by trialing appropriate swallow strategies (eg, alternate liquids/solids, reduce volume) within 1 week. GOAL PREVIOUSLY MET, updated to level 5 (minced/moist) diet this date given similar tolerance of pudding vs moist cracker bolus under fluoroscopy with use of liquid wash. Provided additional strategy instructions this date for posterior head tilt with liquid bolus which was successful under fluoroscopy (see goal #2 below for further detail). 2. Patient will participate in VFSE/MBSS as appropriate in order to further inform treatment plan of care as outlined. GOAL MET Videofluoroscopic Swallow Evaluation (VFSE/MBSS) was conducted in the lateral and [id number] projections by Speech-Language Pathologist, in collaboration with Radiologist, to evaluate oropharyngeal swallow function and screen for esophageal stasis. Anatomic view under fluoroscopy: Post-total laryngectomy. Presence of artificial airway from neopharynx. 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 PO barium contrast trials: Oral barium water soluble contrast was administered as follows: IDDSI Level 0 Varibar thin liquid (40% w/v) IDDSI Level 4 Varibar pudding/pureed/extremely thick (40% w/v) IDDSI Level 7 Regular Solid: 1/2 chandni cracker coated in 3 mL Varibar pudding PHYSIOLOGIC FINDINGS Oral Phase 1 Lip Closure: 0-No labial escape 2 Tongue Control: 1- Escape to lateral buccal cavity/floor of mouth 3 Bolus Preparation/Mastication: 1- Slowed/prolonged chewing/mashing with complete recollection 4 Bolus Transport/Lingual Motion: 4- Minimal to no tongue motion 5 Oral residue: VARIABLE 2- Residue collection on oral structures 3- Majority of bolus remaining; >50% of bolus - puree Location: floor of mouth, tongue 6 Initiation of pharyngeal swallow: N/A - post laryngectomy Pharyngeal Phase 7 Velar Elevation: 0- No bolus between soft palate and pharyngeal wall 8 Laryngeal Elevation: N/A - post-laryngectomy 9 Anterior Hyoid Excursion: N/A - post-laryngectomy 10 Epiglottic Movement: N/A - post laryngectomy 11 Laryngeal Vestibule Closure: N/A - post laryngectomy 12 Pharyngeal Stripping Wave: 2- Absent 13 Pharyngeal Contraction: unable to rate in setting of total laryngectomy, but noting no medial contraction of neopharynx 14 PES/UES Openin- Minimal distension and minimal duration; marked obstruction of flow 15 Tongue Base Retraction: 3- Wide column of contrast between tongue base and posterior pharyngeal wall [4- No visible posterior motion of tongue base] 16 Pharyngeal residue: VARIABLE, complicated by retrograde flow through PE 2- Collection of residue within or on pharyngeal structures (initial liquid trials) 3- Majority of residue within or on pharyngeal structures (puree) 4- Minimal to no pharyngel clearance (puree) Esophageal Phase 17 Esophageal Clearance Upright Position: 3- Esophageal retention with retrograde flow through pharyngoesophageal segment/(PES/UES) NOTE: This study was performed for interpretation only of the oropharyngeal and pharyngoesophageal domains of swallowing. It is not intended to diagnose any other radiologic abnormalities or substitute for a formal esophagram study. VOICE PROSTHESIS RESIDUE & LEAKAGE: Unable to visualize voice prosthesis on fluoroscopy (suspect not radio-opaque), but able to visualize artificial airway and infer approximate height of prosthesis. Unable to determine presence/degree of voice prosthesis residue, however, noting proximal esophageal stasis of solid>liquid bolus at what would typically be approximate level of TEP. No anterior leakage through TEP noted during this study. Trialed Compensatory Swallow Strategies & Outcome: Postures Posterior Head tilt - successful to divert liquid bolus to posterior neopharynx and prevent superior neopharyngeal residue (?pseudoeppiglotis) Bolus Modifications Delivery/Alternating Consistencies - Wash with thin liquid, successful Reduced Volume - unsuccessful - larger bolus promotes increased bolus inertia for puree to overcome PE restriction. 3. Patient will participate in diagnostic AAC treatment tasks to identify appropriate means of communication in order to supplement current alaryngeal speech abilities (ie low/high tech AAC options), improve communication eff ectiveness, overall quality of life within 1 week. IN PROGRESS - not addressed this date. IMPRESSIONS: Moderate chronic oral, pharyngeal, esophageal dysphagia in setting of total laryngectomy and prior chemo-radiation treatment; dysphagia presentation appears due likely to esophageal phase impairments as well as significantly reduced distention of and retrograde flow through PE segment, reduced tongue-base retraction and pharyngeal motility, and presence of anatomical differences (?pseudoepiglottis) which causes partial stasis as bolus enters neopharynx. Posterior head tilt was helpful to direct flow toward posterior neopharynx and maintain velocity of bolus in absence of full base of tongue propulsion. Patient will also require a liquid wash for each solid bolus to prevent buildup of esophageal & pharyngeal stasis throughout meal. While swallow safety is not typically impaired in total laryngectomy patients, this patient has recently experienced leakage of puree textures through TEP into carolann-tube, likely in part due to increased pressure introduced by stasis at the level of TEP (no leakage observed during this study). Given that swallow efficiency and comfort is significantly impaired, patient remains at risk for malnutrition. Continue to recommend patient f/u with [facility] ENT for esophageal dilation and INSTRUCTIONAL CONSULTANT for troubleshooting with TEP, provision of supplies including HME valves. PLAN: INSTRUCTIONAL CONSULTANT to continue to follow while on unit for communication and swallowing support. Care management to provide scheduling assistance for appropriate follow up with INSTRUCTIONAL CONSULTANT and ENT at [facility]. RECOMMENDATIONS: Diet recommendation: IDDSI Level 5-Minced & Moist Solids or 4-Extremely Thick (Puree) per patient preference. 0-Thin Liquids Medication: Recommend crushed and taken with thin liquids. Please see further details at www.iddsi.org Diet texture modification is per patient's preference; please adjust diet textures at patient's discretion & collaboration with care team. Risk Management & Swallow Strategies: Behavioral reflux precautions, including upright position during + 90 mins after meals. Alternate solids/liquids every bite Multiple swallows per bolus PRN to encourage clearance of pharyngeal stasis/residue Specialist referrals: [facility] INSTRUCTIONAL CONSULTANT, ENT --- Time spent: 40 minutes (MBSS plus time spent reviewing results and providing recommendations) Thank you for allowing me to take part in this patient's care. Please feel free to contact me with any questions/concerns. Debbi Valentine M.S., [facility]INSTRUCTIONAL CONSULTANT Speech Language Pathologist [phone] Coding CPT Codes MOTION FLUOROSCOPY/SWALLOW - [id number] ([id number])
[2021-06-12] MEDS: Barium Sulfate Oral Paste 40% W/V 230 ML TUBE 20 ML PO (15:22)
[2021-06-12] MEDS: diazePAM 10 MG/2 ML SYR 2 MG IVP ×2 (15:56→20:46)
--- NOTE | 2021-06-12 17:38 | W.PM.PROGNOT ---
Date of Service Date of service: 06/12/21 Time of Service: 17:39 Assessment and Plan Assessment and plan (1) Dizziness: Status: Acute Assessment and plan: Anxiety vs vestibular in nature. Seems to be improving on lower doses of valium. Previously marinol was also helpful, which is why anxiety is felt to be a possible etiologic agent. Continue PT, valium. (2) Dissection of left carotid artery: Status: Acute Assessment and plan: Unlikely to be related to anxiety. No evidence of acute CVA related to this - therefore, no anticoagluation, per Dr Barkley. Needs to follow up with [facility] vascular surgery as outpatient. (3) Left sided lacunar infarction: Status: Chronic Assessment and plan: with old micro hemorrhage. This makes her a higher risk candidate for anticoagulation. Will continue aspirin and statin. Follow up with vascular as outpatient. (4) Stenosis of left main coronary artery: Status: Chronic Assessment and plan: as above (5) Esophageal stenosis: Status: Acute Assessment and plan: Follow up with GI vs ENT as outpatient. For now, trial minced/moist diet with thin liquids, per my discussion with speech therapy. (6) DVT prophylaxis: Status: Acute Assessment and plan: SC heparin (7) Discharge planning issues: Status: Acute Assessment and plan: Full code Palliative and PT on board. Anticipate discharge home over the weekend with home health nursing, PT, OT, FINANCIAL PLANNING ANALYST, Speech. Subjective Subjective Interval history since last seen: Ms Larson states that she is feeling a little better. Her dizziness was worse with 5 mg of valium but is much better when the dose is lower (2 mg). She feels better. Denies chest pain, shortness of breath, nausea. States that she gags from pureed food. Speech therapy states that the safest other option would be minced and moist. Exam Narrative Exam Narrative: General: Pleasant elderly Caucasin female who is sitting up in a chair, in good spirits, A&Ox3 HEENT: EOMI, MMM, tracheostomy Heart: RRR, + ARIAN Lungs: CTAB Abdomen: soft, nontender, nondistended Extremities: no edema BLE's Objective Last Vital Signs Temp 36.9 C 06/12/21 15:34 Pulse 64 06/12/21 15:34 Resp 17 06/12/21 15:34 BP 152/74 H 06/12/21 15:34 Pulse Ox 97 06/12/21 15:34
--- NOTE | 2021-06-12 18:53 | PDOC.CMPRO ---
- If Service Date Differs Date of service: 06/12/21 Time of Service: 18:53 Care Management Progress Note S/O: Karina was sitting up in her chair when CM met with her. She reported that she is feeling ok today. She stated that her son is her caregiver, and her discharge plan should be discussed with him when she is ready for discharge. She will be discharged with new services, CM will contact her son, Gato, to discuss this. CM will continue to follow. A: Karina is a 71 year old woman admitted on 06/09/21 with an ICA Dissection P: Karina will likely be discharged home with new home health services for speech and PT. She will follow up with her community providers and plan of care and transport with family. CM will continue to support Karina and assess for discharge planning concerns.
[2021-06-12] MEDS: Atorvastatin 40 MG TAB 80 MG PO (19:55)
[2021-06-12] MEDS: Acetaminophen 325 MG TAB PO (19:56)
[2021-06-12] MEDS: Allopurinol 300 MG TAB PO (21:24)
[2021-06-12] MEDS: traZODone 50 MG TAB PO (21:24)
[2021-06-12] MEDS: cloNIDine 0.1 MG TAB PO (21:24)
[2021-06-12] MEDS: carBAMazepine 100 MG CHEW 200 MG PO (21:24)
[2021-06-12] MEDS: Travoprost 0.004% Ophth Sol 2.5 ML BTL OP (21:26)
--- NOTE | 2021-06-13 | DI.RAD_ITS ---
Exam(s) XR HIP RT AP LAT ONLY EXAM: XR HIP RT AP LAT ONLY CLINICAL HISTORY: fall. TECHNIQUE: 2D digital imaging was performed. COMPARISON: CR,XR XR HIP LT COMPLETE AP PELVIS from 08/23/2020 FINDINGS: BONES: No acute fracture is present. No bony destructive lesion is seen. JOINTS: No dislocation present. Mild acetabular spurring. SOFT TISSUE: Contrast is seen within the cecum and appendix related to previous barium swallow. Vasc ular calcifications are seen. IMPRESSION: No acute abnormality. DATA REPOSITORY: RADIATION DOSE DELIVERED:
[2021-06-13] MEDS: Brimonidine 0.15% 5 ML BTL OP ×2 (05:26→13:18)
[2021-06-13] MEDS: Acetaminophen 325 MG TAB PO (05:26)
[2021-06-13] MEDS: Levothyroxine 150 MCG TAB PO (05:26)
[2021-06-13 06:36] LABS: HCT 29.5 % (36.0-46.0); MCH 25.6 pg (27.0-33.0); MCHC 30.5 % (32.0-36.0); MPV 12.3 fL (8.0-11.0); Platelet Count 180 10^3/uL (130-400); RBC 3.51 10^6/uL (3.93-5.22); RDW 14.8 % (11.7-14.6); RDW-SD 45.1 fL; WBC 5.64 10^3/uL (4.4-10.8)
[2021-06-13 07:00] VITALS: PULSE 58
[2021-06-13 07:30] VITALS: BP 122/62; PULSE 61; RESP 16; TEMP 36.5; O2SAT 97
[2021-06-13] MEDS: diazePAM 10 MG/2 ML SYR 2 MG IVP (07:53)
[2021-06-13] MEDS: Normal Saline Flush 10 ML SYR IVP (07:54)
[2021-06-13] MEDS: DULoxetine 20 MG CAP 40 MG UD (08:06)
[2021-06-13] MEDS: Empaglifozin 10 MG TAB PO (08:07)
[2021-06-13] MEDS: Furosemide 20 MG TAB PO (08:07)
[2021-06-13] MEDS: Omeprazole 20 MG CAPCR 40 MG PO (08:07)
[2021-06-13] MEDS: SITagliptin 100 MG TAB PO (08:07)
[2021-06-13] MEDS: Aspirin 81 MG CHEW PO (08:08)
[2021-06-13] MEDS: carBAMazepine 100 MG CHEW PO (08:08)
[2021-06-13] MEDS: Famotidine 20 MG TAB 40 MG PO (08:08)
[2021-06-13] MEDS: Insulin Glargine 300 UNITS/3 ML PEN 12 UNITS SC (08:20)
[2021-06-13 08:34] VITALS: BP 102/42; BP 117/50; BP 124/58; PULSE 60; PULSE 64; PULSE 78
--- NOTE | 2021-06-13 10:53 | DI.VRAD_ITS ---
PROCEDURE INFORMATION: Exam: XR Right Hip Exam date and time: 06/13/2021 10:20 AM Age: 71 years old Clinical indication: Hip pain; Right hip TECHNIQUE: Imaging protocol: XR Right hip. Views: 2 or 3 views hip with pelvis when performed. COMPARISON: CT CHEST/ABD/PEL W 04/03/2021 3:05 PM FINDINGS: Bones/joints: No evidence of acute bony abnormality. No significant degenerative changes of the right hip. Soft tissues: Unremarkable. Vasculature: Mild vascular calcifications are present. Density is present within the right colon which may be secondary to prior oral CT contrast or other ingested densities such as antacids. IMPRESSION: No evidence of an acute abnormality. Dictated and Authenticated by: Aelx Sharma MD. Ordering:TOM Lovell MD
[2021-06-13] MEDS: Heparin 5,000 UNITS/ML VIAL 5000 UNITS SC (11:01)
--- NOTE | 2021-06-13 11:24 | PT.INNT ---
PT Notes Visit Reasons: ICA Dissection refused PT stating she just came back from some imaging of her leg. She is tired and her lateral thigh/ hip hurts. I will check on her in the am.
--- NOTE | 2021-06-13 12:11 | W.PM.DS.N ---
Date of service: 06/13/21 DS: Diagnosis Discharge Diagnosis (1) Dizziness: Start date: 06/13/21 Start time: 12:22 Status: Acute Asessment and Plan: Improved. This is not a new issues. Worsens with anxiety. She states improved since admission. PT and valium has helped. In the past marinol did work but we were unable to get liquid here. She did use valium while here and saw PT for maneuvering which was helpful. She feels well enough to go home. Marinol has been ordered as an outpatient along with PT/OT/RN/ST/CORK PRESSING MACHINE OPERATOR. (2) Dissection of left carotid artery: Start date: 06/13/21 Start time: 12:29 Status: Acute Asessment and Plan: She will need to be seen as an outpatient by vascular surgery She also revealed previous microhemorrhage on MRI therefore no anticoagulation per Neurology (3) Left sided lacunar infarction: Start date: 06/13/21 Start time: 12:30 Status: Chronic Asessment and Plan: seen on MRI old as above (4) Stenosis of left main coronary artery: Start date: 06/13/21 Start time: 12:30 Status: Chronic Asessment and Plan: severe stenosis, she has received large amounts of radiation due to laryngeal cancer as above. (5) Esophageal stenosis: Start date: 06/13/21 Start time: 12:31 Status: Chronic Asessment and Plan: Barium swallow as done. No aspiration noted. ST recommend thickened purred diet She has f/u as out patient to have dilation. ST will also be following patient. Discussed with Dr. Kellogg Discharge Plan Disposition Patient Disposition: HOME W/HOME HEALTH SERVICE Condition: Improving Discharge Details Reason For Visit: ICA Dissection Admit Date/Time: 06/11/21 09:10 Admit Provider: Jaswinder Medina Attending Provider: Jaswinder Medina Primary Care Provider: Denys Fierro [facility] Hospital Course Hospital Course: 71-year-old female with significant co-morbidities including CAD (CABG 03/05), Aortic stenosis s/p replacement, diabetes, dysphagia, carotid stenosis, cerebral atherosclerosis previous left lacunar infarct, aphonia, laryngeal cancer, hypertension, hyperlipidemia, esophageal stricture. She presented with report of acute exacerbation of chronic dizziness/vertigo. Recurrence of dizziness upon waking the morning of presentation with only mild relief with meclizine. She did fall in the morning she was so dizzy; did not hit head. Hgb 10.2; baseline of low 11's. Stool was heme negative.Lytes normal. CTA brain w/o acute findings. CTA neck with concern of a small left ICA dissection. She was asked to be admitted to / for further management. Over course of treatment neurology was consulted and patient had MRI which revealed prior microhemorrhage. No anticoagulation because of this. She was give valium for dizziness as meclizine was not helpful and marinol liquid was not available. She had taken marinol in the past with good effect. She was seen by ST and had a barium swallow done. This revealed no aspiration but she should have a thickened purred diet with thin liquids. She is due for a dilation. She was crushing her cardizem xl therefore it was changed to TID while on this she went in to a second degree block, therefore it was decreased to 30 mg TID from 60. She also worked with PT to help with her dizziness which was effective. She will need f/u with vascular surgery d/t findings of ICA dissection and severe occlusion. She has appt with a new provider on 06/19/21. She will have HH PT/OT/ST/CORK PRESSING MACHINE OPERATOR/RN services. Will give liquid marinol for dizziness and have PT continue working on dizziness as well along with strength and balance. She feels well enough to go home therefore is being discharged. Home Meds and New Rx's Prescriptions: New Syndros 5 mg/mL solution 2.1 mg PO BID PRN (Reason: dizziness or vertigo) Qty: 30 RF: 0 diltiazem HCl [Cardizem] 60 mg Tablet 30 mg PO TID Qty: 45 RF: 0 Continued (DME) lancets [OneTouch Delica Lancets] 33 gauge misc See Rx Instructions .ROUTE .MEDSUPPLY Qty: 100 RF: 3 ondansetron HCl [Zofran] 4 mg tablet 4 mg PO Q8H PRN (Reason: nausea) Qty: 60 RF: 0 Lantus Solostar U-100 Insulin 100 unit/mL (3 mL) insulin pen 12 unit SC DAILY MDD 12 units Qty: 15 RF: 6 amlodipine 5 mg tablet 5 mg PO DAILY Qty: 30 RF: 0 (DME) pen needle, diabetic [Pen Needle] 31 gauge x 5/16 needle See Rx Instructions .ROUTE .MEDSUPPLY Qty: 100 RF: 3 carbamazepine 100 mg tablet,chewable See Rx Instructions .ROUTE DAILY Qty: 270 RF: 3 duloxetine 20 mg capsule,delayed release(DR/EC) 40 mg PO DAILY Qty: 180 RF: 3 sitagliptin 100 mg tablet 100 mg PO DAILY Qty: 90 RF: 3 Hold Instructions: Home Medication placed on hold at Doctor's office diltiazem HCl 180 mg capsule,extended release 24 hr 180 mg PO DAILY Qty: 90 RF: 3 levothyroxine 150 mcg tablet 150 mcg PO DAILY Qty: 90 RF: 3 brimonidine 0.1 % drops 1 drp ophthalmic (eye) Q8H Qty: 15 RF: 0 allopurinol 300 mg tablet 300 mg PO QHS Qty: 90 RF: 3 colchicine 0.6 mg capsule 0.6 mg PO DAILY PRN (Reason: gout) Qty: 90 RF: 3 meclizine 25 mg tablet 25 mg PO TID PRN (Reason: dizziness) Qty: 270 RF: 3 clonidine HCl 0.1 mg tablet 0.1 mg PO QHS Qty: 90 RF: 0 (DME) OneTouch Verio test strips Strip See Rx Instructions .ROUTE .MEDSUPPLY Qty: 100 RF: 3 famotidine 40 mg tablet 40 mg PO DAILY Qty: 90 RF: 3 trazodone 50 mg tablet 50 mg PO QHS PRN (Reason: sleep) Qty: 90 RF: 3 (DME) blood-glucose meter [OneTouch Verio Flex meter] Misc See Rx Instructions .ROUTE .MEDSUPPLY Qty: 1 RF: 0 travoprost [Travatan Z] 0.004 % drops 1 drp OP QPM Qty: 5 RF: 6 aspirin [Lo-Dose Aspirin] 81 mg tablet,delayed release (DR/EC) 81 mg PO DAILY Qty: 30 RF: 0 Jardiance 10 mg tablet 10 mg PO DAILY RF: 0 furosemide 20 mg Tablet 20 mg PO DAILY Qty: 14 RF: 0 omeprazole 40 mg capsule,delayed release(DR/EC) 40 mg PO DAILY RF: 0 methocarbamol 750 mg Tablet 750 mg PO QID PRN PRNQty: 30 RF: 0 atorvastatin 80 mg tablet 80 mg PO DAILY Qty: 30 RF: 0 Discharge Instructions Instructions: Dizziness (ED) Additional Instructions: please follow-up with pcp follow up with vascular surgery follow up ENT/surgery for esophageal dilation Take marinol as needed for dizziness. Do not smoke pot or eat edibles if you are taking marinol Stand Alone Forms: Nursing Discharge Form Referrals: [facility] [Outside] (Speech Language Pathology- Daniel Galvez. Sent new referral and they will call you with an appt., trying to set it up before ENT appt.) ENT,[facility] [place] [OTHER] - 07/02/21 11:00 am (you have an appt with Dr. Burnett on 07/02/21 @ 11am) PATRICK BRUCE MD [ NON-[facility] STAFF PHYSICIAN] - ([facility] [place] Vascular Surgery- they will call you to schedule a 6 month follow up) Jalyn Gannon NP [NURSE PRACTITIONER] - 06/18/21 1:30 pm Activity:: Activity as Tolerated Equipment/Supplies:: No Equipment Needed Diet:: pureed thickened with thin liquids Discharge Orders Discharge Orders: Discharge Order (Routine); Ordered 06/13/21 Ordered By: Liliya Cerrato DS: Summary Time Spent with Patient providing and/or coordinating discharge services: Greater than 30 minutes Status at Discharge Functional status at discharge: uses cane/walker Overall status at discharge: patient is progressing back to baseline Mental Status: mental status grossly normal Speech and Movement: other Mood: congruent mood Affect: normal affect Exam Narrative Exam Narrative: General: Pleasant elderly female who is sitting up in a chair, in good spirits, A&Ox3 HEENT: EOMI, MMM, tracheostomy Heart: RRR, + ARIAN Lungs: CTAB Abdomen: soft, nontender, nondistended Extremities: no edema BLE's Psych Mental Status: mental status grossly normal Speech and Movement: other Mood: congruent mood Affect: normal affect DS: Data Vitals/I&O Vitals and I&O: Vital Signs Temperature 36.5 C 06/13/21 07:30 Temperature Source Skin 06/13/21 07:30 Pulse 60 06/13/21 08:34 Pulse Rhythm Regular 06/13/21 11:21 Pulse 60 06/10/21 00:20 Respiratory Rate 16 06/13/21 07:30 Respiratory Effort 06/13/21 11:21 Respiratory Depth Normal 06/13/21 11:21 Respiratory Pattern Normal 06/13/21 11:21 Blood Pressure 124/58 L 06/13/21 08:34 Blood Pressure Mean 109 06/10/21 00:16 Blood Pressure Position Supine 06/09/21 18:39 Pulse Oximetry 97 06/13/21 07:30 Oxygen Delivery Method Room Air 06/13/21 07:30 Oxygen Flow Rate 0 06/13/21 07:30 Pain Level 5 06/13/21 05:26 Comment 06/12/21 22:50 Intake & Output 06/12/21 06/13/21 06/13/21 23:59 11:59 23:59 Intake Total 180 / 660 350 / 350 Output Total 1200 / 2000 950 / 950 Balance -1020 / -1340 -600 / -600 Weight 65.3 kg Intake: Oral 180 / 660 350 / 350 Output: Urine 1200 / 2000 950 / 950 Other: Urine Color Yellow Yellow Urine Appearance Clear Clear Urine Odor Normal Comment pt voided in toilet without difficulty Voiding Methods Toilet Toilet Data Completed and Pending Completed studies during hospitalization [Text1]: Exam(s) XR CHEST 1V IN DI DEPT EXAM: XR CHEST 1V IN DI DEPT CLINICAL HISTORY: dizziness. TECHNIQUE: 2D digital imaging was performed. COMPARISON: CR,XR XR PORTABLE CHEST AP from 08/30/2020 FINDINGS: There has been interval sternotomy. Prosthetic aortic valve now evident. Heart size upper normal. Mediastinum not widened. Right lung is clear. Some haziness on the left side is noted which is probably subsequent to the prior interval sternotomy. Probably represents an element of pleural thickening There are no confluent infiltrates. No pulmonary edema. No pneumothorax. No obvious pleural effusions IMPRESSION: Interval sternotomy and aortic valve replacement. No pulmonary edema. Other findings as above. If clinically indicated follow-up CT scan can be performed. : 8Age: 71 Exam(s) a CT:CT brain & neck CTA Exam(s) CT BRAIN NECK CTA EXAM: CT BRAIN NECK CTA CLINICAL HISTORY: dizziness. TECHNIQUE: Imaging Protocol: Axial CT angiography was performed with multi-slice acquisition and multi-planar and/or 3D reconstructions. CONTRAST MATERIAL: Intravenous: Omnipaque 350 Contrast volume:structured data in ml COMPARISON: CT CT CHEST/ABD/PEL W from 04/03/2021 FINDINGS: CTA Neck W: Tracheotomy noted. Also sternotomy wires/nonunion. Aortic arch anatomy: The aortic arch anatomy is conventional. There is mild stenosis in the proximal left common carotid artery just distal to the aortic takeoff. Anterior circulation: There is plaque on the medial wall of the left common carotid artery mid level, with approximately 20 percent stenosis at this level. On the right side there is both calcified and noncalcified plaque at the level of the bulb. More significant stenosis is seen above this level in the proximal internal carotid artery where there is a beaded pattern in the proximal 2 cm, including a critical stenosis at this level. The right ICA above this level is patent in the neck and skull base-carotid canal. On the left side there is mild plaque at the level the carotid bulb. However there is stenosis in the proximal left ICA related to noncalcified plaque on its lateral wall, this area of stenosis extending for distance of 2.0 cm and exhibiting ulcerated plaque and what may be a small area of nonobstructive dissection at the mid aspect of this 2 cm distal of involvement. Percentage of stenosis at this level is estimated at approximately 80 percent. The left ICA is patent above this level in the upper neck as well as within the skull base-carotid canal. Posterior circulation: There is mild stenosis at the origin of both vertebral arteries off of the subclavian arteries. No significant stenosis in the subclavian arteries proximal to the vertebral artery takeoff points. Both vertebral arteries ascend in the foramen transverse area with approximately equal luminal diameters of 2.5 millimeters. At the skull base both vertebral arteries contribute equally to the formation of the basilar artery (which is not dolichoectatic). The left posterior inferior cerebellar artery appears to be originating off the proximal basilar artery. The right posterior inferior cerebellar artery is poorly opacified. CTA Brain W: Anterior circulation: Both internal carotid arteries are patent in the skull base-carotid canals as well as within the cavernous sinuses. There is mild calcified plaque on the anterior lateral wall of the upper left intracavernous ICA. The supraclinoid aspects of both internal carotid arteries are patent and nonaneurysmal. Both A1 segments are thin but patent as are the anterior cerebral arteries. There is no evidence of obvious aneurysm at the level of the anterior communicating artery. Both middle cerebral arteries are patent. Also no aneurysms in these vessels. Posterior circulation: The basilar artery ascends without significant focal stenosis. Distally it gives off bilateral superior cerebellar arteries and above this level terminates as bilateral posterior cerebral arteries. There is a stenosis in the proximal P1 segment of the left posterior cerebral [id number]. There is no aneurysm at the level of the basilar artery nor elsewhere in the [id number]. CT BRAIN: There is no evidence of intracranial hemorrhage, mass effect, or shift of midline structures. There are no extra-axial fluid collections. Ventricles are not enlarged or shifted. There are no ring enhancing lesions in the brain and no abnormal meningeal enhancement. No obvious abnormality evident in the orbits. Paranasal sinuses are clear as are the mastoid air cells. There are no skull fractures. No lytic skull lesions. Hyperostosis frontalis interna is incidentally noted. IMPRESSION: 1. There is significant atherosclerotic disease in the proximal internal carotid arteries on both sides the neck. There is also a small focus of contrast outpouching adjacent to the prox left ICA, either representing small focus of nonocclusive dissection or ulcerated plaque. There is high-grade stenosis bilaterally at these levels. 2. There is significant stenosis in the P1 segment of the left posterior cerebral artery. No occluded intracranial arteries. No aneurysms evident. 3. No evidence of intracranial hemorrhage, ring-enhancing lesions, nor abnormal meningeal enhancement. : 8Age: 71 Exam(s) PROCEDURE INFORMATION: Exam: CT Head Without Contrast Exam date and time: 06/09/2021 7:20 PM Age: 71 years old Clinical indication: Other: Dizziness TECHNIQUE: Imaging protocol: Computed tomography of the head without contrast. COMPARISON: CT BRAIN NECK CTA 12/24/2020 8:54 PM FINDINGS: Brain: There is no acute intracranial hemorrhage, mass effect or midline shift. There is no large acute territorial cerebral infarct. Cerebral ventricles: No ventriculomegaly. Paranasal sinuses: Visualized sinuses are unremarkable. No fluid levels. Mastoid air cells: Visualized mastoid air cells are well aerated. Bones/joints: Unremarkable. No acute fracture. Soft tissues: Unremarkable. IMPRESSION: No acute intracranial hemorrhage, mass effect or midline shift. PROCEDURE INFORMATION: Exam: CT Angiography Head With Contrast, Arteriography Exam date and time: 06/09/2021 7:20 PM Age: 71 years old Clinical indication: Other: Dizziness TECHNIQUE: Imaging protocol: Computed tomography angiography of the head with contrast. Exam focused on the arteries. 3D rendering (Not supervised by radiologist): MIP and/or 3D reconstructed images were created by the technologist. Contrast material: OMNIPAQUE 350; Contrast volume: 85 ml; Contrast route: INTRAVENOUS (IV); COMPARISON: CT BRAIN NECK CTA 12/24/2020 8:54 PM FINDINGS: ANTERIOR CIRCULATION: Right internal carotid artery: Unremarkable. Intracranial segment is patent with no significant stenosis. No aneurysm. Right middle cerebral artery: Unremarkable. No occlusion or significant stenosis. No aneurysm. Right anterior cerebral artery: Unremarkable. No occlusion or significant stenosis. No aneurysm. Left internal carotid artery: Unremarkable. Intracranial segment is patent with no significant stenosis. No aneurysm. Left middle cerebral artery: Unremarkable. No occlusion or significant stenosis. No aneurysm. Left anterior cerebral artery: Unremarkable. No occlusion or significant stenosis. No aneurysm. POSTERIOR CIRCULATION: Right vertebral artery: Unremarkable. No occlusion or significant stenosis. No aneurysm. Left vertebral artery: Unremarkable. No occlusion or significant stenosis. No aneurysm. Basilar artery: Unremarkable. No occlusion or significant stenosis. No aneurysm. Right posterior cerebral artery: Unremarkable. No occlusion or significant stenosis. No aneurysm. 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 No aneurysm. Brain: No definite mass, mass effect, or midline shift. Cerebral ventricles: No ventriculomegaly. Bones/joints: Unremarkable. No acute fracture. Soft tissues: Unremarkable. IMPRESSION: 1. No large occlusion. 2. High-grade stenosis at the P1 segment of the left MARINE WATER TENDER. : 8Age: 71 Exam(s) PROCEDURE INFORMATION: Exam: XR Chest Exam date and time: 06/09/2021 7:20 PM Age: 71 years old Clinical indication: Other: Dizziness; Prior surgery; Surgery date: 1-6 months; Surgery type: Open heart; Patient HX: Pre-existing trach TECHNIQUE: Imaging protocol: XR of the chest. Views: 1 view. COMPARISON: CT CHEST/ABD/PEL W 04/03/2021 3:05 PM FINDINGS: Lungs: See Heart/Mediastinum finding. Pleural spaces: A left pleural effusion is noted. Heart/Mediastinum: There is a hazy appearance of the left cardiac border, which could reflect mild atelectasis/pneumonia. Bones/joints: There is evidence of prior sternotomy procedure. IMPRESSION: 1. Left pleural effusion. A CT of the chest may be performed for further evaluation. 2. Possible mild atelectasis versus mild pneumonia in the left lower lung zone. Exam(s) MR BRAIN WO EXAM: MR BRAIN WO CLINICAL HISTORY: L internal carotid artery dissection, ?CVA TECHNIQUE: Multiplanar multisequence MRI of the brain was performed. COMPARISON: MR MR BRAIN WO from 12/25/2020 FINDINGS: CEREBRAL PARENCHYMA: There is no evidence of acute intracranial hemorrhage, mass effect, or shift of midline structures. There are no extra-axial fluid collections. Ventricles are not enlarged or shifted. There is no significant focal signal abnormality in the cerebellar hemispheres nor within the vandana, and thalami. There is no abnormal prominent signal abnormality in the periventricular white matter. DWI: There are no areas of restricted diffusion to suggest acute ischemic change. SWI: There is a focal area of blooming in the right-side of the midbrain-Felix in cephalo on, this measuring 5 x 5 millimeter. No signal abnormality evident on the conventional sequences at this level. PITUITARY GLAND: No mass nor parasellar abnormality. No obvious abnormality in the cavernous sinuses. FLOW VOIDS: The expected flow void are noted. No evidence of obvious aneurysm nor obvious vascular malformation. PARANASAL SINUSES: The visualized paranasal sinuses appear unremarkable. No obvious finding ORBITS: No obvious findings. Hyperostosis frontalis interna incidentally noted. IMPRESSION: 1. No evidence of acute territorial nor lacunar infarct in this patient who has significant atherosclerotic disease in both internal carotid arteries in the neck. 2. On SWI there is a small area of blooming evident just to the right of midline in the mesencephalon within the periaqueductal lugo matter, consistent with area of prior microhemorrhage. There are no other similar focal findings elsewhere in the brain. There is no evidence of acute nor subacute hemorrhage. Exam(s) PROCEDURE INFORMATION: Exam: XR Right Hip Exam date and time: 06/13/2021 10:20 AM Age: 71 years old Clinical indication: Hip pain; Right hip TECHNIQUE: Imaging protocol: XR Right hip. Views: 2 or 3 views hip with pelvis when performed. COMPARISON: CT CHEST/ABD/PEL W 04/03/2021 3:05 PM FINDINGS: Bones/joints: No evidence of acute bony abnormality. No significant degenerative changes of the right hip. Soft tissues: Unremarkable. Vasculature: Mild vascular calcifications are present. Density is present within the right colon which may be secondary to prior oral CT contrast or other ingested densities such as antacids. IMPRESSION: No evidence of an acute abnormality. Labs on day of discharge: Labs from last 24 hours 06/13/21 05:50 WBC 5.64 RBC 3.51 L Hgb 9.0 L Hct 29.5 L MCV 84.0 MCH 25.6 L MCHC 30.5 L RDW 14.8 H Plt Count 180 MPV 12.3 H PFSH All Active Problems Discharge planning issues (Acute) DVT prophylaxis (Acute) Dissection of left carotid artery (Acute) Pleural effusion (Acute) Dizziness (Acute) Night sweats (Acute) Lesion of left ear (Acute) Esophageal stenosis (Chronic) Dizziness (Acute) Pressure ulcer of unspecified site, unspecified stage (Acute) Stenosis of left main coronary artery (Chronic 02/13/21) significant Two-vessel coronary artery disease (Chronic 02/13/21) LCX and RCA Severe aortic stenosis (Chronic 02/13/21) Primary open-angle glaucoma, bilateral, indeterminate stage (Acute) Per [facility] note from 08/12/20 Crystalline deposits in vitreous body, right eye (Acute) Per [facility] note from 08/12/20 Type 2 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, bilateral (Acute) Per [facility] note from 08/12/20 Stenosis of intracranial vessel (Acute) left MCA high grade stenosis dx 01/03 Left sided lacunar infarction (Chronic) history of left basal ganglia infarct seen on head CT History of smoking 10-25 pack years (Acute) History of headache (Acute) Over 40 years of age and (Acute) Family history of colon cancer (Chronic) 2 brothers and other of colon cancer Palliative care patient (Acute) Lives alone with help available (Acute) Cerebral atherosclerosis (Acute) Reversible cerebrovascular vasoconstriction syndrome (Acute) Shakiness (Acute) Chest pain (Acute) Headache (Acute) Anxiety (Chronic) Hypertensive emergency (Acute) Carotid stenosis, bilateral (Chronic) Hypertensive emergency (Acute) Pre-syncope (Acute) Chronic back pain (Chronic) History of laryngectomy (Chronic) Sciatica of left side (Acute) Benign positional vertigo (Acute) Actinic keratoses (Acute) Normocytic normochromic anemia (Acute) Weakness (Acute) Orthostasis (Acute) Insomnia (Acute) Bilateral pseudophakia (Acute) Low back pain (Acute) Sesamoiditis (Acute) Essential hypertension (Chronic) TMJ (dislocation of temporomandibular joint) (Chronic) 06/28/2019 [facility] [place]. PT referral for right joint dysfunction Tracheostomy dependence (Chronic) History of colonic polyps (Acute) 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 (Acute) Pulmonary nodules (Chronic) Postoperative hypothyroidism (Chronic) Laryngeal cancer (Chronic) Hyperlipidemia (Chronic) GERD (gastroesophageal reflux disease) (Chronic) Esophageal stricture (Acute) Fibromyalgia (Acute) Diabetes mellitus, type II (Chronic) 03/03: Good control on lantus alone Aphonia (Chronic) Aortic stenosis (Chronic) Cardiac Cath at [facility] [place] 01/22/21 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) Hypertension (Chronic) Dysphagia (Chronic) Esophagoscopy, dilation, and botox injection 09/19/20 Esophageal . esophageal dilation 06/28/19 [place] [facility] [place] Dyspepsia (Acute) Medical History Epistaxis Facial injury Surgical History Esophageal dilatation 06/28/19 [facility] [place] History of back surgery (~1974) History of carpal tunnel release Left History of cataract surgery w/Implant History of cervical spinal surgery History of section History of cholecystectomy History of hysterectomy Emergent, for heavy bleeding History of laparoscopy (~2015) History of shoulder surgery (~2006) Left History of tracheostomy (~2015) Hx of removal of ovary Right. Cystic Ovary Family History Father , age 58 from stroke Stroke Hypertension Brother Colon cancer Kidney failure Sister , age 79 from [place] Diabetes Myocardial infarction x2 Brother Colon cancer Mother , age 84 from colon cancer (suspected) Colon cancer Son No problems noted. Son No problems noted. Son No problems noted. Social History (Reviewed 06/13/21 @ 12:33 by DEE Hutton Smoking/Tobacco Use Status: Former Tobacco Use Tobacco: How many years used: 25 Second Hand Exposure: Yes Smoking risk assessment performed?: Yes Alcohol Intake: current Alcohol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
--- NOTE | 2021-06-13 12:17 | PDOC.HHF2F_ITS ---
Home Health Certification Home Health Certification: 1. Encounter Date and Reason I certify that Karina Larson was seen by Liliya Cerrato on 06/13/21 and that I had a [id number] encounter with this patient that meets the physician face to face encounter requirements. 2. Clinical Findings Supporting Skilled Need and Homebound Status I certify that home health services are medically necessary, include either intermittent nursing home and/or physical/speech therapy, and that this patient is homebound in that absences from the home require considerable and taxing effort and are infrequent or of short duration, or are attributable to the need to receive medical care. [X] (a) Attached documentation from encounter provides clinical findings supporting skilled need and homebound status (including what assistance patient requires to leave the home). 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 Also OT to help with ADLs and etc. 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 Certification and Authentication I certify that I composed the above information based on my clinical judgement relating to this patient's medical condition and, if applicable, clinical findings communicated to me by the NPP or inpatient physician who performed the Home Health Referral. All further orders will be obtained through Denys Valle___(Community Based Physician - PCP)
--- NOTE | 2021-06-13 13:28 | CMDISCH_ITS ---
- If Service Date Differs Date of service: 06/13/21 Time of Service: 13:28 LACE Index Scoring Tool - Questions: Length of Stay (in days): 2 Acuity (Admit via E.D.?): Yes Comorbidities: Diabetes w/o Complication, Any Tumor E.D. Visits: 9 - Answers: Total Score: 12 Risk of Readmission: High Risk Care Management Discharge Reason for Hospitalization: Dizziness Discharge Plan: Karina will return home today with new orders for RN, PT, OT, GOVERNMENT AFFAIRS FELLOW, and ST. Her son will be present for discharge instructions and will drive her home via private vehicle. She will follow up with her PCP and discharge plan of care. She is happy to be going home. Patient/Family Education Needs: Review discharge instructions and limitations, discussion of self care needs including ask me three. Services Needed at Discharge: Home Health Care Services (HC, RN, PT, OT, GOVERNMENT AFFAIRS FELLOW, ST)
[2021-06-13] MEDS: diazePAM 2 MG TAB PO (13:30)
--- NOTE | 2021-06-15 19:20 | INDS_ITS ---
Date of service: 06/15/21 PT Notes Visit Reasons: ICA Dissection Physical Therapy Inpatient Discharge Summary Date: 06/15/2021 Dates of service: 06/10/2021 through 06/13/2021 This is a clinical summary of care provided for the duration of dates listed above. No charge was made in the completion of this documentation. Referring Doctor: Liliya Cerrato NP PT Orders: PT CONSULT: Dizzy Precautions: Fall. Standard. Activity as tolerated. Patient Profile/Admitting Diagnosis: Patient is a 71-year-old female who presented to the ED on 06/09/2021 with difficulty walking and dizziness. Patient is diagnosed with two-vessel coronary artery disease, dizziness, and reversible cerebrovascular vasoconstriction syndrome. PMHX: All Active Problems (Updated 06/10/21 @ 02:03 by Jaswinder Medina MD) Pleural effusion (Acute) Dizziness (Acute) Night sweats (Acute) Lesion of left ear (Acute) Esophageal stenosis (Acute) Dizziness (Acute) Pressure ulcer of unspecified site, unspecified stage (Acute) Stenosis of left main coronary artery (Acute 02/13/21) significant Two-vessel coronary artery disease (Chronic 02/13/21) LCX and RCA Severe aortic stenosis (Chronic 02/13/21) Primary open-angle glaucoma, bilateral, indeterminate stage (Acute) Per [facility] note from 08/12/20 Crystalline deposits in vitreous body, right eye (Acute) Per [facility] note from 08/12/20 Type 2 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, bilateral (Acute) Per [facility] note from 08/12/20 Stenosis of intracranial vessel (Acute) left MCA high grade stenosis dx 01/03 Left sided lacunar infarction (Chronic) history of left basal ganglia infarct seen on head CT History of smoking 10-25 pack years (Acute) History of headache (Acute) Over 40 years of age and (Acute) Family history of colon cancer (Chronic) 2 brothers and other of colon cancer Palliative care patient (Acute) Lives alone with help available (Acute) Cerebral atherosclerosis (Acute) Reversible cerebrovascular vasoconstriction syndrome (Acute) Shakiness (Acute) Chest pain (Acute) Headache (Acute) Anxiety (Chronic) Hypertensive emergency (Acute) Carotid stenosis, bilateral (Chronic) Hypertensive emergency (Acute) Pre-syncope (Acute) Chronic back pain (Chronic) History of laryngectomy (Chronic) Sciatica of left side (Acute) Benign positional vertigo (Acute) Actinic keratoses (Acute) Normocytic normochromic anemia (Acute) Weakness (Acute) Orthostasis (Acute) Insomnia (Acute) Bilateral pseudophakia (Acute) Low back pain (Acute) Sesamoiditis (Acute) Essential hypertension (Chronic) TMJ (dislocation of temporomandibular joint) (Chronic) 06/28/2019 [facility] [place] Otol[place]oscopy. PT referral for right joint dysfunction Tracheostomy dependence (Chronic) History of colonic polyps (Acute) 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 (Acute) Pulmonary nodules (Chronic) Postoperative hypothyroidism (Chronic) Laryngeal cancer (Chronic) Hyperlipidemia (Chronic) GERD (gastroesophageal reflux disease) (Chronic) Esophageal stricture (Acute) Fibromyalgia (Acute) Diabetes mellitus, type II (Chronic) 03/03: Good control on lantus alone Aphonia (Acute) Aortic stenosis (Chronic) Cardiac [place] [facility] [place]/22/21 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) Hypertension (Chronic) Dysphagia (Acute) Esophagoscopy, dilation, and botox injection 09/19/20 Esophageal . esophageal dilation 06/28/19 at [facility] [place] Dyspepsia (Acute) Medical History Epistaxis Facial injury Surgical History Esophageal dilatation 06/28/19 [facility] [place] Otolaryngology History of back surgery (~1974) History of carpal tunnel release Left History of cataract surgery w/Implant History of cervical spinal surgery History of section History of cholecystectomy History of hysterectomy Emergent, for heavy bleeding History of laparoscopy (~2015) History of shoulder surgery (~2006) Left History of tracheostomy (~2015) Hx of removal of ovary Right. Cystic Ovary Social History/Home Situation: Lives in the basement level of the [facility]. Independent with all aspects of ADLs witha FWW. Has a ramp to enter the building and has to negotiate 7 steps, one rail on 1 side and a wall on the other side. Son checks in on her on a daily basis to see if she needs help with anything. Equipment Owned/DME: FWW Subjective: NT. See most recent ELECTRIC METER INSTALLER HELPER notes. General Observation: NT. See most recent ELECTRIC METER INSTALLER HELPER notes. Mental Status: NT. See most recent ELECTRIC METER INSTALLER HELPER notes. Pain: Denies ROM: Right Upper Extremity: Shoulder Flexion WFL. Shoulder abduction WFL. Elbow flexion WFL. Wrist flexion WFL. Functional opening and closing of hand WFL. Left Upper Extremity: Shoulder Flexion WFL. Shoulder abduction WFL. Elbow flexion WFL. Wrist flexion WFL. Functional opening and closing of hand WFL. Right Lower Extremity: Hip flexion WFL. Hip abduction WFL. Knee flexion WFL. Ankle dorsiflexion WFL. Ankle plantarflexion WFL. Left Lower Extremity: Hip flexion WFL. Hip abduction WFL. Knee flexion WFL. Ankle dorsiflexion WFL. Ankle plantarflexion WFL. Strength: Right Upper Extremity: Shoulder flexors 4/5. Shoulder abductors 4/5. Shoulder ER 4/5/ Shoulder IR 4/5. Forearm pronators 4/5. Forearm supinators 4/5. Elbow flexors 4/5. Elbow extensors 4/5. Materials Management Clerk strong. Left Upper Extremity: Shoulder flexors 4/5. Shoulder abductors 4/5. Shoulder ER 4/5/ Shoulder IR 4/5. Forearm pronators 4/5. Forearm supinators 4/5. Elbow flexors 4/5. Elbow extensors 4/5. Materials Management Clerk strong. Right Lower Extremity: Hip flexors 4/5. Hip abductors 4/5. Hip external rotators 4/5. Hip internal rotators 4/5. Knee flexors 4/5. Knee extensors 4/5. Ankle dorsiflexors/evertors 4/5. Ankle plantarflexors/invertors 4/5. Left Lower Extremity: Hip flexors 4/5. Hip abductors 4/5. Hip external rotators 4/5. HIp internal rotators 4/5. Knee flexors 4/5. Knee extensors 4/5. Ankle dorsiflexors/evertors 4/5. Ankle plantarflexors/invertors 4/5. Sensation: Intact as to pain and light pressure in bilateral lower extremities. Bed Mobility/Transfers: Supine to sit independent Sit to stand independent Stand to sit independent NT. See most recent ELECTRIC METER INSTALLER HELPER notes. Gait: Provided supervision to walk about 250 feet using FWW with report of mild dizziness. Halley decreased. Denies chest pain. Able to tolerate up and down three 4-inch steps and to 6-inch steps with holding onto bilateral rails with step over step pattern requiring supervision only. Assessment: Karina demonstrates functional mobility improvement during this episode of care as evidenced by improved mobility level above and goal status below. Patient presents with clinical signs and symptoms consistent with current/admitting diagnoses that have resulted to mobility limitations as demonstrated by the following impairment level findings: 1. Decrease strength to B LE major muscle groups 2. Impaired standing balance 3. Impaired activity tolerance 4. Dizziness Impairments are contributing to the following functional limitations: 1. Inability to safely ambulate without assistive device 2. Increase completion time for mobility ADL performance 3. Increased fall risk Goals: Goals X1 week 1. Supine-Sit independent MET 2. Sit-Supine independent MET 3. Sit-Stand independent MET 4. Stand-Sit independent MET 5. Bed-Chair independent MET 6. Chair-Bed independent MET 7. Independent gait on level surface with use of front wheel walker for at least 300 feet without report of pain nor dyspnea NOT MET 8. Independent stair negotiation while holding onto B rails for at least 7 steps without report of pain nor dyspnea NOT MET 9. Independent with home exercise program NOT MET 10. Good static and dynamic standing balance/tolerance NOT MET DISCHARGE RECOMMENDATIONS: Home when medically cleared by hospitalist. Patient will benefit from home health PT services in order to progress mobility level using least restrictive assistive ambulatory device, assess home safety, identify additional equipment needs, and establish a functional maintenance program that will increase ability of patient to remain at home. TREATMENT CODE/TIME: MA Thank you for the opportunity to participate in the care of this patient. Nuria Neely PT, DPT, CLT [facility] [place], [place]
== END 2021-06-13 14:27 | disposition home health service (06) | DRG 880 ==
LOC: ER 06-10 00:03 → MS 06-10 00:29
PROVIDERS: Nurse Practitioner Family; Admitting Provider Family Medicine; Emergency Provider Physician Assistant; PCP Family Medicine; Visit Provider Family Medicine
DX: I77.71 Dissection of carotid artery (principal); J90 Pleural effusion, not elsewhere classified; R42 Dizziness and giddiness; F41.9 Anxiety disorder, unspecified; I25.10 Atherosclerotic heart disease of native coronary artery without angina pectoris; E11.3313 Type 2 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, bilateral; K22.2 Esophageal obstruction; Z87.891 Personal history of nicotine dependence; Z80.0 Family history of malignant neoplasm of digestive organs; I67.2 Cerebral atherosclerosis; I10 Essential (primary) hypertension; G89.29 Other chronic pain; I65.23 Occlusion and stenosis of bilateral carotid arteries; F33.41 Major depressive disorder, recurrent, in partial remission; Z79.4 Long term (current) use of insulin; M54.42 Lumbago with sciatica, left side; M54.41 Lumbago with sciatica, right side; E78.5 Hyperlipidemia, unspecified; G90.1 Familial dysautonomia [Riley-Day]; Z95.1 Presence of aortocoronary bypass graft; Z95.2 Presence of prosthetic heart valve; Z85.21 Personal history of malignant neoplasm of larynx; Z90.02 Acquired absence of larynx
CPT/HCPCS: 36415; 51701; 70496; 70498; 80048; 80053; 80307; 84145; 85027; 87635; 93005; 96360; 97162; 97530; 99223; 99232; 99285; 70551; 71045; 73502; 74221; 81003; 83735; 84443; 84484; 85025; 85610; 85730; 93010; 99220; 99239; G0378; J1644; J2060; J3360; J3490

== ENCOUNTER → 2021-06-10 07:44 | Outpatient (BNVA) | payer MEDICARE, MEDICAID, SELFPAY | PROVIDERS: PCP Family Medicine; Referring Provider Family Medicine; Visit Provider Psychiatry & Neurology Neurology | DX: R69 Illness, unspecified (principal) ==

== ENCOUNTER 2021-06-20 09:33 | Emergency (ER) | payer MEDICARE, MEDICAID, SELFPAY ==
[2021-06-20] VITALS (11 sets, daily range): BP systolic 127–144; BP diastolic 59–66; PULSE 52–76; RESP 8–24; TEMP 36.5; O2SAT 96–99
--- NOTE | 2021-06-20 09:45 | DI.CT_ITS ---
Exam(s) CT HEAD CERVICAL SPINE WO EXAM: CT HEAD CERVICAL SPINE WO CLINICAL HISTORY: fall, L frontal trauma, pain. TECHNIQUE: Imaging Protocol: Axial computed tomography images with coronal and sagittal reformatted images were created and reviewed COMPARISON: CT CT BRAIN NECK CTA from 06/09/2021 FINDINGS: BRAIN: There are no skull fractures nor fluid in the visualized paranasal sinuses. Hyperostosis frontalis i nterna is noted. There is no evidence of intracranial hemorrhage, mass effect, or shift of midline structures. There are no extra-axial fluid collections. The ventricles are not enlarged or shifted and there is no blo od within the ventricular system nor within the basal cisterns. CERVICAL SPINE: Tracheostomy noted There is no evidence of acute fracture nor acute listhesis. No significant prevertebral soft tissue swelling. There is multilevel disc space narrowing. There is no significant facet joint malalignment. No significant osseous lesions evident. IMPRESSION: No acute intracranial findings on this noninfused CT scan of the brain. No evidence of cervical spine fracture, malalignment, nor acute compromise of the cervical spinal can al. RADIATION DOSE DELIVERED: 1,148.27mGy.cm Total DLP DATA REPOSITORY: All CT scans at this facility are submitted to the National Radiology Data Registry (NRDR) Dose Index Registry (DIR) with the [employer] ([employer]). RADIATION OPTIMIZATION: All CT scans at this facility use at least one of these dose optimization te chniques: automated exposure control; mA and/or kV adjustment per patient size (includes targeted exa ms where dose is matched to clinical indication); or iterative reconstruction.
--- NOTE | 2021-06-20 09:45 | RT.EKG_ITS ---
APPROVED REPORT Exam: Resting ECG Reason for Exam: fall Patient Location: E HR:64 bpm ECG Measurements Heart Rate 64 AXIS CO 71 P 0 QRSd 86 QRS -29 QT 411 T 124 QTc 423 Conclusion Sinus rhythm Nonspecific st changes lateral .T <-0.20mV, I aVL V5 V6
--- NOTE | 2021-06-20 09:46 | DI.RAD_ITS ---
Exam(s) XR CHEST 1V IN DI DEPT EXAM: XR CHEST 1V IN DI DEPT CLINICAL HISTORY: Fall, pain. TECHNIQUE: 2D digital imaging was performed. COMPARISON: CR,XR XR CHEST 1V IN DI DEPT from 06/09/2021 FINDINGS: There are sternotomy wires again noted. There appears to be a prosthetic aortic valve again noted. Heart size is unchanged. Mediastinum is not widened. Lungs are clear with no infiltrates nor pleura l effusions. No pulmonary edema. No pneumothorax Lungs are clear. No infiltrates nor obvious pleural effusions. IMPRESSION: No acute pulmonary findings on this single AP portable view of the chest. Sternotomy wires and prosthetic aortic valve are again noted. DATA REPOSITORY: RADIATION DOSE DELIVERED: All CT scans at this facility use at least one of these dose optimization techniques: automated exposure control; mA and/or kV adjustment per patient size (includes targeted e xams where dose is matched to clinical indication); or iterative reconstruction.
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
[2021-06-20 10:04] LABS: Abs Immature Grans 0.05 10^3/uL (0.0-0.06); Absolute Basophil Count 0.05 10^3/uL (0.0-0.2); Absolute Eosinophil Count 0.19 10^3/uL (0.0-0.7); Absolute Lymphocyte Count 1.23 10^3/uL (1.2-3.4); Absolute Monocyte Count 0.66 10^3/uL (0.1-0.8); Absolute Neutrophil Count 3.83 10^3/uL (1.2-6.7); Basophils % 0.8; Eosinophils % 3.2; HCT 33.8 % (36.0-46.0); HGB 10.3 g/dL (11.2-15.7); Immature Grans % 0.8; Lymphocytes % 20.5; MCH 25.9 pg (27.0-33.0); MCHC 30.5 % (32.0-36.0); MCV 84.9 fL (80-95); Neutrophils % 63.7; Nucleated RBC 0 %; Platelet Count 201 10^3/uL (130-400); RBC 3.98 10^6/uL (3.93-5.22); RDW 15.1 % (11.7-14.6); RDW-SD 46.7 fL; WBC 6.01 10^3/uL (4.4-10.8)
[2021-06-20 10:20] LABS: ALT 29 U/L (14-59); AST 25 U/L (15-37); Albumin 3.7 g/dL (3.4-5.0); Alkaline Phosphatase 156 U/L (46-116); Anion Gap 10.8 mmol/L (3-11); BUN 15 mg/dL (7-18); Bilirubin, Total 0.2 mg/dL (0.2-1.0); CO2 25.2 mmol/L (21.0-32.0); CREATININE 1.1 mg/dL (0.55-1.02); Calcium 8.8 mg/dL (8.5-10.1); Chloride 105 mmol/L (98-107); Estimated GFR 48.69 (mL/min/1.73m2); Glucose 103 mg/dL (74-106); Magnesium 2.2 mg/dL (1.8-2.4); Potassium 4.5 mmol/L (3.5-5.1); Sodium 141 mmol/L (136-145); Total Protein 7.8 g/dL (6.4-8.2); Troponin I < 50 ng/L (<or=60)
--- NOTE | 2021-06-20 10:36 | DI.VRAD_ITS ---
PROCEDURE INFORMATION: Exam: XR Chest Exam date and time: 06/20/2021 10:11 AM Age: 71 years old Clinical indication: Pain; Other: Fall, cp TECHNIQUE: Imaging protocol: XR of the chest. Views: 1 view. COMPARISON: XR CHEST 1V IN DI DEPT 06/09/2021 9:36 PM FINDINGS: Lungs: Unremarkable. No consolidation. Pleural spaces: Unremarkable. No pleural effusion. No pneumothorax. Heart/Mediastinum: The cardiac shadow is stable. Bones/joints: Median sternotomy wires and mediastinal clips are present. There is no acute osseous pathology. IMPRESSION: No acute cardiopulmonary pathology identified. Dictated and Authenticated by: Wilfredo Muhammad MD. Ordering:ISADORA Suresh MD
--- NOTE | 2021-06-20 10:37 | DI.VRAD_ITS ---
PROCEDURE INFORMATION: Exam: CT Head Without Contrast Exam date and time: 06/20/2021 9:47 AM Age: 71 years old Clinical indication: Other: Fall, lt frontal trauma; Headache; Post-traumatic; Other: Neck pain, fall TECHNIQUE: Imaging protocol: Computed tomography of the head without contrast. Radiation optimization: All CT scans at this facility use at least one of these dose optimization techniques: automated exposure control; mA and/or kV adjustment per patient size (includes targeted exams where dose is matched to clinical indication); or iterative reconstruction. COMPARISON: MR BRAIN WO 10/06/2021 10:42 FINDINGS: Brain: Normal. No intraxial or extraaxial hemorrhage. No infarct visible at this time. Unremarkable white matter. No mass effect. No significant involutional change. Cerebral ventricles: Normal. No ventriculomegaly or midline shift. Pituitary gland and sella: Normal. No enlargement. Paranasal sinuses: Visualized sinuses are unremarkable. No fluid levels or mucosal thickening. Mastoid air cells: Visualized mastoid air cells are well aerated. Orbital cavity: Unremarkable. Vasculature: No significant atherosclerotic calcification. Bones/joints: There is no sign of calvarial fracture. Prominent frontal cortical hyperostosis is present. Soft tissues: Left supraorbital scalp hematoma is present. IMPRESSION: Scalp hematoma. No sign of acute intracranial trauma. PROCEDURE INFORMATION: Exam: CT Cervical Spine Without Contrast Exam date and time: 06/20/2021 9:47 AM Age: 71 years old Clinical indication: Other: Fall, lt frontal trauma; Headache; Post-traumatic; Other: Neck pain, fall TECHNIQUE: Imaging protocol: Computed tomography images of the cervical spine without contrast. Radiation optimization: All CT scans at this facility use at least one of these dose optimization techniques: automated exposure control; mA and/or kV adjustment per patient size (includes targeted exams where dose is matched to clinical indication); or iterative reconstruction. COMPARISON: MR BRAIN WO 10/06/2021 10:42 FINDINGS: Bones/joints: Cervical vertebrae are normal in height and alignment with no sign of fracture. Facet joints are normally aligned with no fracture or subluxation. Mild degenerative changes are present. Discs/Spinal canal/Neural foramina: Disc space narrowing is present at C5-C6 and C6-C7. There are small posterior osteophytes impinging upon the spinal canal. Lungs: Lung apices are clear. Soft tissues: Unremarkable. No prevertebral soft tissue swelling. IMPRESSION: Degenerative changes. No evidence of C-spine trauma.. Dictated and Authenticated by: Kerwin Singleton MD. Ordering:ISADORA Suresh MD
[2021-06-20] MEDS: ACETAMINOPHEN 1,000 MG/100 ML BTL 400 MG IVPB (10:46)
[2021-06-20 11:58] LABS: Bilirubin Negative (Negative); Blood Negative (Negative); Clarity Clear (Clear); Glucose 500 mg/dL (Negative); Ketones Negative (Negative); Leukocyte Esterase Negative (Negative); Nitrite Negative (Negative); Specific Gravity 1.025 (1.005-1.025); Urobilinogen 0.2 EU/dL (Up TO 0.2)
[2021-06-20] MEDS: Ibuprofen 600 MG TAB PO (12:11)
== END 2021-06-20 12:51 | disposition home or self-care (01) ==
PROVIDERS: Emergency Provider Emergency Medicine; PCP Family Medicine
DX: S00.83XA Contusion of other part of head, initial encounter (principal); M54.2 Cervicalgia; W18.39XA Other fall on same level, initial encounter; R81 Glycosuria; K64.9 Unspecified hemorrhoids; R07.9 Chest pain, unspecified
CPT/HCPCS: 36415; 80053; 93005; 96365; 96366; 99285; 70450; 71045; 72125; 81003; 83735; 84484; 85025; 93010; 99284; J0131; J3490

== ENCOUNTER → 2021-07-06 10:31 | Outpatient (BNVA) | payer MEDICARE, MEDICAID, SELFPAY | PROVIDERS: PCP Family Medicine; Visit Provider Psychiatry & Neurology Neurology | DX: I65.23 Occlusion and stenosis of bilateral carotid arteries (principal); Z79.82 Long term (current) use of aspirin; I77.71 Dissection of carotid artery; I67.841 Reversible cerebrovascular vasoconstriction syndrome; I67.2 Cerebral atherosclerosis; Z95.1 Presence of aortocoronary bypass graft; R42 Dizziness and giddiness | CPT/HCPCS: 99215 ==

== ENCOUNTER 2021-07-17 01:06 | Outpatient (CLI) | payer MEDICARE, MEDICAID, SELFPAY ==
--- NOTE | 2021-07-17 07:15 | DI.CT_ITS ---
Exam(s) CT CAROTID NECK CTA EXAM: CT CAROTID NECK CTA CLINICAL HISTORY: L carotid dIssection,bilat carotid stenosis,i65.23. TECHNIQUE: Imaging Protocol: Axial CT angiography was performed with multi-slice acquisition and mu lti-planar and/or 3D reconstructions. CONTRAST MATERIAL: Intravenous: Omnipaque 350 Contrast volume:85 mL COMPARISON: CT CT BRAIN NECK CTA from 12/24/[address] BRAIN NECK CTA from 06/09/[address] HEAD CERVICAL SPINE WO from 06/20/2021 FINDINGS: CTA Neck W: Common Carotid: Right: No aneurysm, occlusion or significant stenosis. Left: No aneurysm, occlusion or significant stenosis. External Carotid: Right: No aneurysm, occlusion or significant stenosis. Left: No aneurysm, occlusion or significant stenosis. Internal Carotid: Right: No aneurysm, occlusion or significant stenosis. There is stable marked stenosis in the proxim al right internal carotid artery. Atherosclerosis is present. Left: There has been no change in appearance of the marked stenosis of the proximal internal carotid artery. There is also no change in appearance of the dissection in the proximal left internal carot id artery. Atherosclerosis is present. Vertebral Artery: Right: There is unchanged stenosis of the proximal right vertebral artery. Left: There is unchanged stenosis of the proximal right vertebral artery. Lung Apices: Normal. Bones: Age-appropriate degenerative changes are seen in the spine. Soft Tissues: The patient has a tracheostomy tube. IMPRESSION: 1. Stable appearance of the proximal left internal carotid artery dissection. 2. Stable bilateral stenosis in the internal carotid arteries and vertebral arteries as described. RADIATION DOSE DELIVERED: 349.15mGy.cm Total DLP DATA REPOSITORY: All CT scans at this facility are submitted to the National Radiology Data Registry (NRDR) Dose Index Registry (DIR) with the [employer] ([employer]). RADIATION OPTIMIZATION: All CT scans at this facility use at least one of these dose optimization te chniques: automated exposure control; mA and/or kV adjustment per patient size (includes targeted exa ms where dose is matched to clinical indication); or iterative reconstruction.
[2021-07-17] MEDS: Omnipaque 350 MG/ML 100 ML BTL IJ (14:38)
== END 2021-07-17 01:26 ==
PROVIDERS: PCP Nurse Practitioner Family; Visit Provider Psychiatry & Neurology Neurology
DX: I65.23 Occlusion and stenosis of bilateral carotid arteries (principal)
CPT/HCPCS: 70498; J3490

== ENCOUNTER 2021-07-28 01:18 | Outpatient (CLI) | payer MEDICARE, MEDICAID, SELFPAY ==
[2021-07-28 11:51] LABS: Source Nasal/Nares
[2021-07-28 14:42] LABS: COVID-19 PCR Negative (Negative)
== END 2021-07-28 01:19 | disposition home or self-care (01) ==
LOC: LBO 01:18
PROVIDERS: PCP Nurse Practitioner Family; Visit Provider Otolaryngology Otolaryngology/Facial Plastic Surgery
DX: Z20.822 Contact with and (suspected) exposure to COVID-19 (principal); Z01.818 Encounter for other preprocedural examination
CPT/HCPCS: 87635; U0005

== ENCOUNTER → 2021-08-03 08:19 | Outpatient (BNVA) | payer MEDICARE, MEDICAID, SELFPAY | PROVIDERS: PCP Nurse Practitioner Family; Referring Provider Family Medicine; Visit Provider Psychiatry & Neurology Neurology | DX: R69 Illness, unspecified (principal) ==

== ENCOUNTER → 2021-08-10 07:27 | Outpatient (BNVA) | payer MEDICARE, MEDICAID, SELFPAY | PROVIDERS: PCP Nurse Practitioner Family; Referring Provider Family Medicine; Visit Provider Psychiatry & Neurology Neurology | DX: I65.22 Occlusion and stenosis of left carotid artery (principal); I67.841 Reversible cerebrovascular vasoconstriction syndrome; I67.2 Cerebral atherosclerosis; I77.71 Dissection of carotid artery; Z79.82 Long term (current) use of aspirin; R42 Dizziness and giddiness | CPT/HCPCS: 99214 ==

== ENCOUNTER → 2021-09-21 07:33 | Outpatient (BNVA) | payer MEDICARE, MEDICAID, SELFPAY | PROVIDERS: PCP Nurse Practitioner Family; Visit Provider Psychiatry & Neurology Neurology | DX: Z79.02 Long term (current) use of antithrombotics/antiplatelets (principal); I67.841 Reversible cerebrovascular vasoconstriction syndrome; I67.2 Cerebral atherosclerosis; I77.71 Dissection of carotid artery; I65.23 Occlusion and stenosis of bilateral carotid arteries; R42 Dizziness and giddiness | CPT/HCPCS: 99214 ==

== ENCOUNTER → 2021-10-19 02:45 | Outpatient (CLI) | payer MEDICARE, MEDICAID, SELFPAY | PROVIDERS: PCP Nurse Practitioner Family; Visit Provider Nurse Practitioner Family ==

== ENCOUNTER 2021-11-11 15:38 | Outpatient (REF) | payer MEDICARE, MEDICAID, SELFPAY | END 2021-11-11 15:39 | disposition home or self-care (01) | LOC: LBN 15:38 | PROVIDERS: PCP Nurse Practitioner Family; Visit Provider Internal Medicine | DX: R35.0 Frequency of micturition (principal) | CPT/HCPCS: 87077; 87086; 87186 ==

== ENCOUNTER → 2021-12-02 07:31 | Outpatient (BNVA) | payer MEDICARE, MEDICAID, SELFPAY | PROVIDERS: PCP Nurse Practitioner Family; Visit Provider Psychiatry & Neurology Neurology | DX: I67.841 Reversible cerebrovascular vasoconstriction syndrome (principal); I65.23 Occlusion and stenosis of bilateral carotid arteries; I67.2 Cerebral atherosclerosis; Z79.82 Long term (current) use of aspirin; Z90.2 Acquired absence of lung [part of]; R42 Dizziness and giddiness; I77.71 Dissection of carotid artery | CPT/HCPCS: 99443 ==

== ENCOUNTER → 2022-01-28 02:30 | Outpatient (CLI) | payer MEDICARE, MEDICAID, SELFPAY ==
--- NOTE | 2022-01-28 11:15 | DI.MAMMO_ITS ---
Exam(s) MG MAMMO SCREENING 60 MIN DUR EXAM: MG MAMMO SCREENING 60 MIN DUR CLINICAL HISTORY: breast cancer screening,Z12.39 TECHNIQUE: Bilateral full field digital CC and MLO mammographic images were obtained with 3D tomosyn thesis and utilizing computer aided detection (CAD). COMPARISON: Available for comparison. FINDINGS: Masses/Architectural Distortion: None seen. Microcalcifications: No suspicious pleomorphic-type are seen. Skin Thickening/Nipple Retraction: None. IMPRESSION: 1. No significant interval change with no specific features of malignancy noted. 2. Unless there is more urgent need, screening mammography is recommended, as per [employer] guidelines. BI-RADS Category 1 - Negative Breast Density - Category B - Scattered areas of fibroglandular density Breast density category C or D implies that the patient has dense breast tissue. Dense breast tissue is very common and is not abnormal but dense breast tissue can make it harder to find cancer on a ma mmogram. Also, dense breast tissue may increase their breast cancer risk. This information about the result of the mammogram report was provided to the patient to raise their awareness. Use this report when you speak with the patient about their risks for breast cancer, which includes their family hist ory. At that time, you may recommend for more screening tests (Ultrasound or MRI) as they might be us eful based on their risk. A negative radiographic report should not delay biopsy if a dominant or clinically suspicious mass is present. Up to ten percent of cancers are not identified on mammography. A negative report may reinforce clinical impression. Adenosis and dense breasts may obscure an underlying neoplasm. False positive reports average 6 to 10%. Patient will receive a letter notifying them of these results.
== END ==
PROVIDERS: PCP Nurse Practitioner Family; Visit Provider Nurse Practitioner Family
DX: Z12.31 Encounter for screening mammogram for malignant neoplasm of breast (principal)
CPT/HCPCS: 77063; 77067

== ENCOUNTER 2022-06-30 15:20 | Outpatient (REF) | payer MEDICARE, MEDICAID, SELFPAY ==
[2022-06-30 19:32] LABS: BUN 15 mg/dL (7-18); CREATININE 1.3 mg/dL (0.55-1.02); Calcium 9.5 mg/dL (8.5-10.1); Chloride 104 mmol/L (98-107); Estimated GFR 43.15 (mL/min/1.73m2); Glucose 98 mg/dL (74-106); Potassium 4.6 mmol/L (3.5-5.1); Sodium 142 mmol/L (136-145)
== END 2022-06-30 15:21 | disposition home or self-care (01) ==
LOC: LBN 15:20
PROVIDERS: PCP Nurse Practitioner Family; Referring Provider Nurse Practitioner Family; Visit Provider Nurse Practitioner Family
DX: I10 Essential (primary) hypertension (principal)
CPT/HCPCS: 80048

== ENCOUNTER 2022-08-25 11:17 | Outpatient (CLI) | payer MEDICARE, MEDICAID, SELFPAY ==
--- NOTE | 2022-08-25 11:45 | RT.EKG_ITS ---
APPROVED REPORT Exam: Resting ECG Reason for Exam: Preoperative evaluation Patient Location: O HR:70 bpm ECG Measurements Heart Rate 70 AXIS NH 200 P -46 QRSd 86 QRS -13 QT 405 T 91 QTc 437 Conclusion Sinus l rhythm...P axis (-45,135) Abnormal R-wave progression, early transition...QRS area>0 in V2
== END 2022-08-25 11:18 | disposition home or self-care (01) ==
PROVIDERS: PCP Nurse Practitioner Family; Visit Provider Nurse Practitioner Family
DX: Z01.818 Encounter for other preprocedural examination (principal); D64.9 Anemia, unspecified
CPT/HCPCS: 93010

== ENCOUNTER 2022-09-28 07:02 | Emergency (ER) | payer MEDICARE, MEDICAID, SELFPAY ==
[2022-09-28 07:05] VITALS: BP 180/134; PULSE 88; RESP 16; TEMP 36.9; O2SAT 97
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
[2022-09-28] MEDS: Amoxicillin 875/Clav. 125 TAB PO (07:38)
[2022-09-28] MEDS: Acetaminophen 500 MG TAB 1000 MG PO (07:38)
--- NOTE | 2022-09-28 18:10 | NUR.NOTE ---
Nursing Note: Referral faxed to PCP for ear infection/in 1 week.
== END 2022-09-28 07:40 | disposition home or self-care (01) ==
PROVIDERS: Emergency Provider Emergency Medicine; PCP Nurse Practitioner Family
DX: H65.491 Other chronic nonsuppurative otitis media, right ear (principal); Z87.891 Personal history of nicotine dependence
CPT/HCPCS: 99283; 99284

== ENCOUNTER → 2022-11-03 09:58 | Outpatient (BNVA) | payer MEDICARE, MEDICAID, SELFPAY | PROVIDERS: PCP Nurse Practitioner Family; Referring Provider Nurse Practitioner Family; Visit Provider Psychiatry & Neurology Neurology | DX: I67.841 Reversible cerebrovascular vasoconstriction syndrome (principal); I65.23 Occlusion and stenosis of bilateral carotid arteries; Z79.82 Long term (current) use of aspirin; Z79.02 Long term (current) use of antithrombotics/antiplatelets; I67.2 Cerebral atherosclerosis; R42 Dizziness and giddiness; I77.71 Dissection of carotid artery; R51.9 Headache, unspecified; G89.29 Other chronic pain; M26.601 Right temporomandibular joint disorder, unspecified; R41.3 Other amnesia | CPT/HCPCS: 99215 ==

== ENCOUNTER 2023-01-29 19:11 | Emergency (ER) | payer MEDICARE, MEDICAID, SELFPAY ==
[2023-01-29] VITALS (31 sets, daily range): BP systolic 111–233; BP diastolic 53–118; PULSE 57–90; RESP 7–30; TEMP 36.2; O2SAT 97
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
[2023-01-29] MEDS: Potassium Bicarbonate/Cit AC 25 MEQ TABLET.EFF PO ×2 (20:42→21:35)
--- NOTE | 2023-01-29 21:31 | DI.RAD_ITS ---
Exam(s) XR CHEST 2V PA LATERAL EXAM: XR CHEST 2V PA LATERAL CLINICAL HISTORY: R/O aspiration, history of trach, FB sensation eso TECHNIQUE: 2D digital imaging was performed. COMPARISON: CR,XR XR CHEST 1V IN DI DEPT from 06/20/2021 FINDINGS: Leads overlie the chest. HEART: Normal size. Aortic valve prosthesis. Aorta: Not dilated. PULMONARY VASCULATURE: Normal. LUNGS: Clear. PLEURAL SPACE: No pleural effusion or pneumothorax. BONE:Unremarkable for age. Sternal wires. IMPRESSION: No acute abnormality. DATA REPOSITORY: RADIATION DOSE DELIVERED:
--- NOTE | 2023-01-29 21:32 | DI.RAD_ITS ---
Exam(s) XR SOFT TISSUE NECK EXAM: XR SOFT TISSUE NECK CLINICAL HISTORY: FB sensation. TECHNIQUE: 2D digital imaging was performed. COMPARISON: CR XR SOFT TISSUE NECK from 06/07/[address] HEAD CERVICAL SPINE WO from 06/20/2021 FINDINGS: BONES: No acute fracture is present. Visualized vertebral body and disc heights are maintained. Dege nerative changes. SOFT TISSUE:Airway is patent. Laryngeal resection. Tracheostomy tube seen.. Epiglottis is not enla rged. Prevertebral soft tissues appear unremarkable. IMPRESSION: Postsurgical changes. Tracheostomy tube. DATA REPOSITORY: RADIATION DOSE DELIVERED:
--- NOTE | 2023-01-29 22:19 | DI.VRAD_ITS ---
PROCEDURE INFORMATION: Exam: XR Chest Exam date and time: 01/29/2023 9:13 PM Age: 72 years old Clinical indication: Other: R/O aspiration, fb sensation eso; Prior surgery; Surgery date: 6+ months; Surgery type: Heart surgery; Patient HX: R/O aspiration, history of trach, fb sensation eso TECHNIQUE: Imaging protocol: Radiologic exam of the chest. Views: 2 views. COMPARISON: CR XR CHEST 1V IN DI DEPT 06/20/2021 10:19 AM FINDINGS: Lungs: No consolidation. No Mass Pleural spaces: No pleural effusion. No pneumothorax. Heart/Mediastinum: Unremarkable Bones/joints: Median sternotomy wires are again noted. Degenerative changes of the thoracic spine. IMPRESSION: No acute cardiopulmonary disease Dictated and Authenticated by: Geronimo Galdamez MD. Ordering:QUITA You MD
--- NOTE | 2023-01-29 22:22 | DI.VRAD_ITS ---
PROCEDURE INFORMATION: Exam: XR Soft Tissue Neck Exam date and time: 01/29/2023 9:16 PM Age: 72 years old Clinical indication: Other: Fb sensation; Prior surgery; Surgery date: 6+ months; Surgery type: Tracheostomy TECHNIQUE: Imaging protocol: Radiologic exam of the soft tissues of the neck. COMPARISON: CT NECK W 07/25/2020 1:57 PM FINDINGS: Airway: No abnormal narrowing. Soft tissues: Epiglottis and aryepiglottic folds are unremarkable. Prevertebral soft tissues are unremarkable. No radiopaque foreign body Bones/joints: Degenerative changes of the cervical spine. Surgical clips in the anterior neck IMPRESSION: No acute findings. Dictated and Authenticated by: Geronimo Galdamez MD. Ordering:QUITA You MD
[2023-01-29] MEDS: dilTIAZem 60 MG TAB 180 MG PO (23:45)
--- NOTE | 2023-01-29 23:59 | NUR.NOTE ---
Referral per Kenyatta Mcclendon to [facility] in 3-5 days for foreign body sensation, patient has esophageal strictures. Put the referral in the [facility] box for follow up assistance. Nursing Note:
== END 2023-01-29 23:58 | disposition home or self-care (01) ==
PROVIDERS: Emergency Provider Registered Nurse Emergency; PCP Nurse Practitioner Family
DX: R13.10 Dysphagia, unspecified (principal); I12.9 Hypertensive chronic kidney disease with stage 1 through stage 4 chronic kidney disease, or unspecified chronic kidney disease; E11.22 Type 2 diabetes mellitus with diabetic chronic kidney disease; N18.9 Chronic kidney disease, unspecified; Z95.2 Presence of prosthetic heart valve; Z95.1 Presence of aortocoronary bypass graft; Z79.82 Long term (current) use of aspirin; Z79.84 Long term (current) use of oral hypoglycemic drugs; Z93.0 Tracheostomy status
CPT/HCPCS: 99283; 70360; 71046

== ENCOUNTER 2023-02-24 17:30 | Emergency (ER) | payer MEDICARE, MEDICAID, SELFPAY ==
[2023-02-24 17:30] VITALS: BP 191/78; PULSE 76; RESP 18; TEMP 36.6; O2SAT 98
--- NOTE | 2023-02-24 18:00 | DI.RAD_ITS ---
Exam(s) XR TOE RT FIFTH XR FOOT RT COMPLETE EXAM: XR FOOT RT COMPLETE CLINICAL HISTORY: trauma. TECHNIQUE: 2D digital imaging was performed. Three views of the foot. Three views of the 5th toe.. COMPARISON: CR,XR XR FOOT LT COMPLETE from 04/15/2019 CR XR TOE RT FIFTH from 02/24/2023 FINDINGS: BONES: Mildly displaced transverse fracture distal shaft of the proximal phalanx of the 5th toe. No extension to the articular surface. No additional fractures. Bones appear osteopenic. No bony dest ructive lesion is seen. Small heel spurs. JOINTS: No dislocation present. SOFT TISSUE: Swelling around 5th toe IMPRESSION: Mildly displaced fracture proximal phalanx 5th toe. DATA REPOSITORY: RADIATION DOSE DELIVERED:
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
== END 2023-02-24 19:15 | disposition home or self-care (01) ==
LOC: ER 19:19
PROVIDERS: Emergency Provider Nurse Practitioner Acute Care; PCP Nurse Practitioner Family
DX: M79.674 Pain in right toe(s) (principal); S92.911A Unspecified fracture of right toe(s), initial encounter for closed fracture; W20.8XXA Other cause of strike by thrown, projected or falling object, initial encounter
CPT/HCPCS: 99283; 73630; 73660

== ENCOUNTER → 2023-04-20 02:09 | Outpatient (CLI) | payer MEDICARE, MEDICAID, SELFPAY ==
--- NOTE | 2023-04-20 | DI.CT_ITS ---
Exam(s) CT NECK W EXAM: CT NECK W INDICATION: HX LARYNGEAL CANCER Z85.21 HX LARYNGECTOMY Z90.02 GLOBUS SENSATION R09.89. COMPARISON: CT CT CAROTID NECK CTA from 07/17/2021 CR,XR XR CHEST 2V PA LATERAL from 01/29/2023 TECHNIQUE: FINDINGS: VISUALIZED PARANASAL SINUSES: Unremarkable. NASOPHARYNX: Unremarkable ORODENTAL: Unremarkable. OROPHARYNX: Unremarkable. No masses evident. No prevertebral soft tissue swelling at this level. HYPOPHARYNX: Prior laryngectomy. There is some soft tissue thickening along the left side of the neop harynx. More so than previous. Possibly significant. VOCAL CORDS: Unremarkable. No masses evident. Subglottic airway appears unremarkable. THYROID GLAND: Not seen. SALIVARY GLANDS: Unremarkable. No significant findings in the parotid and submandibular glands. LYMPH NODES: There is no adenopathy evident in the neck and supraclavicular regions. OTHER: Sternotomy wires. VISUALIZED LUNG APICES: No infiltrates but there is a small noncalcified nodule in the lateral aspect of the left upper lobe which measures 5 mm. This level was not included on the prior CT scan of Jul. There is no nodule evident on the chest x-ray of 01/29/2023. This noncalcified peripherall y located left upper lobe nodule is probably too small to appreciate on plain films. IMPRESSION: 1. There is some mild soft tissue thickening along the left side of the neopharynx. Recommend direct visualization. 2. There is a 5 mm noncalcified nodule in the left upper lobe. This level was not included in the fi eld of view of prior study. Recommend follow-up chest CT scan in 6 months. RADIATION DOSE DELIVERED: Total DLP DATA REPOSITORY: All CT scans at this facility are submitted to the National Radiology Data Registry (NRDR) Dose Index Registry (DIR) with the [employer] (A[employer]). RADIATION OPTIMIZATION: All CT scans at this facility use at least one of these dose optimization te chniques: automated exposure control; mA and/or kV adjustment per patient size (includes targeted exa ms where dose is matched to clinical indication); or iterative reconstruction.
[2023-04-20 10:22] LABS: Absolute Basophil Count 0.07 10^3/uL (0.0-0.2); Absolute Eosinophil Count 0.19 10^3/uL (0.0-0.7); Absolute Lymphocyte Count 1.74 10^3/uL (1.2-3.4); Absolute Monocyte Count 0.84 10^3/uL (0.1-0.8); Absolute Neutrophil Count 6.11 10^3/uL (1.2-6.7); Basophils % 0.8; Eosinophils % 2.1; HCT 37.6 % (36.0-46.0); HGB 11.6 g/dL (11.2-15.7); Immature Grans % 1.1; Lymphocytes % 19.2; MCH 24.3 pg (27.0-33.0); MCHC 30.9 % (32.0-36.0); MCV 79 fL (80-95); MPV 11.9 fL (8.0-11.0); Monocytes % 9.3; Neutrophils % 67.5; Platelet Count 215 10^3/uL (130-400); RBC 4.77 10^6/uL (3.93-5.22); RDW 16.3 % (11.7-14.6); RDW-SD 46.6 fL; WBC 9.05 10^3/uL (4.4-10.8)
[2023-04-20 11:04] LABS: Estimated GFR 39.23 (mL/min/1.73m2); Ferritin 8 ng/mL (8-252); TSH (W/Ref FT4) 0.56 uIU/mL (0.36-3.74); Vitamin B12 911 pg/mL (193-986)
[2023-04-20 11:07] LABS: CREATININE 1.4 mg/dL (0.55-1.02)
[2023-04-20] MEDS: Normal Saline - Diluent 50 ML VIAL IJ (11:16)
[2023-04-20] MEDS: Omnipaque 350 MG/ML 100 ML BTL IJ (11:17)
[2023-04-20 11:28] LABS: Iron 40 ug/dL (50-170); Total Iron Binding Capacity 428 ug/dL (250-450); Transferrin Sat 9 % (15-50)
--- NOTE | 2023-04-20 13:18 | DI.VRAD_ITS ---
PROCEDURE INFORMATION: Exam: CT Neck With Contrast Exam date and time: 04/20/2023 11:06 AM Age: 73 years old Clinical indication: Other: HX laryngeal cancer HX laryngectomy globus sensation TECHNIQUE: Imaging protocol: Computed tomography of the neck with contrast. Contrast material: OMNIPAQUE; Contrast volume: 100 ml; Contrast route: IV; COMPARISON: CT CAROTID NECK CTA 07/17/2021 2:26 PM FINDINGS: Pharynx: Focal soft tissue thickening along the left contour of the neopharynx (series 3 images 48 through 54). This thickening has increased in comparison to images from CT angiography of the neck from 07/17/2021. Larynx: Status post total laryngectomy. Prevertebral and retropharyngeal spaces: Unremarkable. Salivary glands: Normal. Glands are normal in size. Thyroid: Normal. No enlarged or calcified nodules. Lymph nodes: Unremarkable. No lymphadenopathy. Trachea: Tracheostomy in place. Lungs: Unremarkable as visualized. Bones/joints: Unremarkable. No acute fracture. Soft tissues: Unremarkable. IMPRESSION: Focal soft tissue thickening along the left contour of the neopharynx (series 3 images 48 through 54). This thickening has increased in comparison to images from CT angiography of the neck from 07/17/2021. PET-CT and direct visualization recommended for characterization. Dictated and Authenticated by: Dalton Dubon MD. Ordering:SREEDHAR Quintero MD
[2023-04-20 15:48] LABS: Folate > 20.0 ng/mL (8.6-20.0)
== END ==
PROVIDERS: Nurse Practitioner Family; PCP Nurse Practitioner Adult Health; Visit Provider Physician Assistant
DX: Z01.818 Encounter for other preprocedural examination; J39.2 Other diseases of pharynx; R91.8 Other nonspecific abnormal finding of lung field; Z85.21 Personal history of malignant neoplasm of larynx
CPT/HCPCS: 70491; 82565; 82607; 82728; 82746; 83540; 83550; 84443; 85025; J3490

== ENCOUNTER 2023-04-20 11:25 | Emergency (ER) | payer MEDICARE, MEDICAID, SELFPAY ==
[2023-04-20 11:28] VITALS: BP 136/84; PULSE 70; RESP 18; TEMP 36.6; O2SAT 99
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
== END 2023-04-20 11:54 | disposition home or self-care (01) ==
LOC: ER 11:53
PROVIDERS: Emergency Provider Emergency Medicine; PCP Nurse Practitioner Adult Health
DX: M79.671 Pain in right foot (principal); S99.921A Unspecified injury of right foot, initial encounter; L98.8 Other specified disorders of the skin and subcutaneous tissue; E11.9 Type 2 diabetes mellitus without complications; Z87.891 Personal history of nicotine dependence
CPT/HCPCS: 99283

== ENCOUNTER 2023-05-27 11:51 | Emergency (ER) | payer OTHER, MEDICAID, SELFPAY ==
[2023-05-27 11:59] VITALS: BP 196/75; PULSE 82; RESP 18; TEMP 36.5; O2SAT 98
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
[2023-05-27 13:18] VITALS: BP 152/88; PULSE 82; RESP 18; TEMP 36.8; O2SAT 98
[2023-05-27] MEDS: Fluconazole 150 MG TAB PO (13:18)
== END 2023-05-27 13:19 | disposition home or self-care (01) ==
PROVIDERS: Emergency Provider Emergency Medicine Emergency Medical Services; PCP Nurse Practitioner Family
DX: B37.31 Acute candidiasis of vulva and vagina (principal); I25.10 Atherosclerotic heart disease of native coronary artery without angina pectoris; I10 Essential (primary) hypertension; Z95.1 Presence of aortocoronary bypass graft; Z95.2 Presence of prosthetic heart valve; Z79.4 Long term (current) use of insulin; Z79.82 Long term (current) use of aspirin; Z87.891 Personal history of nicotine dependence
CPT/HCPCS: 99283; 99284

== ENCOUNTER → 2023-06-15 02:41 | Outpatient (CLI) | payer OTHER, MEDICAID, SELFPAY ==
--- NOTE | 2023-06-15 07:00 | DI.CT_ITS ---
Exam(s) CT LUMBAR SPINE WO EXAM: CT LUMBAR SPINE WO CLINICAL HISTORY: worsening lt lumbar back pain, m54.50. TECHNIQUE: Imaging Protocol: Axial computed tomography images with coronal and sagittal reformatted images were created and reviewed COMPARISON: CT CT CHEST PE CTA from 01/13/[address] CHEST/ABD/PEL W from 04/03/2021 FINDINGS: Bones: The last intervertebral disc space is designated the L5/S1 level for the numbering purpose of this examination. There are endplate osteophytes throughout the lumbar spine particularly at L2-3 th rough L4-5. There is no spondylolysis or spondylolisthesis. Facet arthropathy is present in the lowe r lumbar spine. There is disc space narrowing at L5-S1. No fracture is seen. T12-L1: No disc herniations or bulges are present. No central spinal canal or neural foraminal steno sis. L1-2: No disc herniations or bulges are present. No central spinal canal or neural foraminal stenosi s. L2-3: No disc herniations or bulges are present. No central spinal canal or neural foraminal stenosi s. L3-4: No disc herniations or bulges are present. There are mild degenerative changes of the facets resulting in mild narrowing of the neural foramen. No significant central spinal canal stenosis. L4-5: No disc herniations or bulges are present. There are degenerative changes seen of the facets resulting in mild bilateral neural foraminal stenosis. No significant central spinal canal stenosis. L5-S1: No disc herniations or bulges are present. There are degenerative changes of the facets bila terally. No central spinal canal or neural foraminal stenosis. Soft Tissues: The visualized SI joints and sacrum are will maintained. The paraspinal soft tissues a re unremarkable. Atherosclerosis of the abdominal aorta is noted. 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 It is unchanged. No follow-up is recommended. IMPRESSION: 1. Multilevel degenerative changes in the lumbar spine resulting in neural foraminal narrowing at L3- 4 and L4-L5. 2. No significant central spinal canal stenosis. RADIATION DOSE DELIVERED: 613.71mGy.cm Total DLP 613.71mGy.cm Total DLP DATA REPOSITORY: All CT scans at this facility are submitted to the National Radiology Data Registry (NRDR) Dose Index Registry (DIR) with the [employer] ([employer]). RADIATION OPTIMIZATION: All CT scans at this facility use at least one of these dose optimization te chniques: automated exposure control; mA and/or kV adjustment per patient size (includes targeted exa ms where dose is matched to clinical indication); or iterative reconstruction.
== END ==
PROVIDERS: PCP Nurse Practitioner Adult Health; Visit Provider Emergency Medicine
DX: M47.816 Spondylosis without myelopathy or radiculopathy, lumbar region (principal); M48.061 Spinal stenosis, lumbar region without neurogenic claudication
CPT/HCPCS: 72131

== ENCOUNTER 2023-07-20 18:10 | Outpatient (REF) | payer OTHER, MEDICAID, SELFPAY | END 2023-07-20 18:11 | disposition home or self-care (01) | LOC: LBN 18:10 | PROVIDERS: PCP Nurse Practitioner Adult Health; Visit Provider Physician Assistant Medical | DX: N89.8 Other specified noninflammatory disorders of vagina (principal) | CPT/HCPCS: 87480; 87510; 87660 ==

== ENCOUNTER 2023-09-04 12:35 | Emergency (ER) | payer OTHER, MEDICAID, SELFPAY ==
[2023-09-04 12:43] VITALS: BP 188/63; PULSE 76; RESP 16; TEMP 37; O2SAT 98
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
--- NOTE | 2023-09-04 14:01 | DI.VRAD_ITS ---
PROCEDURE INFORMATION: Exam: CT Head Without Contrast Exam date and time: 09/04/2023 1:34 PM Age: 73 years old Clinical indication: Other: Pain S/P hitting head on car TECHNIQUE: Imaging protocol: Computed tomography of the head without contrast. Radiation optimization: All CT scans at this facility use at least one of these dose optimization techniques: automated exposure control; mA and/or kV adjustment per patient size (includes targeted exams where dose is matched to clinical indication); or iterative reconstruction. COMPARISON: CT HEAD CERVICAL SPINE WO 06/20/2021 10:16 AM FINDINGS: Brain: Ventricles, sulci are unchanged. No acute hemorrhage. No mass or shift. No acute cortical or major vascular territory infarct. There is a focus of low attenuation posteriorly inferiorly in the left lentiform nucleus which could represent remote lacune versus perivascular space. It was previously identified. There is no new infarct identified. There are no significant extra-axial collections. Intracranial vascular calcification is noted. There is no new hyperdense thrombus Cerebral ventricles: No significant ventricular enlargement/hydrocephalus Paranasal sinuses: There is no significant sinus opacification or fluid level Mastoid air cells: There is no significant mastoid or middle ear opacification Orbital cavities: There is no significant orbital abnormality. The patient has had prior lens replacement Bones/joints: There is no acute bony abnormality Soft tissues: No significant subcutaneous abnormality IMPRESSION: No new or acute findings. Dictated and Authenticated by: Melanie Liriano MD. Ordering:YUDY Nunez MD
[2023-09-04] MEDS: Amoxicillin 875 MG TAB PO (14:28)
== END 2023-09-04 14:33 | disposition home or self-care (01) ==
PROVIDERS: Emergency Provider Emergency Medicine; PCP Nurse Practitioner Adult Health
DX: H66.91 Otitis media, unspecified, right ear (principal); I12.9 Hypertensive chronic kidney disease with stage 1 through stage 4 chronic kidney disease, or unspecified chronic kidney disease; E11.22 Type 2 diabetes mellitus with diabetic chronic kidney disease; N18.9 Chronic kidney disease, unspecified; E11.3219 Type 2 diabetes mellitus with mild nonproliferative diabetic retinopathy with macular edema, unspecified eye; Z79.4 Long term (current) use of insulin; Z79.84 Long term (current) use of oral hypoglycemic drugs; Z79.82 Long term (current) use of aspirin; Z95.2 Presence of prosthetic heart valve
CPT/HCPCS: 99284; 70450

== ENCOUNTER 2023-09-28 18:37 | Emergency (ER) | payer OTHER, MEDICAID, SELFPAY ==
[2023-09-28] VITALS (52 sets, daily range): BP systolic 207–248; BP diastolic 65–82; PULSE 70–80; RESP 9–25; TEMP 36.1–36.6; O2SAT 84–98
--- NOTE | 2023-09-28 18:45 | DI.RAD_ITS ---
Exam(s) XR CHEST 2V PA LATERAL EXAM: XR CHEST 2V PA LATERAL CLINICAL HISTORY: dyspnea. TECHNIQUE: 2D digital imaging was performed. COMPARISON: CR,XR XR CHEST 2V PA LATERAL from 01/29/2023 FINDINGS: 2 views: Sternotomy wires again noted. Prosthetic aortic valve again noted. Heart size is normal. The mediastinum is not widened. Lungs are clear. No infiltrates nor pleural effusions. IMPRESSION: No acute pulmonary findings.Prosthetic aortic valve again noted. Sternotomy wires. No pulmonary breezy pako. DATA REPOSITORY: RADIATION DOSE DELIVERED:
--- NOTE | 2023-09-28 18:54 | DI.CT_ITS ---
Exam(s) CT NECK W EXAM: CT NECK W INDICATION: left neck swelling, L facial swelling. COMPARISON: CT CT NECK W from 04/20/2023 TECHNIQUE: FINDINGS: VISUALIZED PARANASAL SINUSES: Unremarkable. NASOPHARYNX: Unremarkable ORODENTAL: Unremarkable. OROPHARYNX: Unremarkable. No masses evident. HYPOPHARYNX: Prior laryngectomy. Some soft tissue swelling is seen along left side of the neopharynx and there is subtle low-density masslike tissue around the left-sided surgical clip measuring approx imately 1.5 x 1.2 1.3 cm. VOCAL CORDS: Previous laryngectomy THYROID GLAND: Surgically absent SALIVARY GLANDS: Unremarkable. No significant findings in the parotid and submandibular glands. LYMPH NODES: There is no adenopathy evident in the neck and supraclavicular regions. OTHER: Not me wires again noted. VISUALIZED LUNG APICES: No significant findings. IMPRESSION: 1. Compared to 04/20/2023 there is subtle interval increased soft tissue masslike thickening along t he left contour of the neopharynx as described above. Direct visualization recommended. 2. No new lymphadenopathy evident. 3. RADIATION DOSE DELIVERED: 301.52mGy.cm Total DLP DATA REPOSITORY: All CT scans at this facility are submitted to the National Radiology Data Registry (NRDR) Dose Index Registry (DIR) with the [employer] (A[employer]). RADIATION OPTIMIZATION: All CT scans at this facility use at least one of these dose optimization te chniques: automated exposure control; mA and/or kV adjustment per patient size (includes targeted exa ms where dose is matched to clinical indication); or iterative reconstruction.
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
[2023-09-28] MEDS: methylPREDNISolone SUCC 125 MG VIAL IVP (19:15)
[2023-09-28 19:18] LABS: Abs Immature Grans 0.08 10^3/uL (0.0-0.06); Absolute Basophil Count 0.07 10^3/uL (0.0-0.2); Absolute Eosinophil Count 0.23 10^3/uL (0.0-0.7); Absolute Lymphocyte Count 1.72 10^3/uL (1.2-3.4); Absolute Monocyte Count 0.99 10^3/uL (0.1-0.8); Basophils % 0.6 %; Eosinophils % 2.1 %; HCT 36.8 % (36.0-46.0); HGB 11.4 g/dL (11.2-15.7); Immature Grans % 0.7 %; Lymphocytes % 15.7 %; MCH 24.4 pg (27.0-33.0); MCV 79 fL (80-95); Monocytes % 9.1 %; Neutrophils % 71.8 %; RBC 4.67 10^6/uL (3.93-5.22); RDW 18.3 % (11.7-14.6); RDW-SD 52.3 fL; WBC 10.93 10^3/uL (4.4-10.8)
[2023-09-28] MEDS: HYDROmorphone 2 MG/ML SYR 0.5 MG IVP ×2 (19:25→21:26)
[2023-09-28 19:27] LABS: ESR 38 mm/hr (0-30)
[2023-09-28 19:30] LABS: Magnesium 2.2 mg/dL (1.8-2.4)
[2023-09-28 19:34] LABS: ALT 22 U/L (14-59); AST 29 U/L (15-37); Albumin 3.8 g/dL (3.4-5.0); Alkaline Phosphatase 118 U/L (46-116); Anion Gap 10.6 mmol/L (3-11); BUN 17 mg/dL (7-18); Bilirubin, Total 0.4 mg/dL (0.2-1.0); C-Reactive Protein 0.97 mg/dL (<or=0.5); CO2 25.4 mmol/L (21.0-32.0); CREATININE 1.3 mg/dL (0.55-1.02); Calcium 9.2 mg/dL (8.5-10.1); Chloride 106 mmol/L (98-107); Estimated GFR 42.88 (mL/min/1.73m2); Glucose 160 mg/dL (74-106); Potassium 4.8 mmol/L (3.5-5.1); Sodium 142 mmol/L (136-145); Total Protein 7.5 g/dL (6.4-8.2)
[2023-09-28 19:37] LABS: Absolute Neutrophil Count 7.85 10^3/uL (1.2-6.7)
[2023-09-28 19:38] LABS: Anisocytosis 1+; Diff Comment RBC Morph Reviewed; Platelet Count 182 10^3/uL (130-400)
[2023-09-28 19:39] LABS: Poikilocytes 1+
[2023-09-28 19:43] LABS: PTT Activated 22.2 sec (23.6-32.8); Prothrombin Time 10.4 sec (9.1-11.1)
[2023-09-28] MEDS: Normal Saline - Diluent 50 ML VIAL IJ (19:57)
[2023-09-28 19:58] LABS: Procalcitonin < 0.1 ng/mL
[2023-09-28] MEDS: Omnipaque 350 MG/ML 100 ML BTL IJ (20:03)
[2023-09-28] MEDS: Ondansetron 4 MG/2 ML VIAL (20:55)
--- NOTE | 2023-09-28 20:58 | DI.VRAD_ITS ---
PROCEDURE INFORMATION: Exam: CT Neck With Contrast Exam date and time: 09/28/2023 7:54 PM Age: 73 years old Clinical indication: Other: Left neck swelling, L facial swelling TECHNIQUE: Imaging protocol: Computed tomography of the neck with contrast. Contrast material: 350; Contrast volume: 100 ml; Contrast route: INTRAVENOUS (IV); COMPARISON: CT NECK W 04/20/2023 11:06 AM FINDINGS: Pharynx: Significantly increased soft tissue thickening along the left contour of the neopharynx (series 3 image 32 for example). There is now subtle almost low-density masslike tissue around series 3, image 36 measuring approximately 2 x 1.3 cm at the level of the surgical clips. Larynx: Status post total laryngectomy. Prevertebral and retropharyngeal spaces: No acute findings. Salivary glands: Glands are normal in size. Thyroid: No enlarged nodules. Lymph nodes: No lymphadenopathy. Trachea: No acute findings. Lungs: Grossly clear as visualized. Bones/joints: No acute findings. Soft tissues: No significant soft tissue swelling or loculated collection. IMPRESSION: Significant interval increased soft tissue masslike thickening along the left contour of the neopharynx. No new adenopathy. Dictated and Authenticated by: Alex Montgomery MD. Ordering:YUDY Nunez MD
--- NOTE | 2023-09-28 21:02 | DI.VRAD_ITS ---
PROCEDURE INFORMATION: Exam: XR Chest Exam date and time: 09/28/2023 8:18 PM Age: 73 years old Clinical indication: Dyspnea TECHNIQUE: Imaging protocol: Radiologic exam of the chest. Views: 2 views. COMPARISON: CR XR CHEST 2V PA LATERAL 01/29/2023 9:13 PM FINDINGS: Lungs: No focal consolidation. Pleural spaces: No pleural effusion. No pneumothorax. Heart/Mediastinum: No cardiomegaly. Bones/joints: No acute findings. IMPRESSION: No acute findings. Dictated and Authenticated by: Alex Montgomrey MD. Ordering:YUDY Nunez MD
[2023-09-28] MEDS: Normal Saline Flush 10 ML SYR IVP (21:08)
== END 2023-09-28 22:03 | disposition home or self-care (01) ==
PROVIDERS: Emergency Provider Emergency Medicine; PCP Nurse Practitioner Adult Health
DX: R22.0 Localized swelling, mass and lump, head (principal); R22.1 Localized swelling, mass and lump, neck; I25.10 Atherosclerotic heart disease of native coronary artery without angina pectoris; E11.22 Type 2 diabetes mellitus with diabetic chronic kidney disease; N18.9 Chronic kidney disease, unspecified; E11.3213 Type 2 diabetes mellitus with mild nonproliferative diabetic retinopathy with macular edema, bilateral; Z95.1 Presence of aortocoronary bypass graft; Z95.2 Presence of prosthetic heart valve; Z79.82 Long term (current) use of aspirin; Z79.84 Long term (current) use of oral hypoglycemic drugs; Z79.4 Long term (current) use of insulin; Z85.21 Personal history of malignant neoplasm of larynx; Z92.21 Personal history of antineoplastic chemotherapy; Z92.3 Personal history of irradiation; Z90.02 Acquired absence of larynx; Z87.891 Personal history of nicotine dependence
CPT/HCPCS: 70491; 80053; 82962; 84145; 85652; 96374; 99285; 71046; 83735; 85025; 85610; 85730; 86140; J1170; J2405; J2919; J3490

== ENCOUNTER 2024-01-27 00:19 | Outpatient (CLI) | payer OTHER, MEDICAID, SELFPAY ==
--- NOTE | 2024-01-27 07:33 | DI.MAMMO_ITS ---
Exam(s) MG MAMMO SCREENING 60 MIN DUR EXAM: MG MAMMO SCREENING 60 MIN DUR CLINICAL HISTORY: screening,z12.39 TECHNIQUE: Mammograms were interpreted according to the usual protocol including computer analysis w [employer] CAD system, tomosynthesis and C-view imaging. COMPARISON: 2018 and 2021 FINDINGS: The breasts are composed of scattered fibroglandular densities, Breast Density category B. No suspicious masses or suspicious microcalcifications are seen. No skin thickening or abnormal axillary lymph nodes are seen. There has been no significant change from prior exams. IMPRESSION: BI-RADS Category 1, Negative mammogram Yearly screening mammography is recommended. Breast Density - Category B, scattered fibroglandular densities. A negative radiographic report should not delay biopsy if a dominant or clinically suspicious mass is present. Up to ten percent of cancers are not identified on mammography. A negative report may reinforce clinical impression. Adenosis and dense breasts may obscure an underlying neoplasm. False positive reports average 6 to 10%. Patient will receive a letter notifying them of these results.
--- NOTE | 2024-01-27 11:22 | DI.RAD_ITS ---
Exam(s) XR MANDIBLE COMPLETE EXAM: XR MANDIBLE COMPLETE CLINICAL HISTORY: 3w b/l jaw pain,edentulous,r68.84,k08.109. TECHNIQUE: 2D digital imaging was performed. COMPARISON: No exams were available for comparison FINDINGS: BONES: No evidence of fracture. Edentulous. No bony erosions. JOINTS: No evidence of temporomandibular joint dislocation or subluxation. Degenerative changes in t he cervical spine. SOFT TISSUES: Unremarkable. IMPRESSION: The patient is edentulous. No acute abnormality identified in the mandible or temporomandibular join ts. DATA REPOSITORY: RADIATION DOSE DELIVERED:
== END 2024-01-27 00:39 ==
LOC: DI 00:19
PROVIDERS: PCP Nurse Practitioner Adult Health; Visit Provider Nurse Practitioner Adult Health
DX: R68.84 Jaw pain; K08.199 Complete loss of teeth due to other specified cause, unspecified class; Z12.31 Encounter for screening mammogram for malignant neoplasm of breast
CPT/HCPCS: 77063; 77067; 70110

== ENCOUNTER 2024-03-21 13:49 | Outpatient (CLI) | payer OTHER, MEDICAID, SELFPAY ==
--- NOTE | 2024-03-21 13:45 | RT.EKG_ITS ---
APPROVED REPORT Exam: Resting ECG Reason for Exam: pre-op Patient Location: O HR:76 bpm ECG Measurements Heart Rate 76 AXIS VA 260 P 262 QRSd 137 QRS -16 QT 429 T 23 QTc 483 Conclusion Sinus rhythm...P axis (-45,135) Prolonged VA interval...VA >220, V-rate 50- 90 Right bundle branch block...QRSd>120, terminal axis(90,270)
== END 2024-03-21 13:50 | disposition home or self-care (01) ==
LOC: DI.KIM 13:50
PROVIDERS: PCP Nurse Practitioner Adult Health; Visit Provider Nurse Practitioner
DX: Z01.818 Encounter for other preprocedural examination (principal); I45.10 Unspecified right bundle-branch block
CPT/HCPCS: 93010; 87086

== ENCOUNTER 2024-03-21 14:53 | Outpatient (REF) | payer OTHER, MEDICAID, SELFPAY ==
--- NOTE | 2024-03-21 14:30 | PAPNONF_PTH ---
PATIENT: Karina Larson LOC: [facility] U#:[id number] AGE/SX: 74/F ROOM: RE03/21/[address]: Garima Abdi APRN : 1950 BED: DIS: 03/21/2024 SPEC #: [id number] RECD: 03/22/24 12:57 STATUS: PHUC REQ #: [id number] BISHOP: 03/21/24 14:[address]: Garima Abdi DEPT: [facility] Cytology RECD BY: Capri Valadez ENTERED: 03/22/24 12:57 SP TYPE: JENNIFER ANTONIO DR: Liliya Renee APRN Tissues: 1 - BODY FLUID CYTO(SPUTUM/URINE)[facility] Procedures: BODY FLUID CYTO(URINE/SPUTUM) Comments: [id number] (TV = <10 ml, 30 ml CYTOLYT ADDED) (REFRIGERATED)
== END 2024-03-21 14:54 | disposition home or self-care (01) ==
LOC: LBN 14:53
PROVIDERS: PCP Nurse Practitioner Adult Health; Visit Provider Nurse Practitioner
DX: R31.9 Hematuria, unspecified (principal)
CPT/HCPCS: 87086; 88104

== ENCOUNTER 2024-03-27 11:39 | Outpatient (CLI) | payer OTHER, MEDICAID, SELFPAY ==
[2024-03-27 09:55] LABS: Hemoglobin A1C 6.9 % (<5.7)
[2024-03-27 09:58] LABS: Anion Gap 9.7 mmol/L (3-11); BUN 10 mg/dL (7-18); CO2 28.3 mmol/L (21.0-32.0); CREATININE 1.4 mg/dL (0.55-1.02); Calcium 9.2 mg/dL (8.5-10.1); Calculated LDL 66 mg/dL (<100); Chloride 108 mmol/L (98-107); Cholesterol 149 mg/dL (<200); Estimated GFR 38.99 (mL/min/1.73m2); Glucose 111 mg/dL (74-106); HDL Cholesterol 61 mg/dL (40-60); Potassium 4.1 mmol/L (3.5-5.1); Sodium 146 mmol/L (136-145); TSH (W/Ref FT4) 0.04 uIU/mL (0.36-3.74); Triglyceride 114 mg/dL (<150)
[2024-03-27 10:15] LABS: Microalb ug/mg Crea 37.5 ug/mg Cr
[2024-03-27 10:46] LABS: FREE T4 1.33 ng/dL (0.76-1.46); Uric Acid 3.5 mg/dL (2.6-6.0)
== END 2024-03-27 11:40 | disposition home or self-care (01) ==
LOC: LBO 11:39
PROVIDERS: PCP Nurse Practitioner Adult Health; Visit Provider Nurse Practitioner Adult Health
DX: I10 Essential (primary) hypertension (principal); E11.3313 Type 2 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, bilateral; N18.9 Chronic kidney disease, unspecified; E89.0 Postprocedural hypothyroidism; E78.5 Hyperlipidemia, unspecified; Z13.6 Encounter for screening for cardiovascular disorders; R31.9 Hematuria, unspecified
CPT/HCPCS: 36415; 80048; 80061; 82043; 82570; 83036; 84439; 84443; 84550; 87086

== ENCOUNTER → 2024-05-01 08:51 | Outpatient (BNVA) | payer OTHER, MEDICAID, SELFPAY | PROVIDERS: PCP Nurse Practitioner Adult Health; Referring Provider Nurse Practitioner Adult Health; Visit Provider Nurse Practitioner Gerontology | DX: R31.9 Hematuria, unspecified (principal); N36.2 Urethral caruncle | CPT/HCPCS: 81003; 99215 ==

== ENCOUNTER 2024-05-15 01:30 | Outpatient (CLI) | payer OTHER, MEDICAID, SELFPAY ==
--- NOTE | 2024-05-15 06:48 | DI.CT_ITS ---
Exam(s) CT CHEST WO EXAM: CT CHEST WO CLINICAL HISTORY: F/U LT UPPER LOBE PULMONARY NODULE,R91.1. TECHNIQUE: Multi planar reconstructions were performed. CONTRAST MATERIAL: None COMPARISON: CT CT CHEST/ABD/PEL W from 04/03/2021 CR,XR XR CHEST 2V PA LATERAL from 09/28/2023 FINDINGS: CHEST: LUNGS: There is a tracheostomy tube. There is some scarring in the left upper lobe which is unchanged from CT scan of March 2021. Ther e is also a more peripherally located 3 mm nodule in the left upper lobe which is also unchanged from 04/03/2021. there is also a tiny 2 millimeter peripherally located pleural nodule in the lateral bas al segment of the left lower lobe which is unchanged. There is also a tiny 1 mm subpleural nodule in the posterior basal segment of the left lower lobe which did is difficult to compared to the prior C T scan as there was previously a pleural effusion covering this region. There is presently no pleura l effusion on either side. There is, however, pleural based posteriorly located nodule in right lowe r lobe which should measures 4 mm and was not evident on the prior CT scan of March 2021. MEDIASTINUM: There is no obvious hilar nor mediastinal adenopathy. The esophagus appears mildly dila suhail. No obvious mass evident at the GE junction CARDIAC: There is sternotomy wires. Normal heart size. No pericardial effusion. Prosthetic aortic valve again noted.Caliber of the thoracic aorta is within normal limits. VISUALIZED UPPER ABDOMEN:There is a fat containing lesion in the left adrenal gland measuring 1.9 x 1 .7 cm, unchanged from 2020 and a 2nd similar appearing but smaller fat containing nodule in the same- left adrenal gland is also unchanged., . The larger nodule in left adrenal gland is probably a benig n myelolipoma. The smaller sub cm size nodule is either another myelolipoma or benign adenoma. The opposite-right adrenal gland remains unremarkable in appearance. The gallbladder is again noted to b e surgically absent. OSSEOUS: No significant osseous lesions.. IMPRESSION: 1. Stable appearance of benign-appearing scarring and nodules in the left lung, unchanged from CT sca n March 2021. There is an additional tiny 1 mm nodule in the left lower lobe which is most probab ly benign but difficult to compared to the previous study consult prior study in 2020 had a left-side d pleural effusion covering this area. There presently no pleural effusions on either side. There i s tracheostomy tube. 2. Again noted are sternotomy wires and prosthetic aortic valve. Normal heart size. No pericardial effusion. Nonenlarged thoracic aorta. 3. Two unchanged benign-appearing left adrenal nodules, unchanged from 2020, as described individuall y above. RADIATION DOSE DELIVERED: 207.79mGy.cm Total DLP DATA REPOSITORY: All CT scans at this facility are submitted to the National Radiology Data Registry (NRDR) Dose Index Registry (DIR) with the [employer] (ACR). RADIATION OPTIMIZATION: All CT scans at this facility use at least one of these dose optimization te chniques: automated exposure control; mA and/or kV adjustment per patient size (includes targeted exa ms where dose is matched to clinical indication); or iterative reconstruction.
--- NOTE | 2024-05-15 08:33 | DI.US_ITS ---
APPROVED REPORT EXAM: Comprehensive 2D, Doppler, and color-flow Echocardiogram Patient Location: Out-Patient Guide Dog Instructor: Cher Ramirez RDCS (AE) Indications: Interval assessment, H/O AVR, H/O CAD, CABG, LVH Other Information Study Quality: Fair. Technically limited study due to body habitus. Conclusion Concentric left ventricular hypertrophy. Left ventricular chamber size is small. EF is 60%. There are no segmental wall motion abnormalities Normal right ventricular size and function Mildly dilated left atrium. Normal right atrial size There is a bioprosthetic aortic valve replacement. Mean gradient is 9 mmHg Mitral annular calcification Estimated right ventricular systolic pressure is 25 mmHg Ascending aorta measures 3.4 cm Wall motion Left Ventricle Left ventricular cavity is small. The left ventricular systolic function is normal. The left ventric ular ejection fraction is within the normal range. Mild concentric left ventricular hypertrophy. Ther e is normal LV segmental wall motion. There is no ventricular septal defect visualized. LVEF is 60%. Right Ventricle Right ventricle is grossly normal in size. Right ventricular systolic function is grossly normal. Atria Left atrium is mildly dilated. The right atrium size is normal. The interatrial septum is intact with no evidence for an atrial septal defect. Aortic Valve Mean gradient is 9 mmHg No aortic regurgitation is present. Bioprosthetic aortic valve is present. Mitral Valve Mild to Moderate mitral annular calcification. No evidence of mitral valve stenosis. Trace mitral reg urgitation. Tricuspid Valve The tricuspid valve is normal in structure. There is no tricuspid valve stenosis. Mild tricuspid regu rgitation. The RVSP is 25.4 mmHg. Pulmonic Valve The pulmonary valve is normal in structure. There is no pulmonic valvular stenosis. There is no pulmo kerry valvular regurgitation. Great Vessels The aortic root is normal in size. The ascending aorta is mildly dilated. IVC is normal in size and c ollapses >50% with inspiration. Pericardium There is no pericardial effusion. 2D Dimensions IVSD d PLAX 1.20 cm F: 0.6-1.0 Ao Root d 2.18 cm F: 2.7 - 3.3 LVPW d PLAX 1.20 cm F: 0.6 - 1.0 Ao Asc Diam d 3.40 cm F: 2.3 - 3.1 LVID d PLAX 3.90 cm F: 3.8 - 5.2 LVDs 2.70 cm F: 2.2 - 3.5 LV EF Teichholz 58.9 % FS 30.78 % LV EDV (Teich) 73.2 mL LV ESV (Teich) 30.1 mL Auto EF LV EDV A4C 100.6 mL LV EDV A2C 69.9 mL LV EDV BP 88.0 mL LV ESV A4C 45.3 mL LV ESV A2C 31.7 mL LV ESV BP 38.9 mL LVEF(%) A4C 55.0 % LVEF(%) A2C 54.6 % LVEF(%) BP 55.9 % LV SV A4C 55.3 ml LV SV A2C 38.2 ml LV SV BP 49.2 ml LV CO A4C 3.9 L/min LV CO A2C 2.7 L/min LV CO BP 3.3 L/min HR A4C 69.77 BPM HR A2C 71.69 BPM LV EDV Index (BP) LA Volume LA Length A4C 5.6 cm LA Length A2C 4.7 cm LA Area A4C s 20.49 cm2 LA Area A2C s 16.40 cm2 LA Vol A4C A-L 63.83 mL LA Vol A2C A-L 49.04 mL LA Vol Biplane A-L 61.2 mL LA Vol/BSA A4C A-L LA Vol/BSA A2C A-L LA Vol/BSA BP A-L 35.4 mL/m2 LA Vol A4C MOD 59.3 mL LA Vol A2C MOD 46.3 mL LA Vol BP MOD 57.2 mL RA Volume RA Area A4C 16.3 cm2 RA ESV A4C (A-L) 46.2mL RA Vol/BSA A4C A-L RA Length A4C 4.9 cm RA ESV A4C (MOD) 44.1mL LV Diastology MV E' medial 0.052 (>0.07 m/s) MV E Vmax 0.85 (0.4-1.3 m/s) MV E/E' MED 16.26 (<14) MV A Vmax 1.40 (0.4-1.3 m/s) MV E' lateral 0.099 (>0.1 m/s) E/A Ratio 0.6 MV E/E' LAT 8.58 (<14) MV E' Average 0.075 m/s MV E/E'(average) 11.24 Aortic Valve AoV Vmax 2.09 m/s LVOT Vmax 1.28 m/s AoV Peak Grad 17.4 mmHg LVOT Peak Grad 6.5 mmHg AoV Area (Vmax) 1.51 cm2 LVOT VTI 0.274 m AoV VTI 0.410 m LVOT Mean Grad 3.9 mmHg AoV Mean Jagjit. 1.42 m/s LVOT SV 67.47 mL AoV Mean Grad 9.2 mmHg LVOT Diam s 1.75 cm AoV Area (VTI) 1.65 cm2 AV Regurg Peak Gr. 17.45 mmHg Velocity Ratio 0.61 Mitral Valve MV DT 391 (160-240 msec) MV Vmax TIPS 1.41 m/s MV Mean Grad 2.7 (<2mmHg) MV VTI 0.363 m Pulmonary Valve PV Vmax 0.99 (0.5-1.5 m/s) RVOT Vmax 0.97 m/s PV Peak Grad 4.0 mmHg RVOT Peak Gr. 3.8 mmHg PV Mean Jagjit 0.73 m/s RVOT VTI 0.192 m PV Mean Grad 2.4 mmHg RVOT Mean Gr. 2.4 mmHg Tricuspid Valve RA Pressure 3.00 mmHg TR Vmax 2.37 m/s TV S' 0.07 m/s TR Peak Grad 22.4 mmHg RVSP (TR) 25.4 mmHg
== END 2024-05-15 01:50 ==
LOC: DI 01:30
PROVIDERS: PCP Nurse Practitioner Adult Health; Visit Provider Nurse Practitioner Adult Health
DX: R91.1 Solitary pulmonary nodule (principal); R04.2 Hemoptysis; I51.7 Cardiomegaly
CPT/HCPCS: 71250; 93306

== ENCOUNTER 2024-10-01 17:35 | Inpatient (IN) | payer MEDICARE, MEDICAID, SELFPAY ==
[2024-10-01] VITALS (33 sets, daily range): BP systolic 150–228; BP diastolic 55–138; PULSE 51–87; RESP 10–29; TEMP 35.9–36.2; O2SAT 84–100
--- NOTE | 2024-10-01 17:30 | DI.RAD_ITS ---
Exam(s) XR SHOULDER RT COMPLETE 2+V EXAM: XR SHOULDER RT COMPLETE 2+V CLINICAL HISTORY: right shoulder pain. TECHNIQUE: 2D digital imaging was performed. Five views. COMPARISON: CR LEFT SHOULDER COMPLETE from 06/29/2007 FINDINGS: BONES: Comminuted fracture of the humeral head. Main fracture extends transversely through the surgi keaton neck. The greater tuberosity is fractured as a separate fragment. There is approximately 5 mill imeters of separation. No bony destructive lesion is seen. JOINTS: No dislocation present. Underlying degenerative changes of the AC joint and glenohumeral kristal nt. SOFT TISSUE: Calcification noted superior to the humeral head which could indicate calcific tendinosi s or calcific bursitis.. IMPRESSION: Mildly displaced, comminuted fracture of the humeral head. DATA REPOSITORY: RADIATION DOSE DELIVERED:
--- NOTE | 2024-10-01 17:30 | DI.RAD_ITS ---
Exam(s) XR HIP LT COMPLETE AP PELVIS XR FEMUR RT EXAM: XR FEMUR RT CLINICAL HISTORY: right leg pain. TECHNIQUE: 2D digital imaging was performed. AP and lateral views. COMPARISON: CR,XR XR HIP LT COMPLETE AP PELVIS from 10/01/2024 FINDINGS: Exam is limited by overlying clothing. BONES: There is a subcapital fracture of the left femur without significant displacement. There is m ild angulation. There are no additional fractures noted in the pelvis, left hip or distal right femu r. No bony destructive lesion is seen. JOINTS: Visualized portion of knee and hip joints are unremarkable. SOFT TISSUE: vascular calcifications. IMPRESSION: Subcapital fracture of the right femoral neck. DATA REPOSITORY: RADIATION DOSE DELIVERED:
--- NOTE | 2024-10-01 17:30 | DI.CT_ITS ---
Exam(s) CT HEAD CERVICAL SPINE WO EXAM: CT HEAD CERVICAL SPINE WO CLINICAL HISTORY: trauma. TECHNIQUE: Imaging Protocol: Axial computed tomography images with coronal and sagittal reformatted images were created and reviewed COMPARISON: CT CT HEAD WO from 09/04/[address] NECK W from 09/28/2023 FINDINGS: The examination is limited due to patient motion artifact. CT Head: Ventricles and Extra axial spaces: Normal in size and morphology for the patient's age. Hemorrhage: None. Cerebral parenchyma: There are areas of decreased attenuation in the white matter consistent with chr onic microvascular ischemic disease. There is an old left lacunar infarct seen in the external capsu le. No evidence of an acute territorial infarct. No mass effect is present. Midline shift: None. Brainstem/Cerebellum: Normal. Calvarium: Normal. Visualized Paranasal sinuses/Mastoids: Clear. Soft Tissues: Unremarkable. CT Cervical Spine: Bones: No acute fracture or subluxation. Age-appropriate degenerative changes are seen in the spine. 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 Soft Tissues: The patient is status post laryngectomy. There is a tracheostomy tube in place. Lung Apices: Clear. IMPRESSION: 1. No acute intracranial process. 2. No acute fracture or subluxation in the cervical spine. RADIATION DOSE DELIVERED: 1,183.11mGy.cm Total DLP DATA REPOSITORY: All CT scans at this facility are submitted to the National Radiology Data Registry (NRDR) Dose Index Registry (DIR) with the [employer] (ACR). RADIATION OPTIMIZATION: All CT scans at this facility use at least one of these dose optimization te chniques: automated exposure control; mA and/or kV adjustment per patient size (includes targeted exa ms where dose is matched to clinical indication); or iterative reconstruction.
[2024-10-01] MEDS: Ondansetron 4 MG/2 ML VIAL IVP ×2 (17:49→19:42)
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
[2024-10-01] MEDS: ACETAMINOPHEN 1,000 MG/100 ML BTL 400 MG IVPB (18:09)
[2024-10-01] MEDS: HYDROmorphone 2 MG/ML SYR 1 MG IVP ×2 (18:09→20:29)
[2024-10-01 18:34] LABS: Abs Immature Grans 0.13 10^3/uL (0.0-0.06); Absolute Basophil Count 0.03 10^3/uL (0.0-0.2); Absolute Eosinophil Count 0.22 10^3/uL (0.0-0.7); Absolute Lymphocyte Count 1.28 10^3/uL (1.2-3.4); Absolute Monocyte Count 0.72 10^3/uL (0.1-0.8); Absolute Neutrophil Count 5.64 10^3/uL (1.2-6.7); Basophils % 0.4 %; Eosinophils % 2.7 %; HCT 33.1 % (36.0-46.0); HGB 10.4 g/dL (11.2-15.7); Immature Grans % 1.6 %; MCH 24.8 pg (27.0-33.0); MCHC 31.4 % (32.0-36.0); MCV 79 fL (80-95); Neutrophils % 70.3 %; RBC 4.19 10^6/uL (3.93-5.22); RDW 17.2 % (11.7-14.6); RDW-SD 49.2 fL; WBC 8.02 10^3/uL (4.4-10.8)
[2024-10-01 18:46] LABS: PTT Activated 21.1 sec (20.6-30.2); Prothrombin Time 10.4 sec (9.1-11.1)
[2024-10-01 18:50] LABS: ALT 27 U/L (14-59); AST 30 U/L (15-37); Albumin 3.5 g/dL (3.4-5.0); Alkaline Phosphatase 109 U/L (46-116); Anion Gap 9.2 mmol/L (3-11); BUN 16 mg/dL (7-18); Bilirubin, Total 0.3 mg/dL (0.2-1.0); CO2 28.8 mmol/L (21.0-32.0); CREATININE 1.1 mg/dL (0.55-1.02); Calcium 9.2 mg/dL (8.5-10.1); Chloride 106 mmol/L (98-107); Estimated GFR 52.08 (mL/min/1.73m2); Glucose 114 mg/dL (74-106); Sodium 144 mmol/L (136-145); Total Protein 6.5 g/dL (6.4-8.2); Troponin I 18 ng/L (<or=51)
[2024-10-01 18:58] LABS: Diff Comment PLT Morph Reviewed; RBC Morphology Normal
[2024-10-01 18:59] LABS: Platelet Count 175 10^3/uL (130-400)
--- NOTE | 2024-10-01 20:15 | RT.EKG_ITS ---
APPROVED REPORT Exam: Resting ECG Reason for Exam: fall Patient Location: E HR:56 bpm ECG Measurements Heart Rate 56 AXIS UT 209 P 80 QRSd 143 QRS -20 QT 458 T 85 QTc 435 Conclusion Sinus bradycardia 56 RBBB no stemi
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
[2024-10-01] MEDS: Metoclopramide 10 MG/2 ML VIAL IVP (20:30)
--- NOTE | 2024-10-01 20:48 | DI.VRAD_ITS ---
PROCEDURE INFORMATION: Exam: XR Right Femur Exam date and time: 10/01/2024 6:53 PM Age: 74 years old Clinical indication: Injury; Fall; Blunt trauma upper right thigh TECHNIQUE: Imaging protocol: Radiologic exam of the right femur. Views: 2 views. COMPARISON: CR XR HIP RT AP LAT ONLY 06/13/2021 10:43 AM FINDINGS: Bones/joints: Closed, acute fracture of the proximal right femoral neck. Anterior spurring of the right patella. Soft tissues: Unremarkable. Vasculature: Arterial calcification. IMPRESSION: Closed, acute fracture of the proximal right femoral neck. Dictated and Authenticated by: Ryan Chaparro MD. Orderin Joseph Vera MD
--- NOTE | 2024-10-01 20:49 | DI.VRAD_ITS ---
PROCEDURE INFORMATION: Exam: XR Left Hip Exam date and time: 10/01/2024 6:55 PM Age: 74 years old Clinical indication: Injury; Fall; Blunt trauma left hip TECHNIQUE: Imaging protocol: Radiologic exam of the left hip. Views: 2 or 3 views hip with pelvis when performed. COMPARISON: CT CHEST/ABD/PEL W 04/03/2021 3:05 PM FINDINGS: Bones/joints: Lower lumbar spine degenerative changes. No acute fracture of the left hip. However, please note, deformity of the proximal RIGHT femoral neck reflecting acute fracture. Soft tissues: Unremarkable. IMPRESSION: 1. No acute fracture of the left hip. 2. However, please note, deformity of the proximal RIGHT femoral neck reflecting acute fracture. Dictated and Authenticated by: Ryan Chaparro MD. Orderin Joseph Vera MD
--- NOTE | 2024-10-01 20:52 | DI.VRAD_ITS ---
PROCEDURE INFORMATION: Exam: XR Right Shoulder Exam date and time: 10/01/2024 7:12 PM Age: 74 years old Clinical indication: Injury; Fall; Blunt trauma right shoulder TECHNIQUE: Imaging protocol: Radiologic exam of the right shoulder. Views: 2 or more views. COMPARISON: CT HEAD CERVICAL SPINE WO 10/01/2024 6:26 PM FINDINGS: Bones/joints: Closed, acute, comminuted fracture involving the lateral right humeral head as well as the proximal right humeral metaphysis. No dislocation. No AC joint separation. Right AC joint degenerative changes. Spinal degenerative changes. Prior median sternotomy. Soft tissues: Soft tissue calcification superolateral to the right humeral head which may reflect calcific tendinitis or calcific bursitis. Lateral right shoulder region soft tissue edema. IMPRESSION: 1. Closed, acute, comminuted fracture involving the lateral right humeral head as well as the proximal right humeral metaphysis. 2. Lateral right shoulder region soft tissue edema. Dictated and Authenticated by: Ryan Chaparro MD. Orderin Joseph Vera MD
--- NOTE | 2024-10-01 21:43 | W.PC.ACHO ---
Registration Status: Primary Language: Preferred Language: ED Information & Data Chief Complaint Fall/Non TraumaCriteria 10/01/24 18:11 Chief Complaint Fall/Non TraumaCriteria 10/01/24 18:01 Other Complaint Orthopedic 10/01/24 17:34 Triage Note tripped over her cat, fell, 10/01/24 17:34 right shoulder pain, right hip pain. Deformities to right arm, no deformities, shortening or rotation to right leg. did not hit head or neck Medical / Surgical History (Last Reviewed 10/01/24 @ 20:29 by Jeremy Shetty) Fracture of toe of right foot Unintentional weight loss Orthostasis Constipation Palliative care patient Tobacco use disorder Severe aortic stenosis (02/13/21) Left sided lacunar infarction Reversible cerebrovascular vasoconstriction syndrome Actinic keratoses Sesamoiditis TMJ (dislocation of temporomandibular joint) Laryngeal cancer (Last Reviewed 10/01/24 @ 20:29 by Jeremy Shetty) History of bronchoscopy (~08/30/22) Esophageal dilatation (~07/31/21) History of coronary artery bypass graft x 2 (~02/23/21) History of aortic valve replacement (~02/23/21) Esophageal dilatation History of back surgery (~1974) History of shoulder surgery (~2006) History of tracheostomy (~2015) Hx of removal of ovary History of laparoscopy (~2015) History of hysterectomy History of cholecystectomy History of section History of cervical spinal surgery History of cataract surgery History of carpal tunnel release History of laryngectomy Most Recent Vital Signs Temperature 36.2 C L 10/01/24 17:34 Pulse 77 10/01/24 21:20 Pulse 75 10/01/24 21:20 Respiratory Rate 12 10/01/24 21:20 Blood Pressure 181/84 H 10/01/24 21:16 Blood Pressure Mean 118 10/01/24 21:16 Pulse Oximetry 98 10/01/24 21:20 Pain Level 10 10/01/24 17:34 Allergies carvedilol (From Coreg) Allergy (Severe, Verified 10/01/24 17:41) Anaphylaxis lisinopril Allergy (Severe, Verified 10/01/24 17:41) angioedema metformin Adverse Reaction (Verified 10/01/24 17:41) Diarrhea, Nausea, Vomiting Active Medications Generic Name Dose Route Start Last Admin Trade Name Freq PRN Reason Stop Dose Admin Hydromorphone HCl 1 mg 10/01/24 17:41 10/01/24 18:09 Hydromorphone 2 Mg/Ml Syr IVP 1 mg PRN PRN Administration IV IV Catheter Type [Left Saline Lock Antecubital] IV Catheter Gauge [Left 20 Antecubital] Diagnostics 10/01/24 10/01/24 Range/Units 21:11 18:16 WBC 8.02 (4.4-10.8) 10^3/uL RBC 4.19 (3.93-5.22) 10^6/uL Hgb 10.4 L (11.2-15.7) g/dL Hct 33.1 L (36.0-46.0) % MCV 79 L (80-95) fL MCH 24.8 L (27.0-33.0) pg MCHC 31.4 L (32.0-36.0) % RDW 17.2 H (11.7-14.6) % Plt Count 175 (130-400) 10^3/uL MPV (8.0-11.0) fL Immature Gran % 1.6 % Neutrophils % 70.3 % Lymphocytes % 16.0 % Monocytes % 9.0 % Eosinophils % 2.7 % Basophils % 0.4 % Nucleated RBC % 0.0 (0.0-0.3) % Absolute Neutrophils 5.64 (1.2-6.7) 10^3/uL Absolute Lymphocytes 1.28 (1.2-3.4) 10^3/uL Absolute Monocytes 0.72 (0.1-0.8) 10^3/uL Absolute Eosinophils 0.22 (0.0-0.7) 10^3/uL Absolute Basophils 0.03 (0.0-0.2) 10^3/uL RBC Morphology Normal PT 10.4 (9.1-11.1) sec INR 1.0 (0.9-1.1) APTT 21.1 (20.6-30.2) sec Sodium 144 (136-145) mmol/L Potassium 4.0 (3.5-5.1) mmol/L Chloride 106 (98-107) mmol/L Carbon Dioxide 28.8 (21.0-32.0) mmol/L Anion Gap 9.2 (3-11) mmol/L BUN 16 (7-18) mg/dL Creatinine 1.1 H (0.55-1.02) mg/dL Est GFR (CKD-EPI 2020) 52.08 (mL/min/1.73m2) Glucose 114 H (74-106) mg/dL Calcium 9.2 (8.5-10.1) mg/dL Total Bilirubin 0.3 (0.2-1.0) mg/dL AST 30 (15-37) U/L ALT 27 (14-59) U/L Alkaline Phosphatase 109 (46-116) U/L Troponin I 18 (<or=51) ng/L Total Protein 6.5 (6.4-8.2) g/dL Albumin 3.5 (3.4-5.0) g/dL COVID-19 Source Pending SARS-CoV-2 (PCR) Pending Influenza Type A (PCR) Pending Influenza Type B (PCR) Pending RSV (PCR) Pending Intake and Output - 24 Hour Total 10/01/24 17:31 thru 10/01/24 20:07 Intake Total 100 Balance 100 Weight 70.307 kg Intake: IV 100 Other: Urine Color Pale Urine Appearance Clear Urinary Catheter Urinary Catheter Date of 10/01/24 Insertion [Urethral (Hunter)] Time of insertion [Urethral ( 20:07 Hunter)] Falls Risk Assessment History of Falls No History 10/01/24 18:11 Contributing Factors No Factors 10/01/24 18:11 Ambulatory Aids Independent 10/01/24 18:11 Tubes/Lines None 10/01/24 18:11 Gait Evaluation No gait disturbance 10/01/24 18:11 Cognition No cognitive impairment 10/01/24 18:11 Fall Total Score 0 10/01/24 18:11 Level of Risk Standard/Low Risk 10/01/24 18:11 Problems (Last Reviewed 10/01/24 @ 20:29 by Jeremy Shetty) Closed fracture of right humerus (Acute) Closed fracture of right hip (Acute) History of laryngeal cancer (Chronic ~2017) CKD (chronic kidney disease) (Chronic) Type 2 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, bilateral (Chronic) Hyperlipidemia (Chronic) Essential hypertension (Acute) Normocytic normochromic anemia (Acute) Postoperative hypothyroidism (Chronic) Fibromyalgia (Acute) 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 Information / Comments: tripped over cat onto right side, right hip fx and right humerus fx, sling on, #18 LAC, alert and oriented, 164/88, HR 58, has a trach 2l trach collar -Aerosol, c/o nausea, no vomit, zofran x 2, reglan x 1. 1mg dilaudid x 2 Report received from: Fitz Peck RN @ [id number]
[2024-10-01 22:00] LABS: COVID-19 PCR Negative (Negative); Influenza A PCR Negative (Negative); Influenza B PCR Negative (Negative); RSV PCR Negative (Negative)
[2024-10-01 22:02] LABS: Source Nasopharynx
[2024-10-01 23:03] LABS: Bilirubin Negative (Negative); Blood Trace-intact (Negative); Clarity Clear (Clear); Glucose 500 mg/dL (Negative); Ketones Negative (Negative); Leukocyte Esterase Negative (Negative); Nitrite Negative (Negative); Urobilinogen 0.2 mg/dL (Up to 0.2); pH 5.5 (5-8)
[2024-10-01 23:12] LABS: Bacteria Negative HPF (Negative); C & S Indicated? No; Casts 0-2 Hyaline LPF (Negative); Crystals Negative HPF (Negative); Epithelial Cells Rare HPF (Negative); Mucus Moderate (Negative); WBC Negative HPF (0-5)
[2024-10-01] MEDS: Normal Saline 1,000 ML 100 ML IV (23:15)
[2024-10-01] MEDS: Insulin Aspart 300 UNITS/3 ML PEN SC (23:16)
[2024-10-01] MEDS: Normal Saline Flush 10 ML SYR IVP ×2 (23:16→23:44)
[2024-10-01] MEDS: dilTIAZem 60 MG TAB PO (23:18)
--- NOTE | 2024-10-01 23:18 | RESPIRATORY ---
Pt came to [facility] unit on her home fio2 2L via trach mask. Laryngectomy tube in place, emergency supplies at bedside with larygectomy sign @ [facility].
[2024-10-01 23:21] LABS: Magnesium 2.2 mg/dL (1.8-2.4); NT-proBNP 1006 pg/mL (<300)
[2024-10-01 23:40] LABS: FREE T4 1.34 ng/dL (0.76-1.46)
[2024-10-02] VITALS (18 sets, daily range): BP systolic 121–188; BP diastolic 41–78; PULSE 65–97; RESP 15–22; TEMP 36–37.3; O2SAT 89–100; BMI 28.3
[2024-10-02] MEDS: ACETAMINOPHEN 1,000 MG/100 ML BAG 400 MG IVPB ×3 (02:53→18:28)
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
[2024-10-02] MEDS: Normal Saline Flush 10 ML SYR IVP ×3 (06:01→20:44)
[2024-10-02] MEDS: HYDROmorphone 2 MG/ML SYR 1 MG IVP ×2 (06:02→11:39)
[2024-10-02 07:07] LABS: HCT 31.3 % (36.0-46.0); MCH 25.4 pg (27.0-33.0); MCHC 31.9 % (32.0-36.0); MCV 79 fL (80-95); Platelet Count 154 10^3/uL (130-400); RBC 3.94 10^6/uL (3.93-5.22); RDW 17.4 % (11.7-14.6); RDW-SD 50.4 fL; WBC 12.46 10^3/uL (4.4-10.8)
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
[2024-10-02 07:23] LABS: ALT 27 U/L (14-59); AST 29 U/L (15-37); Albumin 3.3 g/dL (3.4-5.0); Alkaline Phosphatase 105 U/L (46-116); Anion Gap 7.9 mmol/L (3-11); BUN 16 mg/dL (7-18); Bilirubin, Total 0.4 mg/dL (0.2-1.0); CO2 28.1 mmol/L (21.0-32.0); CREATININE 1.2 mg/dL (0.55-1.02); Calcium 8.9 mg/dL (8.5-10.1); Chloride 109 mmol/L (98-107); Estimated GFR 46.91 (mL/min/1.73m2); Glucose 135 mg/dL (74-106); Magnesium 2.3 mg/dL (1.8-2.4); Potassium 4.5 mmol/L (3.5-5.1); Sodium 145 mmol/L (136-145); Total Protein 6.2 g/dL (6.4-8.2)
[2024-10-02 08:03] LABS: *AMPHETAMINES SCREEN URINE Negative (Negative); *BARBITURATES SCREEN URINE Negative (Negative); *BENZODIAZEPINES SCREEN URINE Negative (Negative); Cannabinoids THC Positive (Negative); Cocaine Screen,Urine Negative (Negative); METHADONE URINE SCREEN Negative (Negative); OPIATES URINE SCREEN Positive (Negative)
[2024-10-02 08:04] LABS: Tricyclic Antidepressants Negative (Negative)
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
[2024-10-02] MEDS: Normal Saline 1,000 ML 100 ML IV ×2 (09:15→20:47)
--- NOTE | 2024-10-02 12:04 | PGE_ITS ---
Date of Service Date of service: 10/02/24 Time of Service: 12:04 Assessment and Plan Assessment and plan (1) Closed fracture of right hip: Status: Acute Assessment and plan: Patient has been NPO after midnight To OR today with ortho for repair She does not have any cardiac dysrhythmias and is not on anticoagulation. Aortic valve was replaced and is bioprosthetic. (2) Closed fracture of right humerus: Start date: 10/01/24 Status: Acute Assessment and plan: Patient is being seen in consultation by Dr. Rushing who plans to possibly repair the shoulder at the same time for repair of the right hip. T She does live in assisted living apartments but may need rehabilitation before returning to independent living. (3) History of laryngeal cancer: Status: Chronic Assessment and plan: Patient has tracheostomy (4) CKD (chronic kidney disease): Status: Chronic Assessment and plan: Chronic and stable the patient will be on gentle IV hydration while n.p.o. for her surgeries. (5) Type 2 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, bilateral: Status: Chronic Assessment and plan: Hold outpatient medications except for Jardiance with glucometer measurements before meals and at bedtime (or every 6 hours if NPO) and sensitive insulin sliding scale coverage. (6) Essential hypertension: Status: Chronic Assessment and plan: Continue outpatient medications adjusting as needed and converting to IV if necessary temporarily perioperatively. (7) Normocytic normochromic anemia: Status: Chronic Assessment and plan: Watch for worsening anemia postoperatively if she has decreased iron stores (8) Postoperative hypothyroidism: Status: Chronic Assessment and plan: Slightly suppressed TSH but patient will continue on outpatient supplementation dose once able to take p.o. (9) Fibromyalgia: Status: Chronic Assessment and plan: Patient does have some chronic pain and is on no outpatient narcotics by review of VPMS. She does receive lorazepam prescriptions intermittently apparently have 40 tablets of 0.5 mg tablets every 6 months since 2023. She does have lidocaine patches which she uses (10) Chronic bilateral low back pain with bilateral sciatica: Status: Chronic Assessment and plan: Continue lidocaine patches. (11) Anxiety: Status: Chronic Assessment and plan: Continue Ativan as the patient watch carefully for respiratory suppression with patient also on IV opiates for acute fracture pain. She does take this only intermittently. (12) Palliative care patient: Assessment and plan: palliative care consult in (13) Tobacco use disorder: Assessment and plan: Patient has not smoked for years since her laryngeal cancer. (14) Hyperlipidemia: Status: Chronic Assessment and plan: Continue outpatient statin therapy. Subjective Subjective Patient reports: no new complaints and still having pain Interval history since last seen: NPO for OR today Exam Const General: no acute distress Orientation: alert HENMT Head: normal to inspection Ears: external ears normal General nose exam: external nose normal Mouth: moist mucous membranes Eyes General: appearance normal, both eyes and all related structures Neck Neck: full ROM and no lymphadenopathy Resp Effort & Inspection: normal respiratory effort and able to speak in complete sentences Auscultation: clear to auscultation bilaterally Cardio Rate: regular rate Heart Sounds: no murmurs Skin General skin exam: no rashes or lesions noted Neuro General: patient alert and patient oriented x3 Extrem Other: right leg shorter than left; right upper arm pain Psych Mental Status: mental status grossly normal Objective Last Vital Signs Temp 36.6 C 10/02/24 08:19 Pulse 72 10/02/24 08:19 Resp 18 10/02/24 08:19 BP 152/67 H 10/02/24 08:19 Pulse Ox 97 10/02/24 08:26 Laboratory Results - last 24 hr 10/01/24 10/01/24 10/01/24 18:16 21:11 22:50 WBC 8.02 RBC 4.19 Hgb 10.4 L Hct 33.1 L MCV 79 L MCH 24.8 L MCHC 31.4 L RDW 17.2 H Plt Count 175 MPV Immature Gran % 1.6 Neutrophils % 70.3 Lymphocytes % 16.0 Monocytes % 9.0 Eosinophils % 2.7 Basophils % 0.4 Nucleated RBC % 0.0 Absolute Neutrophils 5.64 Absolute Lymphocytes 1.28 Absolute Monocytes 0.72 Absolute Eosinophils 0.22 Absolute Basophils 0.03 RBC Morphology Normal PT 10.4 INR 1.0 APTT 21.1 Sodium 144 Potassium 4.0 Chloride 106 Carbon Dioxide 28.8 Anion Gap 9.2 BUN 16 Creatinine 1.1 H Est GFR (CKD-EPI 2020) 52.08 Glucose 114 H Calcium 9.2 Magnesium 2.2 Total Bilirubin 0.3 AST 30 ALT 27 Alkaline Phosphatase 109 Troponin I 18 NT-Pro-B Natriuret Pep 1006 H Total Protein 6.5 Albumin 3.5 TSH 0.30 L Free T4 1.34 Urine Color Yellow Urine Clarity Clear Urine pH 5.5 Ur Specific [place] 1.020 Urine Protein 30 H Urine Ketones Negative Urine Blood Trace-intact H Urine Nitrite Negative Urine Bilirubin Negative Urine Urobilinogen 0.2 Ur Leukocyte Esterase Negative Urine RBC 3-5 H Urine WBC Negative Ur Epithelial Cells Rare Urine Crystals Negative Urine Bacteria Negative Urine Casts 0-2 Hyaline Urine Mucus Moderate Ur Culture Indicated? No Urine Glucose 500 H Urine Opiates Screen Urine Methadone Screen Ur Barbiturates Screen Ur Tricyclics Screen Ur Amphetamines Screen U Benzodiazepines Scrn Urine Cocaine Screen Ur THC Screen COVID-19 Source Nasopharynx SARS-CoV-2 (PCR) Negative Influenza Type A (PCR) Negative Influenza Type B (PCR) Negative RSV (PCR) Negative 10/02/24 10/02/24 06:04 07:40 WBC 12.46 H RBC 3.94 Hgb 10.0 L Hct 31.3 L MCV 79 L MCH 25.4 L MCHC 31.9 L RDW 17.4 H Plt Count 154 MPV Immature Gran % Neutrophils % Lymphocytes % Monocytes % Eosinophils % Basophils % Nucleated RBC % Absolute Neutrophils Absolute Lymphocytes Absolute Monocytes Absolute Eosinophils Absolute Basophils RBC Morphology PT INR APTT Sodium 145 Potassium 4.5 Chloride 109 H Carbon Dioxide 28.1 Anion Gap 7.9 BUN 16 Creatinine 1.2 H Est GFR (CKD-EPI 2020) 46.91 Glucose 135 H Calcium 8.9 Magnesium 2.3 Total Bilirubin 0.4 AST 29 ALT 27 Alkaline Phosphatase 105 Troponin I NT-Pro-B Natriuret Pep Total Protein 6.2 L Albumin 3.3 L TSH Free T4 Urine Color Urine Clarity Urine pH Ur Specific [place] Urine Protein Urine Ketones Urine Blood Urine Nitrite Urine Bilirubin Urine Urobilinogen Ur Leukocyte Esterase Urine RBC Urine WBC Ur Epithelial Cells Urine Crystals Urine Bacteria Urine Casts Urine Mucus Ur Culture Indicated? Urine Glucose Urine Opiates Screen Positive A Urine Methadone Screen Negative Ur Barbiturates Screen Negative Ur Tricyclics Screen Negative Ur Amphetamines Screen Negative U Benzodiazepines Scrn Negative Urine Cocaine Screen Negative Ur THC Screen Positive A COVID-19 Source SARS-CoV-2 (PCR) Influenza Type A (PCR) Influenza Type B (PCR) RSV (PCR) Time Spent with Patient Time Spent with Patient: 25-34 minutes Time was spent: preparing to see the patient(eg.review tests), ordering medications,tests, procedures, referring, communicating with other health child caregiver private home, indepentently interpreting results, counseling the patient and care coordination
--- NOTE | 2024-10-02 13:05 | OT.INNT ---
Occupational Therapy Notes 10/02/24 OT consult received and pts chart was reviewed. Pt is pending surgery today for multiple fxs. OT will attempt to consult with pt tomorrow for Occupational Therapy assessment. Nicole Glez OTR/L
--- NOTE | 2024-10-02 15:40 | ROE_ITS ---
Operative Note Operative Note PRE-OP DIAGNOSIS: Right Femoral Neck Fracture POST-OP DIAGNOSIS: same PROCEDURE: Right Anterior Total Hip Arthroplasty with Intraoperative Navigation SURGEON: Luis Eduardo Rushing SMALL EQUIPMENT OPERATOR: Debbi Robles ANESTHESIA TYPE: General LMA/ETT Refer to Anesthesia Record ESTIMATED BLOOD LOSS: 100 PATHOLOGY: none sent TOURNIQUET TIME: 0 COMPLICATIONS: None Patient was transported to: PACU Patient's condition: stable Implants: 1. Depuy [place] Acetabular Component, 52mm 2. Depuy Acetabular Liner, 31y15dx 3. Depuy Corail Standard Collared Femoral Stem, Size 13 4. Depuy Altrx Ceramic Femoral Head, Size 36+1.5mm Indications: I have seen Karina in clinic for symptoms of hip arthritis, confirmed with radiographic findings. She has exhausted nonoperative methods and was having significant limitations in daily function and desired better function and less pain. I discussed the technical details of a hip replacement. I explained the risks of the procedure to include, but not limited to, bleeding, infection, pain, stiffness, fracture, damage to nerves and vessels, damage to muscles and tendons, loosening, instability, leg length inequality, need for repeat procedure, blood clot and cardiopulmonary demise. Despite these risks, Karina elected to proceed. Findings: There was significant signs of arthritis throughout the hip. Karina Procedure Description: Karina was greeted in the preoperative holding area where the correct side was identified and marked. The consent was reviewed with the patient and signed. The history and physical was updated. All questions were answered. She was taken back to the operating room. A general anesthestic was then administered. The feet were wrapped with cast padding and Coban and then placed into the boot liners and then into the boots. Care was taken to protect the skin and make sure the heels were fully down and the boots were stable. The patient was then positioned onto the HANA table. Both legs were held in a neutral position. SCDs were applied. The patient was then slid down onto a peroneal post. Prophylactic antibiotics in the form of Cefazolin were administered. 1g of Tranxemic Acid was given intravenously within 30 minutes of incision. The right leg was then prepped with Chloraprep and draped in a standard fashion. A second prep with Chloraprep was performed prior to placement of a shower-curtain type drape with Iodine impregnated skin protection. A timeout to confirm correct identity, side and site, procedure, allergies, anesthesia, and medical concerns was performed. An obliquely oriented incision was made starting lateral to the ASIS and running distal over the Tensor Fascia Lili (TFL) muscle belly toward the fibular head, approximately 10cm. The skin and soft tissue was dissected sharply, through Genesis?s fascia, and to the fascia of the TFL. With the fascia and superior border of the IT band identified, the fascia was incised with a new knife just above any perforators from the IT band. The TFL muscle belly was bluntly dissected away from the fascia and moved laterally. The fat between TFL and rectus was identified to ensure the dissection was not within the TFL. Blunt dissection created space between abductors and the capsule and retractor was placed over the lateral femoral neck. The fibers of the rectus femoris tendon were identified and these were freed from the anterior capsule. A second cobra retractor was placed around the medial femoral neck. The TFL was further retracted laterally to show the deep fascia. Careful dissection through this layer identified three main crossing vessels of the lateral femoral circumflex. These were cauterized in multiple locations and then cut without any noticeable bleeding. The TFL was further released bluntly from the deep fascia to expose anterior hip capsule and fat The soft tissue orthopaedic retractor was then placed beneath the TFL and against sartorius and medial soft tissues to protect and retract the soft tissues. A T-capsulotomy was then performed starting at the superior lateral acetabulum and moving distally to the intertrochanteric ridge. These capsular flaps were tagged with a No. 1 Vicryl and elevated from within. The capsular flaps were released to the shoulder of the lateral neck and to the lesser trochanter to give excellent visualization of the proximal femur. A neck osteotomy was performed using an oscillating saw based on preoperative templates. This cut started in the shoulder and of the lateral neck and exited medially. The saw was at all times directed medially to avoid injury to the greater trochanter. Gross traction was applied to the leg and the osteotomy opened. The femoral head was removed with a corkscrew, making sure to protect the TFL on its exit. Traction was released after head removal. This was measured on the back table to determine the starting reamer size. Portions of the rectus obscuring visualization were minimally elevated off the superior acetabulum. An anterior retractor was placed over the anterior wall between capsule and labrum and attached to the Gripper retraction system. The femur was rotated to 90 degrees and medial capsule was fully released until the lesser trochanter was palpable and visible; the femur was returned to 30 degrees. A posterior retractor was placed similarly between capsule and labrum. This provided excellent visualization. The contents of the cotyloid fossa were removed with electrocautery and the labrum was removed with a knife. There was some chondromalacia of the superior acetabulum and lateral acetabular os teophyte. Acetabular reaming began with a 46mm reamer. This first reaming was directed anterior to posterior and medial to get down to the true floor. This was inspected and reamed until the true floor was reached. The anterior retractor was then released and entry and exit was provided by traction on the capsular flaps. I then reamed sequentially up to a 52mm reamer where good fit was obtain ed. The larger reamers were oriented based on anatomical reference of the anterior and lateral dyer to ensure proper abduction and anteversion. Positioning and size was confirmed with the fluoroscopy. A 52mm Depuy [place] acetabular component was selected. The acetabulum was reamed around the periphery with the selected acetabular size to prevent a rim fit. The deep tissues were irrigated. The acetabular component was then impacted in a position of about 40-45 degrees of abduction and 15-20 degrees of anteversion, using the patient?s anatomy as the ultimate landmark. Fluoroscopy was used to confirm this. There was excellent charge account identification clerk of the acetabular component and the inserting handle was removed. A primary acetabular screw was placed into the ilium by drilling through one of the holes in the acetabular component. This was measured and an approrpriately sized screw was placed with excellent purchase. It was checked not to be proud. A second screw was placed in a similar fashion. The acetabular liner, Depuy [id number] polyethylene liner, was inserted and lined up with the tines of the acetabular component. There was no soft tissue interposition. The liner was then impacted into position and confirmed to be well-seated. A portion of the reba-articular cocktail was then injected around the acetabulum into the capsule and periosteum. This cocktail consisted of 123mg of Ropivacaine, 0.25mg of Epinephrine, 0.04mg of Clonidine, and 15mg of Ketorolac, diluted to 50cc. The leg was rotated to 120 degrees. Any remaining medial capsule was released until the lesser trochanter was easily palpable. A retractor was placed medially. The lateral capsule was further released into the shoulder to allow access to the greater trochanter. A Quiñonez retractor was placed over the greater trochanter which allowed the trochanter to flip in front of the capsule for excellent exposure. The leg was brought down into maximal extension and 20 degrees of adduction while ensuring there was no impingement on the acetabulum. Any remnant capsule within the trochanter was released. Piriformis and obturator externis were identified and protected. There was excellent access to the proximal femur. The lateral neck remnant was removed with a rongeur. A blunt canal probe was used to identify the canal and trajectory for later broaching. A box osteotome initiated the broach course. A small curved rasp and a curved curette were used to work laterally. Broaching then began with a size 8 Corail broach. This was inserted manually around the trochanter and into the canal before mallet blows. The broach was seated to a few millimeters below the cut level based on the neck cut and the preoperative template. Sequential broaching was continued with the [employer] pneumatic broaching device until a tight fit was obtained with good rotational control of the femur. A trial standard neck was inserted along with a +1.5 trial head. The leg was brought out of extension and adduction and then reduced with traction and internal rotation. The leg was stable anteriorly in a position of 30 degrees of extension and 90 degrees of external rotation. Fluoroscopy was used to ensure there was no fracture and the stem was seated well. Leg lengths were checked with an AP pelvis and pelvic reference points. [employer] navigation system was used to confirm appropriate positioning and leg length and offset. Once content with the desired offset and leg lengths, the leg was brought back into extension, external rotation and adduction. The periosteum and surrounding tissue was injected with remaining portion of the reba-articular cocktail. The proximal femur was irrigated as well as the deep tissues. The Depuy Corail standard collared stem, size 13, was then manually inserted into the proximal femur making sure to control rotation. It was then malleted into position with light blows, giving breaks to allow bone expansion and decrease risk of fracture. The selected Depuy Altrx Ceramic Head, size 36+1.5mm, was then placed onto the clean and dry trunnion and secured with impaction onto the tapered fit. The leg was brought back out of extension and adduction and reduced with traction and internal rotation. Stability was confirmed with no shuck at 90 degrees of external rotation and 30 degrees of extension. No impingement through range of motion arc. Final x-ray images were obtained with fluoroscopy to confirm adequate positioning and no intraoperative fracture. The deep tissues were thoroughly irrigated with Surgiphor, betadine solution. This was allowed to sit in the wound for 3 minutes before being thoroughly irrigated out with normal saline. The capsule was then reapproximated with the previously placed sutures and the indirect head of the rectus was inspected and reapproximated with a #1 Vicryl. The TFL fascia was finally closed with a No. 2 Stratafix, barbed suture. Deep tissues were then reapproximated with 0 Vicryl and a running 2-0 Vicryl. The skin was closed with a running 4-0 Monocryl in a subcuticular fashion. This was reinforced with skin glue. A Mepilex silver dressing was applied. At the end of the case, all counts were correct. Karina was transferred to the hospital bed without difficulty and suffering no apparent complication. Karina has a good prognosis. Physical therapy will start today and without r estrictions, weight-bearing as tolerated. Anticoagulation can start tomorrow, Lovenox in house with the transition to aspirin on discharge. Date of Procedure: 10/02/24
[2024-10-02] MEDS: Lactated Ringers 1,000 ML 30 ML IV (15:50)
--- NOTE | 2024-10-02 16:07 | PT.INNT ---
PT Notes Visit Reasons: Close right humerus and right subcapital hip fract Per Nurse Melissa, patient is awaiting R ROSITA with Dr. Rushing and will not be in surgery until after lunch today. Will plan to evaluate patient after surgery for post op ROSITA protocol.
--- NOTE | 2024-10-02 17:06 | W.ANESVAS ---
Midline Placement Date Performed: 10/02/24 Procedure Time: 15:20 Requesting Provider: Demar Tyler Procedure Location: PACU Sedation Given (Indicate Dose Given): No Sedation given Patient Mental Status: Awake Sterility: Hand Hygiene, Surgical Cap, Surgical Mask, Sterile Gloves and Chlorhexidine Laterality: Left Insertion Site: Basilic Midline Device: PowerGlide Pro 20G Catheter Length: 10 cm Midline Procedure Procedure: 1% Lidocaine to skin and subcutaneous tissue with 25g needle and Catheter placed without resistance Dressing: Tegaderm Applied and Statlock Applied Blood Return: Present Flushes: Easily Ultrasound: Sterile probe cover and gel used Ultrasound Image Saved?: No Number of Attempts (See previous attempts in note section): 1 Procedure Tolerated: No Complications Procedure Outcome: Successful Procedure Comment:: To OR for hip fracture with IV that is not running. 2 attempts at placing PIV unsuccessful. Due to pt discomfort and need to for good access for the procedure a midline catheter was placed. Performed By: Demar Tyler
--- NOTE | 2024-10-02 17:21 | DI.RAD_ITS ---
Exam(s) XR HIP RT IN OR EXAM: XR HIP RT IN OR CLINICAL HISTORY: Closed fracture of right proximal humerus TECHNIQUE: 2D and realtime digital imaging was performed. CONTRAST MATERIAL: Refer to procedure report. COMPARISON: CR,XR XR HIP LT COMPLETE AP PELVIS from 10/01/2024 FINDINGS: Fluoroscopy was provided for Dr. Rushing during the performance of a right total hip arthroplasty. Please refer to the procedure report for complete details. Ka,r=3.56 mGy IMPRESSION: RADIATION DOSE DELIVERED: 0.0 0.0 0
--- NOTE | 2024-10-02 18:07 | W.ANESPOSTOP ---
Postoperative Evaluation Date, Time and Location Date Performed: 10/02/24 Time Performed: 18:07 Patient Location: PACU Vital Signs Most Recent Imported Vital Signs: Most Recent Vital Signs Temp Pulse Resp BP Pulse Ox 37.3 C 85 15 173/63 H 94 10/02/24 18:00 10/02/24 18:00 10/02/24 18:00 10/02/24 18:00 10/02/24 18:00 Pain Score Most Recent Pain Score: Most Recent Pain Score Pain Level 0 10/02/24 18:00 Assessment Mental Status: Arousable with meaningful communication Airway and Respiratory Function: Patent airway with normal (patient baseline) respiratory exam Cardiovascular Function: Hemodynamically Stable Hydration Status: Adequately Hydrated Nausea & Vomiting: No Nausea or Vomiting Pain: Pain is tolerable per patient Peripheral Nerve Block: Patient did not receive a nerve block
[2024-10-02] MEDS: ceFAZolin 1 GM/50 ML BAG IVPB (20:47)
[2024-10-02] MEDS: Sucralfate 1 GM TAB PO (22:26)
[2024-10-02] MEDS: dilTIAZem 60 MG TAB PO (22:26)
[2024-10-02] MEDS: Travoprost 0.004% Ophth Sol 2.5 ML BTL OP (22:26)
[2024-10-02] MEDS: Atorvastatin 40 MG TAB 80 MG PO (22:26)
[2024-10-03] VITALS (13 sets, daily range): BP systolic 128–164; BP diastolic 52–99; PULSE 67–99; RESP 12–22; TEMP 36–37.5; O2SAT 96–100
[2024-10-03] MEDS: ACETAMINOPHEN 1,000 MG/100 ML BAG 400 MG IVPB ×3 (03:02→20:26)
[2024-10-03] MEDS: ceFAZolin 1 GM/50 ML BAG IVPB ×2 (04:38→11:46)
[2024-10-03] MEDS: Levothyroxine 150 MCG TAB PO (04:39)
[2024-10-03] MEDS: dilTIAZem 60 MG TAB PO ×4 (04:39→23:17)
[2024-10-03 06:14] LABS: HCT 22.6 % (36.0-46.0); MCH 25.4 pg (27.0-33.0); MCHC 31.4 % (32.0-36.0); MCV 81 fL (80-95); Platelet Count 113 10^3/uL (130-400); RDW 17.2 % (11.7-14.6); WBC 11.35 10^3/uL (4.4-10.8)
[2024-10-03] MEDS: Normal Saline 1,000 ML 100 ML IV (06:21)
[2024-10-03] MEDS: Normal Saline Flush 10 ML SYR IVP ×4 (06:23→23:27)
[2024-10-03 06:32] LABS: ALT 17 U/L (14-59); AST 28 U/L (15-37); Albumin 2.6 g/dL (3.4-5.0); Alkaline Phosphatase 83 U/L (46-116); Anion Gap 4.3 mmol/L (3-11); BUN 20 mg/dL (7-18); Bilirubin, Total 0.3 mg/dL (0.2-1.0); CO2 27.7 mmol/L (21.0-32.0); CREATININE 1.2 mg/dL (0.55-1.02); Calcium 8.1 mg/dL (8.5-10.1); Chloride 108 mmol/L (98-107); Estimated GFR 46.91 (mL/min/1.73m2); Glucose 148 mg/dL (74-106); Magnesium 2.1 mg/dL (1.8-2.4); Sodium 140 mmol/L (136-145); Total Protein 5.1 g/dL (6.4-8.2)
[2024-10-03 06:35] LABS: HGB 7.1 g/dL (11.2-15.7)
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
[2024-10-03] MEDS: Multivitamin w/Minerals TAB 1 TAB PO (08:05)
[2024-10-03] MEDS: Allopurinol 300 MG TAB PO (08:05)
[2024-10-03] MEDS: Empaglifozin 10 MG TAB PO (08:06)
[2024-10-03] MEDS: Pantoprazole 40 MG TABCR PO (08:06)
[2024-10-03] MEDS: Sucralfate 1 GM TAB PO ×2 (08:06→20:26)
[2024-10-03] MEDS: HYDROmorphone 2 MG/ML SYR 1 MG IVP ×5 (08:26→23:26)
[2024-10-03] MEDS: Enoxaparin 40 MG/0.4 ML SYR SC (09:19)
--- NOTE | 2024-10-03 09:28 | PDOC.CMPRO ---
Date of service: 10/03/24 Time of Service: 09:28 Care Management Progress Note Progress Note Text Progress Note Text: Karina was lying in bed when CM met with her. Karina has [facility], and her son is her caregiver. Barb (COA-CM) is planning to re-evaluate Karina; She believes she might be able to obtain more hours through [facility] to increase home support for after SNF. PT recommends SNF for STR, Karina is agreeable. Referrals are being sent to [facility] and [facility]. Per pt request, Barb (COA CM) will be notified if Karina is offered a bed at a facility, so she can follow. CM will continue to follow. Discharge Potential Discharge Needs: PT Evaluation, PCP F/U Appt and Surgical F/U Appt Anticipated Barriers to Discharge: Medical Status Patient/Family Education Needs: Review discharge instructions, discuss Ask Me Three Transportation: Private vehicle Plan: Anticipate Karina will be discharged to a SNF when medically ready, referrals sent. Karina proceeded with surgical for a hip replacement yesterday. She will follow up with her community provider, surgical team and continue per her plan of care. Karina will likely be transported via [facility]. CM will continue to follow and update the plan as needed. Social Determinants of Health Screening Social Determinants of health last assessed in clinic: 10/03/24 Will the Patient Participate in the Screening?: Yes Do you worry about having a steady place to live?: no Problems where you live: no known problems In the past 12 months, have you had to go without electric, gas, oil or water in your home?: no 1. Within the past 12 months, we worried whether our food would run out before we got money to buy more.: Never true 2. Within the past 12 months, the food we bought just didn't last and we didn't have money to get more.: Never true Has lack of transportation kept you from medical appointments or from doing things needed for daily living?: choose not to answer Has anyone in your life made you feel unsafe or unsupported?: no How hard is it for you to pay for the very basics like food, housing, medical care, and heating? Would you say it is:: Not hard at all Do you want help finding or keeping work or a job?: I do not need or want help If for any reason you need help with day-to-day activities such as bathing, preparing meals, shopping, managing finances, etc., do you get the help you need?: I could use a little more help How often do you feel lonely or isolated from those around you?: Never Do you speak a language other than Irish at home?: No Comments: patient is non verbal and right handed with a fx of right humerus, cannot write well with left hand Health Related Social Needs Health related social needs: problems with daily activities (Z73.9) Health related social needs details: patient non verbal with right humerus fx, pt reports being unable to right with left
--- NOTE | 2024-10-03 09:49 | RESPIRATORY ---
Addendum entered by Norman De La Vega 10/05/24 18:34: At Medical Supplies: [employer] Life Emy Tube: Size 8 x 36 cm. (1 every 3 months) Tube Robles Half Collar. (31 a month) [employer] Life Home HME. (60 per month) This RT misheard Karina when she spoke of her provider's name. Her provider at [facility] [place] [place] is confirmed to be Dr. Newton Burnett. Original Note: After speaking with both Karina and her son, RT found that Karina performs her own laryngectomy care and cleaning on a daily basis, has a size 8.0 Provox laryngectomy tube with HMEs - though she sometimes does not wear the HME piece. Pt does not use O2 at home at baseline. Karina used to get her supplies through [facility] in the past. Currently, if she needs supplies, they will get them from Dr. Mariscal at [facility] [place] [place] or order them through [facility] supplies, which specializes in laryngectomy and tracheostomy supplies and guides. Karina states that she currently only orders the Provox tube, HMEs, and soft tube holders through them.
--- NOTE | 2024-10-03 14:21 | W.PM.PROGNOT ---
Date of Service Date of service: 10/03/24 Time of Service: 14:22 Assessment and Plan Assessment and plan (1) Displaced fracture of right femoral neck: Status: Acute Assessment and plan: Karina is a 74-year-old female who is postop day #1 status post right hip replacement for femoral neck fracture. Her pain that she had before surgery is now much better. Unfortunately, we were unable to mobilize yet today due to her low blood pressure and some the lung issues. The medicine team is working on this and will transfuse 1 unit of blood. This may need to be repeated as well. However, I do not see any acute complication concerns. Continue with anticoagulation. Weightbearing as tolerated with assistive devices. Mepilex dressing stay in place for least 1 week. (2) Closed fracture of right proximal humerus: Status: Acute Assessment and plan: Proximal humerus fracture is likely nonoperative. When she mobilized with physical therapy we will recheck some x-rays and potentially CT scan. She may use the hand for stability although we should limit some of the weightbearing. Platform walker should be okay to use. This may cause some pain but we will immobilize and then check x-rays. Sling for comfort. May remove the sling and support with pillows as she desires. Subjective Subjective Interval history since last seen: Karina is a 74-year-old female who is status post right hip replacement for a displaced femoral neck fracture. She also has a proximal humerus fracture on the right side. She has done relatively well after surgery. She has had some low oxygen readings and some low blood pressure. Hemoglobin did drop to 7.1. She feels that the pain in her right leg is significantly improved and she does not feel anything. She denies any numbness or tingling about the right leg. Exam Narrative Exam Narrative: Sitting up in hospital bed. No acute distress. Alert and oriented x 3. Right upper extremity in a sling. Notable swelling about the right upper extremity. Mild ecchymosis. Right lower extremity shows a dressing which is clean dry and intact. There is some swelling about the right thigh. No ecchymosis. The thigh is compressible but is swollen. Sensation intact to light touch over the femoral, lateral, cutaneous, and sciatic nerve distributions. Intact ankle dorsiflexion, ankle plantarflexion, extension, flexion of the great toe. Objective Last Vital Signs Temp 37.5 C 10/03/24 11:38 Pulse 89 10/03/24 11:38 Resp 16 10/03/24 11:38 BP 137/71 10/03/24 11:38 Pulse Ox 99 10/03/24 11:38 Laboratory Results - last 24 hr 10/03/24 10/03/24 05:25 12:17 WBC 11.35 H RBC 2.80 L Hgb 7.1 L D Hct 22.6 L MCV 81 MCH 25.4 L MCHC 31.4 L RDW 17.2 H Plt Count 113 L MPV Sodium 140 Potassium 4.0 Chloride 108 H Carbon Dioxide 27.7 Anion Gap 4.3 BUN 20 H Creatinine 1.2 H Est GFR (CKD-EPI 2020) 46.91 Glucose 148 H Calcium 8.1 L Magnesium 2.1 Total Bilirubin 0.3 AST 28 ALT 17 Alkaline Phosphatase 83 Total Protein 5.1 L Albumin 2.6 L ABO/Rh A Positive Antibody Screen NEGATIVE Crossmatch See Detail Time Spent with Patient Time Spent with Patient: 25-34 minutes Time was spent: preparing to see the patient(eg.review tests), referring, communicating with other health district manager primary care sales and counseling the patient
--- NOTE | 2024-10-03 14:32 | CHAPLAIN ---
Karina was sitting up in bed with several people in the room with her when I visited. She uses a trach, but mouthed these are my four boys! I explained my role and offered support and will plan to visit Karina when she doesn't have company.
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
--- NOTE | 2024-10-03 16:43 | W.PM.PROGNOT ---
Date of Service Date of service: 10/03/24 Time of Service: 16:44 Assessment and Plan Assessment and plan (1) Closed fracture of right hip: Status: Acute Assessment and plan: Post op day 1 - yarbrough out, receiving pain med, pain less than yesterday - ortho following - dressing dry and intact (2) Closed fracture of right humerus: Start date: 10/01/24 Status: Acute Assessment and plan: Sling to right arm, good radial pulse - a lot of swelling and ecchymosis noted to right upper arm. Some swelling in dependent right hand. (3) Normocytic normochromic anemia: Status: Chronic Assessment and plan: Hemoglobin down to 7.1 from 10.0 post op EBL 100 ml - one unit of PRBCs given, will recheck H&H (pending at time of writing) Some hypotension noted post op - continue MIVF NS 125 ml/h (4) History of laryngeal cancer: Status: Chronic Assessment and plan: Patient has tracheostomy (5) CKD (chronic kidney disease): Status: Chronic Assessment and plan: Chronic and stable (6) Type 2 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, bilateral: Status: Chronic Assessment and plan: Hold outpatient medications except for Jardiance with glucometer measurements before meals and at bedtime and sensitive insulin sliding scale coverage. (7) Essential hypertension: Status: Chronic Assessment and plan: Continue outpatient medications (8) Postoperative hypothyroidism: Status: Chronic Assessment and plan: Slightly suppressed TSH but patient will continue on outpatient supplementation dose once able to take p.o. (9) Fibromyalgia: Status: Chronic Assessment and plan: Patient does have some chronic pain and is on no outpatient narcotics by review of VPMS. She does receive lorazepam prescriptions intermittently apparently have 40 tablets of 0.5 mg tablets every 6 months since 2023. She does have lidocaine patches which she uses (10) Chronic bilateral low back pain with bilateral sciatica: Status: Chronic Assessment and plan: Continue lidocaine patches. (11) Anxiety: Status: Chronic Assessment and plan: Lorazepam prn (12) Palliative care patient: Assessment and plan: palliative care in to see patient (13) Tobacco use disorder: Assessment and plan: Patient has not smoked for years since her laryngeal cancer. (14) Hyperlipidemia: Status: Chronic Assessment and plan: Continue outpatient statin therapy. Subjective Subjective Patient reports: no new complaints, still having pain, tolerating liquids well, tolerating a regular diet, voiding w/o difficulty (yarbrough dc'd) and afebrile; denies nausea or shortness of breath Interval history since last seen: Post op day 1 continues to have pain but appropriately requesting pain medication and doing well when pain is controlled. Exam Const General: no acute distress Orientation: alert HENMT Head: normal to inspection Ears: external ears normal General nose exam: external nose normal Mouth: moist mucous membranes Eyes General: appearance normal, both eyes and all related structures Neck Neck: full ROM and no lymphadenopathy Resp Effort & Inspection: normal respiratory effort and able to speak in complete sentences Auscultation: clear to auscultation bilaterally Cardio Rate: regular rate Heart Sounds: no murmurs Skin General skin exam: no rashes or lesions noted Neuro General: patient alert and patient oriented x3 Extrem Other: dressing on right hip, right arm in sling, notable swelling to right upper arm with ecchymosis and some swelling noted dependent right hand. Right thigh swollen no eccymosis, dressing dry and intact. right foot pulses present, full rom of ankle toes are pink Psych Mental Status: mental status grossly normal Objective Last Vital Signs Temp 36 C L 10/03/24 16:33 Pulse 92 H 10/03/24 16:33 Resp 14 10/03/24 16:33 BP 128/58 L 10/03/24 16:33 Pulse Ox 98 10/03/24 16:33 Laboratory Results - last 24 hr 10/03/24 10/03/24 05:25 12:17 WBC 11.35 H RBC 2.80 L Hgb 7.1 L D Hct 22.6 L MCV 81 MCH 25.4 L MCHC 31.4 L RDW 17.2 H Plt Count 113 L MPV Sodium 140 Potassium 4.0 Chloride 108 H Carbon Dioxide 27.7 Anion Gap 4.3 BUN 20 H Creatinine 1.2 H Est GFR (CKD-EPI 2020) 46.91 Glucose 148 H Calcium 8.1 L Magnesium 2.1 Total Bilirubin 0.3 AST 28 ALT 17 Alkaline Phosphatase 83 Total Protein 5.1 L Albumin 2.6 L ABO/Rh A Positive Antibody Screen NEGATIVE Crossmatch See Detail Time Spent with Patient Time Spent with Patient: 25-34 minutes Time was spent: preparing to see the patient(eg.review tests), ordering medications,tests, procedures, referring, communicating with other health patient care representative, indepentently interpreting results, counseling the patient and care coordination
[2024-10-03] MEDS: Insulin Aspart 300 UNITS/3 ML PEN SC (16:57)
[2024-10-03] MEDS: Cyclobenzaprine 10 MG TAB 5 MG PO (18:21)
[2024-10-03] MEDS: Normal Saline 1,000 ML 125 ML IV (19:00)
[2024-10-03] MEDS: Atorvastatin 40 MG TAB 80 MG PO (20:26)
[2024-10-03] MEDS: Travoprost 0.004% Ophth Sol 2.5 ML BTL OP (20:27)
[2024-10-03] MEDS: Hydrocortisone 1% CR 30 GM TUBE TP (20:27)
[2024-10-03 21:09] LABS: HCT 25.5 % (36.0-46.0)
--- NOTE | 2024-10-04 | DI.RAD_ITS ---
Exam(s) XR SHOULDER RT COMPLETE 2+V EXAM: XR SHOULDER RT COMPLETE 2+V CLINICAL HISTORY: evaluate R proximal humerus. TECHNIQUE: 2D digital imaging was performed. Three views, portable. COMPARISON: CR,XR XR SHOULDER RT COMPLETE 2+V from 10/01/2024 FINDINGS: Exam is limited by portable technique. BONES: The alignment of the comminuted proximal humeral fracture is roughly stable given differences in projection no bony destructive lesion is seen. JOINTS: No dislocation present. The glenohumeral joint appears intact. SOFT TISSUE: Normal. IMPRESSION: Stable alignment of the humeral head fracture. DATA REPOSITORY: RADIATION DOSE DELIVERED:
[2024-10-04] MEDS: HYDROmorphone 2 MG/ML SYR 1 MG IVP ×6 (01:12→20:54)
[2024-10-04] MEDS: diphenhydrAMINE 25 MG CAP PO ×3 (02:05→20:55)
[2024-10-04] MEDS: Cyclobenzaprine 10 MG TAB 5 MG PO ×2 (02:43→15:48)
[2024-10-04] MEDS: LORazepam 0.5 MG TAB PO (03:02)
[2024-10-04 03:40] VITALS: BP 112/44; PULSE 76; RESP 18; TEMP 36.6; O2SAT 92
[2024-10-04] MEDS: dilTIAZem 60 MG TAB PO ×4 (04:53→22:49)
[2024-10-04] MEDS: ACETAMINOPHEN 1,000 MG/100 ML BAG 400 MG IVPB ×2 (04:54→11:14)
[2024-10-04] MEDS: Levothyroxine 150 MCG TAB PO (04:54)
[2024-10-04 06:57] LABS: HCT 25.1 % (36.0-46.0); HGB 7.6 g/dL (11.2-15.7); MCH 25.2 pg (27.0-33.0); MCHC 30.3 % (32.0-36.0); MCV 83 fL (80-95); Platelet Count 94 10^3/uL (130-400); RBC 3.02 10^6/uL (3.93-5.22); RDW-SD 51.7 fL; WBC 9.89 10^3/uL (4.4-10.8)
[2024-10-04 07:24] LABS: ALT 13 U/L (14-59); AST 33 U/L (15-37); Albumin 2.4 g/dL (3.4-5.0); Alkaline Phosphatase 82 U/L (46-116); Anion Gap 6.7 mmol/L (3-11); BUN 18 mg/dL (7-18); Bilirubin, Total 0.5 mg/dL (0.2-1.0); CO2 26.3 mmol/L (21.0-32.0); CREATININE 1.1 mg/dL (0.55-1.02); Calcium 8.6 mg/dL (8.5-10.1); Chloride 109 mmol/L (98-107); Estimated GFR 52.08 (mL/min/1.73m2); Glucose 130 mg/dL (74-106); Magnesium 2.1 mg/dL (1.8-2.4); Potassium 3.9 mmol/L (3.5-5.1); Sodium 142 mmol/L (136-145); Total Protein 5.1 g/dL (6.4-8.2)
[2024-10-04 07:42] VITALS: BP 129/59; PULSE 67; RESP 12; TEMP 37.2; O2SAT 94
[2024-10-04 07:45] LABS: RDW 17.2 % (11.7-14.6)
[2024-10-04] MEDS: Normal Saline Flush 10 ML SYR IVP ×3 (09:29→20:34)
[2024-10-04] MEDS: Multivitamin w/Minerals TAB 1 TAB PO (09:30)
[2024-10-04] MEDS: Celecoxib 100 MG CAP PO ×2 (09:30→20:55)
[2024-10-04] MEDS: Sucralfate 1 GM TAB PO ×2 (09:30→20:34)
[2024-10-04] MEDS: Pantoprazole 40 MG TABCR PO (09:30)
[2024-10-04] MEDS: Empaglifozin 10 MG TAB PO (09:30)
[2024-10-04] MEDS: Allopurinol 300 MG TAB PO (09:38)
[2024-10-04] MEDS: Hydrocortisone 1% CR 30 GM TUBE TP ×3 (09:39→20:47)
[2024-10-04] MEDS: Enoxaparin 40 MG/0.4 ML SYR SC (09:54)
[2024-10-04 11:13] VITALS: BP 129/63; PULSE 69; RESP 18; TEMP 36.3; O2SAT 95
--- NOTE | 2024-10-04 11:33 | PT.INTREAT ---
PT Notes Visit Reasons: Close right humerus and right subcapital hip fract Inpatient Physical Therapy Treatment Note [facility] Date: 10/04/2024 PRECAUTIONS:Aphonic. Patient intermittently will cover her trach to vocalize. Fall. Standard. As of 10/02/[address] Rushing: WBAT on the R LE with AD. Sling treatment on R UE. May use platform walker for support of R UE to minimize weight bearing through R shoulder during transfers. SUBJECTIVE: Patient reporting pain right shoulder with any movement of right upper extremity. Second session patient reporting itching sensation in right axilla nursing aware OBJECTIVE: Patient presented semireclined in bed with noted edema to right hand large amount of ecchymosis to posterior right upper arm axilla to elbow.? PAIN: 6/10 prior to pain meds right upper extremity. Patient with facial grimacing with transitions despite use of sling to right upper extremity VITALS: ?Monitored by nursing via telemetry throughout Therapeutic Activities ([id number][]): Direct one-on-one instruction in dynamic activities to improve functional performance. ? BED MOBILITY/TRANSFERS? Rolling L/R: mod A to left Supine-sit: mod A at trunk after sling applied? Sit-supine:Mod A of 2 ; to support RUE and lift BLE into bed d/t pain in RUE?pm session ? Sit-stand: Min A x 1 trial then CGA x 4 trialscues for hand placement? Stand-sit: CGA and cues for reach back to surface? [id number]: min A for HW mgmgt in am session ; ? Chair-commode - bed:CGA and VC for HW placement in PM session (am/pm)Facilitated safe and correct performance of level surface ambulation covering a distance of 20x1 feet and 10 feet x 1 using use HW and min A for HW management. Did not report of any increased pain in her hip . Denied headache, chest pain, and lightheadedness throughout activity. Minimal verbal cueing provided for AD management, directional changes, and posture. ASSESSMENT:? Pt able to perform ambulation with the HWwith CGA/min A and VCs for HW mgmt. Pt with report of less pain in UE with use of HW as compared to platfrom FWW. Pt limited by pain in Right UE during any movements of anterior trunk flexion or UE movement . Pt with 2+pitting edema R hand. Large ecchymotic area to posterior aspect of Right upper arm extending to elbow. Pt second session shortened for repeat xray of R UE. Will await results for progression. PLAN: 1-2x/day, 7 days/week x 1 week. Plan of care has been reviewed with the ADDICTION MEDICINE PHYSICIAN providing the service under Physical Therapy direction. Initiate Physical Therapy intervention for strengthening, bed mobility, transfers, gait, stairs, balance training, use of assistive device. TREATMENT CODE/TIME: 53747/[id number] second session: 45724/ [id number] DISCHARGE RECOMMENDATION: short term SNF
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
--- NOTE | 2024-10-04 14:07 | PDOC.CMPRO ---
Date of service: 10/04/24 Time of Service: 14:08 Care Management Progress Note Progress Note Text Progress Note Text: Karina was lying in bed visiting with her son, Gato, when CM arrived. Karina states that she is very tired and is in pain. She had a shoulder X-ray completed today. [facility] is considering Karina, pending medical status and how quickly they can receive trach supplies. After speaking with Gato and Karina, CM was able to get confirmation that Gato can bring one of each medical supply that used for her trach, as requested by [facility] (until supplies can be ordered). Karina will continue to work with PT/OT at [facility]. CM will continue to follow. Discharge Potential Discharge Needs: PCP F/U Appt and Surgical F/U Appt Anticipated Barriers to Discharge: Bed availability Patient/Family Education Needs: Review discharge instructions, discuss Ask Me Three Transportation: [facility] Transportation: Wheel chair van Plan: Anticipate Karina will be discharged to a SNF when medically ready, referrals sent. 10/01/24 Karina received a Right Anterior Total Hip Arthroplasty. She will follow up with her community provider, surgical team and continue per her plan of care. Karina will likely be transported via [facility]. CM will continue to follow and update the plan as needed. CM will continue to follow. Social Determinants of Health Screening Social Determinants of health last assessed in clinic: 10/04/24 Will the Patient Participate in the Screening?: Yes Do you worry about having a steady place to live?: no Problems where you live: no known problems In the past 12 months, have you had to go without electric, gas, oil or water in your home?: no 1. Within the past 12 months, we worried whether our food would run out before we got money to buy more.: Never true 2. Within the past 12 months, the food we bought just didn't last and we didn't have money to get more.: Never true Has lack of transportation kept you from medical appointments or from doing things needed for daily living?: choose not to answer Has anyone in your life made you feel unsafe or unsupported?: no How hard is it for you to pay for the very basics like food, housing, medical care, and heating? Would you say it is:: Not hard at all Do you want help finding or keeping work or a job?: I do not need or want help If for any reason you need help with day-to-day activities such as bathing, preparing meals, shopping, managing finances, etc., do you get the help you need?: I could use a little more help How often do you feel lonely or isolated from those around you?: Never Do you speak a language other than [place] at home?: No Comments: patient is non verbal and right handed with a fx of right humerus, cannot write well with left hand Health Related Social Needs Health related social needs: problems with daily activities (Z73.9) Health related social needs details: patient non verbal with right humerus fx, pt reports being unable to right with left
--- NOTE | 2024-10-04 14:35 | PGE_ITS ---
Date of Service Date of service: 10/04/24 Time of Service: 11:30 Assessment and Plan Assessment and plan (1) Closed fracture of right hip: Status: Acute Assessment and plan: POD 2 Dressing dry clean and intact Ongoing PT- recommendation for rehab Ongoing ortho consult: please read notes Ongoing pain management with scheduled oral acetaminophen and PRN hydromorphone (2) Closed fracture of right humerus: Start date: 10/01/24 Status: Acute Assessment and plan: Non-operative as per Ortho. Ongoing sling to the right arm, good radial pulse - improved swelling and ecchymosis noted to right upper arm. S/p discussion with Dr. lopez: repeat XR ordered s/p mobilization with PT (3) Normocytic normochromic anemia: Status: Chronic Assessment and plan: Hemoglobin down to 7.1 from 10.0 post op EBL 100 ml - one unit of PRBCs given now 7.6 will trend IVF d/c , tolerated enteral intake - encourage hydration trend H&H (4) History of laryngeal cancer: Status: Chronic Assessment and plan: Ongoing tracheostomy - has been requiring O2 supplementation since admission (5) CKD (chronic kidney disease): Status: Chronic Assessment and plan: conitune to monitor BMP in AM Stable (6) Type 2 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, bilateral: Status: Chronic Assessment and plan: Ongoing glucometer measurements before meals and at bedtime and sensitive insulin sliding scale coverage. On Jardiance (7) Essential hypertension: Status: Chronic Assessment and plan: Continue outpatient medications - furosemide resumed (8) Postoperative hypothyroidism: Status: Chronic Assessment and plan: Slightly suppressed TSH but patient will continue on outpatient supplementation dose, T4 1.34 (9) Fibromyalgia: Status: Chronic Assessment and plan: Continue APAP, have some chronic pain and is on no outpatient narcotics by review of VPMS. PRN lorazepam low -dose Ongoing lidocaine patches PRN for now -she uses then daily at home (10) Chronic bilateral low back pain with bilateral sciatica: Status: Chronic Assessment and plan: Continue lidocaine patches. (11) Anxiety: Status: Chronic Assessment and plan: Lorazepam prn (12) Palliative care patient: Assessment and plan: palliative care was ordered and cancelled (13) Tobacco use disorder: Assessment and plan: Patient has not smoked for years since her laryngeal cancer. (14) Hyperlipidemia: Status: Chronic Assessment and plan: Continue outpatient statin therapy. Subjective Subjective Patient reports: no new complaints, feels better, pain is less, tolerating liquids well, tolerating a regular diet, voiding w/o difficulty, bowel movement and afebrile; denies diarrhea, nausea, vomiting or shortness of breath Exam Narrative Exam Narrative: 24-year-old female patient looking older than stated age, O2 at 28% via trach collar, no acute distress, S1-S2, positive murmur, clear upper lung bilaterally coarse right basilar breath sounds, abdomen is nondistended, soft, nontender, right arm sling and dry clean and intact Mepilex dressing to right upper extremity and right hip, no pedal edema Const General: no acute distress Orientation: alert HENMT Head: normal to inspection Ears: external ears normal General nose exam: external nose normal Mouth: moist mucous membranes Eyes General: appearance normal, both eyes and all related structures Neck Neck: full ROM and no lymphadenopathy Resp Effort & Inspection: normal respiratory effort and able to speak in complete sentences Auscultation: clear to auscultation bilaterally Cardio Rate: regular rate Heart Sounds: no murmurs Skin General skin exam: no rashes or lesions noted Neuro General: patient alert and patient oriented x3 Extrem Other: dressing on right hip, right arm in sling, notable swelling to right upper arm with ecchymosis and some swelling noted dependent right hand. Right thigh swollen no eccymosis, dressing dry and intact. right foot pulses present, full rom of ankle toes are pink Psych Mental Status: mental status grossly normal Objective Last Vital Signs Temp 36.3 C L 10/04/24 11:13 Pulse 69 10/04/24 11:13 Resp 18 10/04/24 11:13 BP 129/63 10/04/24 11:13 Pulse Ox 95 10/04/24 11:13 Laboratory Results - last 24 hr 10/03/24 10/03/24 10/04/24 12:17 21:00 06:25 WBC 9.89 RBC 3.02 L Hgb 8.0 L 7.6 L Hct 25.5 L 25.1 L MCV 83 MCH 25.2 L MCHC 30.3 L RDW 17.2 H Plt Count 94 L MPV Sodium 142 Potassium 3.9 Chloride 109 H Carbon Dioxide 26.3 Anion Gap 6.7 BUN 18 Creatinine 1.1 H Est GFR (CKD-EPI 2020) 52.08 Glucose 130 H Calcium 8.6 Magnesium 2.1 Total Bilirubin 0.5 AST 33 ALT 13 L Alkaline Phosphatase 82 Total Protein 5.1 L Albumin 2.4 L ABO/Rh A Positive Antibody Screen NEGATIVE Crossmatch See Detail Time Spent with Patient Time Spent with Patient: >50 minutes Time was spent: preparing to see the patient(eg.review tests), obtaining and/or reviewing separately otained hiistory, ordering medications,tests, procedures, referring, communicating with other health adult care provider, indepentently interpreting results, counseling the patient and care coordination
[2024-10-04 15:30] VITALS: BP 128/72; PULSE 64; RESP 15; TEMP 36.6; O2SAT 94
[2024-10-04] MEDS: Lidocaine 5% Patch 1 PATCH TP (16:41)
[2024-10-04] MEDS: Furosemide 20 MG TAB PO (16:41)
--- NOTE | 2024-10-04 19:03 | RESPIRATORY ---
10/04/2024 This RT did attempt to wean patient off of O2. Pt did not tolerate and desaturated to 82-84%SPO2 on RA. Pt was placed back on 6L 28% trach mask.
[2024-10-04] MEDS: Atorvastatin 40 MG TAB 80 MG PO (20:34)
[2024-10-04] MEDS: Travoprost 0.004% Ophth Sol 2.5 ML BTL OP (20:47)
[2024-10-04 20:59] VITALS: BP 124/87; PULSE 69; RESP 15; TEMP 36.8; O2SAT 96
--- NOTE | 2024-10-04 21:17 | W.PM.PROGNOT ---
Date of Service Date of service: 10/04/24 Time of Service: 12:20 Assessment and Plan Assessment and plan (1) Closed fracture of right proximal humerus: Status: Acute Assessment and plan: Repeat x-rays today demonstrate continued surgical neck and greater tuberosity. There may be some slight increase in compression of the surgical neck fracture and mild valgus deformity. Overall there has been some minimal change but not enough to warrant surgery. She may use the hand for stabilization and support for mobilization. Minimal weight bearing as needed for support. Sling for comfort but it may be removed as desired, supporting the arm with pillows for comfort. OK to use platform walker. Gentle passive ROM as tolerated. AROM of shoulder to begin at 6 weeks. (2) Displaced fracture of right femoral neck: Status: Acute Assessment and plan: POD#2 s/p R ROSITA for femoral neck fracture. Overall she has much less pain. She has been able to mobilize. There is swelling of the thigh which likely has a portion of hematoma but I don't see any complications. Continue to treat the acute blood loss but likely at [facility] today/tomorrow. I recommend continued PT to work on weight-bearing and mobilization, WBAT RLE with platform walker to support the right arm. Continue anticoagulation, ASA 81mg BID on discharge. Discharge plan per PT recommendations. F/U in 4 weeks. Subjective Subjective Interval history since last seen: Karina mobilized to a chair with PT. She has minimal pain in the right hip. She does have some pain in the right shoulder and does not like the sling. She denies numbness or tingling. She denies any new symptoms. She received one unit of blood yesterday. Vitals have been stable. Exam Narrative Exam Narrative: Sitting up in the chair. NAD. AAOx3. RUE with notable swelling. Compressible. Edema is soft. Palpable radial pulse. SILT M/R/U. RLE dressing c/d/i. Swelling notes to the thigh. Compressible. Min ecchymosis. No significant pain with IR/ER. Objective Last Vital Signs Temp 36.8 C 10/04/24 20:59 Pulse 69 10/04/24 20:59 Resp 15 10/04/24 20:59 BP 124/87 10/04/24 20:59 Pulse Ox 96 10/04/24 20:59 Laboratory Results - last 24 hr 10/04/24 06:25 WBC 9.89 RBC 3.02 L Hgb 7.6 L Hct 25.1 L MCV 83 MCH 25.2 L MCHC 30.3 L RDW 17.2 H Plt Count 94 L MPV Sodium 142 Potassium 3.9 Chloride 109 H Carbon Dioxide 26.3 Anion Gap 6.7 BUN 18 Creatinine 1.1 H Est GFR (CKD-EPI 2020) 52.08 Glucose 130 H Calcium 8.6 Magnesium 2.1 Total Bilirubin 0.5 AST 33 ALT 13 L Alkaline Phosphatase 82 Total Protein 5.1 L Albumin 2.4 L Time Spent with Patient Time Spent with Patient: 25-34 minutes Time was spent: preparing to see the patient(eg.review tests), obtaining and/or reviewing separately otained hiistory, indepentently interpreting results and counseling the patient
[2024-10-04] MEDS: Insulin Aspart 300 UNITS/3 ML PEN SC (22:49)
[2024-10-04 22:57] VITALS: BP 132/70; PULSE 75; RESP 15; TEMP 37; O2SAT 97
[2024-10-05] VITALS (7 sets, daily range): BP systolic 103–160; BP diastolic 36–74; PULSE 65–79; RESP 12–18; TEMP 36.5–37; O2SAT 91–97
--- NOTE | 2024-10-05 02:03 | PT.INTREAT ---
PT Notes Visit Reasons: Close right humerus and right subcapital hip fract Physical Therapy Inpatient Treatment Note Date: 10/05/2024 Precautions: Aphonic. Fall. Standard. As of 10/04/[address] Rushing: She may use the hand for stabilization and support for mobilization. Minimal weight bearing as needed for support. Sling for comfort but it may be removed as desired, supporting the arm with pillows for comfort. OK to use platform walker. Gentle passive ROM as tolerated. AROM of shoulder to begin at 6 weeks. As of 10/02/[address] Rushing: WBAT on the R LE with AD. Sling treatment on R UE. May use platform walker for support of R UE to minimize weight bearing through R shoulder during transfers. 10/04/2024 SHOULDER X-RAY IMPRESSION: Stable alignment of the humeral head fracture Subjective: Continues to have episodic muscle spasm at rest and with movement of the R shoulder. Minimal pain in the R hip. Agreeable to both session in AM and PM. Somewhat confused--had difficulty recalling son's phone number. Was wanting to move garbage bin beside toilet higher before she turnedd around to move urine. Objective: General Observation: Mepilex silver in place over surgical hip incision. Ecchymoses noted in R gluteal and R thigh. Sling to R UE. Trachesotomy mask being placed by RT Norman burden patient for hallway ambulation. Telemetry monitoring in place. IV access through L UE. Mental Status: Alert and oriented as to person and place. Able to pay attention, focus, and respond appropriately. Able to generate minimal vocal sounds by covering trach tube. sometimes subvocalization is understandable. Pain: As above Bed Mobility/Transfers: Moderate cueing provided for use of B hands as needed for support, movement sequence, AD management, and posture to reduce fall risk and minimize pain report Supine to sit moderate assist with HOB at 45 degrees Sit to stand stand by assist with hemiwalker Stand to sit stand by assist with hemiwalker Gait: Facilitated safe and correct level surface ambulation covering a distance of 30 feet + 30 feet + 15 feet using hemiwalker on the L side, 4 L via trachestomy mask and wheelchair follow for safety. Contact guard assist only. Highly favoring R UE with R trunk and R UE minimally flexed as standing taller cauases increased muscle guarding on R shoulder and arm. Step length and height decreased, somewhat hesitant and cautious but no LOB. In the afternoon, patient was able to cover 30 feet + 10 feet + 15 feet using same device and with same amount of assiatance and oxygen supply. Used a hemiwalker that was issued and fitted for patient. Balance: Static Sitting: Fair Dynamic Sitting: Poor Static Standing: Fair Dynamic Standing: Fair Assessment: Patient with closed fracture of the R proximal humerus currently managed conservatively with sling as well as displaced fracture of the R femoral neck S/P R total hip arthroplasty on postoperative day 2. Preparation to mobilize patient took a long time as sling needed to be applied very slowly and with great care to minimize bout of pain. HOB needed to be brought up to at least 45 degrees prior to supine to sit. Once up in standing, patient was able to do more until sporadic pain bout from R shoulder comes. Assistance was also given to and from toilet seat to void urine in both sessions. Primary limiting factor with mobilization continues to be pain in the R upper extremity pain exacerbated by movement, she required extensive assistance to get out of bed to sit up from supine due to pain with any movement in the R shoulder, head of bed needed to be elevated to about 45 degrees to minimize undue strain on R shoulder. Patient is stable enough with use of hemiwalker on L. Plan of Care/Treatment Plan: CONTINUE TO COORDINATE WITH NURSE TO PRE-MEDICATE FOR PAIN. 1-2x/day, 7 days/week x 1 week. Plan of care has been reviewed with the INDEPENDENT LIVING INSTRUCTOR providing the service under Physical Therapy direction. Initiate Physical Therapy intervention for strengthening, bed mobility, transfers, gait, stairs, balance training, and use of assistive device. DISCHARGE RECOMMENDATIONS: SNF for continued orthopedic post-op rehab and functional mobility training. TREATMENT CODE/TIME: Session 1--36271 x 59 minutes for 4 units (9:51-9:50). Session 2--[id number] x 54 minutes for 4 units (14:03-14:57)
[2024-10-05] MEDS: Acetaminophen 500 MG TAB 1000 MG PO ×3 (05:08→19:48)
[2024-10-05] MEDS: dilTIAZem 60 MG TAB PO ×4 (05:08→21:46)
[2024-10-05] MEDS: Cyclobenzaprine 10 MG TAB 5 MG PO ×2 (05:09→13:44)
[2024-10-05] MEDS: HYDROmorphone 2 MG/ML SYR 1 MG IVP ×5 (05:16→17:48)
[2024-10-05] MEDS: LORazepam 0.5 MG TAB PO ×2 (05:48→19:48)
[2024-10-05] MEDS: Levothyroxine 150 MCG TAB PO (06:11)
[2024-10-05 06:27] LABS: Abs Immature Grans 0.24 10^3/uL (0.0-0.06); Absolute Basophil Count 0.04 10^3/uL (0.0-0.2); Absolute Eosinophil Count 0.19 10^3/uL (0.0-0.7); Absolute Lymphocyte Count 0.97 10^3/uL (1.2-3.4); Absolute Monocyte Count 1.03 10^3/uL (0.1-0.8); Absolute Neutrophil Count 5.53 10^3/uL (1.2-6.7); Basophils % 0.5 %; Eosinophils % 2.4 %; HCT 24.9 % (36.0-46.0); HGB 7.9 g/dL (11.2-15.7); Lymphocytes % 12.1 %; MCH 26.1 pg (27.0-33.0); MCHC 31.7 % (32.0-36.0); MCV 82 fL (80-95); Monocytes % 12.9 %; Neutrophils % 69.1 %; Platelet Count 104 10^3/uL (130-400); RBC 3.03 10^6/uL (3.93-5.22); RDW 17.2 % (11.7-14.6); RDW-SD 51.5 fL
[2024-10-05 06:39] LABS: Anion Gap 6.2 mmol/L (3-11); BUN 16 mg/dL (7-18); CO2 26.8 mmol/L (21.0-32.0); Calcium 8.6 mg/dL (8.5-10.1); Chloride 108 mmol/L (98-107); Estimated GFR 58.39 (mL/min/1.73m2); Glucose 125 mg/dL (74-106); Potassium 3.5 mmol/L (3.5-5.1); Sodium 141 mmol/L (136-145)
[2024-10-05] MEDS: Enoxaparin 40 MG/0.4 ML SYR SC (08:37)
[2024-10-05] MEDS: Hydrocortisone 1% CR 30 GM TUBE TP ×3 (08:38→19:52)
[2024-10-05] MEDS: Sucralfate 1 GM TAB PO ×2 (08:38→19:47)
[2024-10-05] MEDS: Multivitamin w/Minerals TAB 1 TAB PO (08:38)
[2024-10-05] MEDS: Empaglifozin 10 MG TAB PO (08:39)
[2024-10-05] MEDS: Pantoprazole 40 MG TABCR PO (08:39)
[2024-10-05] MEDS: Furosemide 20 MG TAB PO (08:39)
[2024-10-05] MEDS: Allopurinol 300 MG TAB PO (08:39)
[2024-10-05] MEDS: Normal Saline Flush 10 ML SYR IVP ×2 (08:40→19:49)
[2024-10-05] MEDS: Celecoxib 100 MG CAP PO ×2 (09:42→18:40)
[2024-10-05 11:00] LABS: BE -2 mmol/L (-2-3); HCO3 23 mmol/L (22-26); pCO2 40 mmHg (35-45); pH 7.37 (7.35-7.45); pO2 60 mmHg (80-105); sO2 91 % (95-98); tCO2 22 mmol/L (23-27)
[2024-10-05 11:04] LABS: Site Left Radial
[2024-10-05] MEDS: Docusate Sodium 100 MG/10 ML CUP PO ×3 (11:12→19:48)
[2024-10-05] MEDS: Insulin Aspart 300 UNITS/3 ML PEN SC ×3 (11:13→21:46)
--- NOTE | 2024-10-05 13:24 | PHA.REVIEW2 ---
Pharmacy Admission Review Admission Clinical Review Admission Pharmacy Review: Displaced fracture of right femoral neck (Acute) Closed fracture of right proximal humerus (Acute) Closed fracture of right humerus (Acute) Closed fracture of right hip (Acute) carvedilol (From Coreg) Allergy (Severe, Verified 10/01/24 17:41) Anaphylaxis lisinopril Allergy (Severe, Verified 10/01/24 17:41) angioedema metformin Adverse Reaction (Verified 10/01/24 17:41) Diarrhea, Nausea, Vomiting Resuscitation Status Full Code Height 5 ft 2 in Weight 72.8 kg Comments Comments/Follow Ups: POD #3 Right Anterior Total Hip Arthroplasty with Intraoperative Navigation Pharmacy Admission Review Renal Dosing Renal Dosing: BUN 16 mg/dL (7-18) 10/05/24 06:00 Creatinine 1.0 mg/dL (0.55-1.02) 10/05/24 06:00 Medications needing adjustments: Reviewed (CrCl 44.71 mL/min) List of meds needing interventions: Current medications are okay Anticoagulation Anticoagulation: Hgb 7.9 g/dL (11.2-15.7) L 10/05/24 06:00 Hct 24.9 % (36.0-46.0) L 10/05/24 06:00 Plt Count 104 10^3/uL (130-400) L 10/05/24 06:00 INR 1.0 (0.9-1.1) 10/01/24 18:16 Creatinine 1.0 mg/dL (0.55-1.02) 10/05/24 06:00 DVT Prophylaxis: Reviewed (Hgb slightly increased from 7.6) Medications: Enoxaparin (40mg daily) Opiate Usage Evaluate Pain Scale/Pains Meds: Reviewed (hydromorphone 1mg IVP q2h PRN - 6mg / 24hrs) Scheduled Bowel Reg ordered if on Opiates?: Yes (docusate TID) Relevant Labs Relevant Labs: Sodium 141 mmol/L (136-145) 10/05/24 06:00 Potassium 3.5 mmol/L (3.5-5.1) 10/05/24 06:00 Chloride 108 mmol/L (98-107) H 10/05/24 06:00 Magnesium 2.0 mg/dL (1.8-2.4) 10/05/24 06:00 Electrolytes, C-Reactive P, ESR: Reviewed DM Control DM Control: Glucose 125 mg/dL (74-106) H 10/05/24 06:00 Finger Stick Blood Glucose 239 1113 Finger Stick Blood Glucose 239 1106 Finger Stick Blood Glucose 239 1106 Finger Stick Blood Glucose 129 0824 Finger Stick Blood Glucose 129 0816 Finger Stick Blood Glucose 129 0816 DM Control: Reviewed Insulin Dosing, Diabetic Medication: Has order for SS insulin and Jardiance 10mg daily Cardiac Review Cardiac Review: Troponin I 18 ng/L (<or=51) 10/01/24 18:16 NT-Pro-B Natriuret Pep 1006 pg/mL (<300) H 10/01/24 18:16 BP, HR, EF%: Reviewed (BP and HR WNL, Ox 91) List meds needing interventions: Has orders for diltiazem 60mg q6h and furosemide 20mg daily QTc Review QTc: Reviewed (435 from 10/01/24) IV to PO Switch IV Medications: Intervened (asked provider about IV to PO Zofran, provider was okay with this change) Home Meds Home Med List reviewed: Reviewed Relevent Home Meds Not ordered & why?: aspirin, clotrimazole cream, estradiol cream and Tresiba (has order for SS insulin) Current Meds Current Medication Order Review: Intervened Comments: Changed docusate from capsule to liquid form per nurse request (patient has trouble swallowing the capsule) Comments Comments/Follow Ups: POD #3 Right Anterior Total Hip Arthroplasty with Intraoperative Navigation
--- NOTE | 2024-10-05 13:29 | CMPROGNOTE_ITS ---
Date of service: 10/05/24 Time of Service: 15:43 Care Management Progress Note Progress Note Text Progress Note Text: Karina has a bed offer at [facility]. The family has been made aware. Due to not being able to have the correct supplies in house, [facility] requests that [facility] keeps her here until next week, when they can obtain the supplies. Supply prescription was offered to [facility], as coordinated by CM. Patient is agreeable to this plan. CM will continue to follow. Discharge Potential Discharge Needs: PCP F/U Appt and Surgical F/U Appt Anticipated Barriers to Discharge: Bed availability and Medical Status Patient/Family Education Needs: Review discharge instructions, discuss Ask Me Three Transportation: RCT RCT Transportation: Wheel chair van Plan: Anticipate Karina will be discharged to a SNF when medically ready, referrals sent. Bed offer at [facility] but they will not accept her until next week. 10/01/24 Karina received a Right Anterior Total Hip Arthroplasty. She will follow up with her community provider, surgical team and continue per her plan of care. Karina will likely be transported via [facility]. CM will continue to follow and update the plan as needed. CM will continue to follow. Social Determinants of Health Screening Social Determinants of health last assessed in clinic: 10/05/24 Will the Patient Participate in the Screening?: Yes Do you worry about having a steady place to live?: no Problems where you live: no known problems In the past 12 months, have you had to go without electric, gas, oil or water in your home?: no 1. Within the past 12 months, we worried whether our food would run out before we got money to buy more.: Never true 2. Within the past 12 months, the food we bought just didn't last and we didn't have money to get more.: Never true Has lack of transportation kept you from medical appointments or from doing things needed for daily living?: choose not to answer Has anyone in your life made you feel unsafe or unsupported?: no How hard is it for you to pay for the very basics like food, housing, medical care, and heating? Would you say it is:: Not hard at all Do you want help finding or keeping work or a job?: I do not need or want help If for any reason you need help with day-to-day activities such as bathing, preparing meals, shopping, managing finances, etc., do you get the help you need?: I could use a little more help How often do you feel lonely or isolated from those around you?: Never Do you speak a language other than Danish at home?: No Comments: patient is non verbal and right handed with a fx of right humerus, cannot write well with left hand Health Related Social Needs Health related social needs: problems with daily activities (Z73.9) Health related social needs details: patient non verbal with right humerus fx, p t reports being unable to right with left
--- NOTE | 2024-10-05 15:23 | PGE_ITS ---
Date of Service Date of service: 10/05/24 Time of Service: 15:23 Assessment and Plan Assessment and plan (1) Closed fracture of right hip: Status: Acute Assessment and plan: POD 2 Dressing dry clean and intact Ongoing PT- recommendation for rehab Ongoing ortho consult: please read notes - will have ASA 81 mg BID on d/c Ongoing pain management with scheduled oral acetaminophen and PRN hydromorphone (2) Closed fracture of right humerus: Start date: 10/01/24 Status: Acute Assessment and plan: Non-operative as per Ortho. Ongoing sling to the right arm can be taken off in bed , good radial pulse - improved swelling and ecchymosis noted to right upper arm. Repeated XR showed stable fracture (3) Normocytic normochromic anemia: Status: Chronic Assessment and plan: around 2 point drop in Hgb from admission s/p Sx. Now hemoglobin remains stable after one unit of PRBCs Encourage hydration iron studies Trend H&H (4) History of laryngeal cancer: Status: Chronic Assessment and plan: Ongoing tracheostomy - has been requiring new O2 supplementation since admission - now resolved Most likely d/t point 1 and additional IVF given earlier Cough and deep breathing (5) Hypoxic respiratory failure: Status: Acute Assessment and plan: As per point 3 and 4- Now resolved at per sat% On RA at home but up to 28 % O2 via trach collar PH 7.37 PCO2 40, HCO3 23 and PO2 60 on ABG on RA (6) CKD (chronic kidney disease): Status: Chronic Assessment and plan: Cr remains stable - will continue to monitor (7) Type 2 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, bilateral: Status: Chronic Assessment and plan: Ongoing glucometer measurements before meals and at bedtime and sensitive insulin sliding scale coverage. On Jardiance (8) Essential hypertension: Status: Chronic Assessment and plan: Continue outpatient medications and furosemide (9) Postoperative hypothyroidism: Status: Chronic Assessment and plan: Continue on outpatient supplementation (10) Fibromyalgia: Status: Chronic Assessment and plan: Continue APAP, have some chronic pain and is on no outpatient narcotics by review of VPMS. PRN lorazepam home regimen Continue lidocaine patches PRN for now -she uses then daily at home (11) Chronic bilateral low back pain with bilateral sciatica: Status: Chronic Assessment and plan: Continue lidocaine patches. (12) Anxiety: Status: Chronic Assessment and plan: Lorazepam prn (13) Palliative care patient: Assessment and plan: palliative care was ordered and cancelled (14) Tobacco use disorder: Assessment and plan: Patient has not smoked for years since her laryngeal cancer. (15) Hyperlipidemia: Status: Chronic Assessment and plan: Continue outpatient statin therapy. (16) Constipation: Assessment and plan: Bowel meds regimen discussed with Dr. Zaman Subjective Subjective Patient reports: no new complaints (working with PT), feels better, pain is less, tolerating liquids well, tolerating a regular diet, voiding w/o difficulty, bowel movement and afebrile; denies diarrhea, nausea, vomiting or shortness of breath Exam Narrative Exam Narrative: 74 yo female patient looking older than stated age, O2 at 28% via trach collar, no acute distress, S1-S2, positive murmur, clear upper lung bilaterally coarse right basilar breath sounds, abdomen is nondistended, soft, nontender, right arm sling and dry clean and intact Mepilex dressing to right upper extremity and right hip, no pedal edema Const General: no acute distress Orientation: alert HENTN Head: normal to inspection Ears: external ears normal General nose exam: external nose normal Mouth: moist mucous membranes Eyes General: appearance normal, both eyes and all related structures Neck Neck: full ROM and no lymphadenopathy Resp Effort & Inspection: normal respiratory effort and able to speak in complete sentences Auscultation: clear to auscultation bilaterally Cardio Rate: regular rate Heart Sounds: no murmurs Skin General skin exam: no rashes or lesions noted Neuro General: patient alert and patient oriented x3 Extrem Other: dressing on right hip, right arm in sling, notable swelling to right upper arm with ecchymosis and some swelling noted dependent right hand. Right thigh swollen no eccymosis, dressing dry and intact. right foot pulses present, full rom of ankle toes are pink Psych Mental Status: mental status grossly normal Objective Last Vital Signs Temp 36.7 C 10/05/24 11:49 Pulse 71 10/05/24 11:49 Resp 12 10/05/24 08:01 BP 103/65 10/05/24 11:49 Pulse Ox 91 L 10/05/24 11:49 Laboratory Results - last 24 hr 10/05/24 10/05/24 06:00 10:53 WBC 8.00 RBC 3.03 L Hgb 7.9 L Hct 24.9 L MCV 82 MCH 26.1 L MCHC 31.7 L RDW 17.2 H Plt Count 104 L MPV Immature Gran % 3.0 Neutrophils % 69.1 Lymphocytes % 12.1 Monocytes % 12.9 Eosinophils % 2.4 Basophils % 0.5 Nucleated RBC % 0.0 Absolute Neutrophils 5.53 Absolute Lymphocytes 0.97 L Absolute Monocytes 1.03 H Absolute Eosinophils 0.19 Absolute Basophils 0.04 ABG Sample Site Left Radial ABG pH 7.37 ABG pCO2 40 ABG pO2 60 L ABG HCO3 23 ABG Total CO2 22 L ABG O2 Saturation 91 L ABG Base Excess -2 Sodium 141 Potassium 3.5 Chloride 108 H Carbon Dioxide 26.8 Anion Gap 6.2 BUN 16 Creatinine 1.0 Est GFR (CKD-EPI 2020) 58.39 Glucose 125 H Calcium 8.6 Magnesium 2.0 Time Spent with Patient Time Spent with Patient: >50 minutes Time was spent: preparing to see the patient(eg.review tests), obtaining and/or reviewing separately otained hiistory, ordering medications,tests, procedures, referring, communicating with other health career development coordinator/teacher, indepentently interpreting results, counseling the patient and care coordination
[2024-10-05] MEDS: Bisacodyl 10 MG SUPP PR (16:39)
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
[2024-10-05] MEDS: traMADol 50 MG TAB 25 MG PO (18:40)
[2024-10-05] MEDS: Atorvastatin 40 MG TAB 80 MG PO (19:47)
[2024-10-05] MEDS: Aspirin E.C. 81 MG TABEC PO (19:48)
[2024-10-05] MEDS: Travoprost 0.004% Ophth Sol 2.5 ML BTL OP (19:52)
[2024-10-05] MEDS: oxyCODONE 5 MG TAB PO (21:55)
[2024-10-06] MEDS: Acetaminophen 500 MG TAB 1000 MG PO ×3 (04:10→19:54)
[2024-10-06] MEDS: dilTIAZem 60 MG TAB PO ×4 (04:11→23:20)
[2024-10-06] MEDS: HYDROmorphone 2 MG/ML SYR 1 MG IVP (04:30)
[2024-10-06] MEDS: Normal Saline Flush 10 ML SYR IVP ×2 (04:31→08:39)
[2024-10-06] MEDS: Levothyroxine 150 MCG TAB PO (05:51)
[2024-10-06 07:38] VITALS: BP 161/67; PULSE 69; RESP 16; TEMP 36.8; O2SAT 96
[2024-10-06 08:06] LABS: Abs Immature Grans 0.32 10^3/uL (0.0-0.06); Absolute Basophil Count 0.04 10^3/uL (0.0-0.2); Absolute Eosinophil Count 0.23 10^3/uL (0.0-0.7); Absolute Monocyte Count 0.82 10^3/uL (0.1-0.8); Absolute Neutrophil Count 5.17 10^3/uL (1.2-6.7); Basophils % 0.5 %; Eosinophils % 3.1 %; HCT 26.1 % (36.0-46.0); HGB 8.1 g/dL (11.2-15.7); Immature Grans % 4.3 %; Lymphocytes % 10.8 %; MCH 25.6 pg (27.0-33.0); MCV 83 fL (80-95); MPV 12.4 fL (8.0-11.0); Monocytes % 11.1 %; Neutrophils % 70.2 %; Platelet Count 128 10^3/uL (130-400); RBC 3.16 10^6/uL (3.93-5.22); RDW 17.3 % (11.7-14.6); RDW-SD 52.2 fL; WBC 7.38 10^3/uL (4.4-10.8)
[2024-10-06 08:35] LABS: Ferritin 31 ng/mL (8-252)
[2024-10-06] MEDS: Enoxaparin 40 MG/0.4 ML SYR SC (08:38)
[2024-10-06] MEDS: Aspirin E.C. 81 MG TABEC PO ×2 (08:38→19:22)
[2024-10-06] MEDS: Furosemide 20 MG TAB PO (08:38)
[2024-10-06] MEDS: Celecoxib 100 MG CAP PO ×2 (08:38→22:06)
[2024-10-06] MEDS: Docusate Sodium 100 MG/10 ML CUP PO ×3 (08:38→19:22)
[2024-10-06] MEDS: Sucralfate 1 GM TAB PO ×2 (08:38→19:23)
[2024-10-06] MEDS: traMADol 50 MG TAB 25 MG PO ×2 (08:38→13:37)
[2024-10-06] MEDS: Pantoprazole 40 MG TABCR PO (08:39)
[2024-10-06] MEDS: Empaglifozin 10 MG TAB PO (08:39)
[2024-10-06] MEDS: Multivitamin w/Minerals TAB 1 TAB PO (08:39)
[2024-10-06] MEDS: Allopurinol 300 MG TAB PO (08:39)
[2024-10-06] MEDS: Cyclobenzaprine 10 MG TAB 5 MG PO ×2 (08:54→22:05)
[2024-10-06 09:06] LABS: Iron 24 ug/dL (50-170); Total Iron Binding Capacity 230 ug/dL (250-450); Transferrin Sat 10 % (15-50)
[2024-10-06] MEDS: oxyCODONE 5 MG TAB PO ×2 (11:26→17:21)
--- NOTE | 2024-10-06 11:45 | PGE_ITS ---
Date of Service Date of service: 10/06/24 Time of Service: 11:46 Assessment and Plan Assessment and plan (1) Closed fracture of right hip: Status: Acute Assessment and plan: POD 4 Dressing to RLE remains dry clean and intact Continue PT- recommendation for rehab Followed by orthopedicts and had Sx on 10/02/24- outpatient f/u Ongoing pain management with scheduled oral acetaminophen and PRN Celebrex, PRN Ultram Q12H, PRN oxycodone for breaktrhough pain Valium PO trial for RLE spasms Hydromorphone discontinue will give PRN if pain persist despite above regimen (2) Closed fracture of right humerus: Start date: 10/01/24 Status: Acute Assessment and plan: Non-operative as per Ortho. Continue sling to the right arm when OOB, good radial pulse - improved swelling and ecchymosis noted to right upper arm. Pain is primarily from the R humerus Fx, but RLE spasms noted (3) Normocytic normochromic anemia: Status: Chronic Assessment and plan: Stable Hgb now s/p blood transfusion for low H&H also d/t blood loss. 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 PRN lorazepam low -dose Ongoing lidocaine patches PRN for now -she uses then daily at home (10) Chronic bilateral low back pain with bilateral sciatica: Status: Chronic Assessment and plan: Continue lidocaine patches. (11) Anxiety: Status: Chronic Assessment and plan: Lorazepam prn (12) Palliative care patient: Assessment and plan: Followed by Yelitza Hughes NP outpatient. She enjoys visits with Yelitza. Plan is for her to go to Rehab after discharge. She has AD on file. She is a FULL CODE, this was not discussed during this visit due to her discomfort and needed to use the BR. Palliative will f/u with her inpatient or after discharge for SNF. Subjective Subjective Patient reports: no new complaints (working with PT and pain to be controlled), feels better, pain is less, tolerating liquids well, tolerating a regular diet, voiding w/o difficulty, bowel movement and afebrile; denies diarrhea, nausea, vomiting or shortness of breath Exam Narrative Exam Narrative: Alert and oriented X4 , no acute distress, no focal deficit , trach collar on RA, S1-S2, positive murmur, positive pulses to all 4 ext., clear lungs bilaterally , abdomen is nondistended, soft, nontender, right arm sling and dry clean and intact Mepilex dressing to right upper extremity and right hip, no pedal edema Objective Last Vital Signs Temp 36.8 C 10/06/24 07:38 Pulse 69 10/06/24 07:38 Resp 16 10/06/24 07:38 BP 161/67 H 10/06/24 07:38 Pulse Ox 96 10/06/24 07:38 Laboratory Results - last 24 hr 10/06/24 07:56 WBC 7.38 RBC 3.16 L Hgb 8.1 L Hct 26.1 L MCV 83 MCH 25.6 L MCHC 31.0 L RDW 17.3 H Plt Count 128 L MPV 12.4 H Immature Gran % 4.3 Neutrophils % 70.2 Lymphocytes % 10.8 Monocytes % 11.1 Eosinophils % 3.1 Basophils % 0.5 Nucleated RBC % 0.0 Absolute Neutrophils 5.17 Absolute Lymphocytes 0.80 L Absolute Monocytes 0.82 H Absolute Eosinophils 0.23 Absolute Basophils 0.04 Iron 24 L TIBC 230 L Transferrin % Sat 10 L Ferritin 31 Time Spent with Patient Time Spent with Patient: >50 minutes Time was spent: preparing to see the patient(eg.review tests), obtaining and/or reviewing separately otained hiistory, ordering medications,tests, procedures, referring, communicating with other health out of school hours care worker, indepentently interpreting results, counseling the patient and care coordination
--- NOTE | 2024-10-06 11:49 | PT.INTREAT ---
PT Notes Visit Reasons: Close right humerus and right subcapital hip fract Physical Therapy Inpatient Treatment Note Date: 10/06/2024 Precautions: Aphonic. Fall. Standard. As of 10/04/[address] Rushing: She may use the hand for stabilization and support for mobilization. Minimal weight bearing as needed for support. Sling for comfort but it may be removed as desired, supporting the arm with pillows for comfort. OK to use platform walker. Gentle passive ROM as tolerated. AROM of shoulder to begin at 6 weeks. As of 10/02/[address] Rushing: WBAT on the R LE with AD. Sling treatment on R UE. May use platform walker for support of R UE to minimize weight bearing through R shoulder during transfers. 10/04/2024 SHOULDER X-RAY IMPRESSION: Stable alignment of the humeral head fracture Subjective: Pt c/o significant right shoulder pain stating she didn't know if she could stand the pain with getting OOB. She needed to empty her bladder and agreed to get up to the commode. She declined sitting in the chair due to shoulder pain. Objective: General Observation: Mepilex silver in place over surgical hip incision. Ecchymoses noted in R gluteal and R thigh. Sling to R UE. Telemetry monitoring in place. IV access through L UE. Mental Status: Alert and oriented as to person and place. Able to pay attention, focus, and respond appropriately. Able to generate minimal vocal sounds by covering trach tube. sometimes subvocalization is understandable. Pain: As above Bed Mobility/Transfers: Moderate cueing provided for use of B hands as needed for support, movement sequence, AD management, and posture to reduce fall risk and minimize pain report Supine to sit moderate assist with HOB at 45 degrees Sit to supine min assist of 1 and min A for repositioning (When transferring sit to supine, strap of sling caught tracheotomy tube and displaced it. Pt wanted it cleaned prior to putting it back in place. Nursing was informed.) Sit to stand stand by assist with hemiwalker x 2 Stand to sit stand by assist with hemiwalker x 2 Worked on repositioning for comfort of right UE. Pt declined use of pillow for support or use of sling when in bed. Also offered small towel roll to help position right hand for comfort but pt declined. Gait: Pt ambulated 10 ft x 2 with hemiwalker left and sling on right UE and contact guard of 1. Some additional support needed for right UE for pt comfort. Balance: Static Sitting: Fair Dynamic Sitting: Poor Static Standing: Fair Dynamic Standing: Fair Assessment: Patient with closed fracture of the R proximal humerus currently managed conservatively with sling as well as displaced fracture of the R femoral neck S/P R total hip arthroplasty on postoperative day 4. Primary limitation for mobility continues to be right shoulder pain. Tried to improve pt comfort with positioning and support as well as coordination for premedication. Plan of Care/Treatment Plan: CONTINUE TO COORDINATE WITH NURSE TO PRE-MEDICATE FOR PAIN. 1-2x/day, 7 days/week x 1 week. Plan of care has been reviewed with the S[employer]IOR [employer] OFFICER providing the service under Physical Therapy direction. Initiate Physical Therapy intervention for strengthening, bed mobility, transfers, gait, stairs, balance training, and use of assistive device. DISCHARGE RECOMMENDATIONS: SNF for continued orthopedic post-op rehab and functional mobility training. TREATMENT CODE/TIME: Session 1--[id number] x 30 minutes for 2 units (11:15-11:45)
[2024-10-06] MEDS: FERUMOXYTOL 510 MG in Normal Saline 50 ML 134 MG IVPB (13:38)
[2024-10-06] MEDS: diazePAM 5 MG TAB PO ×2 (13:38→17:26)
[2024-10-06] MEDS: Ferrous Sulfate 325 MG TAB PO (17:21)
[2024-10-06] MEDS: Insulin Aspart 300 UNITS/3 ML PEN SC (17:31)
[2024-10-06] MEDS: Atorvastatin 40 MG TAB 80 MG PO (19:22)
[2024-10-06] MEDS: LORazepam 0.5 MG TAB PO (19:27)
[2024-10-06] MEDS: diphenhydrAMINE 25 MG CAP PO (19:27)
[2024-10-06] MEDS: Travoprost 0.004% Ophth Sol 2.5 ML BTL OP (19:28)
[2024-10-06] MEDS: Hydrocortisone 1% CR 30 GM TUBE TP (19:28)
[2024-10-06 19:45] VITALS: BP 165/70; PULSE 71; RESP 15; TEMP 37; O2SAT 96
[2024-10-06] MEDS: Lidocaine 5% Patch 1 PATCH TP (22:24)
[2024-10-06 23:04] VITALS: BP 127/55; PULSE 68; RESP 20; TEMP 36.5; O2SAT 91
[2024-10-07 04:50] VITALS: BP 152/69; PULSE 62; RESP 15; TEMP 36.9; O2SAT 95
[2024-10-07] MEDS: Levothyroxine 150 MCG TAB PO (04:59)
[2024-10-07] MEDS: Acetaminophen 500 MG TAB 1000 MG PO ×3 (04:59→20:37)
[2024-10-07] MEDS: dilTIAZem 60 MG TAB PO ×4 (04:59→21:44)
[2024-10-07] MEDS: traMADol 50 MG TAB PO ×2 (05:14→21:44)
[2024-10-07 06:55] LABS: Anion Gap 8.3 mmol/L (3-11); BUN 14 mg/dL (7-18); CO2 28.7 mmol/L (21.0-32.0); CREATININE 1.1 mg/dL (0.55-1.02); Calcium 8.5 mg/dL (8.5-10.1); Chloride 103 mmol/L (98-107); Estimated GFR 52.08 (mL/min/1.73m2); Glucose 124 mg/dL (74-106); Potassium 3.7 mmol/L (3.5-5.1); Sodium 140 mmol/L (136-145)
[2024-10-07] MEDS: Aspirin E.C. 81 MG TABEC PO ×2 (08:21→20:38)
[2024-10-07] MEDS: Furosemide 20 MG TAB PO (08:21)
[2024-10-07] MEDS: Pantoprazole 40 MG TABCR PO (08:21)
[2024-10-07] MEDS: Multivitamin w/Minerals TAB 1 TAB PO (08:21)
[2024-10-07] MEDS: Empaglifozin 10 MG TAB PO (08:22)
[2024-10-07] MEDS: Enoxaparin 40 MG/0.4 ML SYR SC (08:22)
[2024-10-07] MEDS: Ferrous Sulfate 325 MG TAB PO (08:22)
[2024-10-07] MEDS: Sucralfate 1 GM TAB PO ×2 (08:22→20:37)
[2024-10-07] MEDS: Allopurinol 300 MG TAB PO (08:22)
[2024-10-07] MEDS: Docusate Sodium 100 MG/10 ML CUP PO ×2 (08:23→20:37)
[2024-10-07] MEDS: diazePAM 5 MG TAB PO ×3 (08:55→20:38)
--- NOTE | 2024-10-07 09:04 | NUR.NOTE ---
Nursing Note: Pt asked nursing to call her son to ask him to bring in her CDs. Son Gato called, relayed he request, he said he would look for them
[2024-10-07 09:27] VITALS: O2SAT 98
--- NOTE | 2024-10-07 10:00 | PGE_ITS ---
Date of Service Date of service: 10/07/24 Time of Service: 10:00 Assessment and Plan Assessment and plan (1) Closed fracture of right hip: Status: Acute Assessment and plan: POD 5: s/p R ROSITA for femoral neck fracture Dressing to RLE (Mepilex dressing stay in place for least 1 week or 10/09) and RFA remain dry clean and intact -WBAT RLE with platform walker to support the ri ght arm Ongoing PT- ongoing recommendation for rehab Followed by orthopedicts and had Sx on 10/02/24- outpatient f/u -in 4 weeks Continue pain management with scheduled oral acetaminophen and PRN Celebrex , PRN Ultram Q12H, PRN oxycodone for breakthrough pain PRN Valium PO s/p successful trial for RLE spasms- will adjust to TID PRN as the patient is on lorazepam low dose BID Hydromorphone discontinue will give PRN if pain persist despite above regimen (2) Closed fracture of right humerus: Start date: 10/01/24 Status: Acute Assessment and plan: Non-operative as per Ortho. Continue sling to the right arm when OOB, good radial pulse - improved swelling and ecchymosis noted to right upper arm. Pain is primarily from the R humerus Fx, but RLE spasms noted- but improving with valium (3) Normocytic normochromic anemia: Status: Chronic Assessment and plan: Stable Hgb now s/p blood transfusion for low H&H also d/t blood loss. Iron studies: Fe 24, transferrin sat% 10: One dose on IV ferumoxytol oredered on 10/07 but IV access loss Oral iron supplement (4) History of laryngeal cancer: Status: Chronic Assessment and plan: Has tracheostomy - has been requiring O2 supplementation since admission (5) CKD (chronic kidney disease): Status: Chronic Assessment and plan: Stable (6) Type 2 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, bilateral: Status: Chronic Assessment and plan: A1C - 6.8 in 06/2024 Glucose 109-193 - adequate for age receiving minimal corrective insulin Ongoing Jardiance (7) Essential hypertension: Status: Chronic Assessment and plan: Ongoing home meds slightly increased during stay d/t pain but improving with better pain control (8) Postoperative hypothyroidism: Status: Chronic Assessment and plan: on home dose levothyrxine TSH 0.04 in 03/2024 and 0.3 on 09/2024 Adjustment as per PCP (9) Fibromyalgia: Status: Chronic Assessment and plan: Continue APAP, hx of chronic pain and is on no outpatient narcotics. PRN lorazepam low -dose as per home regimen Continue lidocaine patches PRN for now -she uses then daily at home (10) Chronic bilateral low back pain with bilateral sciatica: Status: Chronic Assessment and plan: Continue lidocaine patches. (11) Anxiety: Status: Chronic Assessment and plan: Ongoing Lorazepam prn (12) Palliative care patient: Assessment and plan: Continues to be followed by Yelitza Hughes NP outpatient. She enjoys visits with Yelitza. Plan is for her to go to Rehab after discharge. -SNF d/c date is 10/09/24- delayed d/t trach supplies availability at the SNF facility She has AD on file. She is a FULL CODE, this was not discussed during this visit due to her discomfort and needed to use Palliative will f/u with her inpatient or after discharge for SNF. Discussed with Dr. Zaman Subjective Subjective Patient reports: no new complaints, feels better, pain is less (valium helping with muscle spasms), tolerating liquids well, tolerating a regular diet, voiding w/o difficulty, bowel movement and afebrile; denies diarrhea, blood in stool, nausea, vomiting or shortness of breath Exam Narrative Exam Narrative: Alert and oriented X4 , no acute distress, no focal deficit, trach collar on RA, S1-S2, positive radial and pedal pulses, holosystolic murmur, positive pulses to all 4 ext., clear lungs , abdomen is non-distended, soft, non-tender, right arm sling and dry clean and intact Mepilex dressing to right upper extremity and right hip, no pedal edema Objective Last Vital Signs Temp 36.9 C 10/07/24 04:50 Pulse 62 10/07/24 04:50 Resp 15 10/07/24 04:50 BP 152/69 H 10/07/24 04:50 Pulse Ox 98 10/07/24 09:27 Laboratory Results - last 24 hr 10/07/24 06:19 Sodium 140 Potassium 3.7 Chloride 103 Carbon Dioxide 28.7 Anion Gap 8.3 BUN 14 Creatinine 1.1 H Est GFR (CKD-EPI 2020) 52.08 Glucose 124 H Calcium 8.5 Time Spent with Patient Time Spent with Patient: >50 minutes Time was spent: preparing to see the patient(eg.review tests), obtaining and/or reviewing separately otained hiistory, ordering medications,tests, procedures, referring, communicating with other health care center manager, indepentently interpreting results, counseling the patient and care coordination
[2024-10-07] MEDS: oxyCODONE 5 MG TAB PO ×2 (10:41→17:03)
--- NOTE | 2024-10-07 11:11 | PT.INTREAT ---
PT Notes Visit Reasons: Close right humerus and right subcapital hip fract Physical Therapy Inpatient Treatment Note Date: 10/07/2024 Precautions: Aphonic. Fall. Standard. As of 10/04/[address] Rushing: She may use the hand for stabilization and support for mobilization. Minimal weight bearing as needed for support. Sling for comfort but it may be removed as desired, supporting the arm with pillows for comfort. OK to use platform walker. Gentle passive ROM as tolerated. AROM of shoulder to begin at 6 weeks. As of 10/02/[address] Rushing: WBAT on the R LE with AD. Sling treatment on R UE. May use platform walker for support of R UE to minimize weight bearing through R shoulder during transfers. 10/04/2024 SHOULDER X-RAY IMPRESSION: Stable alignment of the humeral head fracture Subjective: Pt reported shoulder pain but was willing to walk and work with PT. Objective: General Observation: Mepilex silver in place over surgical hip incision. Ecchymoses noted in R gluteal and R thigh. Sling to R UE. Telemetry monitoring in place. IV access through L UE. Mental Status: Alert and oriented as to person and place. Able to pay attention, focus, and respond appropriately. Able to generate minimal vocal sounds by covering trach tube. sometimes subvocalization is understandable. Pain: As above Bed Mobility/Transfers: Moderate cueing provided for use of B hands as needed for support, movement sequence, AD management, and posture to reduce fall risk and minimize pain report Supine to sit min assist with HOB at 45 degrees Sit to supine min assist of 1 and min A for repositioning Sit to stand stand by assist with hemiwalker Stand to sit stand by assist with hemiwalker Gait: Pt ambulated 30 ft x 1 with hemiwalker left and sling on right UE and contact guard of 1. Balance: Static Sitting: Fair Dynamic Sitting: Fair Static Standing: Fair Dynamic Standing: Fair Positioning: pt was positioned in chair with sling on right UE with pillows for additional support under hand and elbow. She was also given a rolled wash cloth for her hand. Therapeutic exercise: Seated in chair: towel squeeze right x 10 Ankle pumps x 10 FAQ x 10 Hip add with manual resistance x 10 Hip abd with manual resistance x 10 Marching x 10 Assessment: Patient with closed fracture of the R proximal humerus currently managed conservatively with sling as well as displaced fracture of the R femoral neck S/P R total hip arthroplasty on postoperative day 5. Pt still reported significant pain with bed mobility, transfers and gait but had improved tolerance to activity today. Plan of Care/Treatment Plan: CONTINUE TO COORDINATE WITH NURSE TO PRE-MEDICATE FOR PAIN. 1-2x/day, 7 days/week x 1 week. Plan of care has been reviewed with the PROGRAM/MUSIC DIRECTOR providing the service under Physical Therapy direction. Initiate Physical Therapy intervention for strengthening, bed mobility, transfers, gait, stairs, balance training, and use of assistive device. DISCHARGE RECOMMENDATIONS: SNF for continued orthopedic post-op rehab and functional mobility training. TREATMENT CODE/TIME: Session 1--30357 x 15 minutes for 1 units [id number] x 12 minutes for 1 unit (10:00-10:27)
[2024-10-07 15:50] VITALS: BP 172/62; PULSE 74; RESP 18; TEMP 36.3; O2SAT 96
[2024-10-07] MEDS: Celecoxib 100 MG CAP PO (17:03)
[2024-10-07] MEDS: Travoprost 0.004% Ophth Sol 2.5 ML BTL OP (20:38)
[2024-10-07] MEDS: Atorvastatin 40 MG TAB 80 MG PO (20:38)
[2024-10-07] MEDS: Hydrocortisone 1% CR 30 GM TUBE TP (20:39)
[2024-10-07] MEDS: Cyclobenzaprine 10 MG TAB 5 MG PO (21:44)
[2024-10-07] MEDS: diphenhydrAMINE 25 MG CAP PO (21:44)
[2024-10-07] MEDS: LORazepam 0.5 MG TAB PO (21:44)
[2024-10-07 21:45] VITALS: BP 152/61; PULSE 74; RESP 16; TEMP 36.3; O2SAT 96
[2024-10-07] MEDS: Insulin Aspart 300 UNITS/3 ML PEN SC (21:49)
[2024-10-07] MEDS: Lidocaine 5% Patch 1 PATCH TP (22:16)
[2024-10-08] MEDS: Normal Saline Flush 10 ML SYR IVP ×2 (00:03→08:43)
[2024-10-08] MEDS: oxyCODONE 5 MG TAB PO ×3 (01:31→15:01)
[2024-10-08] MEDS: Acetaminophen 500 MG TAB 1000 MG PO ×3 (03:53→20:22)
[2024-10-08] MEDS: Celecoxib 100 MG CAP PO (03:53)
[2024-10-08] MEDS: dilTIAZem 60 MG TAB PO ×4 (05:06→21:41)
[2024-10-08] MEDS: Levothyroxine 150 MCG TAB PO (05:06)
[2024-10-08 06:27] LABS: Abs Immature Grans 0.52 10^3/uL (0.0-0.06); Absolute Lymphocyte Count 0.87 10^3/uL (1.2-3.4); HCT 25.8 % (36.0-46.0); HGB 8.2 g/dL (11.2-15.7); MCHC 31.8 % (32.0-36.0); MCV 82 fL (80-95); MPV 12.4 fL (8.0-11.0); Nucleated RBC 0.4 % (0.0-0.3); Platelet Count 160 10^3/uL (130-400); RBC 3.15 10^6/uL (3.93-5.22); RDW 18.3 % (11.7-14.6); RDW-SD 52.2 fL; WBC 6.72 10^3/uL (4.4-10.8)
[2024-10-08 06:35] LABS: Anion Gap 6.1 mmol/L (3-11); BUN 16 mg/dL (7-18); CO2 29.9 mmol/L (21.0-32.0); Calcium 8.6 mg/dL (8.5-10.1); Chloride 106 mmol/L (98-107); Estimated GFR 58.39 (mL/min/1.73m2); Glucose 107 mg/dL (74-106); Sodium 142 mmol/L (136-145)
[2024-10-08 07:19] LABS: Absolute Eosinophil Count 0.34 10^3/uL (0.0-0.7); Absolute Monocyte Count 0.67 10^3/uL (0.1-0.8); Absolute Neutrophil Count 4.44 10^3/uL (1.2-6.7); Metamyelocytes % 3; Myelocytes % 3
[2024-10-08 07:20] LABS: Anisocytosis 2+; Diff Comment Manual Differential; Polychromasia Present
[2024-10-08] MEDS: Furosemide 20 MG TAB PO (08:41)
[2024-10-08] MEDS: Ferrous Sulfate 325 MG TAB PO (08:41)
[2024-10-08] MEDS: Allopurinol 300 MG TAB PO (08:41)
[2024-10-08] MEDS: Sucralfate 1 GM TAB PO ×2 (08:41→20:23)
[2024-10-08] MEDS: Empaglifozin 10 MG TAB PO (08:42)
[2024-10-08] MEDS: Multivitamin w/Minerals TAB 1 TAB PO (08:42)
[2024-10-08] MEDS: Aspirin E.C. 81 MG TABEC PO ×2 (08:42→20:23)
[2024-10-08] MEDS: Pantoprazole 40 MG TABCR PO (08:42)
[2024-10-08] MEDS: Enoxaparin 40 MG/0.4 ML SYR SC (08:42)
[2024-10-08] MEDS: diazePAM 5 MG TAB PO ×3 (08:47→20:24)
--- NOTE | 2024-10-08 09:25 | W.PM.PROGNOT ---
Date of Service Date of service: 10/08/24 Time of Service: : Assessment and Plan Assessment and plan (1) Closed fracture of right hip: Status: Acute Assessment and plan: POD 6: s/p R ROSITA for femoral neck fracture Dressing to RLE (Mepilex dressing stay in place for least 1 week or 10/09) RFA remain dry clean and intact -WBAT RLE with platform walker to support the right arm Continue PT - recommendation for SNF for rehab orthopedic clinic outpatient f/u -in 4 weeks after surgery that was completed on 10/02/2024 Ongoing pain management with scheduled oral acetaminophen and PRN Celebrex , PRN Ultram Q12H, PRN oxycodone for breakthrough pain Continue PRN Valium - adjusted to TID PRN as the patient is on lorazepam low dose BID (2) Closed fracture of right humerus: Start date: 10/01/24 Status: Acute Assessment and plan: Non-operative as per Ortho. Continue sling to the right arm when OOB, platform walker, good radial pulse, moves fingers - improved swelling Pain is primarily from the R humerus Fx, but RLE spasms improved with as needed valium (3) Normocytic normochromic anemia: Status: Chronic Assessment and plan: Stable H&H now s/p PRBC 1 unit transfusion for low H&H also d/t blood loss. Iron studies: Fe 24, transferrin sat% 10: One dose on IV ferumoxytol oredered on 10/07 but IV access loss Continue oral iron supplement (4) History of laryngeal cancer: Status: Chronic Assessment and plan: Ongoing tracheostomy -at baseline (5) CKD (chronic kidney disease): Status: Chronic Assessment and plan: Remains stable (6) Type 2 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, bilateral: Status: Chronic Assessment and plan: A1C - 6.8 in 06/2024 Glucose 108-146- adequate for age receiving minimal corrective insulin while on diabetic diet?will continue Ongoing Jardiance (7) Essential hypertension: Status: Chronic Assessment and plan: Continue home meds Stable now status post slight increase in values initially during stay d/t pain (8) Postoperative hypothyroidism: Status: Chronic Assessment and plan: Continue home dose levothyrxine TSH 0.04 in 03/2024 and 0.3 on 09/2024-Free T4 at 1.34 Adjustment as per PCP (9) Fibromyalgia: Status: Chronic Assessment and plan: Continue APAP, hx of chronic pain and is on no outpatient narcotics. PRN lorazepam low -dose as per home regimen Change lidocaine patch to daily -she uses then daily at home (10) Chronic bilateral low back pain with bilateral sciatica: Status: Chronic Assessment and plan: Continue lidocaine patches-now ordered daily (11) Anxiety: Status: Chronic Assessment and plan: Continue home regimen of Lorazepam prn Do not administer Valium and lorazepam at the same time (12) Palliative care patient: Assessment and plan: Seen by Yelitza Hughes NP outpatient palliative care. She enjoys visits with Yelitza. Ongoing plan for her to go to Rehab after discharge. -SNF d/c date is 10/09/24- delayed d/t trach supplies availability at the SNF facility [facility] on file. She is a FULL CODE, this was not discussed during this visit due to her discomfort and needed to use Palliative will f/u with her inpatient or after discharge for SNF. Discussed with Dr. Rojas Subjective Subjective Interval history since last seen: Denies dizziness fever nausea dysuria or constipation. Reports better pain control, tolerating enteral intake, getting better with physical therapy. Exam Narrative Exam Narrative: Alert and oriented X4 , no acute distress, no focal deficit, trach collar on RA, S1-S2, positive radial and pedal pulses, holosystolic murmur, positive pulses to all 4 ext., clear lungs , abdomen is non-distended, soft, non-tender, right arm sling and dry clean and intact Mepilex dressing to right upper extremity and right hip, no pedal edema Objective Last Vital Signs Temp 36.3 C L 10/07/24 21:45 Pulse 74 10/07/24 21:45 Resp 16 10/07/24 21:45 BP 152/61 H 10/07/24 21:45 Pulse Ox 96 10/07/24 21:45 Laboratory Results - last 24 hr 10/08/24 05:06 WBC 6.72 RBC 3.15 L Hgb 8.2 L Hct 25.8 L MCV 82 MCH 26.0 L MCHC 31.8 L RDW 18.3 H Plt Count 160 MPV 12.4 H Immature Gran % See Differential Neutrophils % 66.0 Lymphocytes % 13.0 Monocytes % 10.0 Eosinophils % 5.0 Basophils % 0.0 Metamyelocytes % 3 Myelocytes % 3 Nucleated RBC % 0.4 H Absolute Neutrophils 4.44 Absolute Lymphocytes 0.87 L Absolute Monocytes 0.67 Absolute Eosinophils 0.34 Absolute Basophils 0.00 RBC Morphology See Below Polychromasia Present Anisocytosis 2+ Sodium 142 Potassium 4.0 Chloride 106 Carbon Dioxide 29.9 Anion Gap 6.1 BUN 16 Creatinine 1.0 Est GFR (CKD-EPI 2020) 58.39 Glucose 107 H Calcium 8.6 Time Spent with Patient Time Spent with Patient: >50 minutes Time was spent: preparing to see the patient(eg.review tests), obtaining and/or reviewing separately otained hiistory, ordering medications,tests, procedures, referring, communicating with other health memory care program director, indepentently interpreting results, counseling the patient and care coordination
--- NOTE | 2024-10-08 10:22 | PT.INTREAT ---
PT Notes Visit Reasons: Close right humerus and right subcapital hip fract Inpatient Physical Therapy Treatment Note [facility] Date: 10/08/24 As of 10/04/[address] Rushing: She may use the hand for stabilization and support for mobilization. Minimal weight bearing as needed for support. Sling for comfort but it may be removed as desired, supporting the arm with pillows for comfort. OK to use platform walker. Gentle passive ROM as tolerated. AROM of shoulder to begin at 6 weeks. As of 10/02/[address] Rushing: WBAT on the R LE with AD. Sling treatment on R UE. May use platform walker for support of R UE to minimize weight bearing through R shoulder during transfers. 10/04/2024 SHOULDER X-RAY IMPRESSION: Stable alignment of the humeral head fracture SUBJECTIVE: Pt reports her hip is doing fairly well but her shoulder is very painful. OBJECTIVE: ? Therapeutic Activities (59885c[1]): Direct one-on-one instruction in dynamic activities to improve functional performance. ? BED MOBILITY/TRANSFERS? Supine-sit: Minx2? Sit-stand: CGAx1? Stand-sit: CGAx1 ? Bed-Chair: CGAx1 ? Provided skilled cues and instruction on performance and technique throughout. Gait Training (89240c[]): Direct one-on-one instruction and skilled instruction in: ? GAIT? Assistive Device: Hemiwalker with sling for shoulder? Weight bearing: WBAT with R LE Assist: CGAx1? Distance:? Approx 30 steps? Therapeutic Exercises (63229m[1]): Direct one-on-one instruction in therapeutic exercises to develop strength, endurance, range of motion and flexibility. ? Exercises ? Seated: Ankle pumps x 20 LAQ x 10 Iso hip abd and add 5x5sec Marching x 10 B Attempted shoulder PROM but pt was experiencing too much discomfort to allow for that so PROM to the digits, hand, wrist, and elbow. ASSESSMENT:? Pt is having difficulty getting her shoulder pain under control but doing well with her hip. PLAN: Cont as per PT POC. TREATMENT CODE/TIME: 9:45-10:20 (35) TA TP DISCHARGE RECOMMENDATION: []
[2024-10-08 10:40] LABS: Transferrin 191 mg/dL (201-352)
[2024-10-08] MEDS: traMADol 50 MG TAB PO (13:15)
[2024-10-08 15:17] VITALS: BP 138/60; PULSE 85; RESP 16; TEMP 36.7; O2SAT 90
[2024-10-08 19:29] VITALS: BP 126/61; PULSE 84; RESP 19; TEMP 36; O2SAT 94
[2024-10-08] MEDS: Atorvastatin 40 MG TAB 80 MG PO (20:23)
[2024-10-08] MEDS: Docusate Sodium 100 MG/10 ML CUP PO (20:24)
[2024-10-08] MEDS: Travoprost 0.004% Ophth Sol 2.5 ML BTL OP (20:26)
[2024-10-08] MEDS: Hydrocortisone 1% CR 30 GM TUBE TP (20:26)
[2024-10-08 22:52] VITALS: BP 139/62; PULSE 73; RESP 19; TEMP 36.4; O2SAT 98
[2024-10-09] MEDS: oxyCODONE 5 MG TAB PO ×3 (00:02→12:21)
[2024-10-09] MEDS: dilTIAZem 60 MG TAB PO ×4 (03:31→22:17)
[2024-10-09] MEDS: Acetaminophen 500 MG TAB 1000 MG PO ×3 (03:31→20:25)
[2024-10-09 04:00] VITALS: BP 128/58; PULSE 67; RESP 18; TEMP 36.1; O2SAT 97
[2024-10-09] MEDS: Levothyroxine 150 MCG TAB PO (05:26)
[2024-10-09 07:13] VITALS: BP 147/65; PULSE 65; TEMP 36; O2SAT 92
[2024-10-09] MEDS: diazePAM 5 MG TAB PO ×3 (07:28→20:26)
[2024-10-09] MEDS: Empaglifozin 10 MG TAB PO (07:28)
[2024-10-09] MEDS: Aspirin E.C. 81 MG TABEC PO ×2 (07:28→20:26)
[2024-10-09] MEDS: Furosemide 20 MG TAB PO (07:28)
[2024-10-09] MEDS: Docusate Sodium 100 MG/10 ML CUP PO ×3 (07:28→20:25)
[2024-10-09] MEDS: Pantoprazole 40 MG TABCR PO (07:29)
[2024-10-09] MEDS: Sucralfate 1 GM TAB PO ×2 (07:29→20:26)
[2024-10-09] MEDS: Enoxaparin 40 MG/0.4 ML SYR SC (07:29)
[2024-10-09] MEDS: Ferrous Sulfate 325 MG TAB PO (07:29)
[2024-10-09] MEDS: Allopurinol 300 MG TAB PO (07:29)
[2024-10-09] MEDS: Insulin Aspart 300 UNITS/3 ML PEN SC (07:31)
[2024-10-09] MEDS: traMADol 50 MG TAB PO (07:43)
[2024-10-09] MEDS: Lidocaine 5% Patch 1 PATCH TP (07:43)
[2024-10-09] MEDS: Hydrocortisone 1% CR 30 GM TUBE TP ×3 (08:51→20:26)
[2024-10-09] MEDS: Multivitamin w/Minerals TAB 1 TAB PO (08:52)
--- NOTE | 2024-10-09 10:57 | CMPROGNOTE_ITS ---
Date of service: 10/09/24 Time of Service: 14:27 Care Management Progress Note Progress Note Text Progress Note Text: Karina was lying in bed when CM met with her. She states that she is feeling better but is tired. Karina will remain at [facility] until [facility] can gather supplies for her trach care. Per DON at [facility], they plan to order the supplies today and hope to receive them by tomorrow. CM updated the patient on this plan and she is agreeable. CM will continue to follow. Discharge Potential Discharge Needs: PCP F/U Appt Anticipated Barriers to Discharge: Other ([facility] has not obtained the needed trach supplies for Karina's care. ) Patient/Family Education Needs: Review discharge instructions, discuss [facility] Transportation: [facility] Plan: Anticipate Karina will be discharged to a SNF when they obtain the supplies for her trach care vs swingbed. 10/01/24 Karina received a Right Anterior Total Hip Arthroplasty. She will follow up with her community provider, surgical team and continue per her plan of care. Karina will likely be transported via [facility]. CM will continue to follow and update the plan as needed. CM will continue to follow. Social Determinants of Health Screening Social Determinants of health last assessed in clinic: 10/09/24 Will the Patient Participate in the Screening?: Yes Do you worry about having a steady place to live?: no Problems where you live: no known problems In the past 12 months, have you had to go without electric, gas, oil or water in your home?: no 1. Within the past 12 months, we worried whether our food would run out before we got money to buy more.: Never true 2. Within the past 12 months, the food we bought just didn't last and we didn't have money to get more.: Never true Has lack of transportation kept you from medical appointments or from doing things needed for daily living?: choose not to answer Has anyone in your life made you feel unsafe or unsupported?: no How hard is it for you to pay for the very basics like food, housing, medical care, and heating? Would you say it is:: Not hard at all Do you want help finding or keeping work or a job?: I do not need or want help If for any reason you need help with day-to-day activities such as bathing, preparing meals, shopping, managing finances, etc., do you get the help you need?: I could use a little more help How often do you feel lonely or isolated from those around you?: Never Do you speak a language other than [place] at home?: No Comments: patient is non verbal and right handed with a fx of right humerus, cannot write well with left hand Health Related Social Needs Health related social needs: problems with daily activities (Z73.9) Health related social needs details: patient non verbal with right humerus fx, pt reports being unable to right with left
--- NOTE | 2024-10-09 11:12 | PTTR_ITS ---
PT Notes Visit Reasons: Close right humerus and right subcapital hip fract Inpatient Physical Therapy Treatment Note [facility] Date: 10/09/2024 As of 10/04/[address] Rushing: She may use the hand for stabilization and support for mobilization. Minimal weight bearing as needed for support. Sling for comfort but it may be removed as desired, supporting the arm with pillows for comfort. OK to use platform walker. Gentle passive ROM as tolerated. AROM of shoulder to begin at 6 weeks. As of 10/02/[address] Rushing: WBAT on the R LE with AD. Sling treatment on R UE. May use platform walker for support of R UE to minimize weight bearing through R shoulder during transfers. 10/04/2024 SHOULDER X-RAY IMPRESSION: Stable alignment of the humeral head fracture SUBJECTIVE: Pt reports her hip feel good but the shoulder is terrible OBJECTIVE: Pt presented semireclined in bed no longer requiring supplemental oxygen? Therapeutic Activities (52538x[1]): Direct one-on-one instruction in dynamic activities to improve functional performance. ? BED MOBILITY/TRANSFERS? Supine-sit at right side of bed: Min of 1 to support trunk and RUE ? sit to supine from right side of bed Max A of 1 min A of 1 ? Sit-stand: SBA x 4 trials from chair bed and commode over toilet? Stand-sit: SBA ? Bed-Chair: CGAx1 ? Provided skilled cues and instruction on performance and technique throughout. -Facilitated safe and correct performance of level surface ambulation covering a distance of 20 feet using use hemiwalker sling with swathe to RUE with contact- guard assist and wheelchair follow for safety. increased pain in RUE. Denied headache, chest pain, and lightheadedness throughout activity. Minimal verbal cueing provided for AD management, directional changes, and posture.? Therapeutic Exercises (69395q[1]): Direct one-on-one instruction in therapeutic exercises to develop strength, endurance, range of motion and flexibility. ? Exercises ? Seated: Ankle pumps x 20 LAQ x 10 Iso hip abd and add 5x5sec Marching x 10 B shoulder PROM for hygiene under arm and along trunk tolerated without grimacing approx 10 degrees abd but pt was experiencing too much discomfort to allow for any further. AROM to wrist and hand , PROM to elbow tolerated including supination/pronation ASSESSMENT:? Pt limited significantly by Right shoulder pain during transitions supine to/from sit, and during ambulation. Pt with facial grimacing, crying during transitions. Pt tolerated PROM for abd during care. Pt able to assist with supporting of RUE. Pt allowed elbow extension to -10 degrees. supination pronation PROM wrist and hand AROM encouraged to assist with swelling management. PLAN: Cont as per PT POC. TREATMENT CODE/TIME: [id number] DISCHARGE RECOMMENDATION: SNF
--- NOTE | 2024-10-09 15:03 | PGE_ITS ---
Date of Service Date of service: 10/09/24 Time of Service: 15:03 Assessment and Plan Assessment and plan (1) Closed fracture of right hip: Status: Acute Assessment and plan: s/p R ROSITA for femoral neck fracture Dressing to RLE (Mepilex dressing stay in place for least 1 week) RFA remain dry clean and intact -WBAT RLE with platform walker to support the right arm Continue PT - recommendation for SNF for rehab orthopedic clinic outpatient f/u -in 4 weeks after surgery that was completed on 10/02/2024 Ongoing pain management with scheduled oral acetaminophen and PRN Celebrex , PRN Ultram Q12H, PRN oxycodone for breakthrough pain Continue PRN Valium - adjusted to TID PRN as the patient is on lorazepam low dose BID (2) Closed fracture of right humerus: Status: Acute Assessment and plan: Non-operative as per Ortho. Continue sling to the right arm when OOB, platform walker, good radial pulse, moves fingers - improved swelling Pain is primarily from the R humerus Fx, requesting calos ceron, will trial diclofenac patch (3) Normocytic normochromic anemia: Status: Chronic Assessment and plan: Stable H&H now s/p PRBC 1 unit transfusion for low H&H also d/t blood loss. Iron studies: Fe 24, transferrin sat% 10: One dose on IV ferumoxytol oredered on 10/07 but IV access loss Continue oral iron supplement (4) History of laryngeal cancer: Assessment and plan: Ongoing tracheostomy -at baseline (5) CKD (chronic kidney disease): Status: Chronic Assessment and plan: Remains stable (6) Type 2 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, bilateral: Status: Chronic Assessment and plan: A1C - 6.8 in 06/2024 Glucose 108-146- adequate for age receiving minimal corrective insulin while on diabetic diet?will continue Ongoing Jardiance (7) Essential hypertension: Status: Chronic Assessment and plan: Continue home meds Stable now status post slight increase in values initially during stay d/t pain (8) Postoperative hypothyroidism: Status: Chronic Assessment and plan: Continue home dose levothyrxine TSH 0.04 in 03/2024 and 0.3 on 09/2024-Free T4 at 1.34 Adjustment as per PCP (9) Fibromyalgia: Status: Chronic Assessment and plan: Continue APAP, hx of chronic pain and is on no outpatient narcotics. PRN lorazepam low -dose as per home regimen Change lidocaine patch to daily -she uses then daily at home (10) Chronic bilateral low back pain with bilateral sciatica: Status: Chronic Assessment and plan: Continue lidocaine patches-now ordered daily (11) Anxiety: Status: Chronic Assessment and plan: Continue home regimen of Lorazepam prn Do not administer Valium and lorazepam at the same time (12) Palliative care patient: Assessment and plan: Seen by Yelitza Hughes NP outpatient palliative care. She enjoys visits with Yelitza. Ongoing plan for her to go to Rehab after discharge. -SNF d/c date is 10/09/24- delayed d/t trach supplies availability at the SNF facility [facility] on file. She is a FULL CODE, this was not discussed during this visit due to her discomfort and needed to use Palliative will f/u with her inpatient or after discharge for SNF. Discussed with Dr. Rojas Subjective Subjective Patient reports: afebrile; denies shortness of breath Interval history since last seen: c/o shoulder pain Exam Narrative Exam Narrative: Chronically ill-appearing female of about stated age no acute distress head is atraumatic eyes nonicteric noninjected oral mucosas moist tracheostomy in place respirations even and unlabored cardiovascular regular rate and rhythm abdomen round soft nontender moves all extremities surgical dressing clean dry and intact no surrounding erythema neurologic awake alert oriented no focal deficits psychiatric appropriate mood and affect Objective Last Vital Signs Temp 36.0 C L 10/09/24 07:13 Pulse 65 10/09/24 07:13 Resp 18 10/09/24 04:00 BP 147/65 H 10/09/24 07:13 Pulse Ox 92 10/09/24 07:13 Time Spent with Patient Time Spent with Patient: 25-34 minutes Time was spent: preparing to see the patient(eg.review tests), obtaining and/or reviewing separately otained hiistory, ordering medications,tests, procedures, referring, communicating with other health child adolescent care, indepentently interpreting results and counseling the patient
[2024-10-09 19:49] VITALS: BP 175/77; PULSE 87; RESP 19; TEMP 36.9; O2SAT 96
[2024-10-09] MEDS: Atorvastatin 40 MG TAB 80 MG PO (20:26)
[2024-10-09] MEDS: Travoprost 0.004% Ophth Sol 2.5 ML BTL OP (20:27)
[2024-10-09] MEDS: Lidocaine Patch Removal 1 EACH TP (20:29)
[2024-10-10] MEDS: Acetaminophen 500 MG TAB 1000 MG PO (04:49)
[2024-10-10] MEDS: dilTIAZem 60 MG TAB PO ×2 (04:49→10:57)
[2024-10-10] MEDS: Levothyroxine 150 MCG TAB PO (05:36)
[2024-10-10 07:27] VITALS: BP 130/66; PULSE 71; RESP 12; TEMP 36.7; O2SAT 99
[2024-10-10] MEDS: Empaglifozin 10 MG TAB PO (09:23)
[2024-10-10] MEDS: Furosemide 20 MG TAB PO (09:23)
[2024-10-10] MEDS: Enoxaparin 40 MG/0.4 ML SYR SC (09:23)
[2024-10-10] MEDS: Ferrous Sulfate 325 MG TAB PO (09:23)
[2024-10-10] MEDS: diazePAM 5 MG TAB PO (09:23)
[2024-10-10] MEDS: Multivitamin w/Minerals TAB 1 TAB PO (09:24)
[2024-10-10] MEDS: Sucralfate 1 GM TAB PO (09:24)
[2024-10-10] MEDS: Allopurinol 300 MG TAB PO (09:24)
[2024-10-10] MEDS: Lidocaine 5% Patch 1 PATCH TP (09:24)
[2024-10-10] MEDS: Aspirin E.C. 81 MG TABEC PO (09:24)
[2024-10-10] MEDS: Docusate Sodium 100 MG/10 ML CUP PO (09:25)
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
--- NOTE | 2024-10-10 09:56 | PCPN_ITS ---
Date of service: 10/10/24 Time of Service: 08:50 Assessment and Plan Assessment and plan (1) Palliative care patient: Status: Acute Assessment and plan: PC will continue to follow, previous HV scheduled for 10/08, will reschedule for sooner at H/R (2) History of total right hip replacement: Status: Acute Assessment and plan: 10/02/24 pain controlled (3) Closed fracture of right proximal humerus: Status: Acute Assessment and plan: pain currently 2/10 trial diclofenac patch lidocain patch placed at time of visit continue hydromorphone PRN consider home administeredTHC gummies for pain (4) Closed fracture of right hip: Status: Acute (5) Fall: Status: Acute Assessment and plan: in home plan for re-homing cat thought to be tripping hazard high fall risk ongoing therapy at SNF (6) Chronic constipation: Status: Acute Assessment and plan: continue Colace w/good effect (7) Lumbar spinal stenosis: Status: Acute Assessment and plan: chronic back pain Salonpas w/good effect typically (8) Dysphagia due to laryngectomy: Status: Acute Assessment and plan: f/b DH ENT dilations q3m tolerating PO well today (9) Advance care planning: Status: Acute Assessment and plan: reviewed current POC for discharge to SNF w/plans for ongoing therapy to improve strength and function w/ultimate goal to return home reviewed code status, remains FULL code, wants all LST at this time, Gato CORRALES spent 12m w/AcP Subjective Subjective Interval history since last seen: Karina remains hospital 2/2 R humerus and R hip fracture post fall on 10/01 and post PTHA on 10/02 initially post op did have O2 requirement and needed blood transfusion; she is now off O2 and doing better. was able to ind get up out of bed w/only stand by assist today; she has been active in care Pain: no hip pain, has been feeling well; RUE shoulder pain has been more bothersome; does go down to 2/10 which is what it is currently at, does go up in waves higher. has not been doing much movement with this yet. feels like her medical cannabis gummies would be more appropriate for pain vs ongoing hydromorphone or other opioids. she is open to trying Salonpas or other non- opioid topical treatments feels ready to move bowels now is sad w/current plan to re-home her cat, which son feels was a tripping hazard and may have contributed to fall, she does not feel this occured. plan to be discharged to H/R today. She is motivated to continue to improve and return home she remains a full code, wants all LST at this time - she is aware this is going to take some time to recover - history of previous H/R stay and other SNFs, she feels she knows what she is getting into Exam Narrative Exam Narrative: General: 74 y/o F lying in hospital room; grimace/wince x1 during visit HEENT: normocephalic, atraumatic, hearing grossly WNL, MMM, tolerates PO meds pudding and liquids w/no observed issues; Resp: resp even and unlabored, to speak appropriately covering trach tube; on RA; no cough or audible wheeze Ext: RUE in sling, ~2+ edema noted in hand Psych: thought process WNL; judgment/insight fair to normal; pleasant, cooperative Objective Last Vital Signs Temp 98.1 F 10/10/24 07:27 Pulse 71 10/10/24 07:27 Resp 12 10/10/24 07:27 BP 130/66 10/10/24 07:27 Pulse Ox 99 10/10/24 07:27
--- NOTE | 2024-10-10 09:58 | PDOC.CMDIS ---
Date of service: 10/10/24 Time of Service: 09:59 LACE Index Scoring Tool Questions: Length of Stay (in days): 7 - 13 Was the patient admitted via the E.D.?: Yes Comorbidities: Liver or Renal Disease E.D. Visits: 1 Answers: Total Score: 14 Risk of Readmission: High Risk Care Management Discharge Plan Reason for Hospitalization: Clo9se right humerus and right subcapital hip fracture Discharge Plan: Karina will be discharged to [facility] for physical therapy today; per their facility, they have ordered the trach supplies and accepting her as a patient today. She will follow up with facility provider, surgical team and continue per her plan of care. Karina will be transported via [facility] as coordinated by CM. Karina would benefit from new home health services, after being discharged from [facility]. Patient/Family Education Needs: Review discharge instructions, activity, limitations and plan of care. Discuss Ask Me Three. SDOH Health Related Social Needs: Health related social needs problems with daily activities (Z73.9) Health related social needs details patient non verbal with right humerus fx, pt reports being unable to right with left Health related social needs details: patient non verbal with right humerus fx, pt reports being unable to right with left
[2024-10-10] MEDS: traMADol 50 MG TAB PO (10:57)
--- NOTE | 2024-10-10 11:39 | NUR.NOTE ---
Nursing Note:Report given to Roverto receiving nurse at [facility].
--- NOTE | 2024-10-10 11:49 | PT.INTREAT ---
PT Notes Visit Reasons: Close right humerus and right subcapital hip fract Inpatient Physical Therapy Treatment Note [facility] Date: 10/10/2024 As of 10/04/[address] Rushing: She may use the hand for stabilization and support for mobilization. Minimal weight bearing as needed for support. Sling for comfort but it may be removed as desired, supporting the arm with pillows for comfort. OK to use platform walker. Gentle passive ROM as tolerated. AROM of shoulder to begin at 6 weeks. As of 10/02/[address] Rushing: WBAT on the R LE with AD. Sling treatment on R UE. May use platform walker for support of R UE to minimize weight bearing through R shoulder during transfers. 10/04/2024 SHOULDER X-RAY IMPRESSION: Stable alignment of the humeral head fracture SUBJECTIVE: Pt reports she is going to rehab today OBJECTIVE: Pt presented seated in chair no longer requiring supplemental oxygen? Therapeutic Activities (28053v[1]): Direct one-on-one instruction in dynamic activities to improve functional performance. ? BED MOBILITY/TRANSFERS? Sit-stand: SBA x 2trials from chair bed and w/c ? Stand-sit: SBA x2? chair to w/c : CGAx1 with HW? Provided skilled cues and instruction on performance and technique throughout. -Facilitated safe and correct performance of level surface ambulation covering a distance of 25 feet using use hemiwalker sling with swathe to RUE with SBA and wheelchair follow for safety. increased pain in RUE. Denied headache, chest pain, and lightheadedness throughout activity. Minimal verbal cueing provided for AD management, directional changes, and posture.? ASSESSMENT:?Pt remains limited by pain in RUE. Once arm is positioned in sling with swathe strap around waist pt able to ambulate with HW with SBA. Pt is able to assist with sling application by holding her RUE while sling placed. PLAN: Pt d/c to SNF TREATMENT CODE/TIME: 11681/8275-7099 DISCHARGE RECOMMENDATION: SNF
== END 2024-10-10 11:17 | disposition skilled nursing facility (03) | DRG 521 ==
LOC: ER 20:14 → MS 21:56
PROVIDERS: Nurse Practitioner Acute Care; Nurse Practitioner Family; Student in an Organized Health Care Education/Training Program; Admitting Provider Family Medicine; Emergency Provider Emergency Medicine; PCP Nurse Practitioner Adult Health; Responsible Provider Nurse Practitioner Acute Care; Visit Provider Family Medicine
PROC: 0SR904A Replacement of Right Hip Joint with Ceramic on Polyethylene Synthetic Substitute, Uncemented, Open Approach (ICD-10-PCS; CPT 27130; principal; 2024-10-02 15:45)
DX: S72.001A Fracture of unspecified part of neck of right femur, initial encounter for closed fracture (principal); I77.71 Dissection of carotid artery; J96.01 Acute respiratory failure with hypoxia; S42.291A Other displaced fracture of upper end of right humerus, initial encounter for closed fracture; N18.31 Chronic kidney disease, stage 3a; I12.9 Hypertensive chronic kidney disease with stage 1 through stage 4 chronic kidney disease, or unspecified chronic kidney disease; D64.9 Anemia, unspecified; F33.41 Major depressive disorder, recurrent, in partial remission; Z95.4 Presence of other heart-valve replacement; E11.22 Type 2 diabetes mellitus with diabetic chronic kidney disease; E11.3313 Type 2 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, bilateral; E89.0 Postprocedural hypothyroidism; K59.09 Other constipation; M79.7 Fibromyalgia; F41.9 Anxiety disorder, unspecified; M48.061 Spinal stenosis, lumbar region without neurogenic claudication; M54.41 Lumbago with sciatica, right side; E78.2 Mixed hyperlipidemia; I45.10 Unspecified right bundle-branch block; R00.1 Bradycardia, unspecified; R91.8 Other nonspecific abnormal finding of lung field; I25.10 Atherosclerotic heart disease of native coronary artery without angina pectoris; E78.5 Hyperlipidemia, unspecified; I67.9 Cerebrovascular disease, unspecified; K22.2 Esophageal obstruction; H40.1130 Primary open-angle glaucoma, bilateral, stage unspecified; G47.00 Insomnia, unspecified; W01.0XXA Fall on same level from slipping, tripping and stumbling without subsequent striking against object, initial encounter; K21.9 Gastro-esophageal reflux disease without esophagitis; Z86.73 Personal history of transient ischemic attack (TIA), and cerebral infarction without residual deficits; Z90.02 Acquired absence of larynx; I95.81 Postprocedural hypotension; Z93.0 Tracheostomy status; Z95.1 Presence of aortocoronary bypass graft; Z85.21 Personal history of malignant neoplasm of larynx; Z79.4 Long term (current) use of insulin; Z87.891 Personal history of nicotine dependence
CPT/HCPCS: 27130; 20985; 00123; 36410; 36415; 51702; 73552; 80048; 80053; 80307; 82805; 85027; 86850; 86900; 86901; 86920; 87637; 93005; 96361; 96365; 96367; 96375; 96376; 97110; 97162; 97167; 97530; 97535; 99223; 99231; 99232; 99285; 99291; J1650; 36600; 70450; 72125; 73030; 73501; 73502; 81003; 81015; 82728; 83540; 83550; 83735; 83880; 84439; 84443; 84466; 84484; 85014; 85018; 85025; 85610; 85730; 93010; 94760; 99233; 99239; C1776; J0131; J0690; J1171; J1805; J1815; J2371; J2405; J2704; J2765; J3490; P9016; Q0138

== ENCOUNTER 2024-11-02 10:48 | Outpatient (CLI) | payer MEDICARE, MEDICAID, SELFPAY ==
--- NOTE | 2024-11-02 10:28 | DI.RAD_ITS ---
Exam(s) XR SHOULDER RT COMPLETE 2+V EXAM: XR SHOULDER RT COMPLETE 2+V CLINICAL HISTORY: F/U R PROX HUM FX. TECHNIQUE: 2D digital imaging was performed. 4 views. COMPARISON: CR XR SHOULDER RT COMPLETE 2+V from 10/04/2024 FINDINGS: BONES: There is apparent increase in the degree angulation and displacement at the proximal humeral fracture compared with the prior exam. No bony destructive lesion is seen. JOINTS: No dislocation present. Glenohumeral joint space is maintained. SOFT TISSUE: Normal. IMPRESSION: Increase in displacement and angulation of the proximal humeral fracture. DATA REPOSITORY: RADIATION DOSE DELIVERED:
--- NOTE | 2024-11-02 10:28 | DI.RAD_ITS ---
Exam(s) XR HIP RT COMPLETE AP PELVIS EXAM: XR HIP RT COMPLETE AP PELVIS INDICATION: 1ST POST OP S/P R ROSITA. COMPARISON: CR,XR XR HIP LT COMPLETE AP PELVIS from 10/01/2024 XA XR HIP RT IN OR from 10/02/2024 TECHNIQUE: 2D digital imaging was performed. Two views. FINDINGS: There is stable alignment of the right total hip prosthesis. There are no abnormal surrounding bony lucencies. The left hip joint space is maintained. IMPRESSION: DATA REPOSITORY: RADIATION DOSE DELIVERED:
== END 2024-11-02 10:49 | disposition home or self-care (01) ==
LOC: DIORS 10:48
PROVIDERS: PCP Nurse Practitioner Adult Health; Referring Provider Nurse Practitioner Adult Health; Visit Provider Physician Assistant
DX: S42.201A Unspecified fracture of upper end of right humerus, initial encounter for closed fracture (principal); Z96.641 Presence of right artificial hip joint; X58.XXXD Exposure to other specified factors, subsequent encounter
CPT/HCPCS: 99024; 73030; 73502

== ENCOUNTER 2024-11-12 18:54 | Outpatient (REF) | payer MEDICARE, MEDICAID, SELFPAY ==
[2024-11-12 11:38] LABS: Absolute Basophil Count 0.04 10^3/uL (0.0-0.2); Absolute Eosinophil Count 0.15 10^3/uL (0.0-0.7); Absolute Lymphocyte Count 1.09 10^3/uL (1.2-3.4); Absolute Monocyte Count 1.01 10^3/uL (0.1-0.8); Absolute Neutrophil Count 6.07 10^3/uL (1.2-6.7); Basophils % 0.5 %; Eosinophils % 1.8 %; HCT 34.1 % (36.0-46.0); HGB 10.8 g/dL (11.2-15.7); Immature Grans % 1.2 %; Lymphocytes % 12.9 %; MCH 27.5 pg (27.0-33.0); MCHC 31.7 % (32.0-36.0); MCV 87 fL (80-95); MPV 12.3 fL (8.0-11.0); Monocytes % 11.9 %; Neutrophils % 71.7 %; Platelet Count 179 10^3/uL (130-400); RBC 3.93 10^6/uL (3.93-5.22); RDW 19.2 % (11.7-14.6); RDW-SD 62.1 fL; WBC 8.46 10^3/uL (4.4-10.8)
[2024-11-12 11:46] LABS: Anion Gap 10.1 mmol/L (3-11); BUN 14 mg/dL (7-18); CO2 25.9 mmol/L (21.0-32.0); CREATININE 0.8 mg/dL (0.55-1.02); Calcium 9.1 mg/dL (8.5-10.1); Chloride 103 mmol/L (98-107); Estimated GFR 76.31 (mL/min/1.73m2); Glucose 110 mg/dL (74-106); Potassium 4.2 mmol/L (3.5-5.1); Sodium 139 mmol/L (136-145)
== END 2024-11-12 18:55 | disposition home or self-care (01) ==
LOC: LBN 18:54
PROVIDERS: PCP Nurse Practitioner Adult Health; Visit Provider Nurse Practitioner Adult Health
DX: N18.31 Chronic kidney disease, stage 3a (principal)
CPT/HCPCS: 80048; 85025

== ENCOUNTER 2024-12-06 13:45 | Outpatient (CLI) | payer MEDICARE, MEDICAID, SELFPAY ==
--- NOTE | 2024-12-06 13:30 | DI.RAD_ITS ---
Exam(s) XR SHOULDER RT COMP POST REDUC EXAM: XR SHOULDER RT COMP POST REDUC CLINICAL HISTORY: F/U R PROX HUMERUS FX. TECHNIQUE: 2D digital imaging was performed. Three views. COMPARISON: CR,XR XR SHOULDER RT COMPLETE 2+V from 10/01/2024 CR XR SHOULDER RT COMPLETE 2+V from 10/04/2024 CR XR SHOULDER RT COMPLETE 2+V from 11/02/2024 FINDINGS: BONES: Apparent increasing impaction at the humeral head fracture. Significant lucency remains present. No bony destructive lesion is seen. JOINTS: No dislocation present. Spurring at the AC joint. Glenohumeral joint space is maintained. SOFT TISSUE: Normal. IMPRESSION: Increasing impaction at the humeral head fracture. DATA REPOSITORY: RADIATION DOSE DELIVERED:
== END 2024-12-06 13:46 | disposition home or self-care (01) ==
LOC: DIORS 13:59
PROVIDERS: PCP Nurse Practitioner Adult Health; Referring Provider Nurse Practitioner Adult Health; Visit Provider Physician Assistant
DX: S42.201D Unspecified fracture of upper end of right humerus, subsequent encounter for fracture with routine healing (principal); S72.001D Fracture of unspecified part of neck of right femur, subsequent encounter for closed fracture with routine healing; X58.XXXD Exposure to other specified factors, subsequent encounter
CPT/HCPCS: 99213; 73030

== ENCOUNTER 2025-02-07 14:54 | Outpatient (CLI) | payer MEDICARE, MEDICAID, SELFPAY ==
--- NOTE | 2025-02-07 13:30 | DI.RAD_ITS ---
Exam(s) XR SHOULDER RT COMPLETE 2+V EXAM: XR SHOULDER RT COMPLETE 2+V CLINICAL HISTORY: F/U R SHOULDER. TECHNIQUE: 2D digital imaging was performed of the right shoulder. Two images were obtained. Grashey and Y views were obtained. COMPARISON: CR XR SHOULDER RT COMP POST REDUC from 12/06/2024 FINDINGS: BONES: There is stable alignment of the impacted proximal right humeral fracture. The fracture shows evidence of healing in the interim. No new fracture is seen. The bones are osteopenic. No bony destructive lesion is seen. JOINTS: No dislocation present. There are degenerative changes seen at the acromioclavicular and glenohumeral joints. SOFT TISSUE: Normal. IMPRESSION: There is stable alignment of the healing proximal right humeral fracture. DATA REPOSITORY: RADIATION DOSE DELIVERED:
== END 2025-02-07 14:55 | disposition home or self-care (01) ==
LOC: DIORS 14:55
PROVIDERS: PCP Nurse Practitioner Adult Health; Referring Provider Nurse Practitioner Adult Health; Visit Provider Student in an Organized Health Care Education/Training Program
DX: Z47.1 Aftercare following joint replacement surgery (principal); Z96.641 Presence of right artificial hip joint; S42.201D Unspecified fracture of upper end of right humerus, subsequent encounter for fracture with routine healing; X58.XXXD Exposure to other specified factors, subsequent encounter
CPT/HCPCS: 99213; 73030

== ENCOUNTER 2025-03-12 01:06 | Outpatient (CLI) | payer MEDICARE, MEDICAID, SELFPAY ==
[2025-03-12 07:51] LABS: Abs Immature Grans 0.11 10^3/uL (0.0-0.06); HCT 38.4 % (36.0-46.0); HGB 12.2 g/dL (11.2-15.7); Immature Grans % 1.7 %; MCH 27.3 pg (27.0-33.0); MCHC 31.8 % (32.0-36.0); MCV 86 fL (80-95); MPV 12.5 fL (8.0-11.0); Platelet Count 185 10^3/uL (130-400); RBC 4.47 10^6/uL (3.93-5.22); RDW 17.3 % (11.7-14.6); RDW-SD 54.2 fL; WBC 6.61 10^3/uL (4.4-10.8)
[2025-03-12 08:32] LABS: Iron 59 ug/dL (50-170); Total Iron Binding Capacity 273 ug/dL (250-450); Transferrin Sat 22 % (15-50)
[2025-03-12 08:34] LABS: ALT 21 U/L (14-59); AST 20 U/L (15-37); Albumin 3.7 g/dL (3.4-5.0); Alkaline Phosphatase 130 U/L (46-116); Anion Gap 9.8 mmol/L (3-11); BUN 13 mg/dL (7-18); Bilirubin, Total 0.5 mg/dL (0.2-1.0); CO2 26.2 mmol/L (21.0-32.0); Calcium 9.0 mg/dL (8.5-10.1); Chloride 106 mmol/L (98-107); Estimated GFR 46.91 (mL/min/1.73m2); Glucose 110 mg/dL (74-106); Potassium 4.3 mmol/L (3.5-5.1); Sodium 142 mmol/L (136-145); Total Protein 6.5 g/dL (6.4-8.2)
== END 2025-03-12 01:07 | disposition home or self-care (01) ==
LOC: LBO 01:16
PROVIDERS: Emergency Medicine; Absent Provider Nurse Practitioner Adult Health; PCP Nurse Practitioner Adult Health; Referring Provider Nurse Practitioner Adult Health; Visit Provider Nurse Practitioner Adult Health
DX: D64.9 Anemia, unspecified (principal); N18.31 Chronic kidney disease, stage 3a
CPT/HCPCS: 36415; 80053; 83540; 83550; 85025

== ENCOUNTER → 2025-03-21 12:53 | Outpatient (BNVA) | payer MEDICARE, MEDICAID, SELFPAY | PROVIDERS: PCP Nurse Practitioner Adult Health; Referring Provider Nurse Practitioner Adult Health; Visit Provider Student in an Organized Health Care Education/Training Program | DX: M70.61 Trochanteric bursitis, right hip (principal); S72.001A Fracture of unspecified part of neck of right femur, initial encounter for closed fracture; S42.291A Other displaced fracture of upper end of right humerus, initial encounter for closed fracture; W19.XXXA Unspecified fall, initial encounter | CPT/HCPCS: 20610; 20611; J1010 ==

== ENCOUNTER 2025-04-08 03:48 | Outpatient (CLI) | payer MEDICARE, MEDICAID, SELFPAY ==
[2025-04-08 10:22] LABS: HCT 36.8 % (36.0-46.0); HGB 12.3 g/dL (11.2-15.7)
[2025-04-08 11:20] LABS: Uric Acid 3.7 mg/dL (3.1-7.8)
[2025-04-08 11:23] LABS: TSH (W/Ref FT4) 0.04 uIU/mL (0.55-4.78)
[2025-04-08 11:24] LABS: Microalb ug/mg Crea 24.5 ug/mg Cr
[2025-04-08 11:24] LABS: Ferritin 20 ng/mL (7-271)
[2025-04-08 11:53] LABS: Anion Gap 9.9 mmol/L (3-11); BUN 18 mg/dL (9-23); CO2 27.1 mmol/L (20.0-31.0); Calcium 8.9 mg/dL (8.3-10.6); Chloride 109 mmol/L (98-107); Cholesterol 119 mg/dL (<200); Glucose 83 mg/dL (74-106); HDL Cholesterol 49 mg/dL (>40); Potassium 4.4 mmol/L (3.5-5.1); Sodium 146 mmol/L (136-145)
== END 2025-04-08 03:49 | disposition home or self-care (01) ==
LOC: LBO 03:48
PROVIDERS: PCP Nurse Practitioner Adult Health; Referring Provider Nurse Practitioner Adult Health; Visit Provider Nurse Practitioner Adult Health
DX: E11.3313 Type 2 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, bilateral (principal); N18.31 Chronic kidney disease, stage 3a; D64.9 Anemia, unspecified; R79.0 Abnormal level of blood mineral; Z93.0 Tracheostomy status; Z87.39 Personal history of other diseases of the musculoskeletal system and connective tissue; R51.9 Headache, unspecified; G89.29 Other chronic pain; I67.2 Cerebral atherosclerosis; M48.061 Spinal stenosis, lumbar region without neurogenic claudication
CPT/HCPCS: 36415; 80048; 80061; 82043; 82570; 82728; 84439; 84443; 84550; 85014; 85018